=== PATIENT | female | born 1965 | race Caucasian/White ===

== ENCOUNTER → 2017-06-29 12:08 | Outpatient (CLI) | payer OTHER, SELFPAY ==
--- NOTE | 2017-06-29 12:15 | BI_ITS ---
MAMMOGRAPHY - BILATERAL SCREENING REASON FOR EXAM: Female, 52 years old. Routine annual screening examination. PERTINENT HISTORY: Personal history of breast cancer. Prior left lumpectomy with radiation and chemotherapy. Sister with breast cancer. Frontal with breast cancer. TECHNIQUE: Digital bilateral breast danis (3D mammographic acquisition) in the CC and MLO projections. 2-D mediolateral oblique (MLO) and craniocaudad (CC) views of both breasts were obtained. CAD: Full Field Digital Mammography with Computer Added Detection was performed. COMPARISON: Comparison is made with prior examination dated June 23, 2016 and June 21, 2015. FINDINGS: Breast Composition: There are scattered areas of fibroglandular density. There are no dominant masses or suspicious calcifications. Once again, the patient is status post left lumpectomy with resultant architectural distortion in the deep upper outer aspect of the left breast. There is evidence of overlying skin thickening. This is unchanged. Stable appearance of the axillary lymph nodes bilaterally. No other significant abnormalities are identified. There has been no significant change since the prior study. BI/SCREENING MAMM (CAD), BILAT IMPRESSION: Stable bilateral screening mammogram. Yearly follow-up mammogram recommended. (A) ASSESSMENT CATEGORY: BIRADS Category 2: Benign. A letter regarding these results will be sent to the patient by the facility within 30 days. Approximately 10% of breast cancers are not detected by mammography. A normal mammogram should not delay biopsy of a clinically suspicious abnormality. [id number] Electronically Signed: Taco Edge MD at 14:21 EDT Tel [phone], Service support ,
== END ==
PROVIDERS: Family Provider Nurse Practitioner Family; PCP Nurse Practitioner Family; Visit Provider Internal Medicine Hematology & Oncology
DX: Z12.31 Encounter for screening mammogram for malignant neoplasm of breast (principal); Z85.3 Personal history of malignant neoplasm of breast
CPT/HCPCS: 77063; 77067

== ENCOUNTER → 2017-11-24 09:57 | Outpatient (CLI) | payer OTHER, SELFPAY ==
--- NOTE | 2017-11-24 10:00 | CT_ITS ---
STUDY: LOW DOSE CT LUNG CANCER SCREENING REASON FOR EXAM: Female, 52 years old. 39 pack-year history of smoking. History of breast cancer with lumpectomy and radiation and chemotherapy. RADIATION DOSAGE (If Supplied By Facility): CTDIvol = ( 2.01 ) mGy, DLP = ( 65.45 ) mGycm TECHNIQUE: No contrast was administered. Low dose technique was utilized (average mAS-38 and kVp 120). 1.25 mm axial source images with a slice interval of 1.25-mm were reconstructed in lung windows. 2.5 mm axial source images with a slice interval of 2.5-mm were reconstructed in lung windows. 5.0 mm axial source images with a slice interval of 5.0-mm were reconstructed in soft tissue windows. Nodule measured using lung windows on PACS and/or independent workstation with automated measurement of minimum and maximum diameter. Nodule measurement reported as average diameter rounded to the nearest whole number. Growth is defined as an increase ins size of greater than 1.5 mm. COMPARISON: Comparison is made with prior CT scan of the chest dated April 02, 2009. NODULES: There is a 7.6 mm x 5 mm nodule in the anterior aspect of the right upper lobe as seen on axial image #120. This has increased slightly in size as compared to prior examination where it previously measured 6.7 mm. I suspect tiny calcifications along its posterior aspect. Total lung nodules (excluding granulomas): Emphysema: There is evidence of a emphysematous changes in the upper lobes. This is worse on the left side. Multiple subpleural blebs are seen in the anterior aspect of the left upper lobe as well as the lingular segment of the left upper lobe. Stable 4 mm partially calcified nodule in the lateral peripheral aspect of the superior segment of the right lower lobe as seen on axial image #138. The patient has a history of radiation therapy to the left breast. There are increased markings with areas of bronchiectasis in the anterior aspect of the left upper lobe as well as the lingular segment of the left upper lobe suggestive of post radiation pneumonitis and scarring. This has improved slightly as compared to prior study. There now is evidence of a mild degree of groundglass appearance in both upper lobes and lower lobes. This is nonspecific. Aorta: Unremarkable. Coronary arteries: No calcification is seen. Mediastinal nodes: No significant lymph nodes are present. Other chest and abdominal findings: CT/Low Dose CT Lung Screening IMPRESSION: Lung-RADS category 3 - Continue screening with LDCT in 6 months. IMPORTANT NOTES FOR USE: ACR Lung-RADS Version 1.0 Assessment Categories Release Date: July 11, 2013 Category: Coded 0-4 bases on nodule(s) with highest degree of suspicion. Negative screen is defined as categories 1 and 2; a positive screen is defined as categories 3 and 4. Category 3 and 4A nodules that are unchanged on interval CT should be coded as category 2, and individuals returned to screening in 12 months. Category 4X: Category 3 or 4 nodules with additional imaging findings that increase the suspicion of lung cancer, such as spiculation, GGN that doubles in size in 1 year, enlarged lymph notes, etc. Category Modifiers: S (significant finding unrelated to lung cancer) and C (prior history of treated lung cancer) may be added to the 0-4 Lung-RADS Electronically Signed: Taco Edge MD at 14:49 EDT Tel [phone], Service support ,
== END ==
PROVIDERS: Family Provider Family Medicine; PCP Family Medicine; Visit Provider Internal Medicine Hematology & Oncology
DX: F17.200 Nicotine dependence, unspecified, uncomplicated (principal); Z12.2 Encounter for screening for malignant neoplasm of respiratory organs; Z87.891 Personal history of nicotine dependence; C50.912 Malignant neoplasm of unspecified site of left female breast; D69.3 Immune thrombocytopenic purpura
CPT/HCPCS: G0297

== ENCOUNTER 2017-12-28 08:36 | Day surgery (SDC) | payer OTHER, SELFPAY ==
[2017-12-17 12:52] LABS: Hematocrit 43.6 % (37-47); Hemoglobin 15.1 g/dl (12.0-15.0); Mean Corp Hgb Conc 34.6 g/gl (32-36); Mean Corpuscular Hgb 30.6 pg (27.0-32.0); Mean Corpuscular Volume 88.4 fL (81-99); Platelet Count 179 K/mm3 (150-450); RBC Distribution Width CV 14.1 % (11.6-14.6); RBC Distribution Width SD 45.9 fl (35.1-43.9); Red Blood Count 4.93 M/mm3 (4.2-5.4); White Blood Count 10.8 K/mm3 (4.4-11.0)
[2017-12-17 12:54] LABS: Scan Indicated on CBC? Y/N NO
[2017-12-17 13:19] LABS: International Normalized Ratio 0.9; Partial Thromboplast Time 27.3 Seconds (24.1-36.2); Prothrombin Time (Protime)PT. 11.9 SECONDS (11.7-14.9)
[2017-12-17 13:21] LABS: ALB/GLOB Ratio 0.8 RATIO (0.9-2.4); AST(SGOT) 19 U/L (15-37); Alanine Aminotransfer ALT/SGPT 34 U/L (13-56); Albumin, Serum 3.6 g/dL (3.2-5.0); Alkaline Phosphatase 85 U/L (45-117); Anion Gap 7 (5-15); BUN 13 mg/dL (7-18); BUN/Creat Ratio 16.6 RATIO (10-20); Calcium,Total 9.8 mg/dL (8.5-10.1); Chloride 104 mmol/L (98-107); Creatinine, Serum 0.78 mg/dL (0.55-1.02); EST Glomerular Filtration Rate 82 mL/min (>60); Est Glom Filt Rate - Afr Amer 100 mL/min (>60); Globulin 4.6 g/dL (2.2-4.2); Glucose 84 mg/dL (74-106); Potassium 4.2 mmol/L (3.5-5.1); Protein, Total 8.2 g/dL (6.4-8.2); Sodium Level 139 mmol/L (136-145)
--- NOTE | 2017-12-26 10:09 | HP.PCM_ITS ---
History and Physical Date of Admission: 12/28/17 Surgical History and Physical Michelle Cain, a 52 year old female 0 2 6 0 2, presents for D and C and hysteroscopy on December 28, 2017 at 11;30. -- [employer] Bleeding, EM Polyps -- [employer] bleeding and EM polyps noted on u/s. Plan D and C and H/S. Hx if BSO in past as has breast cancer. MEDICATIONS HISTORY: Current medications prescribed by our practice are: 1. Provera 5 mg tablet, One pill by mouth once a day for 12 days every 3 months 2. Vagifem 10 mcg vaginal tablet, 1 tablet per Vagina twice weekly Patient is also takin. cyclobenzaprine 10 mg tablet, One pill by mouth once a day as needed 2. meclizine 25 mg tablet, One pill by mouth four times a day as needed 3. simvastatin 20 mg tablet, daily 4. Celexa 10 mg tablet, One and a half pill by mouth once a day ALLERGIES: PREDNISONE, High dose/rash, Prednisone and Hives and/or rash Infections - chicken pox as a child, frequent yeast infections and staph infection Illnesses - osteoporosis, pulmonary disease, thrombocytopenia, ITP and BREAST CANCER Accidents - no injuries of consequence Hospitalizations - see surgery Review of Systems: GENERAL - Denies fever, or chills SKIN - Denies skin changes EYES - Denies visual changes EARS - Denies difficulty hearing NOSE - Denies nasal congestion or bleeding MOUTH - Denies sore throat or difficulty swallowing NECK - Denies pain or swelling RESPIRATORY - Denies shortness of breath or wheezing CARDIOVASCULAR - Denies palpitations or chest pain GASTROINTESTINAL - Denies nausea, vomiting, diarrhea, constipation GENITOURINARY - Denies dysuria, frequency of urination, incontinence of urine MUSCULOSKELETAL - Denies joint or muscle pain NEUROLOGICAL - Denies localized numbness or weakness PSYCHIATRIC - Denies depression or anxiety ENDOCRINE - Denies heat or cold intolerance, weight loss or gain HEMATO-IMMUNOLOGIC - Denies excesive bleeding with cuts SOCIAL HISTORY: Alcohol Use - denies drinking Smoking - 1 PPD ( ATQ) Diet - no particular diet Lifestyle - Exercise - walking Seat Belt Use - most of the time Employer - [employer] Illicit Drug Use - denies use of street drugs Sexual Activity - single sexual partner and Residence - lives with Spouse-Sig Other Name - Baltazar Spouse-Sig Other Occupation - [employer] in [employer] Children Name(s) - Joseph(biological), Romel(adopted), Leonard(adopted), Zabrina(adopted), Anna gordon(biological) Control - no ovaries FAMILY HISTORY: Mother: NIDDM, throat cancer and Heart Disease. Father: [place] , throat cancer and lung cancer and ? liver c. Brother: diceased, gum cancer, prostate, colon cancer and Lung cancer. Sister: breast cancer, cancer through out body, heart attack , x 2 with NIDDM and DM II. MENSTRUAL HISTORY: LMP Known?- Postmenopausal, Prior Menses - 10/18/2004, LMP - 01/14/09, Age Onset Menarche - 13 PAST PREGNANCIES: Total Pregnancies - 8; Full Term Pregnancies - 0; Premature - 2; Abortions, Induced - 0; Abortions, Spontaneous - 6; Ectopics - 0; Multiple Births - 0; Living Children - 2 SURGICAL HISTORY: 1. 10/06/1987 ; Dr Kameron Gonzalez - Failure to progress 2. , 2006 ; - 3. breast bx, breast, 2007 ; - 4. lymph nodes removed left side 2007 ; - 5. lumps removed from forehead and forearm 11/2010 ; - 6. lumps removed from forehead and forearm 11/2010 ; - 7. BSO ; - PHYSICAL EXAM BP- 144/72 Sitting, Right arm, regular cuff Weight- 163.40913 lbs Height- 63.5 inch BMI:28.48 CONSTITUTIONAL - NAD, well nourished, and well developed SKIN - No rash, lesions, or ulcers HEENT - Normocephalic, PERRLA, EOMI NECK - No nodes, no nuchal rigidity and thyroid normal size and texture LYMPH NODES - Palpation of lymph nodes in neck and groins within normal limits LUNGS - CTA x2 without wheezes, crackles or rales CARDIAC - Regular rate and rhythm without rubs, murmurs, or gallops BREAST - No dominant masses, no tenderness, no axillary adenopathy, no nipple discharge, no skin changes ABDOMEN - Without hepatosplenomegaly, distention, masses, rebound, or guarding; normal bowel sounds; no hernias EXTREMITIES - No edema or calf tenderness NEUROLOGICAL - Cranial nerves II-XII grossly intact PSYCHIATRIC - A and O to time, place, person, mood and affect External Genitial Vagina - non-tender without lesions and erythematous Urethra/Urethral Meatus - non-tender Bladder - non-tender Vagina - vaginal najera are pink and moist without loss of rugae and no evidence of atropy Cervix - without cervical motion tenderness and has normal size and features without evident lesions Uterus - probable supracervical hysterectomy Adnexa - clear without massess or tenderness ASSESSMENT/PLAN: Postmenopausal Bleeding In pt with no ovaries. Pelvic u/s shows small polyp present. Plan D and C and H/S. Discussed RBAs and all questions answered.
--- NOTE | 2017-12-28 | CER_PTH ---
PATIENT: JANA MCCLAIN LOC: [facility] [place] U#:[id number] AGE/SX: 52/F ROOM: RE12/28/[address]: Dr. Anderson Hare MD : 1965 BED: DIS: 12/28/2017 SPEC #: [id number] RECD: 12/28/17 14:26 STATUS: ROSEY RANJAN #: [id number] LEANNE: 12/28/17 00:[address]: Anderson Hare DEPT: SURGICAL PATHOLOGY RECD BY: Galileo Merino ENTERED: 12/28/17 14:26 SP TYPE: CERV OTHR DR: No Primary Care Phys Tissues: A - Uterine cervix, NOS B - Endometrium, NOS Procedures: Surgery Specimen Level IV HEADER OPERATION: Hysteroscopy, dilation and curettage PRE-OP DIAGNOSIS: Postmenopausal bleeding TISSUE SUBMITTED: A - Endocervical curettings, B - Endometrial curettings MICROSCOPIC DIAGNOSIS A. Endocervix, curettings: Scant strips of benign superficial endocervix. Rare fragments of benign superficial squamous epithelium. B. Endometrium, curettings: Fragments of benign squamous mucosa. Rare strips of benign glandular epithelium. Benign stromal tissue. AM:tiffany 12/29/17 COMMENT Case has been reviewed in consultation with Dr. Jimenez who concurs with the above diagnosis. BAILEY:RODERICK MICROSCOPIC DESCRIPTION Slides are reviewed. GROSS DESCRIPTION A - Received in fixative is one container labeled with the patient's name and designated endocervical curettings. The specimen consists of multiple irregular fragments of kramer mucoid tissue that in aggregate measure 0.5 x 0.5 x 0.1 cm. The specimen is totally submitted in one cassette. B - Received in fixative is one container labeled with the patient's name and designated endometrial curettings. The specimen consists of multiple fragments of pink hemorrhagic soft tissue that in aggregate measure 1.5 x 0.5 x 0.1 cm. The specimen is totally submitted in one cassette. / RODERICK:tiffany 12/28/17 TC:5 CPT: 95994 x2
[2017-12-28 08:58] VITALS: BP 128/71; PULSE 80; RESP 16; TEMP 37.2; O2SAT 93; BMI 31.5
--- NOTE | 2017-12-28 09:45 | PCM.OP.BLANK ---
Operative Report Date of Procedure: 12/28/17 Surgeon: Anderson Hare MD, FACOG Anesthesia: Joseph Wise MD Type of Anesthesia: MAC Pre-Op Diagnosis: Postmenopausal Bleeding Postoperative diagnosis: Postmenopausal Bleeding and Endocervical Polyps Procedure: Diagnostic Hysteroscopy, Fractional Dilation and Curettage Findings: 6 cm atrophic endometrial cavity with no polyps or fibroids visualized. 0.25 x 1 cm posterior endocervical polyp. Approximately 1 cm fibroid noted with endocervical curetting but not visualized. Cervix high in vagina which would make LAVH technically not feasible but RAVH would be technically feasible. Indications: This is a 52 year old patient who has the above diagnosis. The patient has been counseled regarding the risk and indications of this procedure including the possibility of bleeding, infection, and injury to surrounding structures such as bowel bladder. All questions were answered and we consider the patient well-informed. Procedure: The patient was taken to the operating room where after induction of general anesthesia, she was placed in the dorsolithotomy position and prepped and draped in the usual sterile fashion. The bladder was drained of approximately 50 cc of clear yellow urine with a catheter. Anterior cervix was grasped with the tenaculum and dilated to about 4-5 mm. Cervical curettings were obtained. A 3 mm hysteroscope was placed in the uterus of the above findings were noted. Cervix was dilated to about 7-8 mm and uterus was gently curetted removing all contents. Hysteroscope was reinserted and all material was noted to be removed. In the course of the procedure approximately 100 cc of saline distending media was used and virtually all of this was recovered. Patient tolerated procedure well was taken to recovery room in satisfactory condition sponge instrument and needle counts were all reportedly correct. Estimated blood loss for the case was minimal. Specimens to pathology was endometrial and endocervical curettings Complications: None
--- NOTE | 2017-12-28 09:48 | DCINST_ITS ---
Discharge Diet: No Restrictions Discharge Activity: Return to Normal Activity, May Shower, May Take a Tub Bath Call your doctor if you observe: Fever of 101 or Higher, Inability to urinate, Inability to have a bowel movement, Using more than one pad per hour Allergies/Adverse Reactions: Allergies sulfamethoxazole [From Bactrim] Adverse Reaction (Verified 12/21/17 14:18) Unknown does not remember trimethoprim [From Bactrim] Adverse Reaction (Verified 12/21/17 14:18) Unknown does not remember Medications to take at Discharge Citalopram [Celexa] 15 mg PO DAILY 06/12/16 Cyclobenzaprine [Flexeril] 10 mg PO DAILY PRN 06/12/16 Estradiol [Vagifem] 10 mcg VG SUTH 06/12/16 Meclizine HCl 25 mg PO DAILY PRN 06/12/16 Omeprazole [Prilosec] 20 mg PO DAILY 06/12/16 Simvastatin [Zocor] 20 mg PO DAILY 11/05/16 Primary Care Physician: Care Physician,No Primary [Primary Care Provider] - Test Results: Test results from this visit will be discussed in further detail at your follow- up appointment, if applicable. Please Follow Up With: Anderson Hare MD When: 2-3 weeks
[2017-12-28 10:50] VITALS: BP 128/71; BP 88/68; PULSE 72; RESP 16; TEMP 36.3; O2SAT 93
[2017-12-28 10:55] VITALS: BP 100/63; BP 128/71; PULSE 72; RESP 16; O2SAT 94
[2017-12-28 11:00] VITALS: BP 128/71; BP 95/61; PULSE 70; RESP 16; O2SAT 94
[2017-12-28 11:10] VITALS: BP 107/72; BP 128/71; PULSE 71; RESP 16; TEMP 36.2; O2SAT 96
[2017-12-28 11:33] VITALS: BP 128/71
== END 2017-12-28 11:56 | disposition home or self-care (01) ==
LOC: SDC 08:36 → AC 08:37
PROVIDERS: Referring Provider Obstetrics & Gynecology; Visit Provider Obstetrics & Gynecology
PROC: 0UDB8ZZ Extraction of Endometrium, Via Natural or Artificial Opening Endoscopic (ICD-10-PCS; CPT 58558; principal; 2017-12-28 09:50)
DX: N95.0 Postmenopausal bleeding (principal); D69.3 Immune thrombocytopenic purpura; E78.00 Pure hypercholesterolemia, unspecified; F41.9 Anxiety disorder, unspecified; F32.9 Major depressive disorder, single episode, unspecified; F17.200 Nicotine dependence, unspecified, uncomplicated; Z85.3 Personal history of malignant neoplasm of breast; Z79.899 Other long term (current) drug therapy
CPT/HCPCS: 58558; 36415; 80053; 85027; 85610; 85730; 86850; 86900; 88305; J7120; J2405

== ENCOUNTER → 2018-02-22 13:06 | Outpatient (CLI) | payer OTHER, SELFPAY ==
--- NOTE | 2018-02-22 13:09 | CT_ITS ---
STUDY: LOW DOSE CT LUNG CANCER SCREENING REASON FOR EXAM: Female, 52 years old. 30 pack-year smoking history. History of left breast cancer with lumpectomy. RADIATION DOSAGE (If Supplied By Facility): CTDIvol = ( 3.02 ) mGy, DLP = ( 106.08 ) mGycm TECHNIQUE: No contrast was administered. Low dose technique was utilized (average mAS-38 and kVp 120). 1.25 mm axial source images with a slice interval of 1.25-mm were reconstructed in lung windows. 2.5 mm axial source images with a slice interval of 2.5-mm were reconstructed in lung windows. 5.0 mm axial source images with a slice interval of 5.0-mm were reconstructed in soft tissue windows. Nodule measured using lung windows on PACS and/or independent workstation with automated measurement of minimum and maximum diameter. Nodule measurement reported as average diameter rounded to the nearest whole number. Growth is defined as an increase ins size of greater than 1.5 mm. COMPARISON: November 24, 2017. NODULES: Nodule #: 1 Density: Solid Lung location: Right upper lobe: 1.6 cm from pleura Location in series: Series Number: 2 Image: 77 2 x 2 Size - D1 x D2 mm: mm: 2 mm average diameter Margin: Smooth Shape: Round Calcification: Yes Fat: No Temporal comparison: Stable Nodule #: 2 Density: Solid Lung location: Right upper lobe: 0.7 cm from pleura Location in series: Series Number: 2 Image: 129 Size - D1 x D2 mm: 7 x 6 mm: 7 mm average diameter Margin: Smooth Shape: Triangular Calcification: No Fat: No Temporal comparison: Stable Total lung nodules (excluding granulomas): 1 Emphysema: There are diffuse emphysematous changes of the lungs with vague patchy groundglass densities in the upper lobes. Multiple subpleural blebs in the lingula with pleural thickening. Endobronchial lesion: No Aorta: Minimal atherosclerotic changes of the thoracic aorta without aneurysm. Coronary arteries: Normal Heart: Normal Pulmonary artery: Normal Mediastinal nodes: There are multiple subcentimeter mediastinal lymph nodes which appear unchanged. Other chest and abdominal findings: There are degenerative changes of the thoracic spine. CT/Low Dose CT Lung Screening IMPRESSION: 1. Stable findings when compared with study of November 24, 2017. Lung-RADS category 2 - Continue annual screening with LDCT in 12 months. IMPORTANT NOTES FOR USE: ACR Lung-RADS Version 1.0 Assessment Categories Release Date: July 11, 2013 Category: Coded 0-4 bases on nodule(s) with highest degree of suspicion. Negative screen is defined as categories 1 and 2; a positive screen is defined as categories 3 and 4. Category 3 and 4A nodules that are unchanged on interval CT should be coded as category 2, and individuals returned to screening in 12 months. Category 4X: Category 3 or 4 nodules with additional imaging findings that increase the suspicion of lung cancer, such as spiculation, GGN that doubles in size in 1 year, enlarged lymph notes, etc. Category Modifiers: S (significant finding unrelated to lung cancer) and C (prior history of treated lung cancer) may be added to the 0-4 Lung-RADS Electronically Signed: Tom Dahl DO at 20:21 EST Tel [phone], Service support ,
== END ==
PROVIDERS: Family Provider Family Medicine; PCP Family Medicine; Referring Provider Internal Medicine Hematology & Oncology; Visit Provider Internal Medicine Hematology & Oncology
DX: F17.200 Nicotine dependence, unspecified, uncomplicated (principal); C50.912 Malignant neoplasm of unspecified site of left female breast; D69.3 Immune thrombocytopenic purpura; Z12.2 Encounter for screening for malignant neoplasm of respiratory organs
CPT/HCPCS: G0297

== ENCOUNTER → 2018-08-16 | Outpatient (CLI) | payer OTHER, SELFPAY ==
[2018-03-01 13:55] VITALS: BMI 28.2
[2018-08-16 08:33] LABS: Absolute Lymphocyte Count 4.54 X10^3/ul (0.83-4.51); Absolute Neutrophil Count 4.1 X10^3/uL (2.0-7.7); Basophil# 0.02 X10^3/uL; Basophil% 0.2 % (0-1); Eosinophils% 3.1 % (0-5); Hematocrit 43.7 % (37-47); Hemoglobin 14.9 g/dl (12.0-15.0); Lymphocyte # 4.54 X10^3/ul (4.0); Lymphocyte % 46.7 % (19-41); Mean Corp Hgb Conc 34.1 g/gl (32-36); Mean Corpuscular Hgb 30.8 pg (27.0-32.0); Mean Corpuscular Volume 90.3 fL (81-99); Mean Platelet Vol. 11.2 fl (6.2-12.0); Monocyte# 0.76 X10^3/uL; Monocyte% 7.8 % (0-10); Neutrophil # 4.09 X10^3/uL (2.7-7.7); Platelet Count 167 K/mm3 (150-450); RBC Distribution Width CV 13.9 % (11.6-14.6); RBC Distribution Width SD 45.8 fl (35.1-43.9); Red Blood Count 4.84 M/mm3 (4.2-5.4); White Blood Count 9.7 K/mm3 (4.4-11.0)
[2018-08-16 08:53] LABS: POSITIVE COUNT NO; POSITIVE DIFFERENTIAL NO; POSITIVE MORPHOLOGY NO
[2018-08-16 09:10] LABS: ALB/GLOB Ratio 0.8 RATIO (0.9-2.4); AST(SGOT) 20 U/L (15-37); Alanine Aminotransfer ALT/SGPT 38 U/L (13-56); Albumin, Serum 3.3 g/dL (3.2-5.0); Alkaline Phosphatase 82 U/L (45-117); Anion Gap 8 (5-15); BUN 16 mg/dL (7-18); BUN/Creat Ratio 20.5 RATIO (10-20); Chloride 106 mmol/L (98-107); Creatinine, Serum 0.78 mg/dL (0.55-1.02); EST Glomerular Filtration Rate 82 mL/min (>60); Est Glom Filt Rate - Afr Amer 100 mL/min (>60); Globulin 4.3 g/dL (2.2-4.2); Glucose 90 mg/dL (74-106); Potassium 4.1 mmol/L (3.5-5.1); Protein, Total 7.6 g/dL (6.4-8.2); Sodium Level 140 mmol/L (136-145)
--- NOTE | 2018-08-16 12:49 | CT_ITS ---
HISTORY: PT STATED F/U TO LUNG NODULE FINDINGS TECHNIQUE: Helically acquired images were obtained of the chest following the intravenous administration of 100 ml of Isovue 300 Iodinated contrast. as per pulmonary angiogram protocol with 2D MIP reconstructions. A radiation dose optimization technique was used for this scan. COMPARISON: Most recent low dose CT scan of the chest is from February 22, 2018. PET CT is also available from August 06, 2015. FINDINGS: # of images incl. paperwork: 550 Pulmonary hyperexpansion. Paraseptal emphysema. Within the inferior aspect of the right upper lobe, series 1004, image 56, as measured on lung windows, there is a 7 x 8 mm sharply marginated triangular pulmonary nodule. This was present on the PET/CT scan of August 06, 2015 where I measure it at that time at 8 x 8 mm. Is stability in size in over 3 years. Within the right lower lobe, series 1004, image 75, there is another pulmonary nodule. This nodule measures 5 x 6 mm. It may contain a tiny focus of calcification posteriorly. It was also present on the August 06, 2015 PET/CT. It is more conspicuous on today's study due to differences in imaging technique. On that previous study, it measured 4 x 6 mm. Additional comparison is made to February 22, 2018 study. The lesion within the inferior aspect of the right upper lobe and the right lower lobe nodules redemonstrated at size and are without change. The parenchymal destruction extending to the pleura anterior left laterally within the left upper lobe, the paraseptal emphysema, as well as the disease against the left lateral border of the heart in the left upper lobe and then again in the right lung apex are to a similar degree as severities the previous study of the 2017. . No effusions. Within the thoracic spinebony alignment is normal. Vertebral body height is normal. Facets are well aligned. No rib lesions are perceived. Heart is not enlarged. Thoracic aorta elongated with calcific plaque within the region of the aortopulmonary window and more cranially. Some calcific plaque is present at the origin of the left subclavian artery and is contributing to stenosis.. No aneurysms, stenoses, dissections, nor occlusions. Some lymph nodes are present within the mediastinum, perhaps greatest in the aortopulmonary window. Subcarinal lymph node is present as well. This disease was present on the most recent comparison study of February 22, 2018.. No pulmonary emboli are perceived, however, the study is nondiagnostic to exclude pulmonary emboli. The time the contrast bolus is more optimized for the pulmonary veins and the thoracic aorta than it is for the pulmonary arteries. The gallbladder is contracted. The liver is nearly completely imaged and fattily infiltrated. The spleen has been resected. The pancreas is normal. The adrenal glands are not thickened. Visualized portions of the kidneys are without hydronephrosis. The stomach contains some food. CT/Chest WITH Contrast IMPRESSION: No pulmonary embolism, aortic aneurysm, or aortic dissection. Negative predictive it to exclude pulmonary embolism is significantly diminished due to the timing of the contrast bolus which is more optimized for the pulmonary veins in the thoracic aorta than it is the pulmonary arteries. Pulmonary emphysema. Right upper lobe pulmonary nodule. This nodule was not significantly increased in size since the PET/CT of August 06, 2015. Stability of this nodule in over 3 years is consistent with benignity. Additional smaller 5 x 6 mm pulmonary nodule within the posterior inferior aspect of the right lower lobe. This nodule was also present on the PET/CT of August 06, 2015. Stability of the nodule in over 3 years suggests benignity. Individualized dose optimization techniques were used for this CT. at 2324 Reported and signed by: Vladislav Ray MD Electronically Signed: Vladislav Ray MD at 23:23 EDT Tel , Service support ,
== END | disposition home or self-care (01) ==
PROVIDERS: Family Provider Family Medicine; PCP Family Medicine; Referring Provider Internal Medicine Hematology & Oncology; Visit Provider Internal Medicine Hematology & Oncology
DX: R91.8 Other nonspecific abnormal finding of lung field (principal); C50.912 Malignant neoplasm of unspecified site of left female breast
CPT/HCPCS: 36415; 71260; 80053; 85025; Q9967

== ENCOUNTER → 2018-09-08 | Outpatient (CLI) | payer OTHER, SELFPAY ==
[2018-08-23 12:59] VITALS: BMI 27.8
--- NOTE | 2018-09-08 12:04 | BI_ITS ---
MAMMOGRAPHY - BILATERAL SCREENING 3-D TOMOSYNTHESIS REASON FOR EXAM: Female, 53 years old. Bilateral Screening 3-D tomosynthesis PERTINENT HISTORY: History of breast cancer in sister at age 40. History of left lumpectomy with radiation therapy and chemotherapy in 2008. Now taking tamoxifen. TECHNIQUE: 2-D mammograms and 3-D Tomosynthesis of the breast (s) were performed. CAD was performed. COMPARISON: June 29, 2017 FINDINGS: The breast composition is almost entirely fat. Scattered benign calcifications are seen. No dense spiculated masses or suspicious microcalcifications are identified. No architectural distortion is identified. There is no skin thickening or retraction. There has been no significant change since the prior study. BI/SCREEN MAMM (CAD) W/EUGENE BILAT IMPRESSION: No mammographic signs of malignancy. Routine yearly mammograms recommended. ASSESSMENT CATEGORY: BIRADS Category 2: Benign. A letter regarding these results will be sent to the patient by the facility within 30 days. FOLLOW UP RECOMMENDATION: Yearly follow up mammogram recommended. (A) Approximately 10% of breast cancers are not detected by mammography. A normal mammogram should not delay biopsy of a clinically suspicious abnormality. Electronically Signed: Tobias Yap MD at 12:01 EDT , Service support ,
== END | disposition home or self-care (01) ==
LOC: OPBI 12:02
PROVIDERS: Referring Provider Internal Medicine Hematology & Oncology; Visit Provider Internal Medicine Hematology & Oncology
DX: C50.912 Malignant neoplasm of unspecified site of left female breast (principal); Z12.31 Encounter for screening mammogram for malignant neoplasm of breast
CPT/HCPCS: 77063; 77067

== ENCOUNTER → 2018-12-06 | Outpatient (CLI) | payer OTHER, SELFPAY ==
[2018-08-23 12:59] VITALS: BMI 27.8
--- NOTE | 2018-12-06 16:15 | RAD_ITS ---
STUDY: X-RAY - LUMBAR SPINE REASON FOR EXAM: Female, 53 years old. Low back pain and bilateral leg tingling TECHNIQUE: 3 view(s) of the lumbar spine were obtained. COMPARISON: None FINDINGS: Normal lumbar lordosis. There is no substantial scoliosis. There is a normal alignment of the vertebrae. Normal vertebral bodies and endplates. Normal disc space heights. There are expected age-related degenerative changes at the L5-S1. The soft tissue structures are unremarkable. RAD/Lumbar Spine 2 or 3 Views IMPRESSION: Unremarkable age-appropriate x-ray examination of the lumbar spine. Electronically Signed: Tashi Patel, at 18:15 EDT Tel , Service support ,
== END | disposition home or self-care (01) ==
LOC: RAD 16:01
PROVIDERS: Family Provider Family Medicine; PCP Family Medicine; Referring Provider Anesthesiology Pain Medicine; Visit Provider Anesthesiology Pain Medicine
DX: M54.5 Low back pain (principal)
CPT/HCPCS: 72100

== ENCOUNTER → 2019-01-25 | Outpatient (CLI) | payer OTHER, SELFPAY ==
[2018-08-23 12:59] VITALS: BMI 27.8
--- NOTE | 2019-01-25 15:42 | MRI_ITS ---
STUDY: MRI LUMBAR SPINE WITHOUT CONTRAST REASON FOR EXAM: Female, 53 years old. Back pain TECHNIQUE: Standardized fat and water weighted pulse sequences were obtained in the sagittal and axial planes. COMPARISON: None FINDINGS: T12-L1: Normal endplates. Normal disc height, hydration and morphology. Normal bilateral facet joints. Normal central canal and bilateral lateral recesses. Normal bilateral intervertebral neural foramina. Normal lumbar lordosis. There is no substantial scoliosis. Normal conus medullaris that terminates at the L1 level. L1-2: Normal endplates. Normal disc height, hydration and morphology. Normal bilateral facet joints. Normal central canal and bilateral lateral recesses. Normal bilateral intervertebral neural foramina. L2-3: Normal endplates. Normal disc height, hydration and morphology. Normal bilateral facet joints. Normal central canal and bilateral lateral recesses. Normal bilateral intervertebral neural foramina. L3-4: Bulging annulus and bilateral facet hypertrophy with mild central canal stenosis. L4-5: Bulging annulus and bilateral facet hypertrophy with mild central canal stenosis. L5-S1: Bulging annulus without compressive sequelae. Normal visualized sacral ala. Normal visualized paraspinous soft tissue structures. MRI/Spine Lumbar (Routine) IMPRESSION: Multilevel degenerative disease as described. No evidence of nerve root impingement. Electronically Signed: Evangelista Vargas MD at 17:32 EST Tel , Service support ,
== END | disposition home or self-care (01) ==
LOC: MRI 15:33
PROVIDERS: Family Provider Family Medicine; PCP Family Medicine; Referring Provider Anesthesiology Pain Medicine; Visit Provider Anesthesiology Pain Medicine
DX: M54.9 Dorsalgia, unspecified (principal); M79.606 Pain in leg, unspecified
CPT/HCPCS: 72148

== ENCOUNTER → 2019-05-25 16:54 | Outpatient (CLI) | payer OTHER, SELFPAY ==
[2018-08-23 12:59] VITALS: BMI 27.8
--- NOTE | 2019-05-25 16:59 | RAD_ITS ---
STUDY: X-RAY - LUMBAR SPINE REASON FOR EXAM: Female, 54 years old. NO KNOWN RECENT INJURY. PAIN IN LOWER BACK DOWN LEGS WITH TINGLING AND NUMBNESS. HAS HAD PAIN FOR AWHILE NOW JUST GETTING WORSE. TECHNIQUE: 3 view(s) of the lumbar spine were obtained. COMPARISON: 25 January 2019 FINDINGS: Normal lumbar lordosis. There is no substantial scoliosis. There is a normal alignment of the vertebrae. Normal vertebral bodies and endplates. Normal disc space heights. The soft tissue structures are unremarkable. RAD/Lumbar Spine 2 or 3 Views IMPRESSION: Normal x-ray examination of the lumbar spine. Electronically Signed: Tashi Patel, at 17:46 EDT Tel , Service support ,
--- NOTE | 2019-05-25 17:00 | RAD_ITS ---
STUDY: X-RAY - CERVICAL SPINE REASON FOR EXAM: Female, 54 years old. PAIN IN NECK FOR SOMETIME NOW GETTING WORSE. NO KNOWN INJURY. TECHNIQUE: 3 view(s) of the cervical spine were obtained. COMPARISON: None FINDINGS: Normal anterior atlantoaxial articulation. Normal odontoid process. There are minor age related changes. Normal cervical lordosis. Normal vertebral bodies and endplates. Normal disc space heights. Normal visualized intervertebral neuroforamina. The soft tissue structures are unremarkable. RAD/Cerv Spine 2 or 3 Views IMPRESSION: Unremarkable for age x-ray examination of the visualized cervical spine. Electronically Signed: Tashi Patel, at 17:36 EDT Tel , Service support ,
== END ==
PROVIDERS: PCP Family Medicine; Referring Provider Anesthesiology Pain Medicine; Visit Provider Anesthesiology Pain Medicine
DX: M54.9 Dorsalgia, unspecified (principal)
CPT/HCPCS: 72040; 72100

== ENCOUNTER → 2019-11-22 12:51 | Outpatient (CLI) | payer OTHER, SELFPAY ==
[2018-08-23 12:59] VITALS: BMI 27.8
--- NOTE | 2019-11-22 12:54 | BI_ITS ---
MAMMOGRAPHY - BILATERAL SCREENING REASON FOR EXAM: Female, 54 years old. Routine annual screening examination. PERTINENT HISTORY: Personal history of breast cancer. Prior left lumpectomy with radiation and chemotherapy. Sister with breast cancer. Father with breast cancer. TECHNIQUE: Digital bilateral breast eugene (3D mammographic acquisition) in the CC and MLO projections. 2-D mediolateral oblique (MLO) and craniocaudad (CC) views of both breasts were obtained. CAD: Full Field Digital Mammography with Computer Added Detection was performed. COMPARISON: Comparison is made with prior study dated 09/08/2018 and 06/29/2017. FINDINGS: Breast Composition: The breasts are heterogeneously dense, which may obscure small masses. There are no dominant masses or suspicious calcifications. Stable postoperative changes in the deep axillary region of the left breast. Stable benign appearing bilateral axillary lymph nodes. No other significant abnormalities are identified. There has been no significant change since the prior study. BI/SCREEN MAMM (CAD) W/EUGENE BILAT IMPRESSION: Stable bilateral screening mammogram. Yearly follow-up mammogram recommended. (A) ASSESSMENT CATEGORY: BIRADS Category 2: Benign. A letter regarding these results will be sent to the patient by the facility within 30 days. Approximately 10% of breast cancers are not detected by mammography. A normal mammogram should not delay biopsy of a clinically suspicious abnormality. [id number] Electronically Signed: [employer], at 8:17 EDT , Service support ,
[2019-11-22 13:47] LABS: Absolute Lymphocyte Count 5.04 X10^3/uL (0.83-4.51); Absolute Neutrophil Count 4.4 X10^3/uL (2.0-7.7); Basophil# 0.04 X10^3/uL; Basophil% 0.4 % (0-1); Eosinophil# 0.29 X10^3/uL; Eosinophils% 2.7 % (0-5); Hematocrit 43.7 % (37-47); Hemoglobin 14.3 g/dL (12.0-15.0); Lymphocyte # 5.04 X10^3/ul (4.0); Lymphocyte % 47.7 % (19-41); Mean Corp Hgb Conc 32.7 g/dL (32-36); Mean Corpuscular Hgb 30.6 pg (27.0-32.0); Mean Corpuscular Volume 93.4 fL (81-99); Mean Platelet Vol. 11.1 fl (6.2-12.0); Monocyte# 0.74 X10^3/uL; NRBC Flagged by Analyzer 0 % (0-5); Neutrophil % 41.7 % (47-70); POSITIVE DIFFERENTIAL YES; Platelet Count 193 K/mm3 (150-450); RBC Distribution Width CV 13.8 % (11.6-14.6); RBC Distribution Width SD 46.9 fl (35.1-43.9); Red Blood Count 4.68 M/mm3 (4.2-5.4); White Blood Count 10.6 K/mm3 (4.4-11.0)
[2019-11-22 14:03] LABS: Differential Indicated SCAN CRITERIA MET
[2019-11-22 20:58] LABS: Xtra Tube EP Lab EXTRA TUBE
== END ==
PROVIDERS: PCP Family Medicine; Referring Provider Internal Medicine Hematology & Oncology; Visit Provider Internal Medicine Hematology & Oncology
DX: Z12.31 Encounter for screening mammogram for malignant neoplasm of breast (principal); C50.912 Malignant neoplasm of unspecified site of left female breast; R91.8 Other nonspecific abnormal finding of lung field
CPT/HCPCS: 36415; 77063; 77067; 85025

== ENCOUNTER 2020-01-06 08:04 | Day surgery (SDC) | payer OTHER, SELFPAY ==
[2019-12-14 09:35] VITALS: BMI 27.8
[2020-01-06] VITALS (7 sets, daily range): BP systolic 74–100; BP diastolic 47–63; PULSE 77–87; RESP 16–24; TEMP 36.2–36.6; O2SAT 93–95; BMI 29.7
--- NOTE | 2020-01-06 | GASB_PTH ---
PATIENT: JANA MCCLAIN LOC: EN U#:[id number] AGE/SX: 54/F ROOM: RE01/06/[address]: Dr. Puma Lentz MD : 1965 BED: DIS: 01/06/2020 SPEC #: [id number] RECD: 01/06/20 11:41 STATUS: ROSEY RANJAN #: [id number] LEANNE: 01/06/20 00:[address]: Puma Lentz DEPT: SURGICAL PATHOLOGY RECD BY: Galileo Merino ENTERED: 01/06/20 11:41 SP TYPE: Gastric Bx OTHR DR: No Primary Care Phys Tissues: Gastric mucous membrane Procedures: Surgery Specimen Level IV HEADER OPERATION: [place] [place]OP DIAGNOSIS: GERD, colon polyps TISSUE SUBMITTED: Antral biopsy for H. pylori and pathology MICROSCOPIC DIAGNOSIS Gastric antrum, biopsy: Chronic gastritis, mild to moderate. See comment. AM:tiffany 01/09/20 COMMENT The results of immunohistochemistry for Helicobacter pylori will be reported separately ([id number]). MICROSCOPIC DESCRIPTION Slides are reviewed. GROSS DESCRIPTION Received in fixative is one container labeled with the patient's name and designated antral biopsy. The specimen consists of multiple irregular fragments of light kramer soft tissue that in aggregate measure 0.6 x 0.2 x 0.1 cm. The specimen is totally submitted in one cassette. / SJ:rg 01/06/20 TC:3 CPT: 55853
--- NOTE | 2020-01-06 08:23 | HP_ITS ---
Intake Vital Signs 12/14/19 Height 5 ft 5 in 12/14/19 Weight: 158 lb 12/14/19 BMI 26.2 12/14/19 BP 135/77 H 12/14/19 Blood Pressure Location Rt brachial 12/14/19 Position Sitting 12/14/19 Respiration 18 Intake Visit Reasons: CSCOPE/ ABDOMINAL PAIN Chief Complaint: scopes Silk Weaver Required: No Is patient in pain?: No Allergies prednisone Adverse Reaction (Severe, Verified 12/14/19 09:33) Hives sulfamethoxazole [From Bactrim] Adverse Reaction (Mild, Verified 12/14/19 09:33) Unknown trimethoprim [From Bactrim] Adverse Reaction (Mild, Verified 12/14/19 09:33) Unknown Medications Citalopram [Celexa] 15 mg PO DAILY 06/12/16 [History Confirmed 12/14/19] Estradiol [Vagifem] 10 mcg VG SUTH 06/12/16 [History Confirmed 12/14/19] Meclizine HCl 25 mg PO DAILY PRN 06/12/16 [History Confirmed 12/14/19] Omeprazole [Prilosec] 20 mg PO DAILY 06/12/16 [History Confirmed 12/14/19] cycloBENZAPRine HCl [Flexeril] 10 mg PO DAILY PRN 06/12/16 [History Confirmed 12/14/19] Simvastatin [Zocor] 20 mg PO DAILY 11/05/16 [History Confirmed 12/14/19] Meloxicam [Mobic] 15 mg PO DAILY 11/24/19 [History Confirmed 12/14/19] PFSH Medical History Anxiety and depression (Acute) Borderline diabetes (Acute) High cholesterol (Acute) Syncope (Acute) Surgical History History of dilation and curettage (Acute) History of hysterectomy (Acute) History of lumpectomy of left breast (Acute) History of splenectomy (Acute) Previous section (Acute) Family History Mother Diabetes Hypertension Father Lung cancer Hypertension Social History (Updated 12/15/19 @ 13:[address] Puma Lentz MD) Smoking Status: Current every day smoker HPI HPI HPI: JANA SARAHI, is a 54 F who presents to the office today for HPI HPI Surgical H&P: Yes HPI: JANA MCCLAIN, is a 54 F who presents to the office today for EGD and colonoscopy evaluation. Patient reports she is had longstanding GERD and no history of EGD. Patient also notes that she had a colonoscopy with a history of polyp. I obtained her records and her last colonoscopy was in 2012 a tubular adenoma was identified. Patient intermittently has abdominal pain with no nausea vomiting or diarrhea or blood in her stool. ROS General General: Yes breast cancer; no weight change, appetite, fatigue, colon cancer or weakness HEENT HEENT: Yes swollen glands; no difficulty swallowing, eye injury, eye surgery or hoarseness Endo Endocrine: No thyroid disease, diabetes mellitus, thyroid cancer, Hair loss, heat intolerance or cold intolerance Skin Skin: No rash or changing moles Breast Breast: No left breast lump, right breast lump, nipple discharge, breast pain, abnormal mammogram, abnormal US or breast enlargement Musc Musculoskeletal: Yes back problems and arthritis; no rheumatoid arthritis, gout or joint pain Cardio Cardiovascular: No murmur, pacemaker, heart disease, atrial fibrillation, high blood pressure, heart attack, heart stent, palpitations, shortness of breat with exertion or chest pain Psych Psychiatric: Yes depression and anxiety; no hearing voices Resp Respiratory: Yes shortness of breath, No sleep apnea, No cough, No COPD, No asthma, No emphysema, No wheezing Gastro Gastrointestinal: Yes abdominal pain, No nausea or vomiting, No diarrhea, No constipation, No blood in stool, No acid reflux, No hemorrhoids, No ulcers, No gallbladder problem, No black,tarry stools Koffi Hematologic: No blood thinners, Yes blood disorders, Yes bleeding, No anemia, No blood clots Neuro Neurologic: No system reviewed and no additional complaints, except as docu, No as per HPI, No abnormal walking, No abnormal hearing, No abnormal movements, No abnormal speech, No behavioral changes, No burning sensations, No confusion, No seizure-like activity, No unsteadiness, No dizziness, No localized weakness, No frequent falls, No headache(s), No lack of coordination, No loss of vision, No memory loss, Yes numbness, No other visual disturbances, No radiating pain, No restless legs, No sensory deficit, No fainting, Yes tingling, No tremor(s), No weakness, No other Exam Const General: cooperative Orientation: alert, oriented x3 Chest Breast Palpation: No nipple discharge Resp Effort & Inspection: normal respiratory effort Auscultation: clear to auscultation bilaterally Cardio Rate: regular rate Rhythm: regular rhythm Heart Sounds: no murmurs GI Inspection: non-distended Palpation: soft, nontender Assessment & Plan Problems 1. Gastroesophageal reflux disease, unspecified whether esophagitis present K21.9 2. History of colon polyps Z86.010 Plan Patient needs colonoscopy as her last colonoscopy was 7 years ago when she did have a tubular adenoma. She is 2 years overdue. She is not having any blood in her stool or abdominal pain. She does have longstanding GERD and has never had an EGD so I did recommend performing EGD at the same time of surgery to ensure that she does not have Gatica's esophagus. I explained endoscopy in detail to the patient. I explained the risks including but not limited to stroke or heart attack with anesthesia, perforation of the GI tract, bleeding, infection. I explained that any of these could necessitate further emergency surgery. The patient understands and all questions were answered sufficiently. The patient wishes to proceed with procedure. We discussed the current risks associated with COVID-19. While it is understood that there is a community spread of COVID-19, the risk of cira COVID-19 while at [facility] ([facility]) is very low; however, the risk cannot be completely mitigated because of the community spread of the disease. We discussed in detail the risk of exposure to and/or potential harm posed by the COVID-19 virus with having a surgery/procedure at this time versus the risk of delaying the surgery/procedure. It is not possible to know either the risk of delaying the surgery or procedure or chance of getting an infection with perfect accuracy, but a joint decision was made to proceed at this time with the scheduled surgery/procedure as indicated on the consent form. Patient was notified that we will need to comply with any screening or testing [facility] wishes to perform or that surgery may be delayed for any positive results. Puma Lentz MD Pager: [facility] [address] [place] [address], [address] [place] [address] Office: Orders Orders: Colonoscopy Today Z86.010 EGD Today K21.9 Coding Level of Care Code Off vis,new,level 3 Diagnoses Gastroesophageal reflux disease, unspecified whether esophagitis present K21.9 ??Esophagitis presence: esophagitis presence not specified History of colon polyps Z86.010 I have re-examined the patient. There are no clinical changes since date of exam.
[2020-01-06] MEDS: Lactated Ringers 1,000 ML 100 ML IV (08:34)
--- NOTE | 2020-01-06 09:15 | IMM_PTH ---
PATIENT: JANA MCCLAIN LOC: EN U#:[id number] AGE/SX: 54/F ROOM: RE01/06/[address]: Dr. Puma Lentz MD : 1965 BED: DIS: 01/06/2020 SPEC #: [id number] RECD: 01/06/20 13:40 STATUS: ROSEY REMartina #: [id number] LEANNE: 01/06/20 09:[address]: Puma Lentz DEPT: IMMUNOHISTOCHEMISTRY RECD BY: Simin Yost ENTERED: 01/06/20 13:40 SP TYPE: IMMUNO OTHR DR: No Primary Care Phys Tissues: Stomach, NOS Procedures: H Pylori (initial) PHYSICIAN & INSTITUTION [place] [id number] SPECIMEN INFORMATION: Tissue Source: Antral biopsy Clinical Info: GERD, colon polyps Specimen Number: [id number] CPT code: 07173 METHODOLOGY: Deparaffinized sections of prefer/formalin-fixed tissue or PAP/DQ stained slides are incubated with monoclonal/polyclonal antibodies/oligonucleotide probes. Localization is made via biotin free immunoperoxidase method. Appropriate controls are performed and reacted as expected. Results on target cell population are indicated in the following table: RESULTS: ANTIBODY / CLONE RESULT H Pylori (polyclonal) negative These tests were developed and their performance characteristics determined by [facility]. They may not have been cleared or approved by the U.S. Food and Drug Administration. The FDA has determined that such clearance or approval is not necessary. INTERPRETATION: Antral biopsy: Negative for Helicobacter pylori organisms. AM:tiffany 01/09/20
--- NOTE | 2020-01-06 09:36 | OP.EGD_ITS ---
Patient Name: Michelle Cain Procedure Date: 01/06/2020 9:06 AM Date of : 1965 Age: 54 Procedure: Upper GI endoscopy Indications: Suspected gastro-esophageal reflux disease Providers: Puma Lentz MD Referring MD: No Primary Care Physician Medicines: Monitored Anesthesia Care Patient Profile: This is a 54 year old female. Refer to note in patient chart for documentation of history and physical. Complications: No immediate complications. Estimated blood loss: Minimal. Procedure: Pre-Anesthesia Assessment: - Prior to the procedure, a History and Physical was performed, and patient medications and allergies were reviewed. The patient's tolerance of previous anesthesia was also reviewed. The risks and benefits of the procedure and the sedation options and risks were discussed with the patient. All questions were answered, and informed consent was obtained. Prior Anticoagulants: The patient has taken no previous anticoagulant or antiplatelet agents. After reviewing the risks and benefits, the patient was deemed in satisfactory condition to undergo the procedure. After obtaining informed consent, the endoscope was passed under direct vision. Throughout the procedure, the patient's blood pressure, pulse, and oxygen saturations were monitored continuously. The gastroscope was introduced through the mouth, and advanced to the third part of duodenum. The upper GI endoscopy was accomplished without difficulty. The patient tolerated the procedure well. Scope In: 9:13:51 AM Scope Out: 9:17:23 AM Total Procedure Duration Time 0 hours 3 minutes 32 seconds Findings: The esophagus was normal. One non-bleeding cratered gastric ulcer with no stigmata of bleeding was found at the pylorus. Biopsies were taken with a cold forceps for Helicobacter pylori testing. Diffuse mild inflammation was found in the first portion of the duodenum. Impression: - Normal esophagus. - Non-bleeding gastric ulcer with no stigmata of bleeding. Biopsied. - Duodenitis. Recommendation: - Await pathology results. - Discharge patient to home. - Resume previous diet. - Continue present medications. Procedure Code(s): --- Professional --- 45781, Esophagogastroduodenoscopy, flexible, transoral; with biopsy, single or multiple Diagnosis Code(s): --- Professional --- K25.9, Gastric ulcer, unspecified as acute or chronic, without hemorrhage or perforation K29.80, Duodenitis without bleeding CPT copyright 2017 [employer]. All rights reserved. The codes documented in this report are preliminary and upon sailor review may be revised to meet current compliance requirements. Puma Lentz MD 01/06/2020 9:36:38 AM This report has been signed electronically. Number of Addenda: 0 Note Initiated On: 01/06/2020 9:06 AM
--- NOTE | 2020-01-06 09:37 | OP.CCLET_ITS ---
01/06/2020 No Primary Care Physician Re : Upper GI endoscopy procedure for Michelle Cain Dear Care Physician This procedure was performed on Monday, January 06, 2020. My impressions and recommendations are as follows: Impressions : - Normal esophagus. - Non-bleeding gastric ulcer with no stigmata of bleeding. Biopsied. - Duodenitis. Recommendations : - Await pathology results. - Discharge patient to home. - Resume previous diet. - Continue present medications. My findings are described in the full procedure note, which is enclosed. If I can be of further assistance, please feel free to contact me at Doctor phone number(s): , Work: . Sincerely, Puma Lentz MD 01/06/2020 9:36:38 AM This report has been signed electronically.
--- NOTE | 2020-01-06 09:38 | OP.CCLET_ITS ---
01/06/2020 No Primary Care Physician Re : Colonoscopy procedure for Michelle Cain Dear Care Physician This procedure was performed on Monday, January 06, 2020. My impressions and recommendations are as follows: Impressions : - The entire examined colon is normal on direct and retroflexion views. - No specimens collected. Recommendations : - Discharge patient to home. - Resume previous diet. - Continue present medications. - Repeat colonoscopy in 10 years for screening purposes. My findings are described in the full procedure note, which is enclosed. If I can be of further assistance, please feel free to contact me at Doctor phone number(s): , Work: . Sincerely, Puma Lentz MD 01/06/2020 9:38:10 AM This report has been signed electronically.
--- NOTE | 2020-01-06 09:38 | OP.COLON_ITS ---
Patient Name: Michelle Cain Procedure Date: 01/06/2020 9:17 AM Date of : 1965 Age: 54 Procedure: Colonoscopy Indications: Surveillance: Personal history of adenomatous polyps on last colonoscopy > 5 years ago Providers: Puma Lentz MD Referring MD: No Primary Care Physician Medicines: Monitored Anesthesia Care Patient Profile: This is a 54 year old female. Refer to note in patient chart for documentation of history and physical. Last Colonoscopy: several years ago. Complications: No immediate complications. Procedure: Pre-Anesthesia Assessment: - Prior to the procedure, a History and Physical was performed, and patient medications and allergies were reviewed. The patient's tolerance of previous anesthesia was also reviewed. The risks and benefits of the procedure and the sedation options and risks were discussed with the patient. All questions were answered, and informed consent was obtained. Prior Anticoagulants: The patient has taken no previous anticoagulant or antiplatelet agents. After reviewing the risks and benefits, the patient was deemed in satisfactory condition to undergo the procedure. - Prior to the procedure, a History and Physical was performed, and patient medications and allergies were reviewed. The patient's tolerance of previous anesthesia was also reviewed. The risks and benefits of the procedure and the sedation options and risks were discussed with the patient. All questions were answered, and informed consent was obtained. Prior Anticoagulants: The patient has taken no previous anticoagulant or antiplatelet agents. After reviewing the risks and benefits, the patient was deemed in satisfactory condition to undergo the procedure. After I obtained informed consent, the scope was passed under direct vision. Throughout the procedure, the patient's blood pressure, pulse, and oxygen saturations were monitored continuously. The Colonoscope was introduced through the anus and advanced to the cecum, identified by appendiceal orifice and ileocecal valve. The colonoscopy was performed without difficulty. The patient tolerated the procedure well. The quality of the bowel preparation was good. Scope In: 9:19:10 AM Scope Withdrawal Time 0 hours 6 minutes 11 seconds Scope Out: 9:30:08 AM Total Procedure Duration Time 0 hours 10 minutes 58 seconds Findings: The entire examined colon appeared normal on direct and retroflexion views. Impression: - The entire examined colon is normal on direct and retroflexion views. - No specimens collected. Recommendation: - Discharge patient to home. - Resume previous diet. - Continue present medications. - Repeat colonoscopy in 10 years for screening purposes. Procedure Code(s): --- Professional --- 32976, Colonoscopy, flexible; diagnostic, including collection of specimen(s) by brushing or washing, when performed (separate procedure) Diagnosis Code(s): --- Professional --- Z86.010, Personal history of colonic polyps CPT copyright 2017 [employer]. All rights reserved. The codes documented in this report are preliminary and upon seismograph computer review may be revised to meet current compliance requirements. Puma Lentz MD 01/06/2020 9:38:10 AM This report has been signed electronically. Number of Addenda: 0 Note Initiated On: 01/06/2020 9:17 AM
== END 2020-01-06 10:22 | disposition home or self-care (01) ==
LOC: EN 08:04 → AC 08:05
PROVIDERS: Anesthesiology; Visit Provider Surgery
PROC: 0DJD8ZZ Inspection of Lower Intestinal Tract, Via Natural or Artificial Opening Endoscopic (ICD-10-PCS; CPT 45378; principal; 2020-01-06 09:10)
DX: Z12.11 Encounter for screening for malignant neoplasm of colon (principal); K29.50 Unspecified chronic gastritis without bleeding; Z20.828 Contact with and (suspected) exposure to other viral communicable diseases; Z79.899 Other long term (current) drug therapy; F41.9 Anxiety disorder, unspecified; F32.9 Major depressive disorder, single episode, unspecified; E78.00 Pure hypercholesterolemia, unspecified; R73.03 Prediabetes; F17.200 Nicotine dependence, unspecified, uncomplicated; K21.9 Gastro-esophageal reflux disease without esophagitis; Z86.010 Personal history of colon polyps; K25.9 Gastric ulcer, unspecified as acute or chronic, without hemorrhage or perforation; K29.80 Duodenitis without bleeding
CPT/HCPCS: 43239; 45378; 87635; 88305; 88342; C9803; J7120; J2405; U0003

== ENCOUNTER → 2020-11-22 10:38 | Outpatient (CLI) | payer OTHER, SELFPAY ==
[2020-01-06 08:26] VITALS: BMI 29.7
--- NOTE | 2020-11-22 10:40 | BI_ITS ---
MAMMOGRAPHY - BILATERAL SCREENING REASON FOR EXAM: Female, 55 years old. Routine annual screening examination. PERTINENT HISTORY: Personal history of breast cancer. Prior left lumpectomy with radiation and chemotherapy. Sister with breast cancer. Grandfather with breast cancer. TECHNIQUE: Digital bilateral breast eugene (3D mammographic acquisition) in the CC and MLO projections. 2-D mediolateral oblique (MLO) and craniocaudad (CC) views of both breasts were obtained. CAD: Full Field Digital Mammography with Computer Added Detection was performed. COMPARISON: Comparison is made with prior study dated 11/22/2019 and 09/08/2018. FINDINGS: Breast Composition: The breasts are heterogeneously dense, which may obscure small masses. There are no dominant masses or suspicious calcifications. Once again, the patient is status post lumpectomy in the deep upper lateral aspect of the left breast with resultant postoperative deformity. This is unchanged. Stable small benign-appearing bilateral axillary lymph nodes. No other significant abnormalities are identified. There has been no significant change since the prior study. BI/SCRN MAMM (CAD)W/EUGENE BILAT IMPRESSION: Stable bilateral screening mammogram. Yearly follow-up mammogram recommended. (A) ASSESSMENT CATEGORY: BIRADS Category 2: Benign. A letter regarding these results will be sent to the patient by the facility within 30 days. Approximately 10% of breast cancers are not detected by mammography. A normal mammogram should not delay biopsy of a clinically suspicious abnormality. [id number] Electronically Signed: Taco Edge MD at 11:54 EDT , Service support ,
== END ==
PROVIDERS: PCP Family Medicine; Referring Provider Internal Medicine Medical Oncology; Visit Provider Internal Medicine Medical Oncology
DX: Z12.31 Encounter for screening mammogram for malignant neoplasm of breast (principal)
CPT/HCPCS: 77063; 77067

== ENCOUNTER → 2021-07-30 | Outpatient (CLI) | payer OTHER, SELFPAY ==
--- NOTE | 2021-07-30 | CYST_PTH ---
PATIENT: JANA MCCLAIN LOC: [facility] U#:[id number] AGE/SX: 56/F ROOM: RE07/30/[address]: Dr. Alek Diaz DDS : 1965 BED: DIS: 07/30/2021 SPEC #: [id number] RECD: 07/30/21 10:40 STATUS: ROSEY REMartina #: [id number] LEANNE: 07/30/21 00:[address]: Alek Diaz DEPT: SURGICAL PATHOLOGY RECD BY: Leann Bartlett ENTERED: 07/30/21 11:12 SP TYPE: Cyst OTHR DR: Dr. Jason Mccollum MD Tissues: Mandible, NOS Procedures: Surgery Specimen Level IV HEADER OPERATION: Biopsy, bone mandible, soft tissue PRE-OP DIAGNOSIS: Several year history for slow growing lesion TISSUE SUBMITTED: Cyst (odontogenic) MICROSCOPIC DIAGNOSIS Tissue from socket 29, biopsy: Consistent with benign odontogenic keratocyst. AM:tiffany 07/31/2021 COMMENT Case has been reviewed in consultation with Dr. Jimenez who concurs with the above diagnosis. IDC:RODERICK MICROSCOPIC DESCRIPTION Slides are reviewed. GROSS DESCRIPTION Received in fixative is one container labeled with the patient's name and designated socket 29. The specimen consists of a piece of kramer soft tissue measuring 0.9 x 0.5 x 0.2 cm. The entire specimen is submitted in one cassette. / RODERICK:tiffany 07/30/2021 TC:5 CPT: 39245
== END | disposition home or self-care (01) ==
LOC: LABSPEC 10:45
PROVIDERS: PCP Family Medicine; Referring Provider Dentist Oral and Maxillofacial Surgery; Visit Provider Dentist Oral and Maxillofacial Surgery
DX: M89.9 Disorder of bone, unspecified (principal)
CPT/HCPCS: 88304; 88305

== ENCOUNTER → 2021-11-28 | Outpatient (CLI) | payer OTHER, SELFPAY ==
--- NOTE | 2021-11-28 11:53 | BI_ITS ---
MAMMOGRAPHY - BILATERAL SCREENING REASON FOR EXAM: Female, 56 years old. Routine annual screening examination. PERTINENT HISTORY: Personal history of breast cancer. TECHNIQUE: Digital bilateral breast eugene (3D mammographic acquisition) in the CC and MLO projections. 2-D mediolateral oblique (MLO) and craniocaudad (CC) views of both breasts were obtained. CAD: Full Field Digital Mammography with Computer Added Detection was performed. COMPARISON: Comparison is made with prior study 11/22/2020 and 11/22/2019. FINDINGS: Breast Composition: The breasts are heterogeneously dense, which may obscure small masses. There are no dominant masses or suspicious calcifications. Once again, the patient is status post lumpectomy in the deep upper lateral aspect of the left breast with resultant postoperative deformity and scarring. There is also evidence of a scarring in the left axillary region. No other significant abnormalities are identified. There has been no significant change since the prior study. BI/SCRN MAMM (CAD)W/EUGENE BILAT IMPRESSION: Stable bilateral screening mammogram. Yearly follow-up mammogram recommended. (A) ASSESSMENT CATEGORY: BIRADS Category 2: Benign. A letter regarding these results will be sent to the patient by the facility within 30 days. Approximately 10% of breast cancers are not detected by mammography. A normal mammogram should not delay biopsy of a clinically suspicious abnormality. [id number] Electronically Signed: Taco Edge MD at 12:46 EDT ,
== END | disposition home or self-care (01) ==
PROVIDERS: Referring Provider Internal Medicine Hematology & Oncology; Visit Provider Internal Medicine Hematology & Oncology
DX: Z12.31 Encounter for screening mammogram for malignant neoplasm of breast (principal)
CPT/HCPCS: 77063; 77067

== ENCOUNTER → 2022-01-07 | Outpatient (CLI) | payer OTHER, SELFPAY ==
--- NOTE | 2022-01-07 14:45 | US_ITS ---
STUDY: ULTRASOUND BREAST - LEFT REASON FOR EXAM: Female, 56 years old. Left axillary soft tissue density on prior CT scan. TECHNIQUE: Axial and longitudinal images of the LEFT breast were performed with a high resolution ultrasound transducer. # OF IMAGES: 40 COMPARISON: None. FINDINGS: LEFT Breast: The left axillary region was examined with ultrasound. There is a 2.8 cm x 1.2 cm irregularity of the soft tissue density corresponding to the area of the scar. This may represent postoperative scarring. Incidental note is made of a 1.6 cm x 0.9 cm x 0.4 cm benign-appearing lymph node. US/Breast Limited Unilateral IMPRESSION: 1.6 cm x 0.9 cm x 0.4 cm benign-appearing lymph node. At the site of the surgical scar, there is evidence of a 2.8 cm x 1.2 cm soft tissue density. Correlation with CT scan is recommended. ASSESSMENT CATEGORY: BIRADS Category 2: Benign. A letter regarding these results will be sent to the patient by the facility within 30 days. Electronically Signed: Taco Edge MD at 9:16 EDT ,
== END | disposition home or self-care (01) ==
LOC: OPUS 14:29
PROVIDERS: Visit Provider Nurse Practitioner Family
DX: R22.32 Localized swelling, mass and lump, left upper limb (principal)
CPT/HCPCS: 76642

== ENCOUNTER → 2022-04-22 | Outpatient (CLI) | payer OTHER, SELFPAY ==
--- NOTE | 2022-04-22 13:20 | CT_ITS ---
INDICATION: Follow-up pulmonary nodules EXAMINATION: CT CHEST WITH CONTRAST - CT Chest W/ Contrast Injection TECHNIQUE: Helically acquired images were obtained of the chest following IV contrast. A radiation dose optimization technique was used for this scan. IV Contrast dosage and agent: 100 mL of Isovue-300 COMPARISON: CT of the chest, December 20, 2021 and August 16, 2018 FINDINGS: LUNGS, PLEURA AND LARGE AIRWAYS: Lungs are well expanded. There is a small subpleural nodule measuring 2 mL in the left upper lobe seen on image 34 of series 4. This appears smaller than the previous examination. There is a triangular 0.6 x 0.5 x 0.3 cm focus along the underside of the horizontal fissure seen best on image 61 of series 4. This is stable. On image 74 there is a triangular soft tissue density measuring 3 x 3 x 2 mm in the right lower lobe. No other masses are seen. There is minimal subpleural scarring in the anterior left upper lobe. The other nodule seen on December 20 study are not appreciated. No pleural effusion or thickening. No pneumothorax. THYROID: No thyroid lesions. HEART AND PERICARDIUM: Heart size is normal. No pericardial effusion. VESSELS: Atherosclerotic changes of the thoracic aorta without aneurysm. No aortic dissection. No obvious central pulmonary embolism although this study was not performed with the pulmonary embolism protocol. MEDIASTINUM AND YOLANDA: Nonspecific subcentimeter mediastinal lymphadenopathy. Normal yolanda. Esophagus is unremarkable. No hiatal hernia. UPPER ABDOMEN: No acute pathology. BONES: No suspicious lytic or blastic abnormality. CT/Chest WITH Contrast IMPRESSION: 1. Slight decrease in the left upper lobe nodule when compared to prior study. 2. Stable nodules in the right middle and right lower lobe. The remainder of the nodular density seen on the prior study are no longer present. 3. No other major interval change. Electronically Signed: Tom Dahl DO at 20:28 EST Reading Location ID and State: [address] [place] [address] Tel [phone], Service support ,
== END | disposition home or self-care (01) ==
LOC: CT 13:18
PROVIDERS: Referring Provider Internal Medicine Hematology & Oncology; Visit Provider Internal Medicine Hematology & Oncology
DX: R91.8 Other nonspecific abnormal finding of lung field (principal)
CPT/HCPCS: 71260

== ENCOUNTER → 2022-12-10 | Outpatient (CLI) | payer OTHER, SELFPAY ==
--- NOTE | 2022-12-10 10:00 | BI_ITS ---
MAMMOGRAPHY - BILATERAL SCREENING REASON FOR EXAM: Female, 57 years old. Routine annual screening examination. PERTINENT HISTORY: Personal history of breast cancer. Prior left lumpectomy with chemotherapy and radiation therapy. Sister with breast cancer. Grandfather with breast cancer. TECHNIQUE: Digital bilateral breast eugene (3D mammographic acquisition) in the CC and MLO projections. 2-D mediolateral oblique (MLO) and craniocaudad (CC) views of both breasts were obtained. CAD: Full Field Digital Mammography with Computer Added Detection was performed. COMPARISON: Comparison is made with prior examination dated November 28, 2021 and November 22, 2020. FINDINGS: Breast Composition: The breasts are heterogeneously dense, which may obscure small masses. There are no dominant masses or suspicious calcifications. Once again, the patient is status post lumpectomy in the deep upper lateral aspect of the left breast with resultant postoperative deformity and scarring. Scarring is also seen in the left axillary region. No other significant abnormalities are identified. There has been no significant change since the prior study. BI/SCRN MAMM (CAD)W/EUGENE BILAT IMPRESSION: Stable bilateral screening mammogram. Yearly follow-up mammogram recommended. (A) ASSESSMENT CATEGORY: BIRADS Category 2: Benign. A letter regarding these results will be sent to the patient by the facility within 30 days. Approximately 10% of breast cancers are not detected by mammography. A normal mammogram should not delay biopsy of a clinically suspicious abnormality. [id number] Electronically Signed: Taco Edge MD at 14:23 EDT ,
== END | disposition home or self-care (01) ==
LOC: OPBI 09:56
PROVIDERS: Referring Provider Internal Medicine Hematology & Oncology; Visit Provider Internal Medicine Hematology & Oncology
DX: Z12.31 Encounter for screening mammogram for malignant neoplasm of breast (principal)
CPT/HCPCS: 77063; 77067

== ENCOUNTER → 2024-01-20 | Outpatient (CLI) | payer OTHER, SELFPAY | END | disposition home or self-care (01) | LOC: OPBD 09:31 | PROVIDERS: Referring Provider Nurse Practitioner Family; Visit Provider Nurse Practitioner Family | DX: Z12.31 Encounter for screening mammogram for malignant neoplasm of breast (principal); M81.0 Age-related osteoporosis without current pathological fracture | CPT/HCPCS: 77063; 77067; 77080 ==

== ENCOUNTER → 2025-01-30 | Outpatient (CLI) | payer OTHER, SELFPAY ==
--- NOTE | 2025-01-30 10:35 | BI_ITS ---
EXAM: SCRN MAMM (CAD)W/EUGENE BILAT DATE: 01/30/2025 CLINICAL HISTORY: F, Age 59 y/o , SCREENING TECHNIQUE: Procedure Code: [id number] Modality: MG Procedure: SCRN MAMM (CAD)W/EUGENE BILAT COMPARISON: Prior exam(s) dated 01/20/2024, 12/10/2022, and 11/28/2021. FINDINGS: TISSUE DENSITY: There are scattered areas of fibroglandular density. Bilateral Breast Mammographic Findings: No significant masses, calcifications or other abnormalities are identified. Benign-appearing macrocalcifications and round microcalcifications are seen in both breasts. A stable, 3 mm, well-circumscribed, isodense mass in the superior outer, far posterior aspect of the right breast is noted. A stable focal masslike density in the superior outer far posterior aspect of the left breast is noted. This overlies the pectoralis muscle on the MLO view. BI/SCRN MAMM (CAD)W/EUGENE BILAT IMPRESSION: Benign screening mammogram OVERALL FINAL ASSESSMENT BI-RADS 2: BENIGN RECOMMENDATION: Routine annual follow-up in 1 Year Additional Recommendation none A letter with findings and recommendations will be mailed to the patient. Reading Location: [id number]
--- OUTSIDE RECORDS SUMMARY | 2025-01-30 12:21 | XMS RPT_ITS | CCD ---
Author Organization [facility] Care Team Providers Care Snow Maker Name Role Phone Kameron Gonzalez Primary Care Provider Karie Mathew Primary Care Provider [phone] Jessica Rowan Primary Care Provider [phone] KRISTIAN DIAZ, CHIARA Minaya Primary Care Physician Delmar White MD, Jessica Merritt Primary Care Provider Unavailable Primary Care Provider UnavailJESSICA Guerrero JR Primary Care Unavailable PROVIDER, UNKNOWN Admitting Unavailable QUINN HOFFMAN Attending Unavailable SEDA CAMPOS Consulting Unavailable BRENT MENARD DO Primary Care Physician Unavailable Primary Care Provider UnavailBRENT Aranda DO Primary Care Unavailable LAURA DIAZ, DR SAHU Attending Unavailab BRENT Stover DO Attending Unavailable BRENT MENARD DO Primary Care Unavailable Char Hassan Unavailable Unavailable Brent Menard DO Primary Care Provider [phone] Delmar White MD, Jessica Merritt Primary Care Provider BRENT MENARD DO Primary Care Unavailable KARIE SHAFFER MD Attending Unavailable ELIZABETH LEWIS Attending BRENT Byers DO Primary Care Unavailable BRENT MENARD DO Primary Care Unavailable BRENT MENARD DO Attending Unavailable BRENT MENARD DO Primary Care Unavailable BRENT MENARD DO Attending Unavailable BRENT MENARD DO Primary Care Unavailable BRENT MENARD DO Attending Unavailable BRENT MENARD DO Primary Care Unavailable BRENT MENARD DO Attending Unavailable CRISTOPHER OZUNA Attending Unavailable BRENT MENARD DO Primary Care Unavailable LISA BOONE Attending Unavai lable MENARD DO, BRENT E Primary Care Unavailable ADELINA SANCHEZ Attending Unavailable MENARD DO, BRENT E Primary Care Unavailable MENARD DO, BRENT E Primary Care Unavailable DEENA DIAZ, KARIE Consulting Unavailable DEENA DIAZ, KARIE Attending Unavailable MARICRUZ, JEANETH Attending Unavailable MENARD, BRENT Primary Care Unavailable SINDHU MILLER Attending Unavailable ZABRINA XIONG Referring Unavailable MENARD, BRENT Primary Care Unavailable XIONG, ZABRINA Referring Unavailable MENARD, BRENT Primary Care Unavailable XIONG ZABRINA Referring Unavailable MENARD, BRENT Primary Care Unavailable Maricruz CONTRACT CLERK AUTOMOBILE, Jeaneth Attending Unavailable Maricruz CONTRACT CLERK AUTOMOBILE, Jeaneth Referring Unavailable Menard, Brent Primary Care Unavailable Maricruz CONTRACT CLERK AUTOMOBILE, Jeaneth Attending Unavailable Maricruz CONTRACT CLERK AUTOMOBILE, Jeaneth Referring Unavailable Menard, Brent Primary Care Unavailable Allergies Allergy Classification Reported Allergen(s) Allergy Type Date of Onset Reaction(s) Facility (19 sources) predniSONE; Translations: [PREDNISONE] Drug Allergy 5 [facility] (9 sources) Sulfamethoxazole; Translations: [SULFAMETHOXAZOLE] Drug Allergy 9 Unknown [facility] (9 sources) Trimethoprim; Translations: [TRIMETHOPRIM] Drug Allergy 9 Other: See Comments [facility] (1 source) predniSONE Drug Allergy 3 [facility] (1 source) Sulfamethoxazole Drug Allergy 3 [facility] (1 source) Trimethoprim Drug Allergy 3 [facility] Medications Current Medications Medication Drug Class(es) Dates Sig (Normalized) Sig (Original) acetaminophen 500 mg oral tablet (2 sources) Start: 11-06-2023 End: 11-20-2023 take 2 tablets by mouth every six hours as needed acetaminophen (TYLENOL EXTRA STRENGTH) 500 mg tablet Take 2 tablets by mouth every 6 hours as needed for pain for up to 14 days. 11/06/2023 11/20/2023 Active Albuterol (15 sources) beta2-Adrenergic Agonist Start: 08-03-2023 take 2 puff(s) by inhalation every four hours as needed for wheezing Ventolin HFA MDI (90 mcg/inh) inhalation aerosol 2 puff(s), Inhalation, q4h, PRN as needed for wheezing, # 3 EA, 3 Refill(s), Pharmacy: [facility], 161, cm, 08/03/23 11:00:00 EDT, Height, kg, 08/03/23 11:00:00 EDT, Dosing Weight Start Date: 08/03/23 Status: Ordered Quantity: 3.0 Unit: EA Repeat number: 4 Start: 08-03-2023 take 2 puff(s) by in halation every four hours as needed for wheezing Ventolin HFA MDI (90 mcg/inh) inhalation aerosol 2 puff(s), Inhalation, q4h, PRN as needed for wheezing, # 3 EA, 3 Refill(s), Pharmacy: [facility], 161, cm, 08/03/23 11:00:00 EDT, Height, kg, 08/03/23 11:00:00 EDT, Dosing Weight Start Date: 08/03/23 Status: Ordered Start: 04-06-2023 take 2 puff(s) by in halation every four hours as needed for wheezing Ventolin HFA MDI (90 mcg/inh) inhalation aerosol 2 puff(s), Inhalation, q4h, PRN as needed for wheezing, # 1 EA, 11 Refill(s), [facility], 163, cm, 04/06/23 10:59:00 EST, Height, kg, 04/06/23 10:59:00 EST, Dosing Weight Start Date: 04/06/23 Status: Ordered Start: 08-15-2020 take 2 puff(s) by in halation every four hours as needed for wheezing Ventolin HFA MDI (90 mcg/inh) inhalation aerosol 2 puff(s), Inhalation, q4h, PRN as needed for wheezing, # 1 EA, 11 Refill(s), [facility]acy: [facility] 162, cm, 08/15/20 8:27:00 EDT, Height, kg, 08/15/20 8:27:00 EDT, Dosing Weight Start Date: 08/15/20 Status: Ordered Start: 12-29-2019 take 1 puff(s) by in halation every six hours as needed Albuterol Sulfate Active 2 PUFF INHALATION EVERY 6 HOURS NEEDED December 29, 2019 12:00am aspirin 81 mg chewable tablet (20 sources) Platelet Aggregation Inhibitor, Nonsteroidal Anti-inflammatory Drug Start: 12-22-2021 End: 03-29-2022 aspirin 81 mg oral tablet, chewable Dose : 81 mg = 1 tab(s), Chewed, qDay, # 100 tab(s), 1 Refill(s), Pharmacy: [facility], 161, cm, 08/03/23 11:00:00 EDT, Height, kg, 08/03/23 11:00:00 EDT, Dosing Weight Start Date: 08/03/23 Status: Ordered Quantity: 100.0 Unit: tab(s) Repeat number: 2 Comment on above: Take 1 tablet by teofilo th once daily. atorvastatin 40 mg oral tablet (20 sources) HMG-CoA Reductase Inhibitor Start: 12-21-2021 End: 01-20-2022 atorvastatin 40 mg oral tablet Dose : 40 mg = 1 tab(s), Oral, qDay, # 100 tab(s), 1 Refill(s), [facility], 161, cm, 08/03/23 11:00:00 EDT, Height, kg, 08/03/23 11:00:00 EDT, Dosing Weight Start Date: 08/03/23 Status: Ordered Quantity: 100.0 Unit: tab(s) Repeat number: 2 Comment on above: Take 1 tablet by teofilo th daily at bedtime. citalopram 10 mg oral tablet (10 sources) Serotonin Reuptake Inhibitor Start: 04-23-2020 CeleXA 10 mg oral tablet Dose : 15 mg = 1.5 tab(s), Oral, qDay, # 135 tab(s), 3 Refill(s), Pharmacy: [facility], 16.5, cm, 04/23/20 11:31:00 EST, Height, kg, 05/25/19 9:53:00 EDT, Dosing Weight Start Date: 04/23/20 Status: Ordered Start: 06-12-2016 take 15 mg by mouth once daily Citalopram Active 15 MG PO DAILY June 12, 2016 12:00am End: 12-18-2022 citalopram 20 mg tablet Take 10 mg by mouth. Take 1 and 1/2 tablet 0 12/18/2022 Discontinued (Other) Comment on above: Take 20 mg by mouth. 1/2 tab twice daily Take 10 mg by mouth. Take 1 and 1/2 tablet cyclobenzaprine hydrochloride 10 mg oral tablet (19 sources) Muscle Relaxant Start: 08-03-2023 cyclobenzaprine 10 mg oral tablet Dose : 5 mg = 0.5 tab(s), Oral, qHS, # 90 tab(s), 1 Refill(s), Pharmacy: [facility], 161, cm, 08/03/23 11:00:00 EDT, Height, kg, 08/03/23 11:00:00 EDT, Dosing Weight Start Date: 08/03/23 Status: Ordered Quantity: 90.0 Unit: tab(s) Repeat number: 2 Start: 06-12-2016 cyclobenzaprin e 10 mg oral tablet Dose : 10 mg = 1 tab(s), Oral, TID, # 90 tab(s), 1 Refill(s), Pharmacy: [facility] ([facility]), 163, cm, 08/28/22 11:50:00 EDT, Height, kg, 08/28/22 11:50:00 EDT, Dosing Weight Start Date: 08/28/22 Status: Ordered Start: 06-16-2013 take 1 tablet by teofilo th every eight hours as needed cyclobenzaprine 10 mg tablet Take 1 tablet by mouth three times daily as needed. 90 tablet 0 06/16/2013 Active Comment on above: Take 1 tablet by teofilo th three times daily as needed. docusate sodium 50 mg / sennosides, snf 8.6 mg oral tablet (1 source) Start: 11-06-2023 End: 11-13-2023 take 1 tablet by mouth twice daily senna-docusate (SENNA-S) 8.6-50 mg per tablet Take 1 tablet by mouth two times a day for 7 days. 14 tablet 11/06/2023 11/13/2023 Active doxycycline hyclate 100 mg oral tablet (1 source) Tetracycline-class Drug Start: 12-10-2023 End: 12-20-2023 doxycycline hyclate 100 mg oral tablet Dose : 100 mg = 1 tab(s), Oral, BID, X 10 day(s), # 20 tab(s), 0 Refill(s), 12/20/23 8:48:00 AM EDT, Pharmacy: [facility]/pharmacy #[id number], Cellulitis of left lower leg, 160, cm, 12/10/23 8:12:00 EDT, Height, 71, kg, 12/10/23 8:12:00 EDT, Dosing Weight Start Date: 12/10/23 Stop Date: 12/20/23 Status: Ordered estradiol 0.01 mg vaginal insert (20 sources) Estrogen Start: 11-17-2024 End: 11-17-2025 Estradiol (VAGIFEM) [address] 1 INSERT VAGINALLY TWICE WEEKLY 24 tablet 3 11/17/2024 11/17/2025 Active Start: 08-03-2023 estradiol 10 m cg vaginal tablet Dose : 10 mcg = 1 tab(s), Vaginal, 2x/Wk, Intravaginally twice weekly, # 26 tab(s), 3 Refill(s), Pharmacy: [facility], 161, cm, 08/03/23 11:00:00 EDT, Height, kg, 08/03/23 11:00:00 EDT, Dosing Weight Start Date: 08/03/23 Status: Ordered Quantity: 26.0 Unit: tab(s) Repeat number: 4 Start: 05-27-2019 estradiol 10 m cg vaginal tablet Dose : 10 mcg = 1 tab(s), Vaginal, 2x/Wk, Intravaginally twice weekly, # 26 tab(s), 3 Refill(s), Pharmacy: [facility], 159.5, cm, 05/25/19 9:53:00 EDT, Height, kg, 05/25/19 9:53:00 EDT, Dosing Weight Start Date: 05/27/19 Status: Ordered Start: 06-12-2016 End: 12-20-2024 Estradiol (VAGIFEM) 10 mcg v aginal tablet Use 1 tablet vaginally two times a week. twice weekly 24 tablet 3 12/21/2023 11/17/2024 Discontinued Comment on above: Use 10 mcg vaginally . twice weekly Use 1 tablet vaginal ly two times a week. twice weekly estradiol 10 mcg vaginal tablet (1 source) Start: 020 estradiol 10 mcg vaginal tablet Dose : 10 mcg = 1 tab(s), Vaginal, 2x/Wk, Intravaginally twice weekly, # 26 tab(s), 3 Refill(s), Pharmacy: [facility], 159.5, cm, 05/25/19 9:53:00 EDT, Height, kg, 05/25/19 9:53:00 EDT, Dosing Weight Start Date: 05/27/19 Status: Ordered fluticasone propionate 0.05 mg/actuat metered dose nasal spray (11 sources) Corticosteroid Start: take 1 dose nasal route twice daily as needed for congestion fluticasone 50 mcg/inh NASAL spray Dose = 1 spray(s), Nostril, each, BID, PRN Nasal congestion, in each nostril, # 3 EA, 1 Refill(s), Pharmacy: [facility], 161, cm, 11/27/23 11:05:00 EDT, Height, kg, 11/27/23 11:05:00 EDT, Dosing Weight Start Date: 11/27/23 Status: Ordered Quantity: 3.0 Unit: EA Repeat number: 2 Start: 08-03-2023 take 1 dose nasal ro tununak twice daily as needed for congestion fluticasone 50 mcg/inh NASAL spray Dose = 1 spray(s), Nostril, each, BID, PRN Nasal congestion, in each nostril, # 3 EA, 1 Refill(s), Pharmacy: [facility], 161, cm, 08/03/23 11:00:00 EDT, Height, kg, 08/03/23 11:00:00 EDT, Dosing Weight Start Date: 08/03/23 Status: Ordered Start: 07-31-2020 take 1 dose nasal ro tununak twice daily as needed for congestion fluticasone 50 mcg/inh NASAL spray Dose = 1 spray(s), Nostril, each, BID, PRN Nasal congestion, in each nostril, # 1 EA, 1 Refill(s), Pharmacy: [facility] 162, cm, 07/31/20 9:28:00 EDT, Height, kg, 07/31/20 9:28:00 EDT, Dosing Weight Start Date: 07/31/20 Status: Ordered fluticasone 50 mcg/inh NASAL spray (1 source) Start: 07-31-2020 take 1 dose nasal route twice daily as needed for congestion fluticasone 50 mcg/inh NASAL spray Dose = 1 spray(s), Nostril, each, BID, PRN Nasal congestion, in each nostril, # 1 EA, 1 Refill(s), [facility] [facility] [facility], cm, 07/31/20 9:28:00 EDT, Height, kg, 07/31/20 9:28:00 EDT, Dosing Weight Start Date: 07/31/20 Status: Ordered Lopressor 25mg--USE metoprolol tartrate 25 mg oral tablet (6 sources) Start: 01-26-2024 Lopressor 25mg --USE metoprolol tartrate 25 mg oral tablet Dose : 25 mg = 1 tab(s), Oral, BID, # 200 tab(s), 0 Refill(s), Pharmacy: [facility], 160, cm, 01/26/24 14:12:00 EST, Height, kg, 01/26/24 14:04:00 EST, Dosing Weight Start Date: 01/26/24 Status: Ordered Quantity: 200.0 Unit: tab(s) Repeat number: 1 Start: 01-26-2024 Lopressor 25mg --USE metoprolol tartrate 25 mg oral tablet Dose : 25 mg = 1 tab(s), Oral, BID, # 200 tab(s), 0 Refill(s), Pharmacy: [facility], 160, cm, 01/26/24 14:12:00 EST, Height, kg, 01/26/24 14:04:00 EST, Dosing Weight Start Date: 01/26/24 Status: Ordered Start: 11-10-2023 take 1 tablet by teofilo th every twelve hours Lopressor 25mg--USE metoprolol tartrate 25 mg oral tablet TAKE 1 TABLET BY MOUTH EVERY 12 HOURS Start Date: 11/10/23 Status: Ordered meclizine hydrochloride 25 mg oral tablet (7 sources) Antiemetic Start: 06-12-2016 End: 12-18-2022 take 25 mg by mouth once daily Meclizine Active 25 MG PO DAILY June 12, 2016 12:00am Comment on above: Take 1 tablet by teofilo th as needed. metoprolol tartrate 25 mg oral tablet (8 sources) beta-Adrenergic Benji Start: 11-06-2023 take 1 tablet by mouth every twelve hours metoprolol tartrate, short acting, (LOPRESSOR) 25 mg tablet Take 1 tablet by mouth every 12 hours. 60 tablet 1 11/06/2023 Active nicotine 2 mg oral lozenge (5 sources) Cholinergic Nicotinic Agonist Start: 11-10-2023 nicotine 2 mg oral transmucosal lozenge 2 mg Dose = 1 lozenge(s), Transmucosal, q1h, PRN as needed for smoking cessation, as directed on package labeling, # 300 lozenge(s), 0 Refill(s), Pharmacy: [facility]/pharmacy #[id number], Former smoker, 161, cm, 11/10/23 13:03:00 EDT, Height, kg, 11/10/23 12:54:00 EDT, Dosing Weight Start Date: 11/10/23 Status: Ordered Quantity: 300.0 Unit: lozenge(s) Repeat number: 1 Indication: Personal history of nicotine dependence omeprazole 20 mg delayed release oral capsule (20 sources) Proton Pump Inhibitor Start: 08-28-2022 omeprazole (PRILOSEC) 20 mg capsule once daily. 08/28/2022 Active Start: 06-12-2016 End: 12-05-2021 omeprazole 20 mg oral delaye d release capsule Dose : 20 mg = 1 cap(s), Oral, qDay, # 90 cap(s), 3 Refill(s), Pharmacy: [facility] ([facility]), 163, cm, 08/28/22 11:50:00 EDT, Height, kg, 08/28/22 11:50:00 EDT, Dosing Weight Start Date: 08/28/22 Status: Ordered Comment on above: once daily. oxyCODONE hydrochloride 5 mg oral tablet (1 source) Opioid Agonist Start: 11-06-2023 End: 11-13-2023 take 1 tablet by mouth every six hours as needed for pain oxyCODONE IR (ROXICODONE) 5 mg immediate release tablet Indications: Post-op pain Take 1 tablet by mouth every 6 hours as needed for pain for up to 7 days. 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 1 tablet every 6 hours for temp over 101 simvastatin 20 mg oral tablet (6 sources) HMG-CoA Reductase Inhibitor Start: 7 take 20 mg by mouth once daily Simvastatin Active 20 MG PO DAILY November 05, 2016 12:00am Comment on above: Take 20 mg by mouth daily at bedtime. valACYclovir 1000 mg oral tablet (12 sources) Herpesvirus Nucleoside Analog DNA Polymerase Inhibitor, Herpes Simplex Virus Nucleoside Analog DNA Polymerase Inhibitor, Herpes Zoster Virus Nucleoside Analog DNA Polymerase Inhibitor Start: 4 take 1 tablet by mouth twice daily as needed valACYclovir 1 g oral tablet See Instructions, 1 tablet twice daily x5 days as needed exacerbation., # 30 tab(s), 1 Refill(s), Pharmacy: [facility], 161, cm, 08/03/23 11:00:00 EDT, Height, 73.5, kg, 08/03/23 11:00:00 EDT, Dosing Weight Start Date: 08/03/23 Status: Ordered Quantity: 30.0 Unit: tab(s) Repeat number: 2 Start: 08-28-2022 take 1 tablet by teofilo twice daily as needed valACYclovir 1 g oral tablet See Instructions, 1 tablet twice daily x5 days as needed exacerbation., # 30 tab(s), 1 Refill(s), [facility]), 163, cm, 08/28/22 11:50:00 EDT, Height, 74.8, kg, 08/28/22 11:50:00 EDT, Dosing Weight Start Date: 08/28/22 Status: Ordered Start: 07-30-2022 take 1 tablet by teofilo twice daily as needed valACYclovir 1 g oral tablet See Instructions, 1 tablet twice daily x5 days as needed exacerbation., # 30 tab(s), 1 Refill(s), Pharmacy: [facility][id number], 162, cm, 02/14/22 11:00:00 EST, Height, 76.6, kg, 05/25/22 15:58:00 EDT, Dosing Weight Start Date: 07/30/22 Status: Ordered Start: 02-14-2022 take 1 tablet by teofilo twice daily as needed valACYclovir 1 g oral tablet See Instructions, 1 tablet twice daily x5 days as needed exacerbation., # 30 tab(s), 3 Refill(s), [facility]acy: [facility]), 162, cm, 02/14/22 11:00:00 EST, Height, 70.2, kg, 02/14/22 11:00:00 EST, Dosing Weight Start Date: 02/14/22 Status: Ordered Start: 11-01-2020 take 1 tablet by teofilo twice daily as needed valACYclovir 1 g oral tablet See Instructions, 1 tablet twice daily x5 days as needed exacerbation., # 30 tab(s), 3 Refill(s), Pharmacy: [facility], 162.1, cm, 11/01/20 10:59:00 EDT, Height, 70.6, kg, 11/01/20 10:59:00 EDT, Dosing Weight Start Date: 11/01/20 Status: Ordered 24 hr venlafaxine 75 mg extended release oral capsule (20 sources) Serotonin and Norepinephrine Reuptake Inhibitor Start: 08-03-2023 Effexor XR 75 mg oral capsule, extended release Dose : 75 mg = 1 cap(s), Oral, qDay, # 90 cap(s), 1 Refill(s), Pharmacy: [facility], 161, cm, 08/03/23 11:00:00 EDT, Height, kg, 08/03/23 11:00:00 EDT, Dosing Weight Start Date: 08/03/23 Status: Ordered Quantity: 90.0 Unit: cap(s) Repeat number: 2 Start: 04-06-2023 Effexor XR 75 mg oral capsule, extended release Dose : 75 mg = 1 cap(s), Oral, qDay, # 90 cap(s), 1 Refill(s), Pharmacy: [facility], 163, cm, 04/06/23 10:59:00 EST, Height, kg, 04/06/23 10:59:00 EST, Dosing Weight Start Date: 04/06/23 Status: Ordered Start: 08-28-2022 Effexor XR 75 mg oral capsule, extended release Dose : 75 mg = 1 cap(s), Oral, qDay, # 90 cap(s), 1 Refill(s), [facility]), 163, cm, 08/28/22 11:50:00 EDT, Height, kg, 08/28/22 11:50:00 EDT, Dosing Weight Start Date: 08/28/22 Status: Ordered Start: 07-30-2022 End: 08-12-2022 Effexor XR 75 mg oral capsul e, extended release Dose : 75 mg = 1 cap(s), Oral, qDay, # 90 cap(s), 1 Refill(s), [facility]: [id number], 162, cm, 02/14/22 11:00:00 EST, Height, kg, 05/25/22 15:58:00 EDT, Dosing Weight Start Date: 07/30/22 Stop Date: 08/12/22 Status: Ordered Start: 03-20-2022 End: 04-03-2022 Effexor XR 75 mg oral capsul e, extended release Dose : 75 mg = 1 cap(s), Oral, qDay, # 90 cap(s), 1 Refill(s), Pharmacy: [facility] ([facility] ), 162, cm, 02/14/22 11:00:00 EST, Height, kg, 02/14/22 11:00:00 EST, Dosing Weight Start Date: 03/20/22 Status: Ordered Start: 12-05-2021 venlafaxine ER (EFFEXOR XR) 75 mg 24 hr capsule 75 mg once daily. 12/05/2021 Active Start: 02-14-2021 Effexor XR 75 mg oral capsule, extended release Dose : 75 mg = 1 cap(s), Oral, qDay, Start after the 37.5 mg capsules are done., # 90 cap(s), 3 Refill(s), Pharmacy: [facility], 162, cm, 02/14/21 9:30:00 EST, Height, kg, 02/14/21 9:30:00 EST, Dosing Weight Start Date: 02/14/21 Status: Ordered Comment on above: 75 mg once daily. Completed/Discontinued Medications Medication Drug Class(es) Dates Sig (Normalized) Sig (Original) ergocalciferol 1.25 mg oral capsule (2 sources) Provitamin D2 Compound Start: 06-16-2013 take 1 capsule by mouth every week ergocalciferol, vitamin D2, (DRISDOL) 50,000 unit capsule Take 1 capsule by mouth once each week. 12 capsule 3 06/16/2013 Active Comment on above: Take 1 capsule by [facility] once each week. fluconazole 150 mg oral tablet (4 sources) Azole Antifungal End: 12-18-2022 fluconazole 150 mg tablet Take 150 mg by mouth. 1 tablet every 4 days 0 12/18/2022 Discontinued (Other) Comment on above: Take 150 mg by mouth . 1 tablet every 4 days meloxicam 15 mg oral tablet (3 sources) Nonsteroidal Anti-inflammatory Drug Start: 11-24-2019 End: 12-05-2021 take 7.5 mg by mouth once daily Meloxicam Discontinued 7.5 MG PO DAILY November 24, 2019 12:00am December 05, 2021 1:24pm NIFEdipine (4 sources) Dihydropyridine Calcium Channel Benji Start: 12-19-2021 End: 12-18-2022 NIFEdipine 16% Indications: Raynaud's syndrome with gangrene (HCC) , Diminished pulses in lower extremity Apply 2 g to affected area once daily. 60 g 2 12/19/2021 12/18/2022 Discontinued (Other) Start: 12-19-2021 End: 12-18-2022 apply 2 g topically once daily NIFEDIPINE 16% TOPICAL CREAM Apply 2 grams (2 pumps) to the affected area once daily. 60 g 2 12/19/2021 12/18/2022 Discontinued (Other) Start: 12-19-2021 NIFEdipine 16% Indications: Raynaud's syndrome with gangrene (HCC) , Diminished pulses in lower extremity Apply 2 g to affected area once daily. 60 g 2 12/19/2021 Active Start: 12-19-2021 apply 2 g topically once daily NIFEDIPINE 16% TOPICAL CREAM Apply 2 grams (2 pumps) to the affected area once daily. 60 g 2 12/19/2021 Active Comment on above: Apply 2 g to affecte d area once daily. Apply 2 grams (2 pum ps) to the affected area once daily. predniSONE 10 mg oral tablet (2 sources) Start: 4 predniSONE 10 mg tablet Take 0.5 tablets by mouth every 48 hours. 30 tablet 6 05/17/2013 Active Comment on above: Take 0.5 tablets by mouth every 48 hours. vitamin b12 0.5 mg oral tablet (4 sources) Vitamin B12 End: take 1 tablet by mouth once daily cyanocobalamin (VITAMIN B-12) 500 mcg tablet Take 1 tablet by mouth once daily. 0 12/18/2022 Discontinued (Other) Comment on above: Take 1 tablet by teofilo th once daily. Problems Active Problems Problem Classification Problem Date Documented Date Episodic/Chronic Abdominal hernia (3 sources) Incisional hernia 04-11-2024 Episodic Administrative/social admission (8 sources) Stress 04-06-2023 Episodic Aortic and peripheral arterial embolism or thrombosis (11 sources) Other arterial embolism and thrombosis of abdominal aorta; Translations: [Other arterial embolism and thrombosis of abdominal aorta] Onset: 11-01-2023 11-04-2023 Chronic Cancer of breast (18 sources) Carcinoma of breast ; Translations: [Malignant neoplasm of female breast] Onset: 05-17-2013 05-17-2013 Chronic Chronic obstructive pulmonary disease and bronchiectasis (1 source) Bronchitis 03-30-2019 Episodic Coagulation and hemorrhagic disorders (18 sources) Idiopathic thrombocytopenic purpura; Translations: [Chronic idiopathic thrombocytopenic purpura] Onset: 06-19-2005 06-19-2005 Chronic Coronary atherosclerosis and other heart disease (6 sources) History of aortofemoral bypass surgery 11-10-2023 Episodic Diseases of white blood cells (4 sources) Lymphocytosis; Translations: [Lymphocytosis (symptomatic)] 08-23-2018 Chronic Disorders of lipid metabolism (20 sources) Hyperlipidemia; Translations: [Pure hypercholesterolemia] Onset: 11-01-2023 04-23-2020 Chronic Gastroduodenal ulcer (except hemorrhage) (1 source) Gastric ulcer 04-23-2020 Chronic Gastroduodenal ulcer (except hemorrhage) (11 sources) H/O: gastric ulcer 02-14-2022 Episodic Immunizations and screening for infectious disease (1 source) Encounter for screening for human papillomavirus (HPV); Translations: [Encounter for screening for human papillomavirus (HPV)] Onset: 12-23-2024 Episodic Mood disorders (20 sources) Depressive disorder; Translations: [Recurrent major depression] Onset: 11-01-2023 04-23-2020 Chronic Nutritional deficiencies (14 sources) Vitamin D deficiency; Translations: [Vitamin D deficiency, unspecified] Onset: 05-18-2013 05-18-2013 Chronic Osteoporosis (1 source) Osteoporosis; Translations: [Age-related osteoporosis without current pathological fracture] 12-21-2023 Chronic Other aftercare (1 source) Wound ; Translations: [Encounter for other specified surgical aftercare] 12-04-2023 Episodic Other aftercare (1 source) Removal of sutures done; Translations: [Encounter for removal of sutures] 12-04-2023 Episodic Other circulatory disease (2 sources) History of aortofemoral bypass surgery; Translations: [Presence of other vascular implants and grafts] 11-20-2023 Chronic Other circulatory disease (1 source) Presence of other vascular implants and grafts; Translations: [S/P aortobifemoral bypass surgery] Onset: 07-19-2024 Chronic Other connective tissue disease (2 sources) Pain in left foot; Translations: [Pain in left foot] Episodic Other ear and sense organ disorders (12 sources) Lesion of right external ear canal 07-31-2020 Episodic Other hematologic conditions (3 sources) Erythrocytosis; Translations: [Secondary polycythemia] 12-05-2021 Episodic Other hematologic conditions (1 source) Secondary polycythemia; Translations: [Polycythemia, secondary] 12-10-2022 Episodic Other lower respiratory disease (1 source) Wheezing 08-15-2020 Episodic Other lower respiratory disease (3 sources) Multiple nodules of lung; Translations: [Other nonspecific abnormal finding of lung field] 12-05-2021 Episodic Other lower respiratory disease (1 source) Other nonspecific abnormal finding of lung field; Translations: [Other nonspecific abnormal finding of lung field] 12-10-2022 Episodic Other nervous system disorders (1 source) Other acute postprocedural pain; Translations: [Other acute postprocedural pain] Onset: 06-16-2024 Episodic Other nutritional; endocrine; and metabolic disorders (8 sources) Obesity caused by energy imbalance; Translations: [Other obesity due to excess calories] Onset: 11-01-2023 11-04-2023 Chronic Other screening for suspected conditions (not mental disorders or infectious disease) (7 sources) Patient encounter status; Translations: [Encounter for screening mammogram for malignant neoplasm of breast] Onset: 02-12-2024 12-21-2023 Episodic Other skin disorders (1 source) Localized swelling, mass and lump, left upper limb; Translations: [Mass of left axilla] 01-02-2022 Episodic Other upper respiratory disease (1 source) Nasal congestion 07-31-2020 Episodic Peripheral and visceral atherosclerosis (18 sources) Abdominal aorta finding; Translations: [Atherosclerosis of aorta] Onset: 12-19-2021 Chronic Residual codes; unclassified (1 source) Tobacco user 05-26-2019 Episodic Residual codes; unclassified (11 sources) Family history of cancer of colon 02-14-2022 Episodic Residual codes; unclassified (11 sources) H/O: chemotherapy 02-14-2022 Episodic Residual codes; unclassified (11 sources) H/O: major vascular surgery 02-14-2022 Episodic Residual codes; unclassified (1 source) Acquired absence of spleen; Translations: [Other acquired absence of organ] 12-10-2022 Episodic Residual codes; unclassified (1 source) Edema; Translations: [Edema, unspecified] 12-04-2023 Episodic Residual codes; unclassified (12 sources) History of cardiovascular surgery 11-10-2023 Episodic Screening and history of mental health and substance abuse codes (6 sources) Tobacco use and exposure - finding 02-14-2022 Chronic Spondylosis; intervertebral disc disorders; other back problems (1 source) Backache 03-30-2019 Episodic Substance-related disorders (11 sources) Nicotine dependence; Translations: [Nicotine dependence, unspecified, uncomplicated] Onset: 12-19-2021 12-21-2021 Chronic Syncope (9 sources) Syncope 08-28-2022 Episodic Thyroid disorders (14 sources) Thyroid nodule; Translations: [Nontoxic single thyroid nodule] Onset: 07-26-2010 07-26-2010 Chronic Unclassified (11 sources) Long-term current use of proton pump inhibitor therapy 02-14-2022 Unclassified (11 sources) Peripheral arterial disease 12-30-2021 Unclassified (1 source) Vaping 08-03-2023 Unclassified (6 sources) Finding of aorta 11-10-2023 Viral infection (9 sources) Herpes labialis 08-28-2022 Episodic Past or Other Problems Problem Classification Problem Date Documented Date Episodic/Chronic Cancer of breast (20 sources) History of malignant neoplasm of breast; Translations: [Personal history of malignant neoplasm of breast] Onset: 05-17-2013 05-17-2013 Episodic Complications of surgical procedures or medical care (8 sources) Expected difficult tracheal intubation; Translations: [Failed or difficult intubation, initial encounter] Onset: 11-01-2023 11-01-2023 Episodic Diabetes mellitus without complication (8 sources) Metabolic stress hyperglycemia; Translations: [Hyperglycemia, unspecified] Onset: 11-01-2023 Resolved: 11-05-2023 11-05-2023 Episodic Genitourinary symptoms and ill-defined conditions (14 sources) Nocturia; Translations: [Nocturia] Onset: 01-27-2011 01-27-2011 Episodic Hypertension with complications and secondary hypertension (8 sources) Secondary hypertension; Translations: [Secondary hypertension, unspecified] Onset: 11-04-2023 Resolved: 11-04-2023 11-04-2023 Chronic Other circulatory disease (17 sources) Elevated blood-pressure reading without diagnosis of hypertension; Translations: [Elevated blood-pressure reading, without diagnosis of hypertension] Onset: 11-04-2023 08-28-2022 Episodic Other circulatory disease (8 sources) Other disorder of circulatory system; Translations: [Unspecified circulatory system disorder] Onset: 11-01-2023 11-04-2023 Episodic Other connective tissue disease (10 sources) Pain in lower limb; Translations: [Pain in leg, unspecified] Onset: 12-19-2021 Resolved: 11-05-2023 12-21-2021 Episodic Other nervous system disorders (8 sources) Postoperative pain ; Translations: [Other acute postprocedural pain] Onset: 11-01-2023 11-04-2023 Episodic Residual codes; unclassified (1 source) H/O: surgery; Translations: [S/P oophorectomy] Onset: 05-17-2013 05-17-2013 Episodic Respiratory failure; insufficiency; arrest (adult) (8 sources) Ventilator finding; Translations: [Dependence on respirator [ventilator] status] Onset: 11-01-2023 Resolved: 11-05-2023 11-05-2023 Chronic Skin and subcutaneous tissue infections (2 sources) Cellulitis of left lower limb; Translations: [Cellulitis of left lower limb] Onset: 12-10-2023 Episodic Results Test Name Value Interpretation Reference Range Facility [facility] 12-26-2024 MEG Telephone (OBGYWM) JANA MCCLAIN ([id number]) 1965 F Date Time Provider Department 12/26/24 JEANETH ALCANTARA During your visit today, we recorded the following information about you: Justine Diop LPN 12/26/2024 2:26 PM Signed Faxed signed Rx Mammogram to [facility]. Justine Diop LPN Allergies As of Date: 12/26/2024 Noted Allergy Reaction PREDNISONE 02/27/2005 4 - Hives Comments: Pt only breaks out if taking a high dosage SULFAMETHOXAZOLE 08/23/2018 16 - Unknown TRIMETHOPRIM 08/23/2018 14 - Other: See Comments Date Reviewed: 12/23/2024 Reviewed by: Jeaneth Alcantara APRN.PHARMACY DISTRICT MANAGER - Fully Assessed Reason for Visit: Orders [681] Prescriptions as of 12/26/2024 - Estradiol (VAGIFEM) 10 mcg vaginal tablet Use 1 tablet vaginally two times a week. - metoprolol tartrate, short acting, (LOPRESSOR) 25 mg tablet Take 1 tablet by mouth every 12 hours. - omeprazole (PRILOSEC) 20 mg capsule once daily. - atorvastatin (LIPITOR) 40 mg tablet Take 1 tablet by mouth daily at bedtime. - aspirin 81 mg chewable tablet Take 1 tablet by mouth once daily. - venlafaxine ER (EFFEXOR XR) 75 mg 24 hr capsule 75 mg once daily. 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, Z17.0, Z1*05/17/2013 History of breast cancer [Z85.3] 05/17/2013 S/P oophorectomy [YPM2108] 05/17/2013 Vitamin D deficiency [E55.9] 05/18/2013 Leg pain [M79.606] 12/19/2021 11/05/2023 Nicotine use disorder, F17.2 [F17.200] 12/21/2021 PVD (peripheral vascular disease) ([facility]) [I73.9] 12/21/2021 Acute occlusion of aortic bifurcation due to th*11/01/2023 Difficult airway [T88.4XXA] 11/01/2023 Acute lower limb ischemia [I99.8] 11/01/2023 Postoperative pain [G89.18] 11/01/2023 On mechanically assisted ventilation (HCC) [Z99*11/01/2023 11/05/2023 Stress hyperglycemia [R73.9] 11/01/2023 11/05/2023 Class 1 obesity due to excess calories with bod*11/01/2023 Depression [F32.A] 11/01/2023 HLD (hyperlipidemia) [E78.5] 11/01/2023 Secondary hypertension [I15.9] 11/04/2023 11/04/2023 Blood pressure elevated without history of HTN *11/04/2023 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] 12/21/2023 Encounter Status:Closed by JUSTINE DIOP on 12/26/24 [facility] Anjana 12-23-2024 CNOV Office Visit (OBGYWM ) JANA MCCLAIN ([id number]) 1965 F Date Time Provider Department 12/23/24 9:00 AM JEANETH ALCANTARA OBGYWM During your visit today, we recorded the following information about you: Blood pressure Weight 120/74 86.8 kg Jeaneth Alcantara APRN.PHARMACY DISTRICT MANAGER 12/23/2024 10:37 AM Signed mamm 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 Does state that she has some issues with vaginal dryness. Using Vagifem. Uses petroleum jelly PRN for dryness. Postmenopausal: Yes since age 44 HRT use: Yes, Vagifem How lon years. 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 Atherosclerosis of aorta 11/2023 AORTOILICIC Breast cancer (HCC) 03/13/2008 left breast Female infertility of other specified origin History of external beam radiation therapy ITP (idiopathic thrombocytopenic purpura) Osteoporosis, unspecified Osteoporosis Syncope Thrombocytopenia, unspecified Thyroid nodule Tobacco use disorder PAST SURGICAL HISTORY Procedure Laterality Date ARTERY BYPASS GRAFT AORTOILIAC 11/2023 DELIVERY ONLY 03/16/1987 and 01/18/2007 PAST SURGICAL HISTORY OF 05/10/2009 partial hysterectomy PAST SURGICAL HISTORY OF 03/16/2008 lumpectomy left breast PAST SURGICAL HISTORY OF 12/20/2021 CROSS TIE CUTTER/stent abdominal aorta SPLENECTOMY,GASTROESO PHAGEAL DEVASCULARIZA FAMILY HISTORY Problem Relation Age of Onset Diabetes Mother Hypertension Mother Cancer Father lung and throat, Heart Father Breast Cancer Sister x2 sisters Diabetes Sister Cancer Brother thyroid cancer, Brain Cancer Brother SOCIAL HISTORY Social History Tobacco Use Smoking status: Former Current packs/day: 1.00 Average packs/day: 1 pack/day for 28.0 years (28.0 ttl pk-yrs) Types: Cigarettes Smokeless tobacco: Never Tobacco comments: NO CIGS BUT VAPING Vaping Use Vaping status: Never Used Substance Use Topics Alcohol use: No Drug use: No REVIEW OF SYSTEMS Abdomen: No abdominal pain, nausea, vomiting, diarrhea, or constipation. No bloating, early satiety, indigestion, or increased flatulence. Bladder: No dysuria, gross hematuria, urinary frequency, urinary urgency, or incontinence Breast: No breast lumps, nipple d/c, overlying skin changes, redness or skin retraction Allergies and current medication updated:Yes SENSITIVE EXAM: The sensitive examination was discussed with the Patient or Patient's Authorized Cnc Machine Setter. As applicable, any other physician, advance practice provider, medical student, or other health professional student that will be observing or involved in the sensitive examination for educational or training purposes was discussed with the Patient or Authorized Cnc Machine Setter. The Patient or Authorized Cnc Machine Setter has agreed to proceed with the sensitive examination. (Sensitive examination includes inspection and/or palpation of the breasts, pelvis, prostate and anorectal regions). EXAM: BP 120/74 Wt 191 lb 6.4 oz (86.8kg) LMP 02/26/2006 GENERAL: pleasant, female in no apparent distress HEENT: Normocephalic, atraumatic, mucus membranes moist, and no lesions NECK: Supple, full range of motion DERMATOLOGY: Normal, without lesions, non-icteric, and non-hirsute BREAST: soft, non-tender, symmetric, no dominant mass, normal nipple-areolar complex, no lymphadenopathy, no nipple discharge, and scarring to left axilla/lateral breast from previous lumpectomy CHEST: Normal inspiratory effort ABDOMEN: soft, non-tender, and no masses PELVIC: external genitalia normal, normal Bartholin's glands, urethra, Elbing's glands, no vulvar lesions, no cervical lesions, good vaginal support, physiologic discharge present, normal appearing perineal body and perianal region BIMANUAL: no adnexal masses, non-tender, and uterus surgically absent RECTOVAGINAL: deferred. NEURO: alert and oriented x3,exam grossly non-focal EXTREMITIES: normal ASSESSMENT/PLAN: 1) Health maintenance: Pap done with HPV. Mammogram ordered for [facility] Nutrition, exercise and routine health maintenance exams reviewed. Calcium/Vitamin D supplementation information provided. Colon cancer scre (more content not included)... Normal [facility] HIGH RISK HUMAN PAPILLOMA LIAN (HPV), PCR FOR DETECTION AND GENOTYPINGon 12-23-2024 HPV 16 Ag Ql (Unsp spec) Not detected Normal Not detected [facility] Comment on above: Order Comment: Speci men Type: FLUID SPECIMEN Ordering Facility: [facility] Address: [address] [place] [address] Performed By: #### H PVHRT #### [facility] CLIA [id number] [address] [place] [address] [place] HPV 18 Ag Ql (Unsp spec) Not detected Normal Not detected [facility] Comment on above: Order Comment: Speci men Type: FLUID SPECIMEN Ordering Facility: [facility] Address: [address] [place] [address] Performed By: #### H PVHRT #### [facility] CLIA [id number] [address] [place] [address] [place] HPV 31+33+35+39+45+51+52+5 6+58+59+66+68 DNA PATRICIA+probe Ql (Cvx) Not detected Normal Not detected [facility] Comment on above: Order Comment: Speci men Type: FLUID SPECIMEN Ordering Facility: [facility] Address: [address] [place] [address] Result Comment: High Risk HPV Other Type includes HPV types 31, 33, 35, 39, 45, 51, 52, 56, 58, 59, 66 and 68. Performed By: #### H PVHRT #### [facility] CLIA [id number] [address] [place] [address] [place] PAP TESTon 12-23-2024 ADEQUACY Normal [facility] Comment on above: Order Comment: Speci men Type: FLUID SPECIMEN Ordering Facility: [facility] Address: [address] [place] [address] Result Comment: Sati sfactory for interpretation. Transformation zone present Performed By: #### L [id number] #### [facility] CLIA [id number] [address] [place] [address] [place] CASE REPORT Normal [facility] Comment on above: Order Comment: Speci men Type: FLUID SPECIMEN Ordering Facility: [facility] Address: [address] [place] [address] Result Comment: Gyne cologic Cytology Report Case: [id number] Authorizing Provider: Jeaneth Alcantara APRN.PHARMACY DISTRICT MANAGER Collected: 12/23/2024 09:34 AM Ordering Location: OB/Gynecology Received: 12/23/2024 11:26 AM First Screen: Zhorova, Kylie, CT, ASCP Specimen: Pap Test, ThinPrep, Cervix Performed By: #### L [id number] #### [facility] CLIA [id number] [address] [place] [address] [place] CLINICAL HISTORY, CYTOLOGY, MANAGEMENT CONSULTING Routine Exam Normal [facility] Comment on above: Order Comment: Speci men Type: FLUID SPECIMEN Ordering Facility: [facility] Address: [address] [place] [address] Result Comment: Hyst erectomy, Supracervical Performed By: #### L [id number] #### [facility] CLIA [id number] [address] [place] [address] [place] FINAL PERFORMING LAB Normal [facility] Comment on above: Order Comment: Speci men Type: FLUID SPECIMEN Ordering Facility: [facility] Address: [address] [place] [address] Result Comment: Tech nical component, spinning lathe operator automatic screening performed at: [facility], [address] [place] [address] CLIA: [id number] Diagnostic interpretation performed at: [facility], [address] [place] [address] CLIA# [id number] Pilot Boat Operator: Jose Mayer MD Performed By: #### L [id number] #### [facility] CLIA [id number] [address] [place] [address] [place] INTERPRETATION, CYTOLOGY, MANAGEMENT CONSULTING Normal [facility] Comment on above: Order Comment: Speci men Type: FLUID SPECIMEN Ordering Facility: [facility] Address: [address] [place] [address] Result Comment: Nega tive for intraepithelial lesion or malignancy. at 1436 EDT Performed By: #### L [id number] #### [facility] CLIA [id number] [address] [place] [address] [place] PAP DISCLAIMER COMMENT The Pap Smear is a screening test for cervical cancer. False negative results occur with all screening tests, emphasizing the need for rescreening at recommended intervals, and clinical correlation. Normal [facility] Comment on above: Order Comment: Speci men Type: FLUID SPECIMEN Ordering Facility: [facility] Address: [address] [place] [address] Performed By: #### L [id number] #### [facility] CLIA [id number] [address] [place] [address] [place] PAP COAL OR ORE CONTROLLER COMMENT This specimen has been analyzed by the FDA-approved Experiment System, which uses digital imaging and an enhanced artificial intelligence image analysis algorithm to identify del angel of interest on the microscopic slide, to assist the set up worker and pathologist in evaluating cells on ThinPrep Pap tests. Following analysis, del angel of interest on the microscopic slide selected by the algorithm are reviewed by a set up worker. If a sample requires hierarchical review, the pathologist will review the same del angel of interest selected by the algorithm prior to final interpretation. Normal [facility] Comment on above: Order Comment: Speci men Type: FLUID SPECIMEN Ordering Facility: [facility] Address: [address] [place] [address] Performed By: #### L [id number] #### [facility] CLIA [id number] [address] [place] [address] [place] CNOVon 07-19-2024 CNOV Office Visit (VASSMN ) JANA MCCLAIN ([id number]) 1965 F Date Time Provider Department 07/19/24 11:30 AM SINDHU MILLER During your visit today, we recorded the following information about you: Pulse Blood pressure 60/minute 117/61 Sindhu Miller MD 07/19/2024 11:40 AM Signed [facility] DEPARTMENT OF VASCULAR SURGERY OUTPATIENT VISIT DATE July 19, 2024 OUTPATIENT VISIT TYPE ESTABLISHED SERVICE DATE: 07/19/2024 SERVICE TIME: 10:18 AM PRIMARY CARE PHYSICIAN: Brent Menard DO HISTORY OF PRESENT ILLNESS: Ms. Mcclain is a 59 year old female who presents today for a vascular surgery follow-up visit for peripheral arterial disease. Patient is doing well. Recently had a ventral hernia surgery which she has recovered from. She is ambulating as able. She has quit smoking but still vapes. 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 Atherosclerosis of aorta 11/2023 AORTOILICIC Breast cancer (HCC) 03/13/2008 left breast Female infertility of other specified origin History of external beam radiation therapy ITP (idiopathic thrombocytopenic purpura) Osteoporosis, unspecified Osteoporosis Syncope Thrombocytopenia, unspecified Thyroid nodule Tobacco use disorder PAST SURGICAL HISTORY Procedure Laterality Date ARTERY BYPASS GRAFT AORTOILIAC 11/2023 DELIVERY ONLY 03/16/1987 and 01/18/2007 PAST SURGICAL HISTORY OF 05/10/2009 partial hysterectomy PAST SURGICAL HISTORY OF 03/16/2008 lumpectomy left breast PAST SURGICAL HISTORY OF 12/20/2021 CROSS TIE CUTTER/stent abdominal aorta SPLENECTOMY,GASTROESO PHAGEAL DEVASCULARIZA SOCIAL HISTORY Social History Tobacco Use Smoking status: Former Current packs/day: 1.00 Average packs/day: 1 pack/day for 28.0 years (28.0 ttl pk-yrs) Types: Cigarettes Smokeless tobacco: Never Tobacco comments: NO CIGS BUT VAPING Vaping Use Vaping status: Never Used Substance Use Topics Alcohol use: No Drug use: No MEDICATIONS: Estradiol (VAGIFEM) 10 mcg vaginal tablet Use 1 tablet vaginally two times a week. twice weekly metoprolol tartrate, short acting, (LOPRESSOR) 25 mg tablet Take 1 tablet by mouth every 12 hours. omeprazole (PRILOSEC) 20 mg capsule once daily. atorvastatin (LIPITOR) 40 mg tablet Take 1 tablet by mouth daily at bedtime. aspirin 81 mg chewable tablet Take 1 tablet by mouth once daily. venlafaxine ER (EFFEXOR XR) 75 mg 24 hr capsule 75 mg once daily. ALLERGIES: ALLERGIES Allergen Reactions Prednisone Hives Pt only breaks out if taking a high dosage Sulfamethoxazole Unknown Trimethoprim Other: See Comments PHYSICAL EXAM: BP 117/61 Pulse 60 LMP 02/26/2006 General: Alert and oriented, No acute distress, Healthy appearance Integumentary: Normal color, no rash, no lesions. HEENT: EOM, pupils equal, round and reactive. Cardiovascular: Normal S1 AND S2, no rubs, murmurs or gallops. No JVD., Pulse regular. Lungs: Normal breath sounds, no wheezes or crackles. Abdomen: Soft, non-tender, no rigidity. Extremities: No deformity, no edema or tenderness, no joint swelling or clubbing. Neurological: Normal cognition and motor skills. Vascular: Posterior Tibial Right: Normal - Left: Normal Dorsalis Pedal Right: Normal - Left: Normal Diagnostic tests reviewed for today's visit: Most recent imaging with JIMENA and arterial duplex which show normal bilaterally and no arterial stenosis IMPRESSION: Ms. Mcclain is a 59 year old female with PAD and aortic occlusion s/p Aortobifemoral bypass. PLAN and RECOMMENDATIONS: Patient is doing well with no complaints She is ambulating without difficulty and has healed all of her incisions Continue optimal medical therapy with ASA, statin, smoking cessation, and blood pressure control. 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 Discontinue saline lock post exam. If (more content not included)... Normal [facility] PVR ANK/GARCIA/TOE CANDELARIA VAS LAB on 07-19-2024 PVR ANK/GARCIA/TOE CANDELARIA VAS LAB Non-Invasive Vascular Laboratory [facility] F30 Lower Extremity Arterial Physiology Study Bilateral/Complete Date of service/time: 07/19/2024 8:56:15 AM Name: MRS. JANA MCCLAIN Date of : 1965 Age: 59 years Gender: F Clinical Indication Follow up. Post operative repair surveillance 11/01/2023 Aortobifemoral bypass graft. TECHNIQUE -------- An arterial physiological examination was performed, including measurement of blood pressures using continuous wave Doppler and recording of plethysmographic with or without Doppler waveforms at the below-mentioned limb segments. FINDINGS -------- RIGHT SIDE AT REST Right Pressures Brachial: 122 mmHg Ankle dorsalis pedis: 107 mmHg JIMENA: 0.88 Ankle posterior tibial: 136 mmHg JIMENA: 1.11 Right PVR Waveforms Ankle: Normal. Transmetatarsal: Moderately dampened. Digit: Severely dampened. LEFT SIDE AT REST Left Pressures Brachial: Unable to take, history of breast cancer. Ankle dorsalis pedis: 120 mmHg JIMENA: 0.98 Ankle posterior tibial: 134 mmHg JIMENA: 1.10 Left PVR Waveforms Ankle: Mildly dampened. Transmetatarsal: Moderately dampened. Digit: Severely dampened. IMPRESSION Compared to prior study of 11/20/2023, bilateral transmetatarsal tracings appear moderate on today's exam (previously normal). Right digit tracing appears severe on today's exam (previously mild). RIGHT SIDE Resting right ankle brachial index: 1.11 Normal ankle brachial index at rest in the right leg. Right ankle: Normal at rest. Right small vessel disease versus vasoconstriction. LEFT SIDE Resting left ankle brachial index: 1.10 Normal ankle brachial index at rest in the left leg. Left ankle: Normal at rest. Left small vessel disease versus vasoconstriction. Technologist: Brayan Reilly Carolyn Ordering physician: ZABRINA XIONG Interpreting physician: Sindhu Miller MD, RPVI Final [facility] [employer] Medical Image : [id number] See Link below for Image Normal [facility] ABD AORTA COMPLETE VAS LA Kavon 07-19-2024 ABD AORTA COMPLETE VAS LAB Non-Invasive Vascular Laboratory [facility] F30 Abdominal Aorta Bilateral/Complete Date of service/time: 07/19/2024 8:16:32 AM Name: MRS. JANA MCCLAIN Date of : 1965 Age: 59 years Gender: F Clinical Indication Follow up. Post operative repair surveillance 11/01/2023 aortobifemoral bypass graft. TECHNIQUE -------- An aortic duplex ultrasound examination was performed, including grayscale imaging and color Doppler and spectral Doppler examination of abdominal aorta as well as the below mentioned arteries. FINDINGS -------- AORTA Proximal: PSV: 80 cm/s. EDV: 18 cm/s. 2.01 cm x 2.05 cm At renal: PSV: 71 cm/s. EDV: 16 cm/s. 1.93 cm x 1.89 cm Aortobifemoral graft proximal anastomosis PSV: 73 cm/s. EDV: 17 cm/s. Aortobifemoral graft proximal main body PSV: 98 cm/s. EDV: 0 cm/s. Aortobifemoral graft mid main body PSV: 100 cm/s. EDV: 18 cm/s. Aortobifemoral graft distal main body PSV: 105 cm/s. EDV: 19 cm/s. Left limb of graft proximal PSV: 87 cm/s. EDV: 17 cm/s. Left limb of graft mid PSV: 65 cm/s. EDV: 0 cm/s. Left limb of graft distal PSV: 69 cm/s. EDV: 0 cm/s. Left limb of graft distal anastomosis PSV: 73 cm/s. EDV: 9 cm/s. Left common femoral artery distal PSV: 116 cm/s. EDV: 9 cm/s. Left profunda artery proximal PSV: 113 cm/s. EDV: 12 cm/s. Left superficial femoral artery origin PSV: 76 cm/s. EDV: 0 cm/s. Right limb of graft proximal PSV: 72 cm/s. EDV: 0 cm/s. Right limb of graft mid PSV: 71 cm/s. EDV: 12 cm/s. Right limb of graft distal PSV: 76 cm/s. EDV: 0 cm/s. Right limb of graft distal anastomosis PSV: 91 cm/s. EDV: 0 cm/s. Right common femoral artery distal PSV: 100 cm/s. EDV: 0 cm/s. Right profunda artery proximal PSV: 117 cm/s. EDV: 0 cm/s. Right superficial femoral artery origin PSV: 120 cm/s. EDV: 0 cm/s. IMPRESSION Technically difficult exam due to bowel gas. Compared to prior study of 11/20/2023, there is no significant change. AORTA No evidence of abdominal aortic aneurysm. Normal aortic diameter from proximal to level of renal arteries. ARTERIES/GRAFT Aortobifemoral graft throughout: patent . Left limb of graft throughout: patent . Left common femoral artery distal: patent . Measures approximately 0.93 cm. Left profunda artery proximal: patent . Left superficial femoral artery origin: patent . Right limb of graft throughout: patent . Right common femoral artery distal: patent . Measures approximately 0.81 cm. Right profunda artery proximal: patent . Right superficial femoral artery origin: patent . Technologist: Brayan Reilly RVCarolyn Ordering physician: ZABRINA XIONG Interpreting physician: Sindhu Miller MD, SHIRA Final [facility] [employer] Medical Image : [id number] micsSISUID See Link below for Image Normal [facility] .Auto Diffon 05-26-2024 Basophil, Absolute 0.1 10 3/mcL Normal 0.0-0.2 [facility] Comment on above: Performed By: #### A DIFF, CMP, GFR, CBC, ANEU #### [address] [address] Basophils/100 WBC (Bld) 0.6 % Normal 0.0-2.5 [facility] Comment on above: Performed By: #### A DIFF, CMP, GFR, CBC, ANEU #### [address] [address] Eosinophil, Absolute 0.6 10 3/mcL Normal 0.0-0.7 [facility] Comment on above: Performed By: #### A DIFF, CMP, GFR, CBC, ANEU #### [address] [address] Eosinophils/100 WBC (Bld) 5.8 % Normal 0.0-7.0 [facility] Comment on above: Performed By: #### A DIFF, CMP, GFR, CBC, ANEU #### [address] [address] Lymphocyte, Absolute 3.8 10 3/mcL Normal 0.9-4.3 [facility] Comment on above: Performed By: #### A DIFF, CMP, GFR, CBC, ANEU #### [address] [address] Lymphocytes/100 WBC (Bld) 38.8 % Normal 20.0-40.0 [facility] Comment on above: Performed By: #### A DIFF, CMP, GFR, CBC, ANEU #### [address] [address] Monocyte, Absolute 0.7 10 3/mcL Normal 0.1-1.4 [facility] Comment on above: Performed By: #### A DIFF, CMP, GFR, CBC, ANEU #### [address] [address] Monocytes/100 WBC (Bld) 7.4 % Normal 2.0-13.0 [facility] Comment on above: Performed By: #### A DIFF, CMP, GFR, CBC, ANEU #### [address] [address] Neutrophils/100 WBC (Bld) 47.4 % Low 50.0-75.0 [facility] Comment on above: Performed By: #### A DIFF, CMP, GFR, CBC, ANEU #### [address] [address] .GFRon 05-26-2024 Estimated Glomerular Filtration Rate 69 ml/min/1.73sqm Normal [facility] Comment on above: Result Comment: Stages of Chronic Kidney Disease (CKD) Stage Description eGFR(ml/min/1.73 sq.m.) CKD 1 Normal kidney function or >=90 normal kindney function with possible kidney damage (ex. Proteinuria) CKD 2 Kidney damage with mild loss 60-89 of kidney function CKD 3a Mild to moderate loss of kidney 45-59 function CKD 3b Moderate to severe loss of 30-44 of kindey function CKD 4 Severe loss of kidney function 15-29 CKD 5 Kidney failure <15 Note: (go live 2024) the eGFR calculation was updated to the 2020 CKD-EPI creatinine equation without a race factor to calculate the eGFR results. Performed By: #### A DIFF, CMP, GFR, CBC, ANEU #### [place] [address] .NEUABSon 05-26-2024 Neutrophil, Absolute 4.7 10 3/mcL Normal 2.3-8.1 [facility] Comment on above: Performed By: #### A DIFF, CMP, GFR, CBC, ANEU #### [place] [address] CBCon 05-26-2024 Erythrocyte distribution width (RBC) [Ratio] 15.8 % High 11.5-15.5 [facility] Comment on above: Performed By: #### A DIFF, CMP, GFR, CBC, ANEU #### [place] [address] Hematocrit (Bld) [Volume fraction] 40.0 % Normal 34.0-46.0 [facility] Comment on above: Performed By: #### A DIFF, CMP, GFR, CBC, ANEU #### [place] [address] Hgb 13.4 G/dL Normal 12.0-16.0 [facility] Comment on above: Performed By: #### A DIFF, CMP, GFR, CBC, ANEU #### [place] [address] MCH (RBC) [Entitic mass] 29.3 pg Normal 27.0-33.0 [facility] Comment on above: Performed By: #### A DIFF, CMP, GFR, CBC, ANEU #### [place] [address] MCHC 33.6 G/dL Normal 32.0-36.0 [facility] Comment on above: Performed By: #### A DIFF, CMP, GFR, CBC, ANEU #### [place] [address] MCV (RBC) [Entitic vol] 87.3 fL Normal 80.0-99.0 [facility] Comment on above: Performed By: #### A DIFF, CMP, GFR, CBC, ANEU #### [address] [address] Platelet 301 10 3/mcL Normal 150-450 [facility] Comment on above: Performed By: #### A DIFF, CMP, GFR, CBC, ANEU #### [address] [address] Platelet mean volume (Bld) [Entitic vol] 8.9 fL Normal 6.6-10.5 [facility] Comment on above: Performed By: #### A DIFF, CMP, GFR, CBC, ANEU #### [place] [address] RBC 4.58 10 6/mcL Normal 4.10-5.30 [facility] Comment on above: Performed By: #### A DIFF, CMP, GFR, CBC, ANEU #### [place] [address] WBC 9.8 10 3/mcL Normal 4.5-10.8 [facility] Comment on above: Performed By: #### A DIFF, CMP, GFR, CBC, ANEU #### [place] [address] CMPon 05-26-2024 Albumin Level 3.8 G/dL Normal 3.5-5.0 [facility] Comment on above: Performed By: #### A DIFF, CMP, GFR, CBC, ANEU #### [address] [address] Albumin/Globulin [Mass ratio] 1.0 {ratio} Low 1.1-2.5 [facility] Comment on above: Performed By: #### A DIFF, CMP, GFR, CBC, ANEU #### [address] [address] ALP [Catalytic activity/Vol] 92 U/L Normal 40-135 [facility] Comment on above: Performed By: #### A DIFF, CMP, GFR, CBC, ANEU #### [place] [address] [place], [place] [address] ALT [Catalytic activity/Vol] 41 U/L Normal 14-59 [facility] Comment on above: Performed By: #### A DIFF, CMP, GFR, CBC, ANEU #### [address] [address] AST [Catalytic activity/Vol] 21 U/L Normal 10-40 [facility] Comment on above: Performed By: #### A DIFF, CMP, GFR, CBC, ANEU #### [address] [address] Bili Total 0.4 mg/dL Normal 0.2-1.0 [facility] Comment on above: Result Comment: Use of this assay is not recommended for patients undergoing treatment with eltrombopag due to the potential for falsely elevated results. Performed By: #### A DIFF, CMP, GFR, CBC, ANEU #### [place] [address] BUN/Creatinine Ratio 19 ratio Normal 7-27 [facility] Comment on above: Performed By: #### A DIFF, CMP, GFR, CBC, ANEU #### [address] [address] Calcium [Mass/Vol] 9.6 mg/dL Normal 8.4-10.2 [facility] Comment on above: Performed By: #### A DIFF, CMP, GFR, CBC, ANEU #### [address] [address] Chloride [Moles/Vol] 101 mmol/L Normal 98-107 [facility] Comment on above: Performed By: #### A DIFF, CMP, GFR, CBC, ANEU #### [address] [address] CO2 [Moles/Vol] 26 mmol/L Normal 22-29 [facility] Comment on above: Performed By: #### A DIFF, CMP, GFR, CBC, ANEU #### [address] [address] Creatinine [Mass/Vol] 0.96 mg/dL Normal 0.55-1.02 [facility] Comment on above: Result Comment: Test ing performed on Siemens Dimension EXL analyzer using a modified kinetic Irene technique. Performed By: #### A DIFF, CMP, GFR, CBC, ANEU #### [address] [address] Electrolyte Balance 8.0 mEq/L Normal 4.0-15.0 [facility] Comment on above: Performed By: #### A DIFF, CMP, GFR, CBC, ANEU #### [address] [address] Globulin 3.7 G/dL Normal 1.5-3.8 [facility] Comment on above: Performed By: #### A DIFF, CMP, GFR, CBC, ANEU #### [address] [address] Glucose [Mass/Vol] 107 mg/dL High 70-105 [facility] Comment on above: Performed By: #### A DIFF, CMP, GFR, CBC, ANEU #### [address] [address] Potassium [Moles/Vol] 4.2 mmol/L Normal 3.5-5.1 [facility] Comment on above: Performed By: #### A DIFF, CMP, GFR, CBC, ANEU #### [address] [address] Sodium [Moles/Vol] 135 mmol/L Low 136-145 [facility] Comment on above: Performed By: #### A DIFF, CMP, GFR, CBC, ANEU #### [address] [address] Total Protein 7.5 G/dL Normal 6.4-8.2 [facility] Comment on above: Performed By: #### A DIFF, CMP, GFR, CBC, ANEU #### [address] [address] Urea nitrogen [Mass/Vol] 18 mg/dL Normal 7-18 [facility] Comment on above: Performed By: #### A DIFF, CMP, GFR, CBC, ANEU #### [address] [address] US ABDOMEN LIMITEDon 025 US ABDOMEN LIMITED ORIGINAL EXAMINATION: LIMITED ABDOMINAL ULTRASOUND04/18/2024 9:06 am COMPARISON: None HISTORY: ORDERING SYSTEM PROVIDED HISTORY: Reason for Exam: hx of complex vascular surgery 10/2023, with new hernia concern superior to umbilicus 02/2024, eval for hernia, FINDINGS: Scanning of the palpable lump in the left supraumbilical region shows a hernia that is best seen with patient standing and reduces with patient supine. This is about 3.8 x 4.3 x 1.3 cm. Posterior shadowing obscures the hernia neck but this is probably about 1.5 cm. The hernia seems to contain both fat and bowel. IMPRESSION: Confirmation of a ventral hernia as described. Interpreted by: Pita Fuentes MD Preliminary Report By: Pita Fuentes MD Electronically signed By Pita Fuentes MD Dictated Date: 04/18/2024 12:05:45 PM Prelim Date: 04/18/2024 12:07:56 PM Sign Date: 04/18/2024 12:07:56 PM Ordering Provider: BRENT MENARD Normal [facility]ATORYOrdered By: Lilly Pink on 04-11-2024 Albumin DL <= 20 mg/L (U) [Mass/Vol] 349 mcg/dL Invalid Interpretation Code AO ADM SS Albumin/Creatinine DL <= 20 mg/L (U) [Mass ratio] 15 mcg/mg Normal 0 - 30 mcg/mg AO Chemistry S Creatinine (U) [Mass/Vol] 22.8 mg/dL Invalid Interpretation Code AO ADM SS MALBRon 04-11-2024 U Creatinine 22.8 mg/dL Normal [facility] Comment on above: Performed By: #### M ALBR #### [address] [address] U Microalb 349 mcg/dL Normal [facility] Comment on above: Performed By: #### M ALBR #### [place] [address] [place], [place] [address] U Ratio Alb/Cre 15 mcg/mg Normal 0-30 [facility] Comment on above: Performed By: #### M ALBR #### [place] [address] [place], [place] [address] CT THORAX SCREENING W/O CONT Litzy 02-16-2024 CT THORAX SCREENING W/O CONTRAST ORIGINAL EXAMINATION: LOW DOSE SCREENING CT OF THE CHEST WITHOUT QAJNPQNR86/29/2024 4:07 pm TECHNIQUE: Low dose lung cancer screening CT of the chest was performed without the administration of intravenous contrast. Multiplanar reformatted images are provided for review. Automated exposure control, iterative reconstruction, and/or weight based adjustment of the mA/kV was utilized to reduce the radiation dose to as low as reasonably achievable. COMPARISON: Multiple prior chest x-rays HISTORY: ORDERING SYSTEM PROVIDED HISTORY: Reason for Exam: hx tobacco quit < 15 year, 20 pack years, age [age] 40 cigarettes a day/30 years, former smoker, hx breast ca, lt lumpectomy, sob FINDINGS: The heart is normal in size. Atherosclerosis seen of the coronary arteries and aorta. The great vessels appear normal in caliber. No lymphadenopathy is visible on this unenhanced exam. No suspicious findings seen in the visualized portion of the abdomen. The abdomen is not evaluated in detail. Trachea and mainstem bronchi are patent. Mild emphysema. No focal consolidation, pleural effusion or pneumothorax. Within the left anterior upper lobe, there are peripheral reticular opacities likely related to scarring from prior radiation treatment. There is additional mild scattered bilateral pleural and parenchymal scarring. There is a right middle lobe for 5 mm triangular nodule along the minor fissure likely representing an intrapulmonary lymph node. There is a punctate calcified granuloma within the right medial upper lobe. There is a 4 mm right upper lobe medial pulmonary nodule (series 4, image 35). There are a couple 3 mm right lower lobe pulmonary nodules (series 4, image 80 and 90). Few small 3-4 mm ground-glass nodules within the right lower lobe (series 4, image 92 and image 101). 3 mm lingular nodule (series 4, image 73). 4 mm left lower lobe pulmonary nodule (series 4, image 80). 2 mm ground-glass nodule within the left lower lobe (series 4, image 85). No aggressive osseous lesions visible. Degenerative changes seen in the spine. IMPRESSION: Small lung nodules. For patients with appropriate lung cancer risk, annual CT screening is recommended. Atherosclerosis with coronary artery calcifications. Information below is for Lung nodule tracking purposes: Nodule: S3 NS1 BLN Other Findings: P-CAC Change: Na Recall : 1yr scr Recall Type: LDCT LungRads: 2s Interpreted by: Jony Nowak Preliminary Report By: Jony Nowak Electronically signed By Jony Nowak Dictated Date: 02/16/2024 3:14:57 PM Prelim Date: 02/16/2024 3:26:03 PM Sign Date: 02/16/2024 3:26:03 PM Ordering Provider: BRENT Nogueira [facility] .Auto Diffon 01-26-2024 Basophil, Absolute 0.0 10 3/mcL Normal 0.0-0.2 [facility] Comment on above: Performed By: #### A DIFF, CMP, GFR, CBC, ANEU #### [address] [address] Basophils/100 WBC (Bld) 0.3 % Normal 0.0-2.5 [facility] Comment on above: Performed By: #### A DIFF, CMP, GFR, CBC, ANEU #### [address] [address] Eosinophil, Absolute 0.4 10 3/mcL Normal 0.0-0.7 [facility] Comment on above: Performed By: #### A DIFF, CMP, GFR, CBC, ANEU #### [address] [address] Eosinophils/100 WBC (Bld) 3.7 % Normal 0.0-7.0 [facility] Comment on above: Performed By: #### A DIFF, CMP, GFR, CBC, ANEU #### [address] [address] Lymphocyte, Absolute 4.6 10 3/mcL High 0.9-4.3 [facility] Comment on above: Performed By: #### A DIFF, CMP, GFR, CBC, ANEU #### [address] [address] Lymphocytes/100 WBC (Bld) 46.5 % High 20.0-40.0 [facility] Comment on above: Performed By: #### A DIFF, CMP, GFR, CBC, ANEU #### [address] [address] Monocyte, Absolute 0.8 10 3/mcL Normal 0.1-1.4 [facility] Comment on above: Performed By: #### A DIFF, CMP, GFR, CBC, ANEU #### [address] [address] Monocytes/100 WBC (Bld) 7.7 % Normal 2.0-13.0 [facility] Comment on above: Performed By: #### A DIFF, CMP, GFR, CBC, ANEU #### [address] [address] Neutrophils/100 WBC (Bld) 41.8 % Low 50.0-75.0 [facility] Comment on above: Performed By: #### A DIFF, CMP, GFR, CBC, ANEU #### [address] [address] .GFRon 01-26-2024 GFR 82 ml/min/1.73sqm Normal [facility] Comment on above: Result Comment: GFR Population mean for , Non- Americans Ages 20-29 = 116 mL/min/1.73 sq.m. Ages 30-39 = 107 mL/min/1.73 sq.m. Ages 40-49 = 99 mL/min/1.73 sq.m. Ages 50-59 = 93 mL/min/1.73 sq.m. Ages 60-69 = 85 mL/min/1.73 sq.m. Ages 70+ = 75 mL/min/1.73 sq.m. Chronic Kidney Disease: Less than 60 mL/min/1.73 square meters End Stage Renal Disease: Less than 15 mL/min/1.73 square meters Performed By: #### A DIFF, CMP, GFR, CBC, ANEU #### [address] [address] GFR Non- 68 ml/min/1.73sqm Normal [facility] Comment on above: Result Comment: GFR Population mean for , Non- Americans Ages 20-29 = 116 mL/min/1.73 sq.m. Ages 30-39 = 107 mL/min/1.73 sq.m. Ages 40-49 = 99 mL/min/1.73 sq.m. Ages 50-59 = 93 mL/min/1.73 sq.m. Ages 60-69 = 85 mL/min/1.73 sq.m. Ages 70+ = 75 mL/min/1.73 sq.m. Chronic Kidney Disease: Less than 60 mL/min/1.73 square meters End Stage Renal Disease: Less than 15 mL/min/1.73 square meters Performed By: #### A DIFF, CMP, GFR, CBC, ANEU #### [place] [id number] .NEUABSon 01-26-2024 Neutrophil, Absolute 4.1 10 3/mcL Normal 2.3-8.1 [facility] Comment on above: Performed By: #### A DIFF, CMP, GFR, CBC, ANEU #### [place] [address] CBCon 01-26-2024 Erythrocyte distribution width (RBC) [Ratio] 14.8 % Normal 11.5-15.5 [facility] Comment on above: Performed By: #### A DIFF, CMP, ANEU, GFR, CBC #### [place] [address] Hematocrit (Bld) [Volume fraction] 39.9 % Normal 34.0-46.0 [facility] Comment on above: Performed By: #### A DIFF, CMP, ANEU, GFR, CBC #### [place] [address] Hgb 13.0 G/dL Normal 12.0-16.0 [facility] Comment on above: Performed By: #### A DIFF, CMP, ANEU, GFR, CBC #### [place] [address] MCH (RBC) [Entitic mass] 28.4 pg Normal 27.0-33.0 [facility] Comment on above: Performed By: #### A DIFF, CMP, ANEU, GFR, CBC #### [address] [address] MCHC 32.6 G/dL Normal 32.0-36.0 [facility] Comment on above: Performed By: #### A DIFF, CMP, ANEU, GFR, CBC #### [address] [address] MCV (RBC) [Entitic vol] 87.1 fL Normal 80.0-99.0 [facility] Comment on above: Performed By: #### A DIFF, CMP, ANEU, GFR, CBC #### [address] [address] Platelet 273 10 3/mcL Normal 150-450 [facility] Comment on above: Performed By: #### A DIFF, CMP, ANEU, GFR, CBC #### [address] [address] Platelet mean volume (Bld) [Entitic vol] 9.0 fL Normal 6.6-10.5 [facility] Comment on above: Performed By: #### A DIFF, CMP, ANEU, GFR, CBC #### [address] [address] RBC 4.59 10 6/mcL Normal 4.10-5.30 [facility] Comment on above: Performed By: #### A DIFF, CMP, ANEU, GFR, CBC #### [address] [address] WBC 9.9 10 3/mcL Normal 4.5-10.8 [facility] Comment on above: Performed By: #### A DIFF, CMP, ANEU, GFR, CBC #### [address] [address] CMPon 01-26-2024 Albumin Level 3.9 G/dL Normal 3.5-5.0 [facility] Comment on above: Performed By: #### A DIFF, CMP, GFR, CBC, ANEU #### [address] [address] Albumin/Globulin [Mass ratio] 1.1 {ratio} Normal 1.1-2.5 [facility] Comment on above: Performed By: #### A DIFF, CMP, GFR, CBC, ANEU #### [address] [address] ALP [Catalytic activity/Vol] 94 U/L Normal 40-135 [facility] Comment on above: Performed By: #### A DIFF, CMP, GFR, CBC, ANEU #### [address] [address] ALT [Catalytic activity/Vol] 29 U/L Normal 14-59 [facility] Comment on above: Performed By: #### A DIFF, CMP, GFR, CBC, ANEU #### [address] [address] AST [Catalytic activity/Vol] 18 U/L Normal 10-40 [facility] Comment on above: Performed By: #### A DIFF, CMP, GFR, CBC, ANEU #### [address] [address] Bili Total 0.4 mg/dL Normal 0.2-1.0 [facility] Comment on above: Result Comment: Use of this assay is not recommended for patients undergoing treatment with eltrombopag due to the potential for falsely elevated results. Performed By: #### A DIFF, CMP, GFR, CBC, ANEU #### [address] [address] BUN/Creatinine Ratio 17 ratio Normal 7-27 [facility] Comment on above: Performed By: #### A DIFF, CMP, GFR, CBC, ANEU #### [address] [address] Calcium [Mass/Vol] 9.7 mg/dL Normal 8.4-10.2 [facility] Comment on above: Performed By: #### A DIFF, CMP, GFR, CBC, ANEU #### [address] [address] Chloride [Moles/Vol] 102 mmol/L Normal 98-107 [facility] Comment on above: Performed By: #### A DIFF, CMP, GFR, CBC, ANEU #### [address] [address] CO2 [Moles/Vol] 30 mmol/L High 22-29 [facility] Comment on above: Performed By: #### A DIFF, CMP, GFR, CBC, ANEU #### [address] [address] Creatinine [Mass/Vol] 0.86 mg/dL Normal 0.55-1.02 [facility] Comment on above: Result Comment: Test ing performed on [employer] Dimension EXL analyzer using a modified kinetic Irene technique. Performed By: #### A DIFF, CMP, GFR, CBC, ANEU #### [place] [address] Electrolyte Balance 8.0 mEq/L Normal 4.0-15.0 [facility] Comment on above: Performed By: #### A DIFF, CMP, GFR, CBC, ANEU #### [place] [address] Globulin 3.6 G/dL Normal [facility] Comment on above: Performed By: #### A DIFF, CMP, GFR, CBC, ANEU #### [address] [address] Glucose [Mass/Vol] 91 mg/dL Normal 70-105 [facility] Comment on above: Performed By: #### A DIFF, CMP, GFR, CBC, ANEU #### [place] [id number] Potassium [Moles/Vol] 4.9 mmol/L Normal 3.5-5.1 [facility] Comment on above: Performed By: #### A DIFF, CMP, GFR, CBC, ANEU #### [place] [address] Sodium [Moles/Vol] 140 mmol/L Normal 136-145 [facility] Comment on above: Performed By: #### A DIFF, CMP, GFR, CBC, ANEU #### [place] [id number] Total Protein 7.5 G/dL Normal 6.4-8.2 [facility] Comment on above: Performed By: #### A DIFF, CMP, GFR, CBC, ANEU #### [facility] [address] [place], [place] [address] Urea nitrogen [Mass/Vol] 15 mg/dL Normal 7-18 [facility] Comment on above: Performed By: #### A DIFF, CMP, GFR, CBC, ANEU #### [facility] [address] [place], [place] [address] CNCOon 01-26-2024 CNCO Letter Text Normal [facility] CNPNon 01-26-2024 CNPN Telephone (OBGYWM) JANA MCCLAIN ([id number]) 1965 F Date Time Provider Department 01/26/24 JEANETH ALCANTARA OBJANIAWYris During your visit today, we recorded the following information about you: Jeaneth Alcantara APRN.CNP 01/26/2024 11:20 AM Signed Please let the pt know that her bone scan shows osteopenia. I would like her to be taking Calcium 1200 mg and Vitamin D 1000 units daily. Along with doing weight bearing exercises to help slow the loss of bone mass. Thanks, Jeaneth Alcantara APRN.Jazzmine Bermeo RN 01/26/2024 11:52 AM Signed Patient notified. Jazzmine Crabtree RN Allergies As of Date: 01/26/2024 Noted Allergy Reaction PREDNISONE 02/27/2005 4 - Hives Comments: Pt only breaks out if taking a high dosage SULFAMETHOXAZOLE 08/23/2018 16 - Unknown TRIMETHOPRIM 08/23/2018 14 - Other: See Comments Date Reviewed: 12/21/2023 Reviewed by: Jeaneth Alcantara APRN.CNP - Fully Assessed Reason for Visit: Results [95] Prescriptions as of 01/26/2024 - Estradiol (VAGIFEM) 10 mcg vaginal tablet Use 1 tablet vaginally two times a week. twice weekly - metoprolol tartrate, short acting, (LOPRESSOR) 25 mg tablet Take 1 tablet by mouth every 12 hours. - omeprazole (PRILOSEC) 20 mg capsule once daily. - atorvastatin (LIPITOR) 40 mg tablet Take 1 tablet by mouth daily at bedtime. - aspirin 81 mg chewable tablet Take 1 tablet by mouth once daily. - venlafaxine ER (EFFEXOR XR) 75 mg 24 hr capsule 75 mg once daily. 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*11/01/2023 Difficult airway [T88.4XXA] 11/01/2023 Acute lower limb ischemia [I99.8] 11/01/2023 Postoperative pain [G89.18] 11/01/2023 On mechanically assisted ventilation (HCC) [Z99*11/01/2023 11/05/2023 Stress hyperglycemia [R73.9] 11/01/2023 11/05/2023 Class 1 obesity due to excess calories with bod*11/01/2023 Depression [F32.A] 11/01/2023 HLD (hyperlipidemia) [E78.5] 11/01/2023 Secondary hypertension [I15.9] 11/04/2023 11/04/2023 Blood pressure elevated without history of HTN *11/04/2023 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 Mcclain called stating that Dr. Miller had her out of work until 02/01/24. For her to return to work she will need a letter with restrictions. 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 Dilia Wood Battery Engineer Connie Cline RN 01/26/2024 4:41 PM Signed Letter sent to patient. No lifting greater than 20 lbs for 3 months then continue working without restrictions. LISSA Rosales Allergies As of Date: 01/26/2024 Noted Allergy Reaction PREDNISONE 02/27/2005 4 - Hives Comments: Pt only breaks out if taking a high dosage SULFAMETHOXAZOLE 08/23/2018 16 - Unknown TRIMETHOPRIM 08/23/2018 14 - Other: See Comments Date Reviewed: 12/21/2023 Reviewed by: Jeaneth Alcantara APRN.PHARMACY DISTRICT MANAGER - Fully Assessed Reason for Visit: Patient Question [9777] Prescriptions as of 01/26/2024 - Estradiol (VAGIFEM) 10 mcg vaginal tablet Use 1 tablet vaginally two times a week. twice weekly - metoprolol tartrate, short acting, (LOPRESSOR) 25 mg tablet Take 1 tablet by mouth every 12 hours. - omeprazole (PRILOSEC) 20 mg capsule once daily. - atorvastatin (LIPITOR) 40 mg tablet Take 1 tablet by mouth daily at bedtime. - aspirin 81 mg chewable tablet Take 1 tablet by mouth once daily. - venlafaxine ER (EFFEXOR XR) 75 mg 24 hr capsule 75 mg once daily. 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/17/2013 History of breast cancer [Z85.3] 05/17/2013 S/P oophorectomy [VNE0290] 05/17/2013 Vitamin D deficiency [E55.9] 05/18/2013 Leg pain [M79.606] 12/19/2021 11/05/2023 Nicotine use disorder, F17.2 [F17.200] 12/21/2021 PVD (peripheral vascular disease) (HCC) [I73.9] 12/21/2021 Acute occlusion of aortic bifurcation due to th*11/01/2023 Difficult airway [T88.4XXA] 11/01/2023 Acute lower limb ischemia [I99.8] 11/01/2023 Postoperative pain [G89.18] 11/01/2023 On mechanically assisted ventilation (HCC) [Z99*11/01/2023 11/05/2023 Stress hyperglycemia [R73.9] 11/01/2023 11/05/2023 Class 1 obesity due to excess calories with bod*11/01/2023 Depression [F32.A] 11/01/2023 HLD (hyperlipidemia) [E78.5] 11/01/2023 Secondary hypertension [I15.9] 11/04/2023 11/04/2023 Blood pressure elevated without history of HTN *11/04/2023 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] 12/21/2023 Encounter Status:Closed by DILIA WOOD on 01/26/24 Normal [facility] LABORATORYOrdered By: SYSTEM SYSTEM on 01-26-2024 Albumin BCP dye [Mass/Vol] 3.9 G/dL Normal 3.5 - 5.0 G/dL AO ADM SS Albumin/Globulin [Mass ratio] 1.1 {ratio} Normal 1.1 - 2.5 ratio AO ADM SS ALP [Catalytic activity/Vol] 94 U/L Normal 40 - 135 U/L AO ADM SS ALT With P-5'-P [Catalytic activity/Vol] 29 U/L Normal 14 - 59 U/L AO ADM SS AST With P-5'-P [Catalytic activity/Vol] 18 U/L Normal 10 - 40 U/L AO ADM SS Basophils (Bld) [#/Vol] 0.0 103/mcL Normal 0.0 - 0.2 10^3/mcL AO Workflow SS Basophils/100 WBC (Bld) 0.3 % Normal 0.0 - 2.5 % AO Workflow SS Bilirubin [Mass/Vol] 0.4 mg/dL Normal 0.2 - 1 .0 mg/dL AO ADM SS Comment on above: Interpretive Data: U se of this assay is not recommended for patients undergoing treatment with eltrombopag due to the potential for falsely elevated results. Calcium [Mass/Vol] 9.7 mg/dL Normal 8.4 - 10. 2 mg/dL AO ADM SS Chloride [Moles/Vol] 102 mmol/L Normal 98 - 10 7 mmol/L AO ADM SS CO2 [Moles/Vol] 30 mmol/L High 22 - 29 mmol/L AO ADM SS Creatinine [Mass/Vol] 0.86 mg/dL Normal 0.55 - 1.02 mg/dL AO ADM SS Comment on above: Interpretive Data: T esting performed on Siemens Dimension EXL analyzer using a modified kinetic Irene technique. Electrolyte Balance 8.0 mEq/L Normal 4.0 - 15 .0 mEq/L AO ADM SS Eosinophil, Absolute 0.4 103/mcL Normal 0.0 - 0 .7 10^3/mcL AO Workflow SS Eosinophils/100 WBC (Bld) 3.7 % Normal 0.0 - 7.0 % AO Workflow SS Erythrocyte distribution width (RBC) [Ratio] 14.8 % Normal 11.5 - 15.5 % AO Workflow SS GFR/1.73 sq M.predicted among blacks MDRD (S/P/Bld) [Vol rate/Area] 82 ml/min/1.73sqm Invalid Interpretation Code AO Chemistry S Comment on above: Interpretive Data: GFR Population mean for , Non- Americans Ages 20-29 = 116 mL/min/1.73 sq.m. Ages 30-39 = 107 mL/min/1.73 sq.m. Ages 40-49 = 99 mL/min/1.73 sq.m. Ages 50-59 = 93 mL/min/1.73 sq.m. Ages 60-69 = 85 mL/min/1.73 sq.m. Ages 70+ = 75 mL/min/1.73 sq.m. Chronic Kidney Disease: Less than 60 mL/min/1.73 square meters End Stage Renal Disease: Less than 15 mL/min/1.73 square meters GFR/1.73 sq M.predicted among non-blacks MDRD (S/P/Bld) [Vol rate/Area] 68 ml/min/1.73sqm Invalid Interpretation Code MOUSTAPHA Chemistry S Comment on above: Interpretive Data: GFR Population mean for , Non- Americans Ages 20-29 = 116 mL/min/1.73 sq.m. Ages 30-39 = 107 mL/min/1.73 sq.m. Ages 40-49 = 99 mL/min/1.73 sq.m. Ages 50-59 = 93 mL/min/1.73 sq.m. Ages 60-69 = 85 mL/min/1.73 sq.m. Ages 70+ = 75 mL/min/1.73 sq.m. Chronic Kidney Disease: Less than 60 mL/min/1.73 square meters End Stage Renal Disease: Less than 15 mL/min/1.73 square meters Globulin 3.6 G/dL Invalid Interpretation Code AO ADM SS Glucose [Mass/Vol] 91 mg/dL Normal 70 - 105 mg/dL AO ADM SS Hematocrit (Bld) [Volume fraction] 39.9 % Normal 34.0 - 46.0 % AO Workflow SS Hemoglobin (Bld) [Mass/Vol] 13.0 G/dL Normal 12.0 - 16.0 G/dL AO Workflow SS Lymphocytes (Bld) [#/Vol] 4.6 103/mcL High 0.9 - 4.3 10^3/mcL AO Workflow SS Lymphocytes/100 WBC (Bld) 46.5 % High 20.0 - 40.0 % AO Workflow SS MCH (RBC) [Entitic mass] 28.4 pg Normal 27.0 - 33.0 pg AO Workflow SS MCHC 32.6 G/dL Normal 32.0 - 36.0 G/dL AO Workflow SS MCV (RBC) [Entitic vol] 87.1 fL Normal 80.0 - 99.0 fL AO Workflow SS Monocytes (Bld) [#/Vol] 0.8 103/mcL Normal 0.1 - 1.4 10^3/mcL AO Workflow SS Monocytes/100 WBC (Bld) 7.7 % Normal 2.0 - 13.0 % AO Workflow SS Neutrophils (Bld) [#/Vol] 4.1 103/mcL Normal 2.3 - 8.1 10^3/mcL AO Workflow SS Neutrophils/100 WBC (Bld) 41.8 % Low 50.0 - 75.0 % AO Workflow SS Platelet mean volume (Bld) [Entitic vol] 9.0 fL Normal 6.6 - 10.5 fL AO Workflow SS Platelets (Bld) [#/Vol] 273 103/mcL Normal 150 - 450 10^3/mcL AO Workflow SS Potassium [Moles/Vol] 4.9 mmol/L Normal 3.5 - 5.1 mmol/L AO ADM SS Protein [Mass/Vol] 7.5 G/dL Normal 6.4 - 8.2 G/dL AO ADM SS RBC (Bld) [#/Vol] 4.59 106/mcL Normal 4.10 - 5.3 0 10^6/mcL AO Workflow SS Sodium [Moles/Vol] 140 mmol/L Normal 136 - 145 mmol/L AO ADM SS Urea nitrogen [Mass/Vol] 15 mg/dL Normal 7 - 18 mg/dL AO ADM SS Urea nitrogen/Creatinine [Mass ratio] 17 ratio Normal 7 - 27 ratio AO ADM SS WBC (Bld) [#/Vol] 9.9 103/mcL Normal 4.5 - 10.8 10^3/mcL AO Workflow SS Dexa Bone Density Study Dexa Bone Density Study [facility] Imaging Services [address] [place] [id number] Dexa Bone Density Study MR#: [id number] Acct: [id number] Name: JANA MCCLAIN Rep #: [id number] : 1965 F 58 From: Taco aguilar MD PCP: Dr. Brent Menard DO Status: [facility] Study: Dexa Bone Density Study Date of Exam: 01/20/24 Exam# [id number] Ordering Dr: Jeaneth Alcantara NP CONTRACT CLERK [employer]- C [id number] STUDY: DUAL ENERGY X-RAY ABSORPTIOMETRY / DXA REASON FOR EXAM: Female, 58 years old. M810 TECHNIQUE: Bone Mineral Density (BMD) measurements of lumbar spine and bilateral hips were obtained. COMPARISON: Comparison is made with prior study dated April 15, 2011. FINDINGS: Lumbar Spine (L1-L4): g/cm2 (0.960) / T-score (-0.5) / Z-score (0.7) Findings are suggestive of normal bone density with a low fracture risk. Left Femur Total: g/cm2 (0.864) / T-score (-0.6) / Z-score (0.2) Left Femoral Neck: g/cm2 (0.758) / T-score (-0.8) / Z-score (0.4) Right Femur Total: g/cm2 (0.862) / T-score (-0.7) / Z-score (0.2) Right Femoral Neck: g/cm2 (0.702) / T-score (-1.3) / Z-score (-0.1) The T-Scores on the most recent prior examination were: Lumbar Spine (L1-L4): There has been worsening of bone density since the previous examination. Left Femur Total: which represents a worsening of 5.8%. Right Femur Total: which represents a worsening of 9.4%. BD/Dexa Bone Density Study IMPRESSION: The patient is considered osteopenic as outlined below according to World [employer] Organization (WHO) criteria with a low fracture risk. There has been worsening of bone density since the previous examination. Reference Information: The T-score is the number of standard deviations above or below the standard which is normal for young adults at their peak bone mineral density. The World Health Organization (WHO) interprets the T-scores as follows: Above -1 Normal bone density Between -1 and -2.5 Osteopenia Equal to / or below -2.5 Osteoporosis As a practical clinical guideline, osteopenia may be graded as follows: Mild -1 through -1.5 Moderate -1.6 through -2.0 Severe -2.1 through -2.4 The Z-score is the number of standard deviations above or below age-matched controls. A Z-score of less than -1.5 would be considered abnormal. References: 1. NIH Osteoporosis and Related Bone Diseases www osteo.org 2. International Society for Clinical Densitometry www iscd.org 3. National Osteoporosis Foundation www nof.org Electronically Signed: Taco Edge MD at 15:14 [facility] Reading Location ID and State: [facility] / [place] , Service support , CC: LÁZARO Alcantara; Dr. Brent Menard DO Criminal Defense Lawyer: Signed Normal [facility] SCRN MAMM (CAD)W/EUGENE BILATo n 01-20-2024 SCRN MAMM (CAD)W/EUGENE BILAT [facility] Imaging Services [address] [place], [place] [address] SCRN MAMM (CAD)W/EUGENE BILAT MR#: [id number] Acct: [id number] Name: JANA MCCLAIN Rep #: [id number] : 1965 F 58 From: Taco aguilar MD PCP: Dr. Brent Menard DO Status: REG [facility] Study: SCRN MAMM (CAD)W/EUGENE BILAT Date of Exam: 09/06 Exam# [id number] Ordering Dr: Jeaneth Alcantara NP CONTRACT CLERK [employer]- C [id number] MAMMOGRAPHY - BILATERAL SCREENING REASON FOR EXAM: Female, 58 years old. Routine annual screening examination. PERTINENT HISTORY: Personal history of breast cancer. Prior left lumpectomy and radiation. Sisters with breast cancer. Under with breast cancer. TECHNIQUE: Digital bilateral breast eugene (3D mammographic acquisition) in the CC and MLO projections. 2-D mediolateral oblique (MLO) and craniocaudad (CC) views of both breasts were obtained. CAD: Full Field Digital Mammography with Computer Added Detection was performed. COMPARISON: Comparison is made with prior study December 10, 2022 and November 28, 2021. FINDINGS: Breast Composition: The breasts are heterogeneously dense, which may obscure small masses. The patient is status post lumpectomy in the upper lateral aspect of the left breast. Resultant postoperative deformity and scarring. Scarring is also seen in the left axilla. Stable fat-containing right axillary lymph nodes. No other significant abnormalities are identified. There has been no significant change since the prior study. BI/SCRN MAMM (CAD)W/EUGENE BILAT IMPRESSION: Stable bilateral screening mammogram. Yearly follow-up mammogram recommended. (A) ASSESSMENT CATEGORY: BIRADS Category 2: Benign. A letter regarding these results will be sent to the patient by the facility within 30 days. Approximately 10% of breast cancers are not detected by mammography. A normal mammogram should not delay biopsy of a clinically suspicious abnormality. [id number] Electronically Signed: Taco Edge MD at 11:30 EST , CC: LÁZARO Alcantara; Dr. Brent Menard, DO Criminal Defense Lawyer: Signed Normal [facility] GENTAMICIN:SUSC:PT:ISOLATE:O RDQN:MICon 12-10-2023 Gentamicin CADENCE [Susc] Few Enterobacter cloacae complex [facility] Gentamicin CADENCE [Susc]on 11-15 Enterobacter cloacae complex Enterobacter cloacae complex [facility] GS Rare Epithelial cell s No organisms seen. [facility] .Auto Diffon 11-01-2023 Basophil, Absolute 0.2 10 3/mcL Normal 0.0-0.2 [facility] ([place]) Comment on above: Performed By: #### B MP, GFR, ADIFF, APTT, TROPHS, PRO, MDW, ANEU, CBC #### [address] [address] Basophils/100 WBC (Bld) 1.1 % Normal 0.0-2.5 [facility] ([place]) Comment on above: Performed By: #### B MP, GFR, ADIFF, APTT, TROPHS, PRO, MDW, ANEU, CBC #### [address] [address] Eosinophil, Absolute 0.1 10 3/mcL Normal 0.0-0.4 [facility] ([place]) Comment on above: Performed By: #### B MP, GFR, ADIFF, APTT, TROPHS, PRO, MDW, ANEU, CBC #### [address] [address] Eosinophils/100 WBC (Bld) 0.4 % Normal 0.0-7.0 [facility] ([place]) Comment on above: Performed By: #### B MP, GFR, ADIFF, APTT, TROPHS, PRO, MDW, ANEU, CBC #### [address] [address] Lymphocyte, Absolute 3.2 10 3/mcL Normal 0.8-3.9 [facility] ([place]) Comment on above: Performed By: #### B MP, GFR, ADIFF, APTT, TROPHS, PRO, MDW, ANEU, CBC #### [address] [address] Lymphocytes/100 WBC (Bld) 19.3 % Normal 10.0-50.0 [facility] ([place]) Comment on above: Performed By: #### B MP, GFR, ADIFF, APTT, TROPHS, PRO, MDW, ANEU, CBC #### [address] [address] Monocyte, Absolute 0.8 10 3/mcL Normal 0.2-1.0 [facility] ([place]) Comment on above: Performed By: #### B MP, GFR, ADIFF, APTT, TROPHS, PRO, MDW, ANEU, CBC #### [address] [address] Monocytes/100 WBC (Bld) 4.9 % Normal 1.7-13.0 [facility] ([place]) Comment on above: Performed By: #### B MP, GFR, ADIFF, APTT, TROPHS, PRO, MDW, ANEU, CBC #### [address] [address] Neutrophils/100 WBC (Bld) 74.3 % Normal 37.0-80.0 [facility] ([place]) Comment on above: Performed By: #### B MP, GFR, ADIFF, APTT, TROPHS, PRO, MDW, ANEU, CBC #### [address] [address] .GFRon 11-01-2023 GFR 174 ml/min/1.73sqm Normal [facility] ([place]) Comment on above: Result Comment: GFR Population mean for , Non- Americans Ages 20-29 = 116 mL/min/1.73 sq.m. Ages 30-39 = 107 mL/min/1.73 sq.m. Ages 40-49 = 99 mL/min/1.73 sq.m. Ages 50-59 = 93 mL/min/1.73 sq.m. Ages 60-69 = 85 mL/min/1.73 sq.m. Ages 70+ = 75 mL/min/1.73 sq.m. Chronic Kidney Disease: Less than 60 mL/min/1.73 square meters End Stage Renal Disease: Less than 15 mL/min/1.73 square meters Performed By: #### L IPID, [id number] #### [address] [address] GFR Non- 144 ml/min/1.73sqm Normal [facility] ([place]) Comment on above: Result Comment: GFR Population mean for , Non- Americans Ages 20-29 = 116 mL/min/1.73 sq.m. Ages 30-39 = 107 mL/min/1.73 sq.m. Ages 40-49 = 99 mL/min/1.73 sq.m. Ages 50-59 = 93 mL/min/1.73 sq.m. Ages 60-69 = 85 mL/min/1.73 sq.m. Ages 70+ = 75 mL/min/1.73 sq.m. Chronic Kidney Disease: Less than 60 mL/min/1.73 square meters End Stage Renal Disease: Less than 15 mL/min/1.73 square meters Performed By: #### L IPID, [id number] #### [address] [address] .MDWon 11-01-2023 Monocyte Distribution Width 19.06 Normal 0.00-20.00 [facility] ([place]) Comment on above: Result Comment: For ED adult patients suspected of sepsis, MDW<=20.0 does not rule out sepsis or risk of sepsis Performed By: #### B MP, GFR, ADIFF, APTT, TROPHS, PRO, MDW, ANEU, CBC #### [address] [address] .NEUABSon 11-01-2023 Neutrophil, Absolute 12.5 10 3/mcL High 2.9-6.2 [facility] ([place]) Comment on above: Performed By: #### B MP, GFR, ADIFF, APTT, TROPHS, PRO, MDW, ANEU, CBC #### [address] [address] APTTon 11-01-2023 aPTT Coag (Bld) [Time] 32.2 s Normal 25.0-35.0 [facility] ([place]) Comment on above: Result Comment: For Heparin anticoagulation therapy, the recommended therapeutic range is: 45.4-75.9 seconds. Patients on heparin therapy may have an extreme result. Performed By: #### L IPID, [id number] #### [address] [address] BMPon 11-01-2023 BUN/Creatinine Ratio 36 ratio High 7-27 [facility] ([place]) Comment on above: Performed By: #### L IPID, [id number] #### [address] [address] Calcium [Mass/Vol] 9.3 mg/dL Normal 8.4-10.2 [facility] ([place]) Comment on above: Performed By: #### L IPID, [id number] #### [address] [address] Chloride [Moles/Vol] 98 mmol/L Normal 98-107 [facility] ([place]) Comment on above: Performed By: #### L IPID, [id number] #### [address] [address] CO2 [Moles/Vol] 22 mmol/L Normal 22-29 [facility] ([place]) Comment on above: Performed By: #### L IPID, [id number] #### [address] [address] Creatinine [Mass/Vol] 0.45 mg/dL Low 0.55-1.02 [facility] ([place]) Comment on above: Performed By: #### L IPID, [id number] #### [address] [address] Electrolyte Balance 15.0 mEq/L Normal 4.0-15.0 [facility] ([place]) Comment on above: Performed By: #### L IPID, [id number] #### [address] [address] Glucose [Mass/Vol] 114 mg/dL High 70-105 [facility] ([place]) Comment on above: Performed By: #### L IPID, [id number] #### [address] [address] Potassium [Moles/Vol] 4.8 mmol/L Normal 3.5-5.1 [facility] ([place]) Comment on above: Performed By: #### L IPID, [id number] #### [address] [address] Sodium [Moles/Vol] 135 mmol/L Low 136-145 [facility] ([place]) Comment on above: Performed By: #### L IPID, [id number] #### [address] [address] Urea nitrogen [Mass/Vol] 16 mg/dL Normal 7-18 [facility] ([place]) Comment on above: Performed By: #### L IPID, [id number] #### [address] [address] CBCon 11-01-2023 Erythrocyte distribution width (RBC) [Ratio] 13.6 % Normal 11.5-14.5 [facility] ([place]) Comment on above: Performed By: #### B MP, GFR, ADIFF, APTT, TROPHS, PRO, MDW, ANEU, CBC #### [address] [address] Hematocrit (Bld) [Volume fraction] 40.7 % Normal 37.0-47.0 [facility] ([place]) Comment on above: Performed By: #### B MP, GFR, ADIFF, APTT, TROPHS, PRO, MDW, ANEU, CBC #### [address] [address] Hgb 13.7 G/dL Normal 12.0-16.0 [facility] ([place]) Comment on above: Performed By: #### B MP, GFR, ADIFF, APTT, TROPHS, PRO, MDW, ANEU, CBC #### [address] [address] MCH (RBC) [Entitic mass] 30.5 pg Normal 27.0-31.2 [facility] ([place]) Comment on above: Performed By: #### B MP, GFR, ADIFF, APTT, TROPHS, PRO, MDW, ANEU, CBC #### [address] [address] MCHC 33.7 G/dL Normal 33.0-37.0 [facility] ([place]) Comment on above: Performed By: #### B MP, GFR, ADIFF, APTT, TROPHS, PRO, MDW, ANEU, CBC #### [address] [address] MCV (RBC) [Entitic vol] 90.7 fL Normal 80.0-94.0 [facility] ([place]) Comment on above: Performed By: #### B MP, GFR, ADIFF, APTT, TROPHS, PRO, MDW, ANEU, CBC #### [address] [address] Platelet 242 10 3/mcL Normal 130-400 [facility] ([place]) Comment on above: Performed By: #### B MP, GFR, ADIFF, APTT, TROPHS, PRO, MDW, ANEU, CBC #### [address] [address] Platelet mean volume (Bld) [Entitic vol] 9.1 fL Normal 7.4-10.4 [facility] ([place]) Comment on above: Performed By: #### B MP, GFR, ADIFF, APTT, TROPHS, PRO, MDW, ANEU, CBC #### [address] [address] RBC 4.49 10 6/mcL Normal 4.20-5.40 [facility] ([place]) Comment on above: Performed By: #### B MP, GFR, ADIFF, APTT, TROPHS, PRO, MDW, ANEU, CBC #### [address] [address] WBC 16.8 10 3/mcL High 4.6-10.8 [facility] ([place]) Comment on above: Performed By: #### B MP, GFR, ADIFF, APTT, TROPHS, PRO, MDW, ANEU, CBC #### [place] [address] [place], [place] [address] CT ANGIOGRAPHY ABD/PELVIS/BI LAT LOWER EXTREMon 11-01-2023 CT ANGIOGRAPHY ABD/PELVIS/BILAT LOWER EXTREM ADDENDUM ADDENDUM: The report states there is flow within the anterior tibial arteries at the level of the ankle. This should read that there is flow within the posterior tibial arteries to the level of the ankle bilaterally and absent flow within the peroneal and anterior tibial arteries within the distal lower extremities. Interpreted by: Hugh Gotti MD Preliminary Report By: Hugh Gotti MD Electronically signed By Hugh Gotti MD Dictated Date: 11/01/2023 2:40:24 AM Prelim Date: 11/01/2023 2:47:06 AM Sign Date: 11/01/2023 2:47:06 AM Ordering Provider: ADELINA SANCHEZ ORIGINAL EXAMINATION: CTA OF THE AORTA WITH LOWER EXTREMITY RUNOFF 11/01/2023 2:20 am TECHNIQUE: CTA of the pelvis and bilateral lower extremities was performed after the administration of intravenous contrast. Multiplanar reformatted images are provided for review. MIP images are provided for review. Automated exposure control, iterative reconstruction, and/or weight based adjustment of the mA/kV was utilized to reduce the radiation dose to as low as reasonably achievable. COMPARISON: None. HISTORY: ORDERING SYSTEM PROVIDED HISTORY: Reason for Exam: numbness in lower legs. hx of stents for blockages coolness into both legs, history of stents FINDINGS: Celiac and superior mesenteric arteries appear to be patent. Renal arteries are patent bilaterally. Infrarenal aortic stent is noted. 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 There is reconstitution of flow within the external iliac artery on the right just proximal to the origin of the common femoral artery. Right SFA and per for from a thus are patent. Popliteal artery is patent with focal severe stenosis of the popliteal artery above the knee, a below the knee the popliteal artery is patent, a tibioperoneal trunk is patent. The posterior tibial artery and peroneal arteries are occluded in the lower leg on the right wall the anterior tibial artery remains patent to the ankle with diminished flow within the foot. Left external iliac arteries entirely occluded with reconstitution of flow at the level of the common femoral artery. The SFA and per for from on this appear patent. Popliteal artery demonstrates moderate stenosis above the knee. Below the knee the artery is patent. Tibioperoneal trunk is patent. There is a patent posterior tibial and peroneal arteries to the distal lower extremity while these arteries are occluded in the distal lower extremity. The anterior tibial artery demonstrates flow to the ankle and appears to be severely diminished within the foot. There is bilateral subcutaneous edema within the feet. Visualized lung bases are clear. Small bowel and colon demonstrate no acute findings. Kidneys enhance symmetrically. No obstructive uropathy. Urinary bladder is normal in appearance. No suspicious adnexal lesions. Portions of the anterior abdomen are excluded from field of view on this exam. 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 There is severe stenosis of the above the knee popliteal artery on the right and moderate stenosis of the above the knee popliteal artery on the left. The tibial arteries are patent within the proximal and mid lower extremities bilaterally, however the posterior tibial and peroneal arteries are either occluded or have severely diminished flow within the distal lower extremities bilaterally as no flow is seen at the level of the ankles. There is also pain CT of the anterior tibial arteries to the ankle with severely diminished flow at the level of the feet. Interpreted by: Hugh Gotti MD Preliminary Report By: Hugh Gotti MD Electronically signed By Hugh Gotti MD Dictated Date: 11/01/2023 2:23:12 AM Prelim Date: 11/01/2023 2:38:08 AM Sign Date: 11/01/2023 2:38:08 AM Ordering Provider: ADELINA SANCHEZ [facility] ([place]) LABORATORYOrdered By: SYSTEM SYSTEM on 11-01-2023 Troponin I.cardiac DL <= 0.01 ng/mL [Mass/Vol] 6 ng/L Normal 0 - 51 ng/L AO ADM SS Comment on above: Interpretive Data: H igh Sensitive Troponin I Reference Ranges: Female: 0-51 ng/L Male: 0-76 ng/L Testing performed on FOODSCROOGE using a homogeneous sandwich chemiluminescent immunoassay based on GELI technology. Basophil, Absolute 0.2 103/mcL Normal 0.0 - 0.2 10^3/mcL AO Workflow SS Basophils/100 WBC (Bld) 1.1 % Normal 0.0 - 2.5 % AO Workflow SS Calcium [Mass/Vol] 9.3 mg/dL Normal 8.4 - 10. 2 mg/dL AO ADM SS Chloride [Moles/Vol] 98 mmol/L Normal 98 - 10 7 mmol/L AO ADM SS CO2 [Moles/Vol] 22 mmol/L Normal 22 - 29 mmol/L AO ADM SS Creatinine [Mass/Vol] 0.45 mg/dL Low 0.55 - 1.02 mg/dL AO ADM SS Electrolyte Balance 15.0 mEq/L Normal 4.0 - 15 .0 mEq/L AO ADM SS Eosinophil, Absolute 0.1 103/mcL Normal 0.0 - 0 .4 10^3/mcL AO Workflow SS Eosinophils/100 WBC (Bld) 0.4 % Normal 0.0 - 7.0 % AO Workflow SS Erythrocyte distribution width (RBC) [Ratio] 13.6 % Normal 11.5 - 14.5 % AO Workflow SS GFR/1.73 sq M.predicted among blacks MDRD (S/P/Bld) [Vol rate/Area] 174 ml/min/1.73sqm Invalid Interpretation Code AO Chemistry S Comment on above: Interpretive Data: GFR Population mean for , Non- Americans Ages 20-29 = 116 mL/min/1.73 sq.m. Ages 30-39 = 107 mL/min/1.73 sq.m. Ages 40-49 = 99 mL/min/1.73 sq.m. Ages 50-59 = 93 mL/min/1.73 sq.m. Ages 60-69 = 85 mL/min/1.73 sq.m. Ages 70+ = 75 mL/min/1.73 sq.m. Chronic Kidney Disease: Less than 60 mL/min/1.73 square meters End Stage Renal Disease: Less than 15 mL/min/1.73 square meters GFR/1.73 sq M.predicted among non-blacks MDRD (S/P/Bld) [Vol rate/Area] 144 ml/min/1.73sqm Invalid Interpretation Code AO Chemistry S Comment on above: Interpretive Data: GFR Population mean for , Non- Americans Ages 20-29 = 116 mL/min/1.73 sq.m. Ages 30-39 = 107 mL/min/1.73 sq.m. Ages 40-49 = 99 mL/min/1.73 sq.m. Ages 50-59 = 93 mL/min/1.73 sq.m. Ages 60-69 = 85 mL/min/1.73 sq.m. Ages 70+ = 75 mL/min/1.73 sq.m. Chronic Kidney Disease: Less than 60 mL/min/1.73 square meters End Stage Renal Disease: Less than 15 mL/min/1.73 square meters Glucose [Mass/Vol] 114 mg/dL High 70 - 105 mg/dL AO ADM SS Hematocrit (Bld) [Volume fraction] 40.7 % Normal 37.0 - 47.0 % AO Workflow SS Hemoglobin (Bld) [Mass/Vol] 13.7 G/dL Normal 12.0 - 16.0 G/dL AO Workflow SS Lymphocyte, Absolute 3.2 103/mcL Normal 0.8 - 3 .9 10^3/mcL AO Workflow SS Lymphocytes/100 WBC (Bld) 19.3 % Normal 10.0 - 50.0 % AO Workflow SS MCH (RBC) [Entitic mass] 30.5 pg Normal 27.0 - 31.2 pg AO Workflow SS MCHC 33.7 G/dL Normal 33.0 - 37.0 G/dL AO Workflow SS MCV (RBC) [Entitic vol] 90.7 fL Normal 80.0 - 94.0 fL AO Workflow SS Monocyte distribution width Auto (Bld) [Entitic vol] 19.06 1 Normal 0.00 - 20.00 AO Workflow SS Comment on above: Result Comment: For ED adult patients suspected of sepsis, MDW<=20.0 does not rule out sepsis or risk of sepsis Monocyte, Absolute 0.8 103/mcL Normal 0.2 - 1.0 10^3/mcL AO Workflow SS Monocytes/100 WBC (Bld) 4.9 % Normal 1.7 - 13.0 % AO Workflow SS Neutrophil, Absolute 12.5 103/mcL High 2.9 - 6 .2 10^3/mcL AO Workflow SS Neutrophils/100 WBC (Bld) 74.3 % Normal 37.0 - 80.0 % AO Workflow SS Platelet mean volume (Bld) [Entitic vol] 9.1 fL Normal 7.4 - 10.4 fL AO Workflow SS Platelets (Bld) [#/Vol] 242 103/mcL Normal 130 - 400 10^3/mcL AO Workflow SS Potassium [Moles/Vol] 4.8 mmol/L Normal 3.5 - 5.1 mmol/L AO ADM SS RBC (Bld) [#/Vol] 4.49 106/mcL Normal 4.20 - 5.4 0 10^6/mcL AO Workflow SS Sodium [Moles/Vol] 135 mmol/L Low 136 - 145 mmol/L AO ADM SS Troponin I.cardiac DL <= 0.01 ng/mL [Mass/Vol] 6 ng/L Normal 0 - 51 ng/L AO ADM SS Comment on above: Interpretive Data: H igh Sensitive Troponin I Reference Ranges: Female: 0-51 ng/L Male: 0-76 ng/L Testing performed on [employer] using a homogeneous sandwich chemiluminescent immunoassay based on GELI technology. Urea nitrogen [Mass/Vol] 16 mg/dL Normal 7 - 18 mg/dL AO ADM SS Urea nitrogen/Creatinine [Mass ratio] 36 ratio High 7 - 27 ratio AO ADM SS WBC (Bld) [#/Vol] 16.8 103/mcL High 4.6 - 10.8 10^3/mcL AO Workflow SS LABORATORYOrdered By: Lou Seth on 11-01-2023 aPTT Coag (PPP) [Time] 32.2 s Normal 25.0 - 35.0 seconds AO [facility] SS Comment on above: Interpretive Data: F or Heparin anticoagulation therapy, the recommended therapeutic range is: 45.4-75.9 seconds. Patients on heparin therapy may have an extreme result. INR Coag (PPP) [Relative time] 0.9 {INR} Invalid Interpretation Code AO [facility] SS Comment on above: Interpretive Data: Carolyn umana [employer] [place] (CHEST, 1992, [id number]) recommended therapeutic range for oral anticoagulant therapy is: LOW RISK: Prophylaxis of venous thrombosis INR: 2.0-3.0 Treatment of pulmonary embolism 2.0-3.0 Prevention of systemic embolism 2.0-3.0 HIGH RISK: Mechanical prosthetic valves 2.5-3.5 PT Coag (PPP) [Time] 10.3 s Normal 9.0 - 1 4.4 seconds AO [facility] SS PROon 11-01-2023 PT Coag (PPP) [Time] 10.3 s Normal 9.0-14.4 [facility] ([place]) Comment on above: Performed By: #### L IPID, [id number] #### [address] [address] PT International Ratio 0.9 Normal [facility] ([place]) Comment on above: Result Comment: [employer] [place] [employer] (CHEST, 1991, 102:[id number]) recommended therapeutic range for oral anticoagulant therapy is: LOW RISK: Prophylaxis of venous thrombosis INR: 2.0-3.0 Treatment of pulmonary embolism 2.0-3.0 Prevention of systemic embolism 2.0-3.0 HIGH RISK: Mechanical prosthetic valves 2.5-3.5 Performed By: #### L IPID, [id number] #### [address] [address] TROPHSon 11-01-2023 High Sensitivity Troponin I 6 ng/L Normal 0-51 [facility] ([place]) Comment on above: Result Comment: High Sensitive Troponin I Reference Ranges: Female: 0-51 ng/L Male: 0-76 ng/L Testing performed on [employer] using a homogeneous sandwich chemiluminescent immunoassay based on GELI technology. Performed By: #### T ROP #### [address] [address] High Sensitivity Troponin I 6 ng/L Normal 0-51 [facility] ([place]) Comment on above: Result Comment: High Sensitive Troponin I Reference Ranges: Female: 0-51 ng/L Male: 0-76 ng/L Testing performed on [employer] using a homogeneous sandwich chemiluminescent immunoassay based on GELI technology. Performed By: #### B MP, GFR, ADIFF, APTT, TROPHS, PRO, MDW, ANEU, CBC #### [address] [address] XR CHEST 1 VIEWon 11-01-2023 XR CHEST 1 VIEW ORIGINAL EXAMINATION: ONE XRAY VIEW OF THE CHEST11/01/2023 1:37 am CHEST ONE VIEW AP/PA COMPARISON: None HISTORY: ORDERING SYSTEM PROVIDED HISTORY: Reason for Exam: chest pain FINDINGS: The cardiomediastinal silhouette is normal in appearance. No consolidation, pleural effusion, or vascular congestion is seen. The osseous structures are intact. IMPRESSION: No acute findings. Interpreted by: Hugh Gotti MD Preliminary Report By: Hugh Gotti MD Electronically signed By Hugh Gotti MD Dictated Date: 11/01/2023 1:47:05 AM Prelim Date: 11/01/2023 1:47:11 AM Sign Date: 11/01/2023 1:47:11 AM Ordering Provider: ADELINA SANCHEZ Normal [facility] ([place]) DIRECT LDLon 07-26-2023 LDL Chol Direct 95 mg/dL Normal 0-99 [facility]) Comment on above: Result Comment: Perf ormed At: [facility] [address] [id number] Chery Gaston PhD Ph:[phone] Performed By: #### L IPID, [id number] #### [place] [address] LABORATORYOrdered By: Lilly Pink on 07-25-2023 Cholesterol [Mass/Vol] 174 mg/dL Normal 0 - 2 00 mg/dL AO ADM SS Comment on above: Interpretive Data: C holesterol Reference Interval: Less than 200 Desirable 200-239 Borderline high risk 240 and above High risk Cholesterol in HDL [Mass/Vol] 61 mg/dL High 40 - 60 mg/dL AO ADM SS Cholesterol in LDL [Mass/Vol] 103 mg/dL Normal 0 - 130 mg/dL AO ADM SS Triglyceride [Mass/Vol] 51 mg/dL Normal 0 - 150 mg/dL AO ADM SS Comment on above: Interpretive Data: T riglyceride Reference Interval: Less than 150 Normal 150-199 Borderline high risk 200-499 High risk 500 or higher Very high risk LIPIDon 07-25-2023 Cholesterol [Mass/Vol] 174 mg/dL Normal 0-200 [facility] ([place]) Comment on above: Result Comment: Chol esterol Reference Interval: Less than 200 Desirable 200-239 Borderline high risk 240 and above High risk Performed By: #### L IPID, [id number] #### [facility] [place] [address] [place], [place] [address] Cholesterol in HDL [Mass/Vol] 61 mg/dL High 40-60 [facility] ([place]) Comment on above: Performed By: #### L IPID, [id number] #### [facility] [place] [address] [place], [place] [address] Cholesterol in LDL [Mass/Vol] 103 mg/dL Normal 0-130 [facility] ([place]) Comment on above: Performed By: #### L IPID, [id number] #### [facility] [place] [address] [place], [place] [address] Triglyceride [Mass/Vol] 51 mg/dL Normal 0-150 [facility] ([place]) Comment on above: Result Comment: Trig lyceride Reference Interval: Less than 150 Normal 150-199 Borderline high risk 200-499 High risk 500 or higher Very high risk Performed By: #### L IPID, [id number] #### [facility] [address] [place], [place] [address] Absolute lymphocyte countOrd ered By: Kinjal Curtis on 12-10-2022 Lymphocytes Auto (Unsp spec) [#/Vol] 4.77 10*3/uL 0.83-4.51 [facility] Basophil percentageOrdered B y: Kinjal Curtis on 12-10-2022 Basophils/100 WBC (Bld) 0.5 % 0-1 [facility] Bilirubin [Mass/Vol] 0.40 mg/dL 0.20-1.00 [facility] Comment on above: For patients on eltr ombopag therapy, use of Dimension Samson TBIL is not recommended. Chloride [Moles/Vol] 105 mmol/L 98-107 [facility] Eosinophils/100 WBC (Bld) 3.2 % 0-5 [facility] Glucose [Mass/Vol] 77 mg/dL 74-106 [facility] LDH [Catalytic activity/Vol] 224 U/L 84-246 [facility] Neutrophils (Bld) [#/Vol] 5.1 10*3/uL 2.0-7.7 [facility] Neutrophils/100 WBC (Bld) 45.7 % 47-70 [facility] Potassium [Moles/Vol] 3.8 mmol/L 3.5-5.1 [facility] Protein [Mass/Vol] 8.2 g/dL 6.4-8.2 [facility] Sodium [Moles/Vol] 137 mmol/L 136-145 [facility] WBC (Bld) [#/Vol] 11.1 10*3/uL 4.4-11.0 [facility] Blood erythrocytes count (nu mber/volume)Ordered By: Kinjal Curtis on 12-10-2022 RBC (Bld) [#/Vol] 4.64 10*6/uL 4.2-5.4 [facility] Blood hemoglobin measurement (mass/volume)Ordered By: Kinjal Curtis on 12-10-2022 Hemoglobin (Bld) [Mass/Vol] 13.9 g/dL 12.0-15.0 [facility] Blood lymphocytes/100 leukoc ytesOrdered By: Kinjal Curtis on 12-10-2022 Lymphocytes/100 WBC (Bld) 43.1 % 19-41 [facility] Blood monocytes/100 leukocyt esOrdered By: Kinjal Curtis on 12-10-2022 Monocytes/100 WBC (Bld) 7.0 % 0-10 [facility] Blood platelet mean volumeOr dered By: Kinjal Curtis on 12-10-2022 Platelet mean volume (Bld) [Entitic vol] 10.7 fL 6.2-12.0 [facility] Determination of erythrocyte mean corpuscular volume (MCV)Ordered By: [facility] on 12-10-2022 MCV (RBC) [Entitic vol] 90.9 fL 81-99 [facility] Hematocrit Auto (Bld) [Volum e fraction]Ordered By: [facility] on 12-10-2022 Hematocrit (Bld) [Volume fraction] 42.2 % 37-47 [facility] Hemoglobin in reticulocytes (mass per reticulocyte)Ordered By: [facility] on 12-10-2022 Hemoglobin (Reticulocytes) [Entitic mass] 32.5 pg 30-35 [facility] Laboratory - Chemistry and C hemistry - challengeOrdered By: Kinjal Curtis on 12-10-2022 ALP [Catalytic activity/Vol] 103 U/L 45-117 [facility] ALT [Catalytic activity/Vol] 43 U/L 13-56 [facility] CO2 [Moles/Vol] 26.0 mmol/L 21.0-32.0 [facility] Globulin (S) [Mass/Vol] 4.6 g/dL 2.2-4.2 [facility] Urea nitrogen/Creatinine [Mass ratio] 26.3 mg/mg 10-20 [facility] - Hematology and Cell countsOrdered By: Kinjal Curtis on 12-10-2022 Erythrocyte distribution width (RBC) [Entitic vol] 46.6 fL 35.1-43.9 [facility] Erythrocyte distribution width (RBC) [Ratio] 14.0 % 11.6-14.6 [facility] Immature granulocytes/100 WBC (Bld) 0.500 % 0.0-0.9 [facility] Comment on above: IG% - Immature Granu locytes (promyelocytes, myelocytes and metamyelocytes) > 1% indicates that a LEFT SHIFT is Present. MCH (RBC) [Entitic mass] 30.0 pg 27.0-32.0 [facility] Nucleated RBC/100 WBC (Bld) [Ratio] 0 % 0-5 [facility] MCHC Auto (RBC) [Mass/Vol]Or dered By: Kinjal Curtis on 12-10-2022 MCHC (RBC) [Mass/Vol] 32.9 g/dL 32-36 [facility] No Panel InformationOrdered By: Kinjal Curtis on 12-10-2022 Estimated Creatinine Clearance Calc 61.86 ml/min [facility] Estimated GFR (MDRD) Amer 90 mL/min >60 [facility] Comment on above: GFR Calc Estimated GFR (MDRD) Non-Af Amer 75 mL/min >60 [facility] Comment on above: Non- GFR Calc Immature Reticulocyte Fraction 7.90 % 3.00-15.90 [facility] Reticulocyte Count 1.92 % 0.5-1.5 [facility] Platelets bldOrdered By: Thomas Curtis on 12-10-2022 Platelets (Bld) [#/Vol] 169 10*3/uL 150-450 [facility] Serum or plasma albumin sveta urement (mass/volume)Ordered By: Kinjal Curtis on 12-10-2022 Albumin [Mass/Vol] 3.6 g/dL 3.2-5.0 [facility] Serum or plasma albumin/glob ulin mass ratioOrdered By: Kinjal Curtis on 12-10-2022 Albumin/Globulin [Mass ratio] 0.8 {ratio} 0.9-2.4 [facility] Serum or plasma calcium sveta urement (mass/volume)Ordered By: Kinjal Curtis on 12-10-2022 Calcium [Mass/Vol] 9.3 mg/dL 8.5-10.1 [facility] Serum or plasma creatinine m easurement (mass/volume)Ordered By: Kinjal Curtis on 12-10-2022 Creatinine [Mass/Vol] 0.84 mg/dL 0.55-1.02 [facility] Comment on above: The validity of the calculated GFR & GFRAA in patients over 70 years has not been determined. Clinical correlation is essential. Serum or plasma urea nitroge n measurement (mass/volume)Ordered By: Kinjal Curtis on 12-10-2022 Urea nitrogen [Mass/Vol] 22 mg/dL 7-18 [facility] Thin prep Papanicolaou smear with manual screeningOrdered By: Kinjal Curtis on 12-10-2022 Thin prep Papanicolaou smear with manual screening 24 U/L 1537 [facility] Thin prep Papanicolaou smear with manual screening 6 5-15 [facility] LABORATORYOrdered By: SYSTEM SYSTEM on 08-28-2022 Albumin BCP dye [Mass/Vol] 4.1 G/dL Invalid Interpretation Code 3.5 - 5.0 G/dL AO ADM SS Albumin/Globulin [Mass ratio] 1.1 {ratio} Invalid Interpretation Code 1.1 - 2.5 ratio AO ADM SS ALP [Catalytic activity/Vol] 90 U/L Invalid Interpretation Code 40 - 135 U/L AO ADM SS ALT With P-5'-P [Catalytic activity/Vol] 53 U/L Invalid Interpretation Code 14 - 59 U/L AO ADM SS AST With P-5'-P [Catalytic activity/Vol] 26 U/L Invalid Interpretation Code 10 - 40 U/L AO ADM SS Bilirubin [Mass/Vol] 0.4 mg/dL Invalid Interpretation Code 0.2 - 1.0 mg/dL AO ADM SS Calcium [Mass/Vol] 9.9 mg/dL Invalid Interpretation Code 8.4 - 10.2 mg/dL AO ADM SS Chloride [Moles/Vol] 103 mmol/L Invalid Interpretation Code 98 - 107 mmol/L AO ADM SS CO2 [Moles/Vol] 27 mmol/L Invalid Interpretation Code 22 - 29 mmol/L AO ADM SS Cobalamin (Vitamin B12) [Mass/Vol] 483 pg/mL Invalid Interpretation Code 211 - 911 pg/mL AH ADM SS Creatinine [Mass/Vol] 0.76 mg/dL Invalid Interpretation Code 0.55 - 1.02 mg/dL AO ADM SS Electrolyte Balance 10.0 mEq/L Invalid Interpretation Code 4.0 - 15.0 mEq/L AO ADM SS Free T4 [Mass/Vol] 0.88 ng/dL Invalid Interpretation Code 0.76 - 1.46 ng/dL AO ADM SS GFR/1.73 sq M.predicted among blacks MDRD (S/P/Bld) [Vol rate/Area] 95 ml/min/1.73sqm Invalid Interpretation Code AO Chemistry S GFR/1.73 sq M.predicted among non-blacks MDRD (S/P/Bld) [Vol rate/Area] 79 ml/min/1.73sqm Invalid Interpretation Code AO Chemistry S Globulin 3.7 G/dL Invalid Interpretation Code AO ADM SS Glucose [Mass/Vol] 95 mg/dL Invalid Interpretation Code 70 - 105 mg/dL AO ADM SS Potassium [Moles/Vol] 4.5 mmol/L Invalid Interpretation Code 3.5 - 5.1 mmol/L AO ADM SS Protein [Mass/Vol] 7.8 G/dL Invalid Interpretation Code 6.4 - 8.2 G/dL AO ADM SS Sodium [Moles/Vol] 140 mmol/L Invalid Interpretation Code 136 - 145 mmol/L AO ADM SS TSH Qn 1.59 m[IU]/L Invalid Interpretation Code 0.36 - 3.74 mcIU/mL AO ADM SS Urea nitrogen [Mass/Vol] 15 mg/dL Invalid Interpretation Code 7 - 18 mg/dL AO ADM SS Urea nitrogen/Creatinine [Mass ratio] 20 ratio Invalid Interpretation Code 7 - 27 ratio AO ADM SS LABORATORYOrdered By: Lashawn Rowe on 08-28-2022 Basophil, Absolute 0.0 103/mcL Invalid Interpretation Code 0.0 - 0.2 10^3/mcL AO Workflow SS Basophils/100 WBC (Bld) 0.4 % Invalid Interpretation Code 0.0 - 2.5 % AO Workflow SS Eosinophil, Absolute 0.4 103/mcL Invalid Interpretation Code 0.0 - 0.4 10^3/mcL AO Workflow SS Eosinophils/100 WBC (Bld) 4.1 % Invalid Interpretation Code 0.0 - 7.0 % AO Workflow SS Erythrocyte distribution width (RBC) [Ratio] 14.0 % Invalid Interpretation Code 11.5 - 14.5 % AO Workflow SS Hematocrit (Bld) [Volume fraction] 43.4 % Invalid Interpretation Code 37.0 - 47.0 % AO Workflow SS Hemoglobin (Bld) [Mass/Vol] 14.6 G/dL Invalid Interpretation Code 12.0 - 16.0 G/dL AO Workflow SS Lymphocyte, Absolute 5.0 103/mcL Invalid Interpretation Code 0.8 - 3.9 10^3/mcL AO Workflow SS Lymphocytes/100 WBC (Bld) 52.3 % Invalid Interpretation Code 10.0 - 50.0 % AO Workflow SS MCH (RBC) [Entitic mass] 30.3 pg Invalid Interpretation Code 27.0 - 31.2 pg AO Workflow SS MCHC 33.7 G/dL Invalid Interpretation Code 33.0 - 37.0 G/dL AO Workflow SS MCV (RBC) [Entitic vol] 89.8 fL Invalid Interpretation Code 80.0 - 94.0 fL AO Workflow SS Monocyte, Absolute 0.6 103/mcL Invalid Interpretation Code 0.2 - 1.0 10^3/mcL AO Workflow SS Monocytes/100 WBC (Bld) 6.7 % Invalid Interpretation Code 1.7 - 13.0 % AO Workflow SS Neutrophil, Absolute 3.5 103/mcL Invalid Interpretation Code 2.9 - 6.2 10^3/mcL AO Workflow SS Neutrophils/100 WBC (Bld) 36.5 % Invalid Interpretation Code 37.0 - 80.0 % AO Workflow SS Platelet mean volume (Bld) [Entitic vol] 8.8 fL Invalid Interpretation Code 7.4 - 10.4 fL AO Workflow SS Platelets (Bld) [#/Vol] 161 103/mcL Invalid Interpretation Code 130 - 400 10^3/mcL AO Workflow SS RBC (Bld) [#/Vol] 4.83 106/mcL Invalid Interpretation Code 4.20 - 5.40 10^6/mcL AO Workflow SS WBC (Bld) [#/Vol] 9.5 103/mcL Invalid Interpretation Code 4.6 - 10.8 10^3/mcL AO Workflow SS LABORATORYOrdered By: Melani Fischer on 08-28-2022 Cholesterol [Mass/Vol] 272 mg/dL Invalid Interpretation Code 0 - 200 mg/dL AO ADM SS Cholesterol in HDL [Mass/Vol] 67 mg/dL Invalid Interpretation Code 40 - 60 mg/dL AO ADM SS Cholesterol in LDL [Mass/Vol] 178 mg/dL Invalid Interpretation Code 0 - 130 mg/dL AO ADM SS Triglyceride [Mass/Vol] 136 mg/dL Invalid Interpretation Code 0 - 150 mg/dL AO ADM SS LABORATORYOrdered By: Jeni Cuba on 08-28-2022 HCV Ab IA Ql Non-Reactive (08/28/22 12:48 PM) Invalid Interpretation Code Non-Reactive AH ADM SS HCV Ab IA Ql Nonreactive: Samples with a value < 0.80 are considered nonreactive (negative) for antibodies to HCV.A negative test result does not exclude the possibility of exposure to or infection with HCV. HCV antibodies may be undetectable in some stages of the infection and in some clinical conditions. Invalid Interpretation Code AH Chemistry S LABORATORYOrdered By: Veronique Valencia on 05-25-2022 Amphetamines Screen Ql (U) Negative (05/25/22 5:03 PM) Invalid Interpretation Code AO Manual Urine SS Appearance (U) Clear (05/25/22 5:03 PM) Invalid Interpretation Code Clear AO Auto Urine SS Barbiturates Screen Ql (U) Negative (05/25/22 5:03 PM) Invalid Interpretation Code AO Manual Urine SS Benzodiazepines Ql (U) Negative (05/25/22 5:03 PM) Invalid Interpretation Code AO Manual Urine SS Benzoylecgonine Screen Ql (U) Negative (05/25/22 5:03 PM) Invalid Interpretation Code AO Manual Urine SS Bilirubin Ql (U) Negative (05/25/22 5:03 PM) Invalid Interpretation Code Negative AO Auto Urine SS Cannabinoids tested Screen Nom (U) Negative (05/25/22 5:03 PM) Invalid Interpretation Code AO Manual Urine SS Color (U) Yellow (05/25/22 5:03 PM) Invalid Interpretation Code AO Auto Urine SS Glucose Test strip (U) [Mass/Vol] Negative Invalid Interpretation Code Negativemg/d L AO Auto Urine SS Hemoglobin Auto test strip (U) [Mass/Vol] Negative (05/25/22 5:03 PM) Invalid Interpretation Code Negative AO Auto Urine SS Ketones Ql (U) Negative Invalid Interpretation Code Negativemg/d L AO Auto Urine SS Methadone Screen Ql (U) Negative (05/25/22 5:03 PM) Invalid Interpretation Code AO Manual Urine SS Opiates Screen Ql (U) Negative (05/25/22 5:03 PM) Invalid Interpretation Code AO Manual Urine SS Phencyclidine Ql (U) Negative (05/25/22 5:03 PM) Invalid Interpretation Code AO Manual Urine SS Tricyclic antidepressants Screen Ql (U) Negative (05/25/22 5:03 PM) Invalid Interpretation Code AO Manual Urine SS UA Leuk Est Negative (05/25/22 5:03 PM) Invalid Interpretation Code Negative AO Auto Urine SS UA Nitrite Negative (05/25/22 5:03 PM) Invalid Interpretation Code Negative AO Auto Urine SS UA pH 7.0 (05/25/22 5:03 PM) Invalid Interpretation Code 5.0 - 8.0 AO Auto Urine SS UA Protein Negative Invalid Interpretation Code Negativemg/d L AO Auto Urine SS UA Spec Grav 1.025 (05/25/22 5:03 PM) Invalid Interpretation Code 1.015-1.025 AO Auto Urine SS UA Specimen Type Void (05/25/22 5:03 PM) Invalid Interpretation Code AO Auto Urine SS UA Urobilinogen 0.2 E.U./dL Invalid Interpretation Code 0.2-1.0E.U./ dL AO Auto Urine SS Basophil, Absolute 0.1 103/mcL Invalid Interpretation Code 0.0 - 0.2 10^3/mcL AO Workflow SS Basophils/100 WBC (Bld) 0.7 % Invalid Interpretation Code 0.0 - 2.5 % AO Workflow SS Eosinophil, Absolute 0.6 103/mcL Invalid Interpretation Code 0.0 - 0.4 10^3/mcL AO Workflow SS Eosinophils/100 WBC (Bld) 6.3 % Invalid Interpretation Code 0.0 - 7.0 % AO Workflow SS Erythrocyte distribution width (RBC) [Ratio] 14.1 % Invalid Interpretation Code 11.5 - 14.5 % AO Workflow SS Hematocrit (Bld) [Volume fraction] 43.1 % Invalid Interpretation Code 37.0 - 47.0 % AO Workflow SS Hemoglobin (Bld) [Mass/Vol] 14.5 G/dL Invalid Interpretation Code 12.0 - 16.0 G/dL AO Workflow SS Lymphocyte, Absolute 4.8 103/mcL Invalid Interpretation Code 0.8 - 3.9 10^3/mcL AO Workflow SS Lymphocytes/100 WBC (Bld) 48.3 % Invalid Interpretation Code 10.0 - 50.0 % AO Workflow SS MCH (RBC) [Entitic mass] 29.9 pg Invalid Interpretation Code 27.0 - 31.2 pg AO Workflow SS MCHC 33.7 G/dL Invalid Interpretation Code 33.0 - 37.0 G/dL AO Workflow SS MCV (RBC) [Entitic vol] 88.7 fL Invalid Interpretation Code 80.0 - 94.0 fL AO Workflow SS Monocyte distribution width Auto (Bld) [Entitic vol] 20.72 Invalid Interpretation Code 0.00 - 20.00 AO Workflow SS Comment on above: Result Comment: For adults in ED, MDW>20.0 may be associated with a higher risk of sepsis during the first 12hrs of hospital admission Monocyte, Absolute 0.8 103/mcL Invalid Interpretation Code 0.2 - 1.0 10^3/mcL AO Workflow SS Monocytes/100 WBC (Bld) 7.7 % Invalid Interpretation Code 1.7 - 13.0 % AO Workflow SS Neutrophil, Absolute 3.7 103/mcL Invalid Interpretation Code 2.9 - 6.2 10^3/mcL AO Workflow SS Neutrophils/100 WBC (Bld) 37.0 % Invalid Interpretation Code 37.0 - 80.0 % AO Workflow SS Platelet mean volume (Bld) [Entitic vol] 8.8 fL Invalid Interpretation Code 7.4 - 10.4 fL AO Workflow SS Platelets (Bld) [#/Vol] 245 103/mcL Invalid Interpretation Code 130 - 400 10^3/mcL AO Workflow SS RBC (Bld) [#/Vol] 4.85 106/mcL Invalid Interpretation Code 4.20 - 5.40 10^6/mcL AO Workflow SS WBC (Bld) [#/Vol] 10.0 103/mcL Invalid Interpretation Code 4.6 - 10.8 10^3/mcL AO Workflow SS LABORATORYOrdered By: SYSTEM SYSTEM on 05-25-2022 Albumin BCP dye [Mass/Vol] 4.0 G/dL Invalid Interpretation Code 3.5 - 5.0 G/dL AO ADM SS Albumin/Globulin [Mass ratio] 1.1 {ratio} Invalid Interpretation Code 1.1 - 2.5 ratio AO ADM SS ALP [Catalytic activity/Vol] 107 U/L Invalid Interpretation Code 40 - 135 U/L AO ADM SS ALT With P-5'-P [Catalytic activity/Vol] 63 U/L Invalid Interpretation Code 14 - 59 U/L AO ADM SS Ammonia (P) [Mass/Vol] umol/l Invalid Interpretation Code 11 - 32 umol/l AO ADM SS AST With P-5'-P [Catalytic activity/Vol] 31 U/L Invalid Interpretation Code 10 - 40 U/L AO ADM SS Bilirubin [Mass/Vol] 0.5 mg/dL Invalid Interpretation Code 0.2 - 1.0 mg/dL AO ADM SS Calcium [Mass/Vol] 9.2 mg/dL Invalid Interpretation Code 8.4 - 10.2 mg/dL AO ADM SS Chloride [Moles/Vol] 100 mmol/L Invalid Interpretation Code 98 - 107 mmol/L AO ADM SS CO2 [Moles/Vol] 26 mmol/L Invalid Interpretation Code 22 - 29 mmol/L AO ADM SS Creatinine [Mass/Vol] 0.82 mg/dL Invalid Interpretation Code 0.55 - 1.02 mg/dL AO ADM SS Electrolyte Balance 10.0 mEq/L Invalid Interpretation Code 4.0 - 15.0 mEq/L AO ADM SS Ethanol [Mass/Vol] mg/dL Invalid Interpretation Code 0 - 3 mg/dL AO ADM SS GFR 87 ml/min/1.73sqm Invalid Interpretation Code AO Chemistry S GFR Non- 72 ml/min/1.73sqm Invalid Interpretation Code AO Chemistry S Globulin 3.8 G/dL Invalid Interpretation Code AO ADM SS Glucose [Mass/Vol] 123 mg/dL Invalid Interpretation Code 70 - 105 mg/dL AO ADM SS Potassium [Moles/Vol] 4.0 mmol/L Invalid Interpretation Code 3.5 - 5.1 mmol/L AO ADM SS Protein [Mass/Vol] 7.8 G/dL Invalid Interpretation Code 6.4 - 8.2 G/dL AO ADM SS Sodium [Moles/Vol] 136 mmol/L Invalid Interpretation Code 136 - 145 mmol/L AO ADM SS Troponin I.cardiac DL <= 0.01 ng/mL [Mass/Vol] ng/L Invalid Interpretation Code 0.0 - 51.4 ng/L AO ADM SS Urea nitrogen [Mass/Vol] 12 mg/dL Invalid Interpretation Code 7 - 18 mg/dL AO ADM SS Urea nitrogen/Creatinine [Mass ratio] 15 ratio Invalid Interpretation Code 7 - 27 ratio AO ADM SS LABORATORYOrdered By: Flory Zavaleta on 05-25-2022 Glucose [Mass/Vol] 119 mg/dL Invalid Interpretation Code 70 - 110 mg/dL [facility] Basic metabolic 2000 panelon 12-21-2021 Anion gap [Moles/Vol] 10 mmol/L Normal 9-[address] [facility] Comment on above: Order Comment: Speci men Type: BLOOD SPECIMENOrdering Facility: [facility] Address: [address] [place] [address] Performed By: #### 2 4321-2 ####LONG LABORATORYCLIA [id number] [place] [address] [place] Calcium [Mass/Vol] 8.8 mg/dL Normal 8.5-10.2 [facility] Comment on above: Order Comment: Speci men Type: BLOOD SPECIMENOrdering Facility: [facility] Address: [address] [place] [address] Performed By: #### 2 4321-2 ####LONG LABORATORYCLIA [id number] [place] [address] [place] Chloride [Moles/Vol] 106 mmol/L High 97-105 [facility] Comment on above: Order Comment: Speci men Type: BLOOD SPECIMENOrdering Facility: [facility] Address: [address] [address] Performed By: #### 2 4321-2 ####LONG LABORATORYCLIA [id number] [place] [address] [place] CO2 [Moles/Vol] 23 mmol/L Normal 22-30 [facility] Comment on above: Order Comment: Speci men Type: BLOOD SPECIMENOrdering Facility: [facility] Address: [address] [address] Performed By: #### 2 4321-2 ####LONG LABORATORYCLIA [id number] [address] STATES OF [facility] Creatinine [Mass/Vol] 0.57 mg/dL Low 0.58-0.[address] [facility] Comment on above: Order Comment: Hero rivas Type: BLOOD SPECIMENOrdering Facility: [facility] Address: [address] [place] [address] Performed By: #### 2 4321-2 ####[facility] LABORATORYCLIA [id number] [address] ESTIMATED GLOMERULAR FILTRATION RATE 107 mL/min/1.73m??? Normal >=60 [facility] Comment on above: Order Comment: Hero rivas Type: BLOOD SPECIMENOrdering Facility: [facility] Address: [address] [place] [address] Result Comment: Maryana mated Glomerular Filtration Rate (eGFR) is calculated using the 2020 CKD-EPI creatinine equation. This equation utilizes serum creatinine, sex, and age as parameters. The creatinine assay has traceable calibration to isotope dilution-mass spectrometry. Refer to KDIGO guidelines for clinical interpretation. In patients with unstable renal function, e.g. those with acute kidney injury, the eGFR may not accurately reflect actual GFR. Performed By: #### 2 4321-2 ####[facility] LABORATORYCLIA [id number] [address] Glucose [Mass/Vol] 104 mg/dL High 74-99 [facility] Comment on above: Order Comment: Hero rivas Type: BLOOD SPECIMENOrdering Facility: [facility] Address: [address] [place] [address] Result Comment: The [place] Diabetes [employer] (ADA) provides guidance for cutoff values for fasting glucose and random glucose. The ADA defines fasting as no caloric intake for at least 8 hours. Fasting plasma glucose results between 100 to 125 mg/dL indicate increased risk for diabetes (prediabetes). Fasting plasma glucose results greater than or equal to 126 mg/dL meet the criteria for diagnosis of diabetes. In the absence of unequivocal hyperglycemia, results should be confirmed by repeat testing. In a patient with classic symptoms of hyperglycemia or hyperglycemic crisis, random plasma glucose results greater than or equal to 200 mg/dL meet the criteria for diagnosis of diabetes. Reference: Standards of Medical Care in Diabetes 2016, [place] [employer]. Diabetes Care. 2016.39(Suppl 1). Performed By: #### 2 4321-2 ####LONG LABORATORYCLIA [id number] [address] STATES [facility] Potassium [Moles/Vol] 3.9 mmol/L Normal 3.7-5.[address] [facility] Comment on above: Order Comment: Hero rivas Type: BLOOD SPECIMENOrdering Facility: [facility] Address: [address] [place] [address] Performed By: #### 2 4321-2 ####LONG LABORATORYCLIA [id number] [address] Sodium [Moles/Vol] 139 mmol/L Normal 136-144 [facility] Comment on above: Order Comment: Hero rivas Type: BLOOD SPECIMENOrdering Facility: [facility] Address: [address] [place] [address] Performed By: #### 2 4321-2 ####LONG LABORATORYCLIA [id number] [address] Urea nitrogen [Mass/Vol] 8 mg/dL Normal 7-21 [facility] Comment on above: Order Comment: Hero rivas Type: BLOOD SPECIMENOrdering Facility: [facility] Address: [address] [place] [address] Performed By: #### 2 4321-2 ####LONG LABORATORYCLIA [id number] [address] CBC panel Auto (Bld)on 12-21 Erythrocyte distribution width (RBC) [Ratio] 13.2 % Normal 11.5-15.0 [facility] Comment on above: Order Comment: Hero rivas Type: BLOOD SPECIMENOrdering Facility: [facility] Address: [address] [place] [address] Performed By: #### 5 8410-2 ####LONG LABORATORYCLIA [id number] [address] Hematocrit (Bld) [Volume fraction] 37.8 % Normal 36.0-46.0 [facility] Comment on above: Order Comment: Speci men Type: BLOOD SPECIMENOrdering Facility: [facility] Address: [address] [place] [address] Performed By: #### 5 8410-2 ####LONG LABORATORYCLIA [id number] [address] Hemoglobin (Bld) [Mass/Vol] 12.8 g/dL Normal 11.5-15.5 [facility] Comment on above: Order Comment: Speci men Type: BLOOD SPECIMENOrdering Facility: [facility] Address: [address] [place] [address] Performed By: #### 5 8410-2 ####LONG LABORATORYCLIA [id number] [address] MCH (RBC) [Entitic mass] 30.5 pg Normal 26.0-34.0 [facility] Comment on above: Order Comment: Speci men Type: BLOOD SPECIMENOrdering Facility: [facility] Address: [address] [place] [address] Performed By: #### 5 8410-2 ####LONG LABORATORYCLIA [id number] [address] MCHC (RBC) [Mass/Vol] 33.9 g/dL Normal 30.5-36.[address] [facility] Comment on above: Order Comment: Speci men Type: BLOOD SPECIMENOrdering Facility: [facility] Address: [address] [place] [address] Performed By: #### 5 8410-2 ####LONG LABORATORYCLIA [id number] [address] MCV (RBC) [Entitic vol] 90.0 fL Normal 80.0-100.0 [facility] Comment on above: Order Comment: Speci men Type: BLOOD SPECIMENOrdering Facility: [facility] Address: [address] [place] [address] Performed By: #### 5 8410-2 ####LONG LABORATORYCLIA [id number] [address] [place] Nucleated RBC (Bld) [#/Vol] 10*3/uL Normal <0.01 [facility] Comment on above: Order Comment: Speci men Type: BLOOD SPECIMENOrdering Facility: [facility] Address: [address] [place] [address] Performed By: #### 5 8410-2 ####LONG LABORATORYCLIA [id number] [place] [address] [place] Platelet mean volume (Bld) [Entitic vol] 11.2 fL Normal 9.0-12.7 [facility] Comment on above: Order Comment: Speci men Type: BLOOD SPECIMENOrdering Facility: [facility] Address: [address] [place] [address] Performed By: #### 5 8410-2 ####LONG LABORATORYCLIA [id number] [place] [address] [place] Platelets (Bld) [#/Vol] 185 10*3/uL Normal 150-400 [facility] Comment on above: Order Comment: Speci men Type: BLOOD SPECIMENOrdering Facility: [facility] Address: [address] [place] [address] Performed By: #### 5 8410-2 ####LONG LABORATORYCLIA [id number] [place] [address] [place] RBC (Bld) [#/Vol] 4.20 10*6/uL Normal 3.90-5.20 [facility] Comment on above: Order Comment: Speci men Type: BLOOD SPECIMENOrdering Facility: [facility] Address: [address] [place], [place] [address] Performed By: #### 5 8410-2 ####LONG LABORATORYCLIA [id number] [place] [address] [place] WBC (Bld) [#/Vol] 13.80 10*3/uL High 3.70-11.00 [facility] Comment on above: Order Comment: Speci men Type: BLOOD SPECIMENOrdering Facility: [facility] Address: [address] [place] [address] Performed By: #### 5 8410-2 ####LONG LABORATORYCLIA [id number] [place] [address] [facility] 12-21-2021 CNDS HNO ID: [id number] Author: Quinn Hoffman MD Service: Hospital Medicine Author Type: Physician Type: Discharge Summary Filed: 12/22/2021 8:00 AM Note Text: DISCHARGE SUMMARY PATIENT NAME: Jana Mcclain Code Status: Not on file Highest Readmission Risk Score: 14 The 30 day readmissions risk score is derived from an internally validated risk model which evaluates patient level characteristics, utilization history, medication orders and lab results up until the day of discharge. Patients with a score of 40 or above are considered highest risk for readmission. Specific patient level drivers will be listed at the bottom of the summary. Admission Information Admission Information ADMIT DATE: 12/19/2021 DISCHARGE DATE: 12/21/2021 MY DOCTORS AND MEDICAL TEAM: My Main Hospital Doctor: Quinn Hoffman MD Primary Care Provider: No primary care provider on file. My Medical Team Members: Treatment Team: Attending Provider: Quinn Hoffman MD Consulting: Seda Campos, DO MY CONDITION AT DISCHARGE: Stable REASON I WAS IN THE HOSPITAL: Leg pain found to be peripheral vascular disease SUMMARY OF WHAT HAPPENED WHILE I WAS IN THE HOSPITAL: you came with left Leg pain that was found to be peripheral vascular disease. You underwent CT scan of your abdomen and pelvis which showed calcification and blockage in your large vessels which was limiting blood supply to your feet. Vascular surgery was contacted and you underwent placement of 2 stents in your abdominal aorta as well as your iliac artery. After the procedure you did well and was discharged home with instructions to follow-up with your primary care provider and vascular surgery. The CT abdomen/pelvis scan also showed pulmonary nodules and CT chest without contrast was performed. CT chest showed numerous pulmonary nodules throughout the lungs measuring up to 8 mm. As well as a bandlike soft tissue in the left armpit. You informed the team that you already have outpatient follow-up for the pulmonary nodules and that you recently had an mammogram done 1 month ago. You also mentioned that you have follow-up for mammogram with oncology. Mammogram scheduled in the patient was canceled and record request was sent to obtain mammogram records. You deferred to have further testing and follow-up done inpatient and opted to continue with follow-up as outpatient. You are advised to inform your doctor that you had a CT scan done of your chest inpatient as you have another one scheduled upcoming and may not need to have a repeat done. You can obtain records of your hospital imaging for your follow-up appointments. OTHER PROBLEMS/DIAGNOSIS: Principal Problem: PVD (peripheral vascular disease) (HCC) Active Problems: History of breast cancer Leg pain Nicotine use disorder, F17.2 Resolved Problems: * No resolved hospital problems. * OPERATIONS PERFORMED WHILE IN THE HOSPITAL: CROSS TIE CUTTER/stent abdominal aorta, B common iliac artery stent IMPORTANT TEST/PROCEDURES: Ultrasound-guided access to the MILKING MACHINE OPERATOR and abdominal aortogram TEST RESULTS NOT AVAILABLE AT THIS TIME: No pending results Discharge Disposition Discharge Disposition: Home With Self Care Activity When You Leave the Hospital Resume pre-hospital activity Diet Instructions Low Cholesterol Resume your pre-hospital diet For Pain When You Leave the Hospital Use acetaminophen (Tylenol) as recommended on the bottle Follow Up Appointments Follow-Up Appointment Follow-up for pulmonary nodules, CT chest results and mammogram results When: In 2 weeks Patient/Parents to call for appointment?: Yes Kinjal Bean [phone] [address] [facility] [address] PCP Requested Referral Additional Provider to Provider Information: 56-year-old female with past medical history of nicotine dependence, breast cancer status postlumpectomy chemo/radiation, was sent from podiatry for evaluation of left foot pain. On arrival patient stated pain lasted for 1 month and was exacerbated with walking and standing. Patient underwent PVR which showed JIMENA of 0.46 on left foot and severely compromised JIMENA on the right foot as well. Patient noted cyanotic toes on left foot. In ED patient underwent CTA of abdomen and pelvis and lower extremity which showed heavy atherosclerosis of abdominal aorta with calcified and noncalcified plaques as well as subtotal occlusion of the aortoiliac bifurcation. Incidental findings were pulmonary nodules. For patient's severe peripheral vascular disease Heparin drip was initiated and vascular surgery was consulted. Patient was admitted for further management. During hospital course, vascular surgery saw patient and patient underwent ultrasound-guided access to B MILKING MACHINE OPERATOR, abdominal aortogram, CROSS TIE CUTTER/stent to abdominal aorta and B common iliac artery stents. Patient did well in the procedure coloration improved on toes. Patient was (more content not included)... [facility] ALLIED HEALTHon 12-20-2021 ALLIED HEALTH HNO ID: [id number] Author: GUTIERREZ Mccullough) Service: Radiology Author Type: Technologist Type: Allied Health Filed: 12/20/2021 12:12 AM Note Text: Radiology Service Progress Note PATIENT NAME: Jana Mcclain DATE OF SERVICE: December 20, 2021 TIME: 12:12 AM PATIENT IDENTITY VERIFICATION COMPLETED USING TWO (2) IDENTIFIERS: Name and Date of confirmed by patient verbally and Name and Date of confirmed by identification band. FALL SCREENING: Has the patient had 2 falls in the last year or 1 fall with injury or currently using an Ambulatory Assistive Device (Walker, Cane, Wheelchair, Crutches, etc.)? Emergency Room Patient: Screened in ED PATIENT GENDER DATA: Female. status: : No status: NO. PATIENT RELEVANT IMPLANT DATA REVIEWED: Not Applicable RADIOLOGY DEPARTMENT: CT; Exam(s) Completed: Chest PERIPHERAL IV DATA: Inpatient: see LDA documentation SIGNED BY: RT Jamel(R) December 20, 2021 12:12 AM [facility] BRIEF OP NOTon 12-20-2021 BRIEF OP NOT HNO ID: [id number] Author: Ronen Green MD Service: Vascular Surgery Author Type: Physician Type: Operative Report Filed: 12/20/2021 6:17 PM Note Text: OPERATIVE/PROCEDURE REPORT LOG ID: [id number] SURGERY/PROCEDURE DATE: 12/20/2021 INCISION/PROCEDURE START TIME: 12:45 PM INCISION CLOSE/PROCEDURE END TIME: 2:08 PM SURGEON(S)/PROCEDURAL IST(S) AND BICYCLE COURIER(S): Surgeon(s) and Role: * Ronen Green MD - Primary No Additional Staff SURGERY/PROCEDURE(S): 1) Ultrasound guided access to B MILKING MACHINE OPERATOR 2) Abdominal aortogram 3) CROSS TIE CUTTER/stent abdominal aorta 4) B common iliac artery stents ANESTHESIA: Procedural Sedation SURGERY/PROCEDURE DETAILS: The patient was identified by the attending surgeon and brought into the angiography suite. The patient was laid on the table in the supine position. Bilateral groins were prepared and draped in the usual sterile fashion. Timeout was performed. The patient received IV sedation with fentanyl and Versed and was continuously monitored. 2% plain lidocaine was used for local anesthesia. Ultrasound guidance was used to gain access to the bilateral common femoral arteries using a 4 Tog[place]ese micropuncture kit. These were upsized to 7 Togolese sheaths. R and L iliofemoral angiograms were performed via B MILKING MACHINE OPERATOR sheaths demonstrating occlusion of B common iliac arteries and reconstituted B iliac bifurcations with patent B internal iliac arteries and external iliac arteries. The CFAs are patent bilaterally. A 0.035 angled Glidewire was used to negotiate a 5 [place]ese KMP catheter into the abdominal aorta via the right femoral sheath. True lumen placement was confirmed with injection of contrast. The 5 Tog[place]ese KMP catheter and 0.035 angled Glidewire were then used to traverse the left common iliac artery occlusion and the back end of the 0.035 angled Glidewire was used to punch into the distal aortic lumen successfully. The catheter followed and the wire was reoriented and passed up the abdominal aorta. The catheter was advanced to the proximal abdominal aorta and injection of contrast confirmed true lumen placement. Wires were exchanged for a 0.035 advantage Glidewire was bilaterally. The patient was systemically anticoagulated with heparin. The left femoral 7 Togolese sheath was exchanged for an 8 x 25cm sheath which was advanced into the distal abdominal aorta. An 11 x 39 VBX stent was then advanced through this sheath and uncovered in the appropriate position. Marker catheter placed via the right side was used to perform angiogram in the abdominal aorta to guide placement of the aortic stent. The catheter was then removed over the wire. The stent was deployed uneventfully. The right sided wire now trapped against the wall of the aorta with the stent was pulled back and fed up through true lumen of the stent. A marker pigtail catheter was advanced over this wire and reformed within the stent and spun to confirm intraluminal placement. Advantage glide wire was placed again. Using TURKMEN pelvic projection and right femoral retrograde injection of contrast, the right common iliac artery was stented first with a 6 x 59 VBX stent taking care to land the stent short of the right iliac bifurcation. There is 1 stent length within the aortic stent. The left-sided iliac stent could not be passed proximal to where the right-sided iliac stent traversed the left common iliac origin and therefore a 5 x 80 [place] balloon was used to dilate a path. Another 6 x 59 VBX stent was then able to be advanced via the left side such that 1 stent length is within the aortic stent and the stent is just short of the left iliac bifurcation proven by PETTY pelvic projection and left femoral retrograde injection of contrast. The stent balloons were then used to perform kissing angioplasty of the aortic bifurcation to ensure complete expansion of bilateral common iliac stents. The balloon catheters were removed and the marker catheter was then reformed in the proximal abdominal aorta via the right femoral sheath and completion angiogram demonstrated excellent result in the proximal margin of the aortic stent. The catheter was brought down to just above the aortic stent completion angiogram demonstrated widely patent aortic stent and bilateral common iliac artery stents. Retrograde injection of contrast via both groins demonstrated excellent distal margin of both common iliac stents and patent iliac bifurcations. There is moderate stenosis at the origin of the left internal iliac artery. Bilateral external iliac arteries are widely patent. The patient now has bounding femoral pulses and she reports relief of her left foot rest pain. The case was terminated. Angiogram through the sheaths demonstrated suitability for closure devices. Anticoagulation was reversed with protamine. The left femoral 8 Togolese sheath was removed and hemostasis was obtained with a Angio-Seal de (more content not included)... [facility] BRIEF OP NOT HNO ID: [id number] Author: Ronen Green MD Service: Vascular Surgery Author Type: Physician Type: Brief Op Note Filed: 12/20/2021 2:17 PM Note Text: BRIEF OPERATIVE / PROCEDURE NOTE LOG ID: [id number] SURGERY/PROCEDURE DATE: 12/20/2021 INCISION/PROCEDURE START TIME: 12:45 PM INCISION CLOSE/PROCEDURE END TIME: 2:08 PM SURGEON(S)/PROCEDURAL IST(S) AND BICYCLE COURIER(S): Surgeon(s) and Role: * Ronen Green MD - Primary No Additional Staff SURGERY/PROCEDURE(S): 1) Ultrasound guided access to B MILKING MACHINE OPERATOR 2) Abdominal aortogram 3) CROSS TIE CUTTER/stent abdominal aorta 4) B common iliac artery stents ANESTHESIA: Procedural Sedation FINDINGS: Distal infrarenal abdominal aortic occlusion and B common iliac artery occlusions. Reestablished normal pulses in B LE with stent of distal infrarenal abdominal aorta and bilateral common iliac arteries with no residual stenosis. ESTIMATED BLOOD LOSS: 75 mls SPECIMENS: None COMPLICATIONS: None Anticipate patient can be discharged to home when she is up and ambulating later this evening post-procedure when her bedrest protocol has been completed. She requires daily baby aspirin and absolute smoking cessation. PRE-OP/PRE-PROCEDURE DIAGNOSIS: Aortoiliac occlusive disease with rest pain LLE. POST-OP/POST-PROCEDUR E DIAGNOSIS: Same as Preop SIGNATURE: Ronen Green MD PATIENT NAME: Jana Mcclain DATE: December 20, 2021 TIME: 2:13 PM Normal [facility] Basic metabolic 2000 panelon 12-20-2021 Anion gap [Moles/Vol] 11 mmol/L Normal 9-[address] [facility] Comment on above: Order Comment: Speci men Type: BLOOD SPECIMENOrdering Facility: [facility] Address: [address] [place] [address] Performed By: #### 2 4320-2, 15814-9 ####LONG LABORATORYCLIA [id number] [place] [address] [place] Calcium [Mass/Vol] 9.1 mg/dL Normal 8.5-10.2 [facility] Comment on above: Order Comment: Speci men Type: BLOOD SPECIMENOrdering Facility: [facility] Address: [address] [address] Performed By: #### 2 2, 64351-5 ####LONG LABORATORYCLIA [id number] [place] [address] [place] Chloride [Moles/Vol] 105 mmol/L Normal 97-105 [facility] Comment on above: Order Comment: Speci men Type: BLOOD SPECIMENOrdering Facility: [facility] Address: [address] [address] Performed By: #### 2 4320-2, 69723-4 ####LONG LABORATORYCLIA [id number] [place] [address] [place] CO2 [Moles/Vol] 22 mmol/L Normal 22-30 [facility] Comment on above: Order Comment: Speci men Type: BLOOD SPECIMENOrdering Facility: [facility] Address: [address] [address] Performed By: #### 2 4320-2, 33083-0 ####LONG LABORATORYCLIA [id number] [place] [address] [place] [facility] Creatinine [Mass/Vol] 0.56 mg/dL Low 0.58-0.[address] [facility] Comment on above: Order Comment: Hero rivas Type: BLOOD SPECIMENOrdering Facility: [facility] Address: [address] [place] [address] Performed By: #### 2 4321-2, 12273-0 ####LONG LABORATORYCLIA [id number] [address] ESTIMATED GLOMERULAR FILTRATION RATE 108 mL/min/1.73m??? Normal >=60 [facility] Comment on above: Order Comment: Hero rivas Type: BLOOD SPECIMENOrdering Facility: [facility] Address: [address] [place] [address] Result Comment: Maryana mated Glomerular Filtration Rate (eGFR) is calculated using the 2020 CKD-EPI creatinine equation. This equation utilizes serum creatinine, sex, and age as parameters. The creatinine assay has traceable calibration to isotope dilution-mass spectrometry. Refer to KDIGO guidelines for clinical interpretation. In patients with unstable renal function, e.g. those with acute kidney injury, the eGFR may not accurately reflect actual GFR. Performed By: #### 2 4321-2, 75759-4 ####MERCEDES LABORATORYCLIA [id number] [address] [place] Glucose [Mass/Vol] 100 mg/dL High 74-99 [facility] Comment on above: Order Comment: Hero rivas Type: BLOOD SPECIMENOrdering Facility: [facility] Address: [address] [place] [address] Result Comment: The [place] Diabetes Association (ADA) provides guidance for cutoff values for fasting glucose and random glucose. The ADA defines fasting as no caloric intake for at least 8 hours. Fasting plasma glucose results between 100 to 125 mg/dL indicate increased risk for diabetes (prediabetes). Fasting plasma glucose results greater than or equal to 126 mg/dL meet the criteria for diagnosis of diabetes. In the absence of unequivocal hyperglycemia, results should be confirmed by repeat testing. In a patient with classic symptoms of hyperglycemia or hyperglycemic crisis, random plasma glucose results greater than or equal to 200 mg/dL meet the criteria for diagnosis of diabetes. Reference: Standards of Medical Care in Diabetes 2016, [place] [employer] Association. Diabetes Care. 2016.39(Suppl 1). Performed By: #### 2 4321-2, 98796-7 ####LONG LABORATORYCLIA [id number] [address] STATES OF [facility] Potassium [Moles/Vol] 4.0 mmol/L Normal 3.7-5.[address] [facility] Comment on above: Order Comment: Speci men Type: BLOOD SPECIMENOrdering Facility: [facility] Address: [address] [place] [address] Performed By: #### 2 4321-2, 99479-7 ####LONG LABORATORYCLIA [id number] [address] Sodium [Moles/Vol] 138 mmol/L Normal 136-144 [facility] Comment on above: Order Comment: Edwardi men Type: BLOOD SPECIMENOrdering Facility: [facility] Address: [address] [place] [address] Performed By: #### 2 4321-2, 72764-2 ####LONG LABORATORYCLIA [id number] [address] STATES [facility] Urea nitrogen [Mass/Vol] 11 mg/dL Normal 7-21 [facility] Comment on above: Order Comment: Edwardi men Type: BLOOD SPECIMENOrdering Facility: [facility] Address: [address] [address] Performed By: #### 2 4321-2, 58412-3 ####LONG LABORATORYCLIA [id number] [address] CBC panel Auto (Bld)on 12-20 Erythrocyte distribution width (RBC) [Ratio] 13.1 % Normal 11.5-15.0 [facility] Comment on above: Order Comment: Speci men Type: BLOOD SPECIMENOrdering Facility: [facility] Address: [address] [address] Performed By: #### 5 8410-2 ####LONG LABORATORYCLIA [id number] [address] Hematocrit (Bld) [Volume fraction] 42.4 % Normal 36.0-46.0 [facility] Comment on above: Order Comment: Speci men Type: BLOOD SPECIMENOrdering Facility: [facility] Address: [address] [place] [address] Performed By: #### 5 8410-2 ####LONG LABORATORYCLIA [id number] [address] [place] Hemoglobin (Bld) [Mass/Vol] 14.2 g/dL Normal 11.5-15.5 [facility] Comment on above: Order Comment: Speci men Type: BLOOD SPECIMENOrdering Facility: [facility] Address: [address] [place] [address] Performed By: #### 5 8410-2 ####LONG LABORATORYCLIA [id number] [address] MCH (RBC) [Entitic mass] 29.9 pg Normal 26.0-34.0 [facility] Comment on above: Order Comment: Speci men Type: BLOOD SPECIMENOrdering Facility: [facility] Address: [address] [place] [address] Performed By: #### 5 8410-2 ####LONG LABORATORYCLIA [id number] [address] MCHC (RBC) [Mass/Vol] 33.5 g/dL Normal 30.5-36.[address] [facility] Comment on above: Order Comment: Speci men Type: BLOOD SPECIMENOrdering Facility: [facility] Address: [address] [place] [address] Performed By: #### 5 8410-2 ####LONG LABORATORYCLIA [id number] [address] MCV (RBC) [Entitic vol] 89.3 fL Normal 80.0-100.0 [facility] Comment on above: Order Comment: Speci men Type: BLOOD SPECIMENOrdering Facility: [facility] Address: [address] [place] [address] Performed By: #### 5 8410-2 ####LONG LABORATORYCLIA [id number] [address] [place] Nucleated RBC (Bld) [#/Vol] 10*3/uL Normal <0.01 [facility] Comment on above: Order Comment: Speci men Type: BLOOD SPECIMENOrdering Facility: [facility] Address: [address] [place] [address] Performed By: #### 5 8410-2 ####LONG LABORATORYCLIA [id number] [place] [address] [place] Platelet mean volume (Bld) [Entitic vol] 11.1 fL Normal 9.0-12.7 [facility] Comment on above: Order Comment: Speci men Type: BLOOD SPECIMENOrdering Facility: [facility] Address: [address] [place] [address] Performed By: #### 5 8410-2 ####LONG LABORATORYCLIA [id number] [address] [place] Platelets (Bld) [#/Vol] 222 10*3/uL Normal 150-400 [facility] Comment on above: Order Comment: Speci men Type: BLOOD SPECIMENOrdering Facility: [facility] Address: [address] [place] [address] Performed By: #### 5 8410-2 ####LONG LABORATORYCLIA [id number] [address] [place] RBC (Bld) [#/Vol] 4.75 10*6/uL Normal 3.90-5.20 [facility] Comment on above: Order Comment: Speci men Type: BLOOD SPECIMENOrdering Facility: [facility] Address: [address] [place] [address] Performed By: #### 5 8410-2 ####LONG LABORATORYCLIA [id number] [address] [place] WBC (Bld) [#/Vol] 12.69 10*3/uL High 3.70-11.00 [facility] Comment on above: Order Comment: Speci men Type: BLOOD SPECIMENOrdering Facility: [facility] Address: [facility] [place] [address] Performed By: #### 5 8410-2 ####LONG LABORATORYCLIA [id number] [place] [address] [place] [address] CHEST WO IVCONon 12-21-19 CT CHEST WO IVCON * * *Final Report* * * * * * SEE BOTTOM OF REPORT FOR ADDENDED TEXT * * * DATE OF EXAM: Dec 20 2021 12:11AM [facility] [place] [address]41 - CT CHEST WO IVCON / PROCEDURE REASON: Lung nodule, post chest CT or PET/CT, high suspicion of lung cancer, pre-op imag * * * * Physician Interpretation * * * * * * * * * * * * ORIGINAL REPORT * * * * * * * * EXAMINATION: CHEST CT WITHOUT CONTRAST CLINICAL HISTORY: Lung nodule. History of breast cancer Technique: Spiral CT acquisition of the chest from the thoracic inlet to the upper abdomen without contrast. MQ: [id number]_6 CT Radiation dose: Integrated Dose-length product (DLP) for this visit = 162 mGy*cm CT Dose Reduction Employed: Automated exposure control (AEC) Comparison: CT abdomen/pelvis 12/19/2021. RESULT: Limitations: None. Lines, tubes, and devices: None. Lungs, Airways, and pleura: Numerous pulmonary nodules throughout the lungs, largest within within the middle lobe, measuring 8 mm. The other pulmonary nodules are sub-6 mm. Cystic change/honeycombing is present within the anterior left upper lobe. Mild associated pleural thickening/irregulari ty. Subtle scattered areas of groundglass and adjacent lucency are present throughout the lungs. Lower neck, lymph nodes, and mediastinum: The imaged thyroid gland is normal. No lymphadenopathy in the supraclavicular, axillary, mediastinal, or hilar regions. Heart, pericardium, and thoracic vessels: The thoracic aorta and main pulmonary artery are normal in caliber. Atherosclerosis of the aortic arch. The cardiac chambers are normal in size. Coronary artery calcifications. No pericardial effusion or thickening. Bones and soft tissues: Slightly nodular band of soft tissue within the left axilla measuring 2.0 x 1.3 cm. No acute or aggressive osseous lesion. Upper abdomen: No acute abnormality. Cigar Making Supervisor (topogram) images: No additional findings. IMPRESSION: * Numerous pulmonary nodules throughout the lungs, measuring up to 8 mm. These are worrisome for metastatic disease, though an infectious process is not excluded. * Probable radiation fibrosis of the left upper lobe. * Bandlike and nodular soft tissue within the left axilla likely reflects surgical change/scarring, though recommend correlation with dedicated mammographic imaging. * Scattered areas of groundglass and adjacent lucency could reflect early edema versus air trapping. Incidental Finding: Follow-up Acuity: Incidental Findings: Solid: 6-8 mm (multiple nodules) Routing Code: RI_1 Recommendation: CT Chest WO IVCON Time Frame: 3-6 months Comments: If stable on follow-up imaging, a repeat chest CT exam in 12 months (15 - 18 months from the initial exam) is recommended. ACTIONABLE RESULT: FOLLOW-UP Acuity: Actionable Findings: Female reproductive tract (breast) Routing code: WH_2 Recommendation: Unlisted Recommendation (see report) Time Frame: non-urgent, but prompt follow-up. COMMUNICATION: Results will be communicated with the ordering provider via [employer] staff message or phone message by Imaging Support Services within 2 business days of report finalization. Algorithms for management of incidental imaging findings can be found on the [facility] [employer]point site at: [email or web address] [email or web address] [email or web address] [email or web address]/Fo josé [email or web address] * * * * * * * * ADDENDUM #1 * * * * * * * * Comparison is made with 08/16/2018 CT chest with IV contrast. There is again noted be post radiation changes anteriorly in the left upper lung. There is again noted be left axillary postsurgical scarring. An 8 mm right middle lobe nodule, 5:96, and a 6 mm right lower lobe nodule, 5:133, were present previously and are unchanged. The remainder of the numerous fairly diffusely distributed bilateral tiny subcentimeter nodules are new. The scattered mild groundglass opacities in both lungs were present previously. IMPRESSION: Apart from 2 nodules on the right, the remainder of the diffusely distributed tiny bilateral lung nodules are new compared with 2019. These could be metastatic disease and do not have a specific appearing pattern such as tree-in-bud nodule formation. However, they still could be due to infection due to small airways disease such as bronchiolitis. Groundglass opacities in both lungs are stable and could be due to interstitial lung disease or perhaps small airways disease. Criminal Defense Lawyer: LESLIE Transcribe Date/Time: Jan 13 2022 2:58P Dictated by : MARGARETH COLEMAN MD This examination was interpreted and the report reviewed and electronically signed by: KEREN SOLOMON MD on Dec 20 2021 1:52AM EST This document has been addended by: MARGARETH COLEMAN MD on Jan 13 2022 3:07PM EST [id number] [facility] ED NOTEon 12-20-2021 ED NOTE HNO ID: [id number] Author: Rodrick Corado RN Service: Nursing Author Type: Registered Nurse Type: ED Notes Filed: 12/19/2021 10:34 PM Note Text: Report to 2 [facility] RN. No questions at this time. Pt stable for transport. [facility] ED PROV NOTEon 12-20-2021 ED PROV NOTE HNO ID: [id number] Author: Brayan Alejo MD Service: Emergency Medicine Author Type: Physician Type: ED Provider Notes Filed: 12/19/2021 11:30 PM Note Text: ED Provider Note Patient Name: Jana Mcclain : 1965 SERVICE DATE: 12/19/21 History Patient presents with: Pain (foot): Lt toes needs admission per 56-year-old female presents for pain in the left foot. Apparently this has been ongoing for approximately a month. Over the last 2 weeks she has noticed some purple discoloration of the great toe on the left foot and the third toe. Was seen by her upholstery handler who recommended she come to the emergency department for this problem. Apparently had ABIs done as an outpatient with vascular lab and had abnormal readings on the left foot which was the affected foot. Patient does have a history of tobacco use. Admits to breast pain and paresthesias of the affected extremity at this time. Denies any chest pain or shortness of breath or abdominal pain. PAST MEDICAL HISTORY Diagnosis Date Breast cancer (HCC) 03/13/2008 left breast Female infertility of other specified origin ITP (idiopathic thrombocytopenic purpura) Osteoporosis, unspecified Osteoporosis Syncope Thrombocytopenia, unspecified (HCC) Thyroid nodule Tobacco use disorder PAST SURGICAL HISTORY Procedure Laterality Date DELIVERY ONLY 1987 and 01/18/2007 PAST SURGICAL HISTORY OF 05/10/2009 partial hysterectomy PAST SURGICAL HISTORY OF 2008 lumpectomy left breast SPLENECTOMY,GASTROESO PHAGEAL DEVASCULARIZA FAMILY HISTORY Problem Relation Age of Onset Cancer Father lung and throat, Diabetes Mother Hypertension Mother Breast Cancer Sister x2 sisters Heart Father Diabetes Sister Cancer Brother thyroid cancer, Social History Tobacco Use Smoking status: Every Day Packs/day: 1.00 Years: 28.00 Pack years: 28.00 Types: Cigarettes Smokeless tobacco: Never Vaping Use Vaping Use: Never used Substance and Sexual Activity Alcohol use: No Drug use: No Sexual activity: Yes Partners: Male ALLERGIES Allergen Reactions Prednisone Hives Pt only breaks out if taking a high dosage Review of Systems Constitutional: Negative for chills, diaphoresis, fatigue and fever. HENT: Negative for congestion, ear pain, sinus pain and sore throat. Eyes: Negative for photophobia, pain, redness and visual disturbance. Respiratory: Negative for cough, chest tightness and shortness of breath. Cardiovascular: Negative for chest pain, palpitations and leg swelling. Gastrointestinal: Negative for abdominal distention, abdominal pain, constipation, diarrhea, nausea and vomiting. Genitourinary: Negative for difficulty urinating, dysuria, flank pain, frequency and urgency. Musculoskeletal: Negative for back pain, neck pain and neck stiffness. Left lower extremity pain at the foot with discoloration of the great toe and third toe Skin: Negative for color change, rash and wound. Neurological: Negative for dizziness, syncope, light-headedness and headaches. Psychiatric/Behaviora l: Negative for agitation, behavioral problems and confusion. Physical Exam Vitals [12/19/21 1930] BP Pulse Temp Temp src Resp SpO2 Weight Height 146/86 (!) 114 36.4 ?C (97.5 ?F) Oral 18 95 % 68 kg (150 lb) 1.524 m (5') Physical Exam Vitals and nursing note reviewed. Constitutional: Appearance: She is well-developed. She is not diaphoretic. HENT: Head: Normocephalic and atraumatic. Right Ear: External ear normal. Left Ear: External ear normal. Eyes: General: No scleral icterus. Right eye: No discharge. Left eye: No discharge. Conjunctiva/sclera: Conjunctivae normal. Pupils: Pupils are equal, round, and reactive to light. Neck: Vascular: No JVD. Trachea: No tracheal deviation. Cardiovascular: Rate and Rhythm: Normal rate and regular rhythm. Heart sounds: Normal heart sounds. No murmur heard. No friction rub. No gallop. Pulmonary: Effort: Pulmonary effort is normal. No respiratory distress. Breath sounds: Normal breath sounds. No stridor. No wheezing or rales. Chest: Chest wall: No tenderness. Abdominal: General: Bowel sounds are normal. There is no distension. Palpations: Abdomen is soft. There is no mass. Tenderness: There is no abdominal tenderness. There is no guarding or rebound. Musculoskeletal: General: No tenderness or deformity. Normal range of motion. Cervical back: Normal range of motion and neck supple. Skin: General: Skin is warm. Capillary Refill: Capillary refill takes less than 2 seconds. Coloration: Skin is not pale. Findings: No rash. Comments: Patient's left foot is the subject of this exam. She does have a purplish discoloration of the great toe on the left foot and the third toe on the left foot. DP and PT pulses are palpable and Doppler signals are strong. Decree sensation of the affected to (more content not included)... Normal [facility] HISTORY PHYSICALon HISTORY PHYSICAL HNO ID: [id number] Author: Ronen Green MD Service: Vascular Surgery Author Type: Physician Type: HANDP Filed: 12/20/2021 11:55 AM Note Text: PROCEDURAL SEDATION HISTORY AND PHYSICAL EXAM SERVICE DATE: 12/20/2021 SERVICE TIME: 11:53 AM Subjective HPI: This is a 56 year old female who presents with rest pain in LLE with severe aortoiliac occlusive disease. PAST ANESTHESIA HISTORY: No history of adverse event PAST MEDICAL HISTORY Diagnosis Date Breast cancer (HCC) 03/13/2008 left breast Female infertility of other specified origin ITP (idiopathic thrombocytopenic purpura) Osteoporosis, unspecified Osteoporosis Syncope Thrombocytopenia, unspecified (HCC) Thyroid nodule Tobacco use disorder PAST SURGICAL HISTORY Procedure Laterality Date DELIVERY ONLY 1987 and 01/18/2007 PAST SURGICAL HISTORY OF 05/10/2009 partial hysterectomy PAST SURGICAL HISTORY OF 2008 lumpectomy left breast SPLENECTOMY,GASTROESO PHAGEAL DEVASCULARIZA Prior to Admission medications as of 12/19/21 6629 Medication Sig Last Dose Taking venlafaxine ER (EFFEXOR XR) 75 mg 24 hr capsule 75 mg once daily. 12/18/2021 Yes cyclobenzaprine 10 mg tablet Take 1 tablet by mouth three times daily as needed. Yes citalopram 20 mg tablet Take 10 mg by mouth. Take 1 and 1/2 tablet 12/18/2021 Yes Meclizine HCl 25 mg cap Take 1 tablet by mouth as needed. Yes simvastatin 20 mg tablet Take 20 mg by mouth daily at bedtime. 12/18/2021 Yes cyanocobalamin (VITAMIN B-12) 500 mcg tablet Take 1 tablet by mouth once daily. Yes Estradiol (VAGIFEM) 10 mcg vaginal tablet Use 10 mcg vaginally. twice weekly 12/19/2021 Yes NIFEDIPINE 16% TOPICAL CREAM Apply 2 grams (2 pumps) to the affected area once daily. NIFEdipine 16% Apply 2 g to affected area once daily. ergocalciferol, vitamin D2, (DRISDOL) 50,000 unit capsule Take 1 capsule by mouth once each week. Patient not taking: No sig reported fluconazole 150 mg tablet Take 150 mg by mouth. 1 tablet every 4 days penicillin V potassium 500 mg tablet Take 500 mg by mouth. 1 tablet every 6 hours for temp over 101 predniSONE 10 mg tablet Take 0.5 tablets by mouth every 48 hours. Patient not taking: Reported on 12/19/2021 Not Taking ALLERGIES Allergen Reactions Prednisone Hives Pt only breaks out if taking a high dosage Objective PHYSICAL EXAM: The remainder of the physical exam is noncontributory. AIRWAY: Airway Visualization of Uvula: Yes Mouth opening greater than 2 fingerbreadths: Yes Neck Full Range of Motion: Yes LUNGS: Lungs clear to auscultation CARDIAC: Regular rhythm,Regular rate Assessment/Plan ASA Class: ASA Class:: Patient with severe systemic disease Medication and Non-Pharmacologic VTE Prophylaxis/Anticoagu lants Anticoagulant AND Antiplatelet Medications (From admission, onward) Start Dose Route Frequency Last Action Ordered Stop 12/19/21 2200 [MAR Hold due to Transfer] heparin iv infusion 25,000 units in NaCl 0.45% 250 mL LOW DOSE/ACS NOMOGRAM (Heparin Infusion + Bolus for Subtherapeutic PTTAC) 0-30 mL/hr (MAR Hold due to Transfer since Thu12/20/2021 at 1148.Hold Reason: Hold Unreviewed Transfer Orders) See Hyperspace for full Linked Orders Report. 0-3,000 Units/hr INTRAVENOUS CONTINUOUS New Bag/Syringe/Bottle, 12/20 0512/19/212151 -- 12/19/212214 vte current anticoag therapy ([place]) 12/19/212214 activity - mobilize patient ([place]) VTE Prophylaxis: VTE prophylaxis appropriate Provisional Diagnosis/Treatment Plan: 56 yo f with rest pain in LLE with severe aortoiliac occlusive disease. SEDATION GOAL: Moderate SIGNATURE: Ronen Green MD PATIENT NAME: Jana Mcclain DATE: December 20, 2021 TIME: 11:53 AM Normal [facility] HISTORY PHYSICAL HNO ID: [id number] Author: Bubba Franco MD Service: Hospital Medicine Author Type: Physician Type: HANDP Filed: 12/19/2021 11:26 PM Note Text: DEPARTMENT OF HOSPITAL MEDICINE HISTORY AND PHYSICAL EXAM SERVICE DATE: 12/19/2021 Code Status: Not on file SERVICE TIME: 10:21 PM Primary Care Physician: No primary care provider on file. NIGHT AND WEEKEND COVERAGE: [place] COVERAGE: Days: [phone], please page attending physician. Nights: [phone], please page [place] [facility] Night coverage pager [phone]. Subjective CHIEF COMPLAINT: Foot pain HPI: This is a 56 year old female with past medical history of chronic smoking, history of breast cancer, was sent from podiatry office for evaluation of left foot pain. Patient complains of pain in the left foot for past 1 month, exacerbated by walking or standing for long time, she underwent PVR which showed JIMENA of 0.46 on left foot and severely compromised JIMENA on right foot as well. Patient reports worsening purple discoloration of the toe especially first and fourth toe. She is a chronic smoker with >60 pack year smoking history. She also reports exertional SOB, and cath lab radiological technologist cough with phlegm, but does not uses inhalers on routine basis. In the ED she was hemodynamically stable, tachycardic with heart rate around 100s, saturating 95% on room air, lab work showed glucose 150, WBC 12.5, rest of the labs normal, CTA of the abdomen pelvis and lower extremity showed heavy atherosclerosis of the abdominal aorta with calcified and noncalcified plaque as well as subtotal occlusion of the aortoiliac bifurcation, along with bilateral pulmonary nodules. Vascular surgery-Dr. Campos was consulted and patient is being admitted to the regular nursing floor for management of severe peripheral arterial disease. Review of system is negative for any fever, chills, leg swelling, nausea, vomiting, diarrhea, abdominal pain, chest pain. PAST MEDICAL HISTORY Diagnosis Date Breast cancer (HCC) 03/13/2008 left breast Female infertility of other specified origin ITP (idiopathic thrombocytopenic purpura) Osteoporosis, unspecified Osteoporosis Syncope Thrombocytopenia, unspecified (HCC) Thyroid nodule Tobacco use disorder PAST SURGICAL HISTORY Procedure Laterality Date DELIVERY ONLY 1987 and 01/18/2007 PAST SURGICAL HISTORY OF 05/10/2009 partial hysterectomy PAST SURGICAL HISTORY OF 2008 lumpectomy left breast SPLENECTOMY,GASTROESO PHAGEAL DEVASCULARIZA FAMILY HISTORY Problem Relation Age of Onset Cancer Father lung and throat, Diabetes Mother Hypertension Mother Breast Cancer Sister x2 sisters Heart Father Diabetes Sister Cancer Brother thyroid cancer, Social History Tobacco Use Smoking status: Every Day Packs/day: 1.00 Years: 28.00 Pack years: 28.00 Types: Cigarettes Smokeless tobacco: Never Vaping Use Vaping Use: Never used Substance Use Topics Alcohol use: No Drug use: No PRIOR TO ADMISSION MEDICATIONS: (Not in a hospital admission) ALLERGIES Allergen Reactions Prednisone Hives Pt only breaks out if taking a high dosage All systems reviewed in detail and pertinent positives are mentioned in HPI Objective PHYSICAL EXAM: BP 189/88 Pulse 97 Temp (Src) 97.5 (Oral) Resp 18 Ht 5' 0" (1.52m) Wt 150 lb (68.0kg) SpO2 96% LMP 02/26/2006 BMI 29.30 kg/(m2). O2 Therapy: Room Air Physical Exam Performed: General : No distress , alert and oriented Oral : oral mucosa moist, no ulcers Eyes: PERRLA Neck - no JVD Respiratory : b/l equal breath sounds CVS - S1,S2 normal , no murmer heard Abdomen :soft non tender, BS active Extremities : no leg edema Neuro : grossly normal cognition, no motor or sensory deficit Pulses - 2+ radial, 2+carotid Lines, Drains, and Airways Line Duration Peripheral 12/19/21 2159 Short Right Antecubital 20 Gauge <1 day Reviewed lines and needs to be continued: REASONS: Intravenous antibiotics DATA: Diagnostic tests reviewed for today's visit: CBC, Coags, BMP, Mg, Phos Recent Labs 12/19/212005 WBC 12.50* HB 15.4 HCT 43.8 PLT 225 NA 139 K 3.8 CHLOR 105 CO2 24 BUN 14 CREAT 0.61 GLUC 150* CA 9.8 Assessment/Plan Problem List Leg pain POA: Yes History of breast cancer POA: Yes PVR RIGHT SIDE Resting right ankle brachial index: 0.53 Right toe brachial index: 0.22 Abnormal ankle brachial index at rest diagnostic of peripheral artery disease. Abnormal toe brachial index at rest is evidence of peripheral artery disease. Right ankle: Moderate disease at rest. LEFT SIDE Resting left ankle brachial index: 0.46 Left toe brachial index: 0.00 Abnormal ankle brachial index at rest diagnostic of peripheral artery disease. Abnormal toe brachial index at rest is evidence of peripheral artery disease. Left ankle: Moderate disease at rest. HOSPITAL COURSE: Jana Magdaleno (more content not included)... Normal [facility] Lipid 1996 panelon 2 Cholesterol [Mass/Vol] 158 mg/dL Normal <200 [facility] Comment on above: Order Comment: Hero rivas Type: BLOOD SPECIMENOrdering Facility: [facility] Address: [address] [place] [phone] Result Comment: <200 mg/dL, Desirable 200-239 mg/dL, Borderline high >239 mg/dL, High Performed By: #### 2 4321-2, 57601-5 ####[facility]ORATORYCLIA [id number] [place] [address] [place] Cholesterol in HDL [Mass/Vol] 45 mg/dL Normal >39 [facility] Comment on above: Order Comment: Hero rivas Type: BLOOD SPECIMENOrdering Facility: [facility] Address: [address] [place] [phone] Result Comment: 40-5 9 mg/dL, Acceptable >59 mg/dL, High: Negative risk factor for coronary heart disease <40 mg/dL, Low: Positive risk factor for coronary heart disease Performed By: #### 2 4321-2, 68813-3 ####[facility]ORY[facility] [id number] [address] Cholesterol in LDL [Mass/Vol] 83 mg/dL Normal <100 [facility] Comment on above: Order Comment: Hero evelyn Type: BLOOD SPECIMENOrdering Facility: [facility] Address: [address] [address] Result Comment: <100 mg/dL, Optimal 100-129 mg/dL, Near optimal/above optimal 130-159 mg/dL, Borderline high 160-189 mg/dL, High >189 mg/dL, Very high Secondary prevention optimal LDL Cholesterol levels are recommended to be < 70 mg/dL Performed By: #### 2 4320-2, 23506-6 ####[facility]ORYCLIA [id number] [address] Cholesterol in LDL/Cholesterol in HDL [Mass ratio] 1.84 {ratio} Normal <2.54 [facility] Comment on above: Order Comment: Hero rivas Type: BLOOD SPECIMENOrdering Facility: [facility] Address: [address] [place] [address] Result Comment: Refe rence: 1. National Cholesterol Education Program ATP III Guideline At-A-Glance Quick Desk Reference: National Heart, Lung, and Blood [place]. National Institutes of Health. 2001: NIH Publication No. 01-3305. 2. An International Atherosclerosis Society position paper: global recommendations for the management of dyslipidemia: executive summary, Atherosclerosis. 2014: 232(2):410-413. Performed By: #### 2 4320-2, 50790-0 ####[facility]ORYCLIA [id number] [address] Cholesterol in VLDL [Mass/Vol] 30 mg/dL High <30 [facility] Comment on above: Order Comment: Hero evelyn Type: BLOOD SPECIMENOrdering Facility: [facility] Address: [address] [address] Performed By: #### 2 432-2, 92516-6 ####[facility]ORYCLIA [id number] [address] Cholesterol non HDL [Mass/Vol] 113 mg/dL Normal <130 [facility] Comment on above: Order Comment: Speci men Type: BLOOD SPECIMENOrdering Facility: [facility] Address: [address] [place] [address] Result Comment: <130 mg/dL, Optimal 130-159 mg/dL, Near optimal/above optimal 160-189 mg/dL, Borderline high 190-219 mg/dL, High >219 mg/dL, Very high Secondary prevention optimal non HDL Cholesterol levels are recommended to be <100 mg/dL Performed By: #### 2 4321-2, 65694-1 ####[facility]ORYCLIA [id number] [address] Cholesterol.total/Chol esterol in HDL [Mass ratio] 3.51 {ratio} Normal <5.10 [facility] Comment on above: Order Comment: Speci men Type: BLOOD SPECIMENOrdering Facility: [facility] Address: [address] [place] [address] Performed By: #### 2 4321-2, 78343-4 ####[facility]ORYCLIA [id number] [address] FASTING TIME 12 hrs Normal [facility] Comment on above: Order Comment: Speci men Type: BLOOD SPECIMENOrdering Facility: [facility] Address: [address] [place] [address] Performed By: #### 2 4321-2, 40364-8 ####[facility]ATORYCLIA [id number] [address] Triglyceride [Mass/Vol] 150 mg/dL High <150 [facility] Comment on above: Order Comment: Speci men Type: BLOOD SPECIMENOrdering Facility: [facility] Address: [address] [place] [address] Result Comment: <150 mg/dL, Normal 150-199 mg/dL, Borderline high 200-499 mg/dL, High >499 mg/dL, Very high Performed By: #### 2 4321-2, 20795-8 ####[facility]ATORYCLIA [id number] [address] [place] OPERATIVE NOon 12-20-2021 OPERATIVE NO HNO ID: [id number] Author: Ronen Green MD Service: Vascular Surgery Author Type: Physician Type: Operative Report Filed: 12/20/2021 6:17 PM Note Text: OPERATIVE/PROCEDURE REPORT LOG ID: [id number] SURGERY/PROCEDURE DATE: 12/20/2021 INCISION/PROCEDURE START TIME: 12:45 PM INCISION CLOSE/PROCEDURE END TIME: 2:08 PM SURGEON(S)/PROCEDURAL IST(S) AND BICYCLE COURIER(S): Surgeon(s) and Role: * Ronen Green MD - Primary No Additional Staff SURGERY/PROCEDURE(S): 1) Ultrasound guided access to B MILKING MACHINE OPERATOR 2) Abdominal aortogram 3) CROSS TIE CUTTER/stent abdominal aorta 4) B common iliac artery stents ANESTHESIA: Procedural Sedation SURGERY/PROCEDURE DETAILS: The patient was identified by the attending surgeon and brought into the angiography suite. The patient was laid on the table in the supine position. Bilateral groins were prepared and draped in the usual sterile fashion. Timeout was performed. The patient received IV sedation with fentanyl and Versed and was continuously monitored. 2% plain lidocaine was used for local anesthesia. Ultrasound guidance was used to gain access to the bilateral common femoral arteries using a 4 Togolese micropuncture kit. These were upsized to 7 Togolese sheaths. R and L iliofemoral angiograms were performed via B MILKING MACHINE OPERATOR sheaths demonstrating occlusion of B common iliac arteries and reconstituted B iliac bifurcations with patent B internal iliac arteries and external iliac arteries. The CFAs are patent bilaterally. A 0.035 angled Glidewire was used to negotiate a 5 Togolese KMP catheter into the abdominal aorta via the right femoral sheath. True lumen placement was confirmed with injection of contrast. The 5 Togolese KMP catheter and 0.035 angled Glidewire were then used to traverse the left common iliac artery occlusion and the back end of the 0.035 angled Glidewire was used to punch into the distal aortic lumen successfully. The catheter followed and the wire was reoriented and passed up the abdominal aorta. The catheter was advanced to the proximal abdominal aorta and injection of contrast confirmed true lumen placement. Wires were exchanged for a 0.035 advantage Glidewire was bilaterally. The patient was systemically anticoagulated with heparin. The left femoral 7 Togolese sheath was exchanged for an 8 x 25cm sheath which was advanced into the distal abdominal aorta. An 11 x 39 VBX stent was then advanced through this sheath and uncovered in the appropriate position. Marker catheter placed via the right side was used to perform angiogram in the abdominal aorta to guide placement of the aortic stent. The catheter was then removed over the wire. The stent was deployed uneventfully. The right sided wire now trapped against the wall of the aorta with the stent was pulled back and fed up through true lumen of the stent. A marker pigtail catheter was advanced over this wire and reformed within the stent and spun to confirm intraluminal placement. Advantage glide wire was placed again. Using TURKMEN pelvic projection and right femoral retrograde injection of contrast, the right common iliac artery was stented first with a 6 x 59 VBX stent taking care to land the stent short of the right iliac bifurcation. There is 1 stent length within the aortic stent. The left-sided iliac stent could not be passed proximal to where the right-sided iliac stent traversed the left common iliac origin and therefore a 5 x 80 [place] balloon was used to dilate a path. Another 6 x 59 VBX stent was then able to be advanced via the left side such that 1 stent length is within the aortic stent and the stent is just short of the left iliac bifurcation proven by PETTY pelvic projection and left femoral retrograde injection of contrast. The stent balloons were then used to perform kissing angioplasty of the aortic bifurcation to ensure complete expansion of bilateral common iliac stents. The balloon catheters were removed and the marker catheter was then reformed in the proximal abdominal aorta via the right femoral sheath and completion angiogram demonstrated excellent result in the proximal margin of the aortic stent. The catheter was brought down to just above the aortic stent completion angiogram demonstrated widely patent aortic stent and bilateral common iliac artery stents. Retrograde injection of contrast via both groins demonstrated excellent distal margin of both common iliac stents and patent iliac bifurcations. There is moderate stenosis at the origin of the left internal iliac artery. Bilateral external iliac arteries are widely patent. The patient now has bounding femoral pulses and she reports relief of her left foot rest pain. The case was terminated. Angiogram through the sheaths demonstrated suitability for closure devices. Anticoagulation was reversed with protamine. The left femoral 8 Togolese sheath was removed and hemostasis was obtained with a Angio-Seal de (more content not included)... Normal [facility] PT panel Coag (PPP)on 2021 INR Coag (PPP) [Relative time] {INR} Low 0.9-1.3 [facility] Comment on above: Order Comment: Hero rivas Type: BLOOD SPECIMENOrdering Facility: [facility] Address: [address] [place] [phone] Result Comment: Chely min K Antagonist (VKA) Therapeutic Range: INR 2 to 3 (Target INR of 2.5) Note: For patients treated with VKA drugs, such as warfarin, the [place] [employer] 2012 Guideline recommends a therapeutic INR range of 2 to 3 (target INR of 2.5). This recommendation includes high-risk patients with antiphospholipid syndrome with previous arterial or venous thromboembolism, current-generation mechanical or bioprosthetic aortic heart valve replacement. Note: Patients with mechanical aortic valve replacement and additional risk factors for thromboembolic events (atrial fibrillation, previous thromboembolism, LV dysfunction, hypercoagulable conditions) or an older generation mechanical AVR (i.e., ball in-Cage) or any mechanical MVR should have a INR therapeutic range of 2.5 to 3.5 (target INR of 3). Daniel DOWNS, et al. Chest 2012, 141:7S-47S Jhonatan RA, et al. [facility] 2017, 70: 252-289 Performed By: #### 3 4528-0, PTTAC ####[facility] LABORATORYCLIA [id number] [place] [address] [place] PT Coag (PPP) [Time] 9.4 s Low 9.7-13.0 [facility] Comment on above: Order Comment: Hero rivas Type: BLOOD SPECIMENOrdering Facility: [facility] Address: [address] [place] [address] Result Comment: Samp le checked for clot. Performed By: #### 3 4528-0, PTTAC ####[facility]ORATORYCLIA [id number] [address] [place] PTT, ANTICOAGULANT THERAPYon 12-20-2021 aPTT Coag (PPP) [Time] 27.9 s Normal 23.0-32.4 [facility] Comment on above: Order Comment: Hero rivas Type: BLOOD SPECIMENOrdering Facility: [facility] Address: [address] [place] [address] Performed By: #### P TTAC ####[facility] LABORATORYCLIA [id number] [place] [id number] [place] aPTT Coag (PPP) [Time] 40.1 s High 23.0-32.4 [facility] Comment on above: Order Comment: Speci men Type: BLOOD SPECIMENOrdering Facility: [facility] Address: [address] [place], [place] [address] Result Comment: Samp le checked for clot. Performed By: #### 3 4528-0, PTTAC ####[facility] LABORATORYCLIA [id number] [address] [id number] [facility] [place] ALLIED HEALTHon 12-19-2021 ALLIED HEALTH HNO ID: [id number] Author: RT Jamel(R) Service: Radiology Author Type: Technologist Type: Allied Health Filed: 12/19/2021 8:39 PM Note Text: Radiology Service Progress Note DATE OF SERVICE: December 19, 2021 TIME: 8:38 PM PATIENT IDENTITY VERIFICATION COMPLETED USING TWO (2) STANDARD IDENTIFIERS: Name and Date of confirmed by patient verbally and Name and Date of confirmed by identification band. FALL SCREENING: Has the patient had 2 falls in the last year or 1 fall with injury or currently using an Ambulatory Assistive Device (Walker, Cane, Wheelchair, Crutches, etc.)? Emergency Room Patient: Screened in ED PATIENT GENDER DATA: Female. status: : No status: NO. PATIENT RELEVANT IMPLANT DATA REVIEWED: Not Applicable ALLERGIES: Reviewed and unchanged CONTRAST ALLERGY: NO. EXAM: CT -CONTRAST INDUCED NEPHROPATHY RISK FACTORS: Not applicable CREATININE: Creatinine Date Value Ref Range Status 12/19/2021 0.61 0.58 - 0.96 mg/dL Final 05/17/2013 0.65 (L) 0.70 - 1.40 mg/dL Final 07/09/2006 0.5 (L) 0.7 - 1.4 mg/dL Final Estimated Glomerular Filtration Rate Date Value Ref Range Status 12/19/2021 106 >=60 mL/min/1.73m? Final Comment: Estimated Glomerular Filtration Rate (eGFR) is calculated using the 2020 CKD-EPI creatinine equation. This equation utilizes serum creatinine, sex, and age as parameters. The creatinine assay has traceable calibration to isotope dilution-mass spectrometry. Refer to KDIGO guidelines for clinical interpretation. In patients with unstable renal function, e.g. those with acute kidney injury, the eGFR may not accurately reflect actual GFR. eGFR- Date Value Ref Range Status 05/17/2013 >60 Final P.O.C.T. RESULTS: POC done: Yes, See Lab Tab December 19, 2021 TREATMENT: N/A PERIPHERAL IV DATA: Inpatient - refer to [facility] documentation RADIOLOGY DEPARTMENT: CT; Exam(s) Completed: CTA Aorta/leg runoff SIGNATURE: Evens Le RT(R) PATIENT NAME: Jana Mcclain DATE: December 19, 2021 TIME: 8:38 PM Normal [facility] CBC W Auto Differential pane l (Bld)on 12-19-2021 Basophils (Bld) [#/Vol] 0.04 10*3/uL Normal <0.11 [facility] Comment on above: Order Comment: Speci evelyn Type: BLOOD SPECIMENOrdering Facility: [facility] Address: [address] [place] [address] Performed By: #### 5 5454-3 ####[facility] LABCLIA [id number] [address]#### [address]-3 ####[facility]ORATORYCLIA [id number] [address] STATES [facility] Basophils/100 WBC (Bld) 0.3 % Normal [facility] Comment on above: Order Comment: Hero rivas Type: BLOOD SPECIMENOrdering Facility: [facility] Address: [address] [place] [address] Performed By: #### 5 5454-3 ####[facility] LABCLIA [id number] [address] [place]#### [address]-0 ####[facility]ORATORYCLIA [id number] [address] STATES OF [facility] Differential cell count method Nom (Bld) Auto Normal [facility] Comment on above: Order Comment: Speci men Type: BLOOD SPECIMENOrdering Facility: [facility] Address: [address] [place] [address] Performed By: #### 5 5454-3 ####[facility] LABCLIA [id number] [address]#### [address]75[address]-4 ####[facility]ORYCLIA [id number] [address] Eosinophils (Bld) [#/Vol] 0.33 10*3/uL Normal <0.46 [facility] Comment on above: Order Comment: Speci men Type: BLOOD SPECIMENOrdering Facility: [facility] Address: [address] [place] [address] Performed By: #### 5 5454-3 ####[facility] LABCLIA [id number] [address]#### [address]9563-5 ####[facility]ORYCLIA [id number] [address] Eosinophils/100 WBC (Bld) 2.6 % Normal [facility] Comment on above: Order Comment: Speci men Type: BLOOD SPECIMENOrdering Facility: [facility] Address: [address] [place] [address] Performed By: #### 5 5454-3 ####[facility] LABCLIA [id number] [address]#### [address]-7 ####[facility]ATORYCLIA [id number] [address] Erythrocyte distribution width (RBC) [Ratio] 13.0 % Normal 11.5-15.0 [facility] Comment on above: Order Comment: Speci men Type: BLOOD SPECIMENOrdering Facility: [facility] Address: [address] [place] [address] Performed By: #### 5 5454-3 ####[facility] LABCLIA [id number] [address] [place]#### [address]-1 ####[facility]ATORYCLIA [id number] [address] Hematocrit (Bld) [Volume fraction] 43.8 % Normal 36.0-46.0 [facility] Comment on above: Order Comment: Speci men Type: BLOOD SPECIMENOrdering Facility: [facility] Address: [address] [place] [address] Performed By: #### 5 5454-3 ####[facility] LABCLIA [id number] [address]#### [address]31-8 ####[facility] LABORATORYCLIA [id number] [address] [place] Hemoglobin (Bld) [Mass/Vol] 15.4 g/dL Normal 11.5-15.5 [facility] Comment on above: Order Comment: Speci men Type: BLOOD SPECIMENOrdering Facility: [facility] Address: [address] [place] [address] Performed By: #### 5 5454-3 ####[facility] LABCLIA [id number] [address]#### [address]-9 ####[facility]ATORYCLIA [id number] [address] [place] IMMATURE GRAN % 0.4 % Normal [facility] Comment on above: Order Comment: Speci men Type: BLOOD SPECIMENOrdering Facility: [facility] Address: [address] [place] [address] Performed By: #### 5 5454-3 ####[facility] LABCLIA [id number] [address]#### 988[address]-4 ####[facility] LABORATORYCLIA [id number] [place] [address] [place] IMMATURE GRAN ABS 0.05 k/uL Normal <0.10 [facility] Comment on above: Order Comment: Speci men Type: BLOOD SPECIMENOrdering Facility: [facility] Address: [address] [place] [address] Performed By: #### 5 5454-3 ####[facility] LABCLIA [id number] [address]#### [address]07[address]-1 ####[facility]ORYCLIA [id number] [address] Lymphocytes (Bld) [#/Vol] 3.80 10*3/uL Normal 1.00-4.00 [facility] Comment on above: Order Comment: Speci men Type: BLOOD SPECIMENOrdering Facility: [facility] Address: [address] [place] [address] Performed By: #### 5 5454-3 ####[facility] LABCLIA [id number] [address]#### 10[address]-1 ####[facility]ORYCLIA [id number] [address] Lymphocytes/100 WBC (Bld) 30.4 % Normal [facility] Comment on above: Order Comment: Speci men Type: BLOOD SPECIMENOrdering Facility: [facility] Address: [address] [place], [place] [address] Performed By: #### 5 5454-3 ####[facility] LABCLIA [id number] [address] [address]#### [address]-4 ####[facility] LABORATORYCLIA [id number] [address] MCH (RBC) [Entitic mass] 31.2 pg Normal 26.0-34.0 [facility] Comment on above: Order Comment: Speci men Type: BLOOD SPECIMENOrdering Facility: [facility] Address: [address] [place], [place] [address] Performed By: #### 5 5454-3 ####[facility] LABCLIA [id number] [address]#### [address]-8 ####[facility] LABORATORYCLIA [id number] [address] MCHC (RBC) [Mass/Vol] 35.2 g/dL Normal 30.5-36.[address] [facility] Comment on above: Order Comment: Speci men Type: BLOOD SPECIMENOrdering Facility: [facility] Address: [address] [place] [address] Performed By: #### 5 5454-3 ####[facility] LABCLIA [id number] [address]#### [address]-4 ####[facility]ORYCLIA [id number] [address] MCV (RBC) [Entitic vol] 88.7 fL Normal 80.0-100.0 [facility] Comment on above: Order Comment: Speci men Type: BLOOD SPECIMENOrdering Facility: [facility] Address: [address] [place], [place] [address] Performed By: #### 5 5454-3 ####[facility] LABCLIA [id number] [address]#### [address]-1 ####[facility]ORYCLIA [id number] [address] Monocytes (Bld) [#/Vol] 0.70 10*3/uL Normal <0.87 [facility] Comment on above: Order Comment: Speci men Type: BLOOD SPECIMENOrdering Facility: [facility] Address: [address] [place], [place] [address] Performed By: #### 5 5454-3 ####[facility] LABCLIA [id number] [address]#### [address]-7 ####[facility] LAB[facility]ATORYCLIA [id number] [address] Monocytes/100 WBC (Bld) 5.6 % Normal [facility] Comment on above: Order Comment: Speci men Type: BLOOD SPECIMENOrdering Facility: [facility] Address: [address] [place] [address] Performed By: #### 5 5454-3 ####[facility] LABCLIA [id number] [address]#### [address]-9 ####[facility]ORYCLIA [id number] [address] Neutrophils (Bld) [#/Vol] 7.58 10*3/uL High 1.45-7.50 [facility] Comment on above: Order Comment: Speci men Type: BLOOD SPECIMENOrdering Facility: [facility] Address: [address] [place], [place] [address] Performed By: #### 5 5454-3 ####[facility] LABCLIA [id number] [address]#### [address]-3 ####[facility] LABORATORYCLIA [id number] [address] Neutrophils/100 WBC (Bld) 60.7 % Normal [facility] Comment on above: Order Comment: Speci men Type: BLOOD SPECIMENOrdering Facility: [facility] Address: [address] [place], [place] [address] Performed By: #### 5 5454-3 ####[facility] LABCLIA [id number] [address]#### [address]-6 ####[facility] LABORATORYCLIA [id number] [address] [place] Nucleated RBC (Bld) [#/Vol] 10*3/uL Normal <0.01 [facility] Comment on above: Order Comment: Speci men Type: BLOOD SPECIMENOrdering Facility: [facility] Address: [address] [place], [place] [address] Performed By: #### 5 5454-3 ####[facility] LABCLIA [id number] [address]#### [address]-9 ####[facility] LABORATORYCLIA [id number] [address] Nucleated RBC/100 WBC (Bld) [Ratio] 0.0 /100 WBC Normal [facility] Comment on above: Order Comment: Speci men Type: BLOOD SPECIMENOrdering Facility: [facility] Address: [address] [place], [place] [address] Performed By: #### 5 5454-3 ####[facility] LABCLIA [id number] [address]#### [address]-4 ####[facility]ATORYCLIA [id number] [address] Platelet mean volume (Bld) [Entitic vol] 10.5 fL Normal 9.0-12.7 [facility] Comment on above: Order Comment: Speci men Type: BLOOD SPECIMENOrdering Facility: [facility] Address: [address] [place], [place] [address] Performed By: #### 5 5454-3 ####[facility] LABCLIA [id number] [address]#### [address]-0 ####[facility]ORYCLIA [id number] [address] Platelets (Bld) [#/Vol] 225 10*3/uL Normal 150-400 [facility] Comment on above: Order Comment: Speci men Type: BLOOD SPECIMENOrdering Facility: [facility] Address: [address] [place] [address] Performed By: #### 5 5454-3 ####[facility] LABCLIA [id number] [address] [place]#### [address]-9 ####[facility] LABORATORYCLIA [id number] [place] [address] [place] RBC (Bld) [#/Vol] 4.94 10*6/uL Normal 3.90-5.20 [facility] Comment on above: Order Comment: Speci men Type: BLOOD SPECIMENOrdering Facility: [facility] Address: [address] [place] [address] Performed By: #### 5 5454-3 ####[facility] LABCLIA [id number] [address]#### [address]-1 ####[facility]ORATORYCLIA [id number] [address] [place] WBC (Bld) [#/Vol] 12.50 10*3/uL High 3.70-11.00 [facility] Comment on above: Order Comment: Speci men Type: BLOOD SPECIMENOrdering Facility: [facility] Address: [address] [place] [address] Performed By: #### 5 5454-3 ####[facility] LABCLIA [id number] [address]#### [address]-5 ####[facility]ORATORYCLIA [id number] [address] [place] CK SerPl-cCncon 12-19-2021 CK [Catalytic activity/Vol] 50 U/L Normal 42-196 [facility] Comment on above: Order Comment: Speci men Type: BLOOD SPECIMENOrdering Facility: [facility] Address: [address] [place] [address] Performed By: #### 2 4323-8, 2157-6 ####[facility]ORATORYCLIA [id number] [place] [address] [place] CTA ABD/PEL/LOWER EXT W IVCO Non 12-19-2021 CTA ABD/PEL/LOWER EXT W IVCON * * *Final Report* * * DATE OF EXAM: Dec 19 2021 9:22PM [facility] [place] 0122 - CTA ABD/PEL/LOWER EXT W IVCON / PROCEDURE REASON: Arterial embolism, lower extremity * * * * Physician Interpretation * * * * EXAMINATION: CTA ABD/PEL/LOWER EXT W IVCON HISTORY: Arterial embolism, lower extremity COMPARISON: None TECHNIQUE: CT angiography of the abdomen and pelvis with runoff was performed with multiplanar reformations. Dose modulation, iterative reconstruction, and/or weight based adjustment of the mA/kV was utilized to reduce the radiation dose to as low as reasonably achievable. Multiplanar and Maximum intensity projection reformations were performed on a separate postprocessing workstation. All data sets were reviewed. RESULTS CARDIOVASCULAR: There is complex calcified and noncalcified plaque involving the abdominal aorta with complete occlusion of the aorta just shy of the aortoiliac bifurcation. There is collateral reconstitution and filling of the iliofemoral vasculature, which looks diminutive but patent. On the right side, superficial femoral artery is patent. Popliteal artery looks unremarkable. There is three-vessel runoff to the right foot. On the left side, the superficial femoral artery is patent. The popliteal artery looks unremarkable, and there is three-vessel runoff to the left foot. ABDOMEN/PELVIS:: Liver: Unremarkable. Gallbladder: Unremarkable Biliary: Unremarkable Pancreas: Unremarkable Spleen: Not visualized GI/ Bowel: Stomach and small bowel appear unremarkable. No wall thickening, pericolonic inflammation or diverticular disease. Unremarkable appendix. Adrenals: Unremarkable Kidneys/ Ureters: Unremarkable Bladder: Partially distended. Reproductive: Unremarkable. OTHER: Peritoneum/ Retroperitoneum: No adenopathy, free air or free fluid. Bones: Unremarkable. Lower Chest: 11 millimeter nodule in the middle lobe 4/15. 5 mm nodule in the left upper lobe 3/4 Other: Unremarkable IMPRESSION: 1. Heavy atherosclerosis of the abdominal aorta with calcified and noncalcified plaque as well as subtotal occlusion of the aortoiliac bifurcation. There is immediate reconstitution of the iliofemoral vasculature. 2. The bilateral superficial femoral and popliteal arteries are completely patent. There is three-vessel runoff to each foot 3. Pulmonary nodules in the chest are identified measuring up to 11 mm in the middle lobe. Nonemergent CT chest is indicated for further evaluation. Criminal Defense Lawyer: LESLIE Transcribe Date/Time: Dec 19 2021 9:36P Dictated by : AVELINA STARR MD This examination was interpreted and the report reviewed and electronically signed by: AVELINA STARR MD on Dec 19 2021 9:44PM EST [id number] Normal [facility] Comprehensive metabolic 2000 panelon 12-19-2021 Albumin [Mass/Vol] 4.3 g/dL Normal 3.9-4.9 [facility] Comment on above: Order Comment: Speci men Type: BLOOD SPECIMENOrdering Facility: [facility] Address: [address] Performed By: #### 2 4328, 2156-08 ####[facility] LABORATORYCLIA [id number] [place] [address] [place] [facility] ALP [Catalytic activity/Vol] 95 U/L Normal 34-123 [facility] Comment on above: Order Comment: Speci men Type: BLOOD SPECIMENOrdering Facility: [facility] Address: [address] Performed By: #### 2 4328, 2156-08 ####[facility] LABORATORYCLIA [id number] [place] [address] [place] ALT [Catalytic activity/Vol] 26 U/L Normal 7-38 [facility] Comment on above: Order Comment: Speci men Type: BLOOD SPECIMENOrdering Facility: [facility] Address: [address] Performed By: #### 2 4328, 2156-08 ####[facility] LABORATORYCLIA [id number] [address] [place] [facility] Anion gap [Moles/Vol] 10 mmol/L Normal 9-[address] [facility] Comment on above: Order Comment: Speci men Type: BLOOD SPECIMENOrdering Facility: [facility] Address: [address] Performed By: #### 2 [address]38, 2156-08 ####[facility] LABORATORYCLIA [id number] [address] [place] AST [Catalytic activity/Vol] 22 U/L Normal 13-35 [facility] Comment on above: Order Comment: Speci men Type: BLOOD SPECIMENOrdering Facility: [facility] Address: [address] [place] [address] Performed By: #### 2 4323-8, 2156-08 ####[facility] LABORATORYCLIA [id number] [place] [address] [place] Bilirubin [Mass/Vol] 0.2 mg/dL Normal 0.2-1.3 [facility] Comment on above: Order Comment: Speci men Type: BLOOD SPECIMENOrdering Facility: [facility] Address: [address] [place] [address] Performed By: #### 2 4323-8, 2156-08 ####[facility] LABORATORYCLIA [id number] [place] [address] [place] Calcium [Mass/Vol] 9.8 mg/dL Normal 8.5-10.2 [facility] Comment on above: Order Comment: Speci men Type: BLOOD SPECIMENOrdering Facility: [facility] Address: [address] [place] [address] Performed By: #### 2 4323-8, 2156-08 ####[facility] LABORATORYCLIA [id number] [place] [address] [place] Chloride [Moles/Vol] 105 mmol/L Normal 97-105 [facility] Comment on above: Order Comment: Speci men Type: BLOOD SPECIMENOrdering Facility: [facility] Address: [address] [place] [address] Performed By: #### 2 4323-8, 2156-08 ####[facility] LABORATORYCLIA [id number] [place] [address] [place] CO2 [Moles/Vol] 24 mmol/L Normal 22-30 [facility] Comment on above: Order Comment: Speci men Type: BLOOD SPECIMENOrdering Facility: [facility] Address: [address] [place] [address] Performed By: #### 2 4323-8, 2156-08 ####[facility] LABORATORYCLIA [id number] [address] [place] [facility] Creatinine [Mass/Vol] 0.61 mg/dL Normal 0.58-0.[address] [facility] Comment on above: Order Comment: Hero riavs Type: BLOOD SPECIMENOrdering Facility: [facility] Address: [address] [place], [place] [address] Performed By: #### 2 4323-8, 2156-08 ####[facility] LABORATORYCLIA [id number] [place] [id number] [facility] ESTIMATED GLOMERULAR FILTRATION RATE 106 mL/min/1.73m??? Normal >=60 [facility] Comment on above: Order Comment: Hero rivas Type: BLOOD SPECIMENOrdering Facility: [facility] Address: [address] [place], [place] [address] Result Comment: Maryana mated Glomerular Filtration Rate (eGFR) is calculated using the 2020 CKD-EPI creatinine equation. This equation utilizes serum creatinine, sex, and age as parameters. The creatinine assay has traceable calibration to isotope dilution-mass spectrometry. Refer to KDIGO guidelines for clinical interpretation. In patients with unstable renal function, e.g. those with acute kidney injury, the eGFR may not accurately reflect actual GFR. Performed By: #### 2 4323-8, 2156-08 ####[facility] LABORATORYCLIA [id number] [place] [id number] [place] Glucose [Mass/Vol] 150 mg/dL High 74-99 [facility] Comment on above: Order Comment: Hero rivas Type: BLOOD SPECIMENOrdering Facility: [facility] Address: [address] [place], [place] [address] Result Comment: The [place] Diabetes Association (ADA) provides guidance for cutoff values for fasting glucose and random glucose. The ADA defines fasting as no caloric intake for at least 8 hours. Fasting plasma glucose results between 100 to 125 mg/dL indicate increased risk for diabetes (prediabetes). Fasting plasma glucose results greater than or equal to 126 mg/dL meet the criteria for diagnosis of diabetes. In the absence of unequivocal hyperglycemia, results should be confirmed by repeat testing. In a patient with classic symptoms of hyperglycemia or hyperglycemic crisis, random plasma glucose results greater than or equal to 200 mg/dL meet the criteria for diagnosis of diabetes. Reference: Standards of Medical Care in Diabetes 2016, [place] Diabetes Association. Diabetes Care. 2016.39(Suppl 1). Performed By: #### 2 4323-8, 2156-08 ####[facility] LABORATORYCLIA [id number] [place] [address] [place] Potassium [Moles/Vol] 3.8 mmol/L Normal 3.7-5.[address] [facility] Comment on above: Order Comment: Hero rivas Type: BLOOD SPECIMENOrdering Facility: [facility] Address: [address] [place] [address] Performed By: #### 2 4322-10, 2156-08 ####[facility] LABORATORYCLIA [id number] [place] [address] [place] Protein [Mass/Vol] 7.6 g/dL Normal 6.3-8.0 [facility] Comment on above: Order Comment: Hero rivas Type: BLOOD SPECIMENOrdering Facility: [facility] Address: [address] [place] [address] Performed By: #### 2 4322-10, 2156-08 ####[facility] LABORATORYCLIA [id number] [place] [address] [place] Sodium [Moles/Vol] 139 mmol/L Normal 136-144 [facility] Comment on above: Order Comment: Hero rivas Type: BLOOD SPECIMENOrdering Facility: [facility] Address: [address] Performed By: #### 2 4322-10, 2156-08 ####[facility] LABORATORYCLIA [id number] [place] [address] [place] Urea nitrogen [Mass/Vol] 14 mg/dL Normal 7-21 [facility] Comment on above: Order Comment: Hero rivas Type: BLOOD SPECIMENOrdering Facility: [facility] Address: [address] Performed By: #### 2 4322-10, 2156-08 ####[facility] LABORATORYCLIA [id number] [address] ED NOTEon 12-19-2021 ED NOTE HNO ID: [id number] Author: Rodrick Corado RN Service: Nursing Author Type: Registered Nurse Type: ED Notes Filed: 12/19/2021 7:53 PM Note Text: Dr. Alejo at bedside to assess patient. Normal [facility] ED NOTE HNO ID: [id number] Author: Jenna Chua RN Service: ? Author Type: Registered Nurse Type: ED Notes Filed: 12/19/2021 7:36 PM Note Text: Pt sent in by podiatry for decreased vascular flow in lt foot and toes. Pt has discoloration and pain Normal [facility] HbA1c (Bld)on 12-19-2021 Average glucose Estimated from glycated hemoglobin (Bld) [Mass/Vol] 126 mg/dL Normal [facility] Comment on above: Order Comment: Hero rivas Type: BLOOD SPECIMENOrdering Facility: [facility] Address: [address] [place] [address] Result Comment: eAG: (Estimated average glucose) is a calculated value from HgbA1c and is security representative of the average blood glucose level in the last 2-3 month period. Performed By: #### 5 5454-3 ####[facility] LABCLIA [id number] [address] OF [facility]#### [address]-1 ####[facility]ATORYCLIA [id number] [address] HbA1c (Bld) [Mass fraction] 6.0 % High 4.3-5.6 [facility] Comment on above: Order Comment: Hero rivas Type: BLOOD SPECIMENOrdering Facility: [facility] Address: [address] [place] [address] Result Comment: Amer [place] Diabetes Association guidelines indicate that patients with HgbA1c in the range 5.7-6.4% are at increased risk for development of diabetes, and intervention by lifestyle modification may be beneficial. HgbA1c greater or equal to 6.5% is considered diagnostic of diabetes. Performed By: #### 5 5454-3 ####[facility] LABCLIA [id number] [facility] [id number] [address] [place]#### [address]-4 ####[facility] LABORATORYCLIA [id number] [address] [place] SARS-CoV-2 RNA Resp Ql PATRICIA+p robeon 12-19-2021 SARS-CoV-2 (COVID-19) RNA PATRICIA+probe Ql (Resp) COVID 19 RESULT: SARS-CoV-2 (Agent of COVID-19) Not Detected by RT-PCR or equivalent method. This test has been authorized by FDA under an Emergency Use Authorization (EUA). Normal [facility] Comment on above: Performed By: #### 9 4500-6 ####[facility] LABORATORYCLIA [id number] [address] XR FOOT GENERAL 3V AP/LAT/OB L LEFTon 12-16-2021 [facility] XR Foot - left AP and Latera l and obliqueon 12-16-2021 IMPRESSION: No acute process is seen. Criminal Defense Lawyer: PSCB Transcribe Date/Time: Dec 16 2021 10:59A Dictated by : CAROLYN BURGESS MD This examination was interpreted and the report reviewed and electronically signed by: CAROLYN BURGESS MD on Dec 16 2021 11:00AM [facility] DIVISION OF RADIOLOGY * * *Final Report* * * DATE OF EXAM: Dec 16 2021 10:55AM WOX 5336 - XR FOOT 3V AP/LAT/OBL LT / PROCEDURE REASON: Foot pain, left * * * * Physician Interpretation * * * * History: Left foot pain FINDINGS: AP, lateral, and oblique views of the left foot have been obtained. The bones are well-mineralized without evidence of fracture. Joint spaces are maintained. No gross soft tissue abnormality is seen. DIVISION OF RADIOLOGY Provider, [facility] Jesus Alberto Severino - 12/16/2021 * * *Final Report* * * DATE OF EXAM: Dec 16 2021 10:55AM WOX 5336 - XR FOOT 3V AP/LAT/OBL LT / PROCEDURE REASON: Foot pain, left * * * * Physician Interpretation * * * * History: Left foot pain FINDINGS: AP, lateral, and oblique views of the left foot have been obtained. The bones are well-mineralized without evidence of fracture. Joint spaces are maintained. No gross soft tissue abnormality is seen. IMPRESSION IMPRESSION: No acute process is seen. Criminal Defense Lawyer: LESLIE Transcribe Date/Time: Dec 16 2021 10:59A Dictated by : CAROLYN BURGESS MD This examination was interpreted and the report reviewed and electronically signed by: CAROLYN BURGESS MD on Dec 16 2021 11:00AM EST [facility] Radiology Study observation (narrative) [facility] XR Foot - left AP and Latera l and obliqueOrdered By: [facility] Provider on 12-16-2021 [facility] Blood manual differential co mment interpretation (narrative result)Ordered By: Kinjal Curtis on 12-05-2021 Manual differential comment Tyrone (Bld) [Interp] SCANNED [facility] No Panel InformationOrdered By: Kinjal Curtis on 12-05-2021 Reactive Lymphocytes 1+ [facility] Erythrocyte distribution wid th standard deviationon 11-05-2017 Erythrocyte distribution width (RBC) [Entitic vol] 45.3 fL 35.1-43.9 [facility] Laboratory - Hematology and Cell countson 11-05-2017 Erythrocyte distribution width (RBC) [Ratio] 13.9 % 11.6-14.6 [facility] Total cell counton 8 Cells counted Molgen (Bld/Tiss) [#] Not Reportable [facility] Otheron 01-20-2007 CONVERTED FINAL DIAGNOSIS A&B. TWO SEGMENTS OF TRANSECTED FALLOPIAN TUBE, CLINICALLY LEFT AND RIGHT. [facility] CONVERTED ORDERING PROVIDER Ordering Provider: DALE MERCER JR. [facility] Thyroidon 01-20-2007 TSH Cristobal ABBOTT M.D., PATHOLOGIST (Electronic signature on file) Final Signed Out: 01/20/2007 10:37 [facility] Vital Signs Date Time Vital Sign Value Performing Clinician Facility 07-19-2024 09:23-0400 Diastolic blood pressure 61 mm[Hg] Sindhu Miller MD Work Phone: [facility] 07-19-2024 09:23-0400 Heart rate 60 /min Sindhu Miller MD Work Phone: [facility] 07-19-2024 09:23-0400 Systolic blood pressure 117 mm[Hg] Sindhu Miller MD Work Phone: [facility] 05-05-2024 10:20-0500 Body height 153.5 cm KARIE SHAFFER MD [facility] 05-05-2024 10:20-0500 Body weight 85 kg KARIE SHAFFER MD [facility] 05-05-2024 10:20-0500 Body weight 36.07 kg/m2 KARIE SHAFFER MD [facility] 05-05-2024 10:20-0500 Diastolic Blood Pressure Non-Invasive 81 mm[Hg] KARIE SHAFFER MD [facility] 05-05-2024 10:20-0500 Heart rate 71 /min KARIE SHAFFER MD [facility] 05-05-2024 10:20-0500 Respiratory rate 20 /min KARIE SHAFFER MD [facility] 05-05-2024 10:20-0500 Systolic Blood Pressure Non-Invasive 131 mm[Hg] KARIE SHAFFER MD [facility] 12-21-2023 09:51-0400 Body height 159.8 cm Jeaneth Wahkon [employer] Work Phone: [facility] 12-21-2023 09:51-0400 Body mass index (BMI) [Ratio] 28.31 kg/m2 Jeaneth Wahkon [employer] Work Phone: [facility] 12-21-2023 09:51-0400 Body weight 72.3 kg Jeaneth Maricruz [employer] Work Phone: [facility] 12-21-2023 09:51-0400 Diastolic blood pressure 76 mm[Hg] Jeaneth Maricruz [employer] MA[employer]GER Work Phone: [facility] 12-21-2023 09:51-0400 Systolic blood pressure 124 mm[Hg] Jeaneth Wahkon [employer] Work Phone: [facility] 12-04-2023 08:46-0400 Body height 152.4 cm Zabrina Xiong [employer] Work Phone: [facility] 12-04-2023 08:46-0400 Diastolic blood pressure 67 mm[Hg] Zabrina Xiong [employer] Work Phone: [facility] 12-04-2023 08:46-0400 Heart rate 71 /min Zabrina Xiong [employer] Work Phone: [facility] 12-04-2023 08:46-0400 Respiratory rate 14 /min Zabrina Xiong [employer] Work Phone: [facility] 12-04-2023 08:46-0400 SaO2% (BldA) [Mass fraction] 94 % Zabrina Xiong [employer] Work Phone: [facility] 12-04-2023 08:46-0400 Systolic blood pressure 109 mm[Hg] Zabrina Xiong [employer] Work Phone: [facility] 11-20-2023 09:37-0400 Body temperature 98.49 [degF] Sindhu Miller MD Work Phone: [facility] 11-20-2023 09:37-0400 Diastolic blood pressure 67 mm[Hg] Sindhu Miller MD Work Phone: [facility] 11-20-2023 09:37-0400 Heart rate 73 /min Sindhu Miller MD Work Phone: [facility] 11-20-2023 09:37-0400 Systolic blood pressure 127 mm[Hg] Sindhu Miller MD Work Phone: [facility] 11-01-2023 05:03-0400 Diastolic Blood Pressure Non-Invasive 82 mm[Hg] DR ADELINA SANCHEZ MD [facility] 11-01-2023 05:03-0400 Heart rate 105 /min DR ADELINA SANCHEZ MD [facility] 11-01-2023 05:03-0400 Respiratory rate 15 /min DR ADELINA SANCHEZ MD [facility] 11-01-2023 05:03-0400 Systolic Blood Pressure Non-Invasive 167 mm[Hg] DR ADELINA SANCHEZ MD [facility] 11-01-2023 04:37-0400 Diastolic Blood Pressure Non-Invasive 73 mm[Hg] DR ADELINA SANCHEZ MD [facility] 11-01-2023 04:37-0400 Heart rate 105 /min DR ADELINA SANCHEZ MD [facility] 11-01-2023 04:37-0400 Respiratory rate 12 /min DR ADELINA SANCHEZ MD [facility] 11-01-2023 04:37-0400 Systolic Blood Pressure Non-Invasive 179 mm[Hg] DR ADELINA SANCHEZ MD [facility] 11-01-2023 02:57-0400 Diastolic Blood Pressure Non-Invasive 86 mm[Hg] DR ADELINA SANCHEZ MD [facility] 11-01-2023 02:57-0400 Heart rate 107 /min DR ADELINA SANCHEZ MD [facility] 11-01-2023 02:57-0400 Respiratory rate 17 /min DR ADELINA SANCHEZ MD [facility] 11-01-2023 02:57-0400 Systolic Blood Pressure Non-Invasive 150 mm[Hg] DR ADELINA SANCHEZ MD [facility] 11-01-2023 00:25-0400 Blood Pressure Cuff Size DR ADELINA SANCHEZ MD [facility] 11-01-2023 00:25-[address] ADELINA SANCHEZ MD [facility] 11-01-2023 00:25-[address] ADELINA SANCHEZ MD [facility] 11-01-2023 00:25-0400 Body height 167.[address] ADELINA SANCHEZ MD [facility] 11-01-2023 00:25-0400 Body temperature 97.52 [degF] DR ADELINA SANCHEZ MD [facility] 11-01-2023 00:25-0400 Body weight [address] ADELINA SANCHEZ MD [facility] 11-01-2023 00:25-0400 Heart rate 90 /min DR ADELINA SANCHEZ MD [facility] 12-18-2022 10:36-0400 Body height 152.4 cm Jeaneth Wahkon BOOK SORTER.PHARMACY DISTRICT MANAGER Work Phone: [facility] 12-18-2022 10:36-0400 Body weight 74.39 kg Jeaneth Wahkon BOOK SORTER.PHARMACY DISTRICT MANAGER Work Phone: [facility] 12-18-2022 10:36-0400 Diastolic blood pressure 82 mm[Hg] Jeaneth Maricruz BOOK SORTER.PHARMACY DISTRICT MANAGER Work Phone: [facility] 12-18-2022 10:36-0400 Systolic blood pressure 148 mm[Hg] Jeaneth Maricruz BOOK SORTER.PHARMACY DISTRICT MANAGER Work Phone: [facility] 08-20-2022 21:33-0400 Body temperature 98.24 [degF] RADHIKA GONZALES MD [facility] 08-20-2022 21:33-0400 Diastolic Blood Pressure Non-Invasive 86 1 RADHIKA GOZNALES MD [facility] 08-20-2022 21:33-0400 Heart rate 92 /min RADHIKA GONZALES MD [facility] 08-20-2022 21:33-0400 Respiratory rate 20 /min RADHIKA GONZALES MD [facility] 08-20-2022 21:33-0400 Systolic Blood Pressure Non-Invasive 158 1 RADHIKA GONZALES MD [facility] 05-25-2022 18:35-0400 Diastolic Blood Pressure Non-Invasive 88 1 RADHIKA GONZALES MD [facility] 05-25-2022 18:35-0400 Heart rate 77 /min RADHIKA GONZALES MD [facility] 05-25-2022 18:35-0400 Respiratory rate 16 /min RADHIKA GONZALES MD [facility] 05-25-2022 18:35-0400 Systolic Blood Pressure Non-Invasive 146 1 RADHIKA GONZALES MD [facility] 05-25-2022 17:36-0400 Diastolic Blood Pressure Non-Invasive 81 1 RADHIKA GONZALES MD [facility] 05-25-2022 17:36-0400 Heart rate 78 /min RADHIKA GONZALES MD [facility] 05-25-2022 17:36-0400 Respiratory rate 16 /min RADHIKA GONZALES MD [facility] 05-25-2022 17:36-0400 Systolic Blood Pressure Non-Invasive 147 1 RADHIKA GONZALES MD [facility] 05-25-2022 16:30-0400 Diastolic Blood Pressure Non-Invasive 99 1 RADHIKA GONZALES MD [facility] 05-25-2022 16:30-0400 Heart rate 69 /min RADHIKA GONZALES MD [facility] 05-25-2022 16:30-0400 Respiratory rate 16 /min RADHIKA GONZALES MD [facility] 05-25-2022 16:30-0400 Systolic Blood Pressure Non-Invasive 180 1 RADHIKA GONZALES MD [facility] 05-25-2022 15:51-0400 Body temperature 97.7 [degF] RADHIKA GONZALES MD [facility] 05-25-2022 15:46-0400 Blood Pressure Location RADHIKA GONZALES MD [facility] 05-25-2022 15:46-0400 Blood Pressure Method RADHIKA GONZALES MD [facility] 05-25-2022 15:46-0400 Body weight 76.6 kg RADHIKA GONZALES MD [facility] 05-25-2022 15:46-0400 Heart rate 84 /min RADHIKA GONZALES MD [facility] 12-15-2021 11:52-0400 Body temperature 98.01 [degF] Radames Marks APRN.PHARMACY DISTRICT MANAGER Work Phone: [facility] 12-15-2021 11:52-0400 Body weight 68.04 kg [facility] BOOK SORTER.PHARMACY DISTRICT MANAGER Work Phone: [facility] 12-15-2021 11:52-0400 Diastolic blood pressure 68 mm[Hg] [facility] BOOK SORTER.PHARMACY DISTRICT MANAGER Work Phone: [facility] 12-15-2021 11:52-0400 Heart rate 94 /min [facility] BOOK SORTER.PHARMACY DISTRICT MANAGER Work Phone: [facility] 12-15-2021 11:52-0400 Respiratory rate 18 /min [facility] BOOK SORTER.PHARMACY DISTRICT MANAGER Work Phone: [facility] 12-15-2021 11:52-0400 SaO2% (BldA) [Mass fraction] 97 % [facility] BOOK SORTER.PHARMACY DISTRICT MANAGER Work Phone: [facility] 12-15-2021 11:52-0400 Systolic blood pressure 122 mm[Hg] [facility] BOOK SORTER.PHARMACY DISTRICT MANAGER Work Phone: [facility] 01-06-2020 08:26-0400 Body mass index (BMI) [Ratio] 29.7 kg/m2 [facility] 11-24-2019 13:34-0400 Body temperature 97.2 [degF] [facility] 11-24-2019 13:34-0400 Body weight 71.66 kg [facility] 11-24-2019 13:34-0400 Diastolic blood pressure 70 mm[Hg] [facility] 11-24-2019 13:34-0400 Heart rate 89 /min [facility] 11-24-2019 13:34-0400 Respiratory rate 16 /min [facility] 11-24-2019 13:34-0400 SaO2% (BldA) [Mass fraction] 94 % [facility] 11-24-2019 13:34-0400 Systolic blood pressure 131 mm[Hg] [facility] Encounters Encounter Date Encounter Type Care Provider Facility Start: 01-30-2025 ambulatory Jeaneth Maricruz CONTRACT CLERK [employer] Facili ty:[facility] Start: 12-23-2024 End: 12-23-2024 ambulatory JEANETH ALCANTARA Facility:[facility] Start: 12-23-2024 Encounter for gynecological examination (general) (routine) without abnormal findings JEANETH ALCANTARA [facility] Start: 11-15-2024 End: 11-17-2024 Refill Jeaneth Alcantara ISIDRA.PHARMACY DISTRICT MANAGER Work Phone: OB/Gynecology Comment on above: Refill Request Start: 07-19-2024 End: 07-19-2024 Office outpatient visit 15 minutes Sindhu Miller MD Work Phone: Vascular Surg Dept Comment on above: 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); Peripheral arterial disease Start: 07-19-2024 End: 07-19-2024 ambulatory SINDHU MILLER Facility:[facility] Start: 07-19-2024 End: 07-19-2024 ambulatory ZABRINA XIONG Facility:[facility] Start: 06-16-2024 End: 06-16-2024 ambulatory BRENT MENARD DO Facility:[facility] Start: 06-03-2024 End: 06-03-2024 ambulatory CRISTOPHER OZUNA Facility:[facility] Start: 05-26-2024 End: 05-26-2024 ambulatory ELIZABETH DELUCA BOOK SORTER-PHARMACY DISTRICT MANAGER Facility:[facility] Start: 05-05-2024 End: 05-05-2024 Admission to establishment KARIE SHAFFER MD [facility] Start: 05-05-2024 End: 05-05-2024 ambulatory BRENT MENARD DO Facility:[facility] Start: 04-18-2024 End: 04-18-2024 ambulatory BRENT E MENARD DO Facility:[facility] Start: 04-18-2024 End: 04-18-2024 Patient encounter procedure BRENT MENARD DO [facility] Start: 04-11-2024 End: 04-15-2024 ambulatory BRENT MENARD DO Facility:[facility] Start: 04-11-2024 End: 04-15-2024 Outreach Lab BRENT MENARD DO [facility] Start: 02-12-2024 End: 02-12-2024 ambulatory BRENT MENARD DO Facility:[facility] Start: 02-12-2024 End: 02-12-2024 Patient encounter procedure BRENT MENARD DO [facility] Start: 01-26-2024 End: 01-30-2024 ambulatory BRENT MENARD DO Facility:[facility] Start: 01-26-2024 End: 01-30-2024 Encounter for general adult medical examination without abnormal findings BRENT Yoselyn MENARD Facility:[facility] Start: 01-26-2024 End: 01-30-2024 Outreach Lab BRENT MENARD DO [facility] Start: 01-26-2024 End: 01-26-2024 Telephone encounter Jeaneth Alcantara APRN.PHARMACY DISTRICT MANAGER Work Phone: OB/Gynecology Comment on above: Results Patient Question Start: 01-20-2024 End: 01-20-2024 ambulatory Jeaneth Alcantara CONTRACT CLERK [employer] Facility:[facility] Start: 12-21-2023 End: 12-21-2023 Patient encounter procedure Jeaneth Alcantara BOOK SORTER.PHARMACY DISTRICT MANAGER Work Phone: OB/Gynecology Comment on above: Encounter for gyneco logical examination (general) (routine) without abnormal findings (Primary Dx); Encounter for screening mammogram for breast cancer; Osteoporosis without current pathological fracture, unspecified osteoporosis type Start: 12-21-2023 End: 12-21-2023 Patient encounter status Jeaneth Alcantara BOOK SORTER.PHARMACY DISTRICT MANAGER Work Phone: [facility] Start: 12-10-2023 End: 12-14-2023 ambulatory LISA DOBBS BOOK SORTER-PHARMACY DISTRICT MANAGER Facility:[facility] Start: 12-10-2023 End: 12-14-2023 Outreach Lab LISA DOBBS BOOK SORTER-PHARMACY DISTRICT MANAGER [facility] Start: 12-04-2023 End: 12-04-2023 Patient encounter procedure Zabrina Inga MARTINEZPHARMACY DISTRICT MANAGER Work Phone: Vascular Surg Dept Comment on above: Encounter for post s urgical wound check (Primary Dx); Visit for suture removal; Aortoiliac stenosis (HCC); S/P aortobifemoral bypass surgery; H/O fasciotomy; Edema, unspecified type Start: 11-20-2023 End: 11-20-2023 Postop follow up visit related to original px Sindhu Miller MD Work Phone: Vascular Surg Dept Comment on above: S/P aortobifemoral b ypass surgery (Primary Dx); 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); Aortoiliac stenosis (HCC) Start: 11-09-2023 End: 11-09-2023 Telephone encounter Sofia BALLESTEROS Comment on above: Follow Up Phone Call (Relate care discharge follow up-1st attempt-no contact-left vm) Start: 11-01-2023 End: 11-01-2023 Emergency department patient visit BRENT MENARD DO Facility:[facility] Start: 07-25-2023 End: 07-25-2023 ambulatory BRENT MENARD DO Facility:[facility] Start: 07-25-2023 End: 07-25-2023 Patient encounter procedure BRENT MENARD DO [facility] Start: 12-18-2022 End: 12-18-2022 Patient encounter procedure Jeaneth Alcantara APRN.PHARMACY DISTRICT MANAGER Work Phone: OB/Gynecology Comment on above: Encounter for gyneco logical examination (general) (routine) without abnormal findings (Primary Dx) Start: 12-18-2022 End: 12-18-2022 Patient encounter status Jeaneth Alcantara APRN.PHARMACY DISTRICT MANAGER Work Phone: [facility] Work Phone: Start: 12-10-2022 End: 12-10-2022 ambulatory [facility] Work Phone: Start: 12-10-2022 End: 12-10-2022 Patient encounter procedure [facility] Work Phone: Start: 12-10-2022 Registered Recurring [facility] Start: 08-28-2022 End: 08-28-2022 Patient encounter procedure BRENT MENARD DO [facility] Start: 08-20-2022 End: 08-20-2022 Emergency department patient visit RADHIKA GONZALES MD [facility] Start: 05-25-2022 End: 05-25-2022 Emergency department patient visit RADHIKA GONZALES MD [facility] Start: 01-01-2022 Orders Only Ronen Green MD Work Phone: Vascular Surgery Comment on above: Aortoiliac stenosis (HCC) (Primary Dx) Start: 12-19-2021 End: 12-21-2021 Evaluation and management of inpatient JESSICA ROWAN JR Facility:[facility] Start: 12-16-2021 Telephone encounter Radames bal APRN.PHARMACY DISTRICT MANAGER Work Phone: [facility] Comment on above: Letter Start: 12-16-2021 End: 12-16-2021 Subsequent hospital visit by physician Xr [facility] Work Phone: Radiology Comment on above: Foot pain, left [[id number] .[id number]] Start: 12-15-2021 End: 12-15-2021 Patient encounter procedure Radames Marks APRN.PHARMACY DISTRICT MANAGER Work Phone: [facility] Comment on above: Foot pain, left (Sara gio Dx) Start: 11-28-2021 End: 11-28-2021 ambulatory [facility] Work Phone: Start: 11-28-2021 End: 11-28-2021 Patient encounter procedure [facility] Start: 07-30-2021 End: 07-30-2021 Patient encounter procedure [facility]Laboratory, Specimen Start: 02-14-2021 End: 02-14-2021 Patient encounter procedure CHIARA TOWNSEND MD [facility] Start: 01-18-2007 End: 01-18-2007 Patient encounter procedure Dale Mercer Work Phone: [facility] Start: 01-18-2007 Results Only Dale Mayorga Work Phone: [facility] Procedures Date Procedure Procedure Detail Performing Clinician Start: 12-21-2023 H/O splenectomy History of splenecto my Jeaneth Alcantara BOOK SORTER.PHARMACY DISTRICT MANAGER Work Phone: Start: 11-01-2023 Aortic endovascular stent graft KARIE SHAFFER MD Comment on above: removal Start: 11-01-2023 Bypass w/vein aortobifemoral KARIE SHAFFER MD Start: 11-01-2023 Endarterectomy of ao rtic arch KARIE SHAFFER MD Start: 10-15-2023 Fasciotomy anterior compartment of lower leg KARIE SHAFFER MD Comment on above: 4 compartments, bila teral Start: 10-15-2023 Ligation of inferior mesenteric artery KARIE SHAFFER MD Start: 12-10-2022 Screening mammography Start: 12-20-2021 Lipid 1996 panel - S renetta or Plasma Jeaneth Alcantara BOOK SORTER.PHARMACY DISTRICT MANAGER Work Phone: Start: 12-16-2021 Radex foot complete minimum 3 views Radames Marks BOOK SORTER.PHARMACY DISTRICT MANAGER Work Phone: Start: 11-28-2021 Screening mammography Start: 05-31-2013 Mammography Dale mcgrath Start: 05-17-2013 H/O: surgery S/P oophorectomy Kanika Marks BOOK SORTER.PHARMACY DISTRICT MANAGER Work Phone: Start: 03-16-2009 Splenectomy KARIE NORMAN MD Start: 01-18-2007 CONVERTED SURGICAL PATHOLOGY Daleramila Mercer Work Phone: section KARIE BOLAÑOS MD Comment on above: x2 Debridement KARIE Jaffe Comment on above: left lower extremity H/O splenectomy Post-splenectomy H/O splenectomy S/P splenectomy( Confirmed ) RADHIKA GONZALES MD H/O: surgery H/O fasciotomy Zabrina Johansen p BOOK SORTER.PHARMACY DISTRICT MANAGER Work Phone: H/O: surgery S/P bilateral four-compartment lower extremity fasciotomies, 10/2023 LISA DOBBS BOOK SORTER-PHARMACY DISTRICT MANAGER History of radiation therapy S/P radiation therapy( Confirmed ) RADHIKA GONZALES MD Plan of Treatment Date Care Activity Detail Author Start: 08-20-2032 Urine microalbumin profile DTaP,Tdap,Td Vaccine (3 - Td or Tdap) [facility] Start: 12-20-2026 Lipid 1996 panel - S renetta or Plasma Lipid Screening [facility] Start: 12-20-2026 Lipid panel Lipid Screening [facility] Start: 12-20-2026 LIPID SCREEN LIPID SCREEN [facility] Start: 11-05-2026 Diabetes Screening Diabetes Screenin [facility] Start: 01-20-2025 End: 01-20-2025 Patient encounter procedure [facility]ascular Surgery Comment on above: Atherosclerosis of a willam [I70.0] Start: 12-23-2024 End: 12-23-2024 Patient encounter procedure OB/Gynecology Comment on above: ANNUAL Start: 12-21-2024 DIABETES SCREEN DIABETES SCREEN [facility] Start: 12-21-2024 Diabetes Screening Diabetes Screenin g [facility] Start: 11-14-2024 Influenza vaccination Influenza Vacc ine (#1) [facility] Start: 06-03-2024 End: 06-03-2024 Patient encounter procedure Vascular Surgery Comment on above: 6 month follow up Start: 12-21-2023 End: 12-21-2023 Patient encounter procedure 12/21/2023 10:00 AM EDT Office Visit OB/Gynecology [address] [place] [address] Jeaneth Alcantara APRN.PHARMACY DISTRICT MANAGER [address] [place] [address] Annual Exam OB/Gynecology Comment on above: Annual Exam Start: 12-11-2023 Mammography Mammogram Screening [facility] Start: 12-11-2023 Screening for malign ant neoplasm of breast Mammogram Screening [facility] Start: 12-04-2023 End: 12-04-2023 Patient encounter procedure 12/04/2023 8:30 AM EDT Office Visit Vascular Surg Dept [address] [place], [place] [id number] Zabrina Xiong APRN.PHARMACY DISTRICT MANAGER [address] [place], [place] [id number] 2 Week f/u. Wound check with suture removal Vascular Surg Dept Comment on above: 2 Week f/u. Wound ch flaco with suture removal Start: 11-20-2023 End: 11-20-2023 Patient encounter procedure Vascular Surgery Comment on above: 2w s/p aortobifem by pass w/ [id number] Start: 11-15-2023 Covid-19 Vaccine ( season) Covid-19 Vaccine () [facility] Start: 11-15-2023 Covid-19 Vaccine ( season) Covid-19 Vaccine ( season) [facility] Start: 11-15-2023 Influenza vaccination Influenza Vacc ine (#1) [facility] Start: 12-20-2022 Influenza vaccination LUNG CANCER SC REENING [facility] Start: 12-20-2022 Screening for malign ant neoplasm of lung Lung Cancer Screening [facility] Start: 11-14-2022 Covid-19 Vaccine ( season) Covid-19 Vaccine () [facility] Start: 11-14-2022 Influenza vaccination Influenza Vacc ine (#1) [facility] Start: 10-23-2022 Shingrix Vaccine (2 of 2) Wharton grix Vaccine (2 of 2) [facility] Start: 03-16-2022 [facility] Start: 11-14-2021 Influenza vaccination INFLUENZA (#1) [facility] Start: 03-16-2021 [facility] Start: 11-15-2019 Influenza vaccination INFLUENZA (#1) [facility] Start: 05-17-2016 DIABETES SCREEN DIABETES SCREEN [facility] Start: 2016 Influenza vaccination LUNG CANCER SC REENING [facility] Start: 2016 SHINGRIX VACCINE (1 of 2) WHARTON GRIX VACCINE (1 of 2) [facility] Start: 2016 Tuberculosis screening COLOREC NEHAL CANCER SCREENING,SEE MODIFIER [facility] Start: 05-31-2014 Mammography MAMMOGRAM [facility] Start: 03-18-2011 HPV TESTING HPV TESTING [facility] Start: 03-18-2011 PAP TESTING PAP TESTING [facility] Start: 2011 COLOGUARD (FIT-DNA) COLOGUARD (FIT-D NA) [facility] Start: 2011 Colonoscopy COLONOSCOPY [facility] Start: 2011 COLORECTAL CANCER SCREENING COLORECTAL CANCER SCREENING [facility] Start: [address] COLONOGRAPHY [facility] Start: 2011 FECAL OCCULT BLOOD FECAL OCCULT BLOO D [facility] Start: 2011 LIPID SCREEN LIPID SCREEN [facility] Start: 2011 Screening for malign ant neoplasm of colon [facility] Start: 2011 SIGMOIDOSCOPY SIGMOIDOSCOPY [facility] Start: 1985 Hepatitis B Vaccine (1 of 3 - 19+ 3-dose series) Hepatitis B Vaccine (1 of 3 - 19+ 3-dose series) [facility] Start: 1985 SHINGRIX VACCINE (1 of 2) WHARTON GRIX VACCINE (1 of 2) [facility] Start: 1985 Urine microalbumin profile [facility] Start: 1984 Anxiety Screening Anxiety Screening [facility] Start: 1984 HIV SCREENING HIV SCREENING [facility] Start: 1984 HIV screening HIV Screening [facility] Start: 1976 Meningococcal B Vacc ine (1 of 4 - Increased Risk) Meningococcal B Vaccine (1 of 4 - Increased Risk) [facility] Start: 1976 Meningococcal B Vacc ine (1 of 5 - Increased Risk) Meningococcal B Vaccine (1 of 5 - Increased Risk) [facility] Start: 1976 Meningococcal B Vacc ine: Consider Based On Risk (1 of 4 - Increased Risk) Meningococcal B Vaccine: Consider Based On Risk (1 of 4 - Increased Risk) [facility] Start: 1976 MENINGOCOCCAL 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 (1 of 4 - Increased Risk Bexsero 2-dose series) MENINGOCOCCAL B: Consider based on risk (1 of 4 - Increased Risk Bexsero 2-dose series) [facility] Start: 1972 PNEUMOCOCCAL (1 - PCV) PNEUMOCOCCAL (1 - PCV) [facility] Start: 1972 Pneumococcal vaccination Pneum ococcal Vaccine (1 - PCV) [facility] Start: 1968 Meningococcal Conjug ate Vaccine (1 - Risk 2-dose series) Meningococcal Conjugate Vaccine (1 - Risk 2-dose series) [facility] Start: 06-02-1967 HIB (1 of 1 - Risk 1 -dose series) HIB (1 of 1 - Risk 1-dose series) [facility] Start: 06-02-1967 Hib Vaccine (1 of 1 - Risk 1-dose series) Hib Vaccine (1 of 1 - Risk 1-dose series) [facility] Start: 1966 MENINGOCOCCAL CONJUG ATE (1 - Risk start 2-23 months series) MENINGOCOCCAL CONJUGATE (1 - Risk start 2-23 months series) [facility] Start: 1966 COVID-19 VACCINE (#1) COVID-19 VACCI NE (#1) [facility] Start: 1966 MENINGOCOCCAL CONJUG ATE (1 - Risk start before 7 months 4-dose series) MENINGOCOCCAL CONJUGATE (1 - Risk start before 7 months 4-dose series) [facility] Start: 1966 HEPATITIS B (1 of 3 - 3-dose series) HEPATITIS B (1 of 3 - 3-dose series) [facility] Start: 1966 Hepatitis B Vaccine (1 of 3 - 3-dose series) Hepatitis B Vaccine (1 of 3 - 3-dose series) [facility] CT Chest [facility] MG Breast - bilatera l Screening [facility] End: 01-01-2023 US ABD AORTA COMPLETE VAS LAB US ABD AORTA COMPLETE VAS LAB Vascular Lab Routine Aortoiliac stenosis (HCC) 1 Occurrences starting 01/02/2022 until 01/01/2023 [facility] Work Phone: Comment on above: 1 Occurrences starti ng 01/02/2022 until 01/01/2023 End: 12-03-2024 US Abdominal Aorta US ABD AORTA COMPLETE VAS LAB Vascular Lab Routine S/P aortobifemoral bypass surgery Aortoiliac stenosis (HCC) 1 Occurrences starting 12/04/2023 until 12/03/2024 [facility] Work Phone: Comment on above: 1 Occurrences starti ng 12/04/2023 until 12/03/2024 End: 12-03-2024 US Lower extremity artery - bilateral PVR ANK/GARCIA/TOE CANDELARIA VAS LAB Vascular Lab Routine S/P aortobifemoral bypass surgery Aortoiliac stenosis (HCC) 1 Occurrences starting 12/04/2023 until 12/03/2024 [facility] Comment on above: 1 Occurrences starti ng 12/04/2023 until 12/03/2024 [facility] Immunizations Immunization Date Immunization Notes Care Provider Fa [facility] 04-11-2024 influenza, injectabl e, quadrivalent, contains preservative; Translations: [Fluarix PF Prefilled Syringe ] BRENT MEANRD DO [facility] 04-11-2024 influenza virus vacc ine, unspecified formulation Jeaneth Alcantara APRN.CNP Work Phone: [facility] 08-28-2022 zoster vaccine recombinant; Translations: [Shingrix] BRENT MENARD DO [facility] Comment on above: Result Comment: Sae nsituted Shringrix with Lyophilized gE antigen component LOT: [id number] [facility]: 08909-817-08 EXP: 10/18/2023. Administer Shingrix 0.5mL IM in RD. pt tolerated well with no adverse effects noted. pt advised to return 10/30/2022 or after for second dose. [facility] 08-20-2022 tetanus toxoid, redu arslan diphtheria toxoid, and acellular pertussis vaccine, adsorbed RADHIKA GONZALES MD [facility] 02-14-2022 influenza, injectabl e, quadrivalent, contains preservative; Translations: [Fluarix PF Quadrivalent ] RADHIKA GONZALES MD [facility] 02-14-2022 Pneumococcal conjuga te PCV20, polysaccharide [id number] conjugate, adjuvant, PF; Translations: [Prevnar 20] RADHIKA GONZALES MD [facility] 02-14-2022 influenza virus vacc ine, unspecified formulation Jeaneth Alcantara APRN.[facility] Work Phone: [facility] 01-20-2019 influenza virus vacc ine, unspecified formulation RADHIKA GONZALES MD [facility] 12-07-2017 influenza virus vacc ine, unspecified formulation RADHIKA GONZALES MD [facility] 12-07-2017 pneumococcal polysaccharide vaccine, 23 valent RADHIKA [facility]ES MD [facility] [facility] tetanus toxoid, redu arslan diphtheria toxoid, and acellular pertussis vaccine, adsorbed RADHIKA GONZALES MD [facility] 01-05-2017 influenza virus vacc ine, unspecified formulation RADHIKA GONZALES MD [facility] 01-04-2016 influenza virus vacc ine, unspecified formulation RADHIKA GONZALES MD [facility] 01-04-2016 pneumococcal conjuga te vaccine, 13 valearl GONZALES MD [facility] 01-08-2006 influenza virus vacc ine, unspecified formulation Dale Mercer [facility] Work Phone: Payers Date Payer Category Payer Self-pay [id number] 2015 Private Health Insurance [id number] 2015 Private Health Insurance [id number] Private Health Insurance xxx [id number] 1966 Unknown [id number] 2.16.8 [id number] 1966 Unknown [id number] 2.16.8 [id number] 1966 Unknown [id number] 2.16.8 [id number] 1966 Unknown [id number] 2.16.8 [id number] 1966 Unknown [id number] 2.16.8 [id number] 1966 Unknown [id number] 2.16.8 [id number] 1966 Unknown [id number] 2.16.8 [id number] 1966 Unknown [id number] 2.16.8 [id number] 1966 Unknown [id number] 2.16.8 [id number] 1966 Unknown [id number] 2.16.8 [id number] 1966 Unknown [id number] 2.16.8 [id number] 1966 Unknown [id number] 2.16.8 [id number] Unknown [id number] 2.16.8 [id number] Unknown [id number] 2.16.8 [id number] Social History Date Type Detail Facility Start: 04-30-2006 End: 07-26-2010 Tobacco smoking status NHIS Current every day smoker [facility] Work Phone: History of tobacco use Cigarette Smoker [facility] Start: 04-30-2006 End: 12-18-2022 Cigarettes smoked current (pack per day) - Reported [facility] Work Phone: Start: 04-30-2006 End: 07-19-2024 Alcohol intake Current non-drinker of alcohol (finding) [facility] Start: 1965 Sex Assigned At Not on file C [facility] Start: 11-01-2020 Light tobacco smoker (finding) [facility] Comment on above: one pack daily. lashaun y smoke exposure Start: 1965 Sex Assigned At Female A [facility] Start: 11-29-2020 End: 01-13-2022 Tobacco smoking status MSIS Unknown if ever smoked [facility] Start: 12-29-2019 Cigarettes [facility] Start: 07-26-2010 End: 12-21-2023 Tobacco use and exposure Smokeless tobacco non-user [facility] Work Phone: Start: 12-05-2021 End: 12-20-2021 Exposure to SARS-CoV-2 (event) Not sure [facility] Start: 12-30-2021 End: 12-21-2023 Tobacco smoking status Ex-smoker (finding) [facility] Comment on above: one pack daily. lashaun y smoke exposure Start: 12-18-2022 End: 12-04-2023 Tobacco smoking status NHIS Occasional tobacco smoker [facility] Work Phone: Start: 12-18-2022 End: 11-03-2023 Tobacco use panel [facility] Work Phone: Start: 02-15-2012 National Score (1-10 0), lower number is lower risk 66 [facility] Start: 02-24-2022 Tobacco Comment NO CIGS BUT VAPING C [facility] Has the Socialite, or bMobilized threatened to shut off services in your home in past 12Mo No [facility] Work Phone: (I/We) worried wheth er (my/our) food would run out before (I/we) got money to buy more. Never true [facility] History of tobacco use Current smoker [facility] Sexual Orientation [facility] Start: 09-08-2018 Sex Female (finding) [facility] Tobacco Nicotine Use: Va ping Product in Last 90 Days. Type: Electronic Cigarettes (Vaping). Started at age: 59 Years. [facility] Medical Equipment Procedure Code Equipment Code Equipment Original Text Equipment Identifier Dates System Vascade 6 /7fr Collagen Compression Bioabsorbable Vascular - [id number] Start: 12-20-2021 Device Angio-Sea l Vip Bondek-Plus 8fr .038in Polyglyd 70cm Closure - [id number] Start: 12-20-2021 Stent [place] Viaba hn 6mm 8mm 7fr .035in 59mm 135cm Endoprosthesis Balloon - [id number] Start: 12-20-2021 Graft Hemashield Gold 14/8mm Microvel 40cm Cardiovascular 2 Velour - [id number] Start: 11-01-2023 Stent [place] Viaba hn 11mm 16sq Mm 8fr .035in 39mm 135cm Endoprosthesis - [id number] Start: 12-20-2021 Stent [place] Viaba hn 6mm 8mm 7fr .035in 59mm 135cm Endoprosthesis Balloon - [id number] Start: 12-20-2021 Goals Date Patient Goal Desired Activity /State Personal health goal Functional Status Date Assessment Result Facility 05-05-2024 Functional Status Sensory Deficits None A [facility] 08-20-2022 Functional Status ID band on, Call device within reach, Bed in low position, Wheels locked, Bedside Cart Locked, Safety level maintained [facility] 05-25-2022 Functional Status Independent [facility] 05-25-2022 Functional Status ID band on, Call device within reach, Bed in low position, Wheels locked, Upper/Half-Length side-rails up, Visitor at bedside [facility] 12-21-2021 Are you deaf, or do you have serious difficulty hearing No 12/21/2021 11:31 AM Christa Barker RN [facility] 12-21-2021 Are you blind, or do you have serious difficulty seeing, even when wearing glasses No 12/21/2021 11:31 AM Christa Barekr RN No [facility] 12-21-2021 Do you have serious difficulty walking or climbing stairs No 12/21/2021 11:31 AM Christa Barker RN No [facility] 12-21-2021 Do you have difficul ty dressing or bathing No 12/21/2021 11:31 AM Christa Barker RN [facility] 12-21-2021 Because of a physica l, mental, or emotional condition, do you have difficulty doing errands alone such as visiting a physician's office or shopping No 12/21/2021 11:31 AM Christa Barker RN No [facility] Mental Status Date Assessment Result Facility 11-01-2023 Mental Status Orientation Oriented x 4 [facility] 08-20-2022 Mental Status Oriented x 4 [facility] 05-25-2022 Mental Status Oriented x 4 [facility] 05-25-2022 Mental Status [facility] 12-21-2021 Because of a physica l, mental, or emotional condition, do you have serious difficulty concentrating, remembering, or making decisions No 12/21/2021 11:31 AM EDT Christa Wallace, LISSA No [facility] Clinical Notes 12-15-2021 to 12-23-2024 Telephone Encounter - Stephany Carballo LPN - 11/16/2024 8:36 AM EDTTelephone Encounter - Stephany Carballo LPN - 11/16/2024 8:36 AM Sindhu Cruz MD - 07/19/2024 10:08 AM EDT Note Date & Type Note Facility 12-23-2024 Note HNO ID: [id number] Author: JEANETH ALCANTARA APRN.PHARMACY DISTRICT MANAGER Service: ? 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 Jana is a 59 year old who presents for an annual gynecologic exam without complaints. Does state that she has some issues with vaginal dryness. Using Vagifem. Uses petroleum jelly PRN for dryness. Postmenopausal: Yes since age 44 HRT use: Yes, Vagifem How lon years. 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 Atherosclerosis of aorta 11/2023 AORTOILICIC Breast cancer (HCC) 03/13/2008 left breast Female infertility of other specified origin History of external beam radiation therapy ITP (idiopathic thrombocytopenic purpura) Osteoporosis, unspecified Osteoporosis Syncope Thrombocytopenia, unspecified Thyroid nodule Tobacco use disorder PAST SURGICAL HISTORY Procedure Laterality Date ARTERY BYPASS GRAFT AORTOILIAC 11/2023 DELIVERY ONLY 03/16/1987 and 01/18/2007 PAST SURGICAL HISTORY OF 05/10/2009 partial hysterectomy PAST SURGICAL HISTORY OF 03/16/2008 lumpectomy left breast PAST SURGICAL HISTORY OF 12/20/2021 CROSS TIE CUTTER/stent abdominal aorta SPLENECTOMY,GASTROESOPHAGEAL DEVASCULARIZA FAMILY HISTORY Problem Relation Age of Onset Diabetes Mother Hypertension Mother Cancer Father lung and throat, Heart Father Breast Cancer Sister x2 sisters Diabetes Sister Cancer Brother thyroid cancer, Brain Cancer Brother SOCIAL HISTORY Social History Tobacco Use Smoking status: Former Current packs/day: 1.00 Average packs/day: 1 pack/day for 28.0 years (28.0 ttl pk-yrs) Types: Cigarettes Smokeless tobacco: Never Tobacco comments: NO CIGS BUT VAPING Vaping Use Vaping status: Never Used Substance Use Topics Alcohol use: No Drug use: No REVIEW OF SYSTEMS Abdomen: No abdominal pain, nausea, vomiting, diarrhea, or constipation. No bloating, early satiety, indigestion, or increased flatulence. Bladder: No dysuria, gross hematuria, urinary frequency, urinary urgency, or incontinence Breast: No breast lumps, nipple d/c, overlying skin changes, redness or skin retraction Allergies and current medication updated:Yes SENSITIVE EXAM: The sensitive examination was discussed with the Patient or Patient's Authorized Cnc Machine Setter. As applicable, any other physician, advance practice provider, medical student, or other health professional student that will be observing or involved in the sensitive examination for educational or training purposes was discussed with the Patient or Authorized Cnc Machine Setter. The Patient or Authorized Cnc Machine Setter has agreed to proceed with the sensitive examination. (Sensitive examination includes inspection and/or palpation of the breasts, pelvis, prostate and anorectal regions). EXAM: BP 120/74 Wt 191 lb 6.4 oz (86.8kg) LMP 02/26/2006 GENERAL: pleasant, female in no apparent distress HEENT: Normocephalic, atraumatic, mucus membranes moist, and no lesions NECK: Supple, full range of motion DERMATOLOGY: Normal, without lesions, non-icteric, and non-hirsute BREAST: soft, non-tender, symmetric, no dominant mass, normal nipple-areolar complex, no lymphadenopathy, no nipple discharge, and scarring to left axilla/lateral breast from previous lumpectomy CHEST: Normal inspiratory effort ABDOMEN: soft, non-tender, and no masses PELVIC: external genitalia normal, normal Bartholin's glands, urethra, Elbing's glands, no vulvar lesions, no cervical lesions, good vaginal support, physiologic discharge present, normal appearing perineal body and perianal region BIMANUAL: no adnexal masses, non-tender, and uterus surgically absent RECTOVAGINAL: deferred. NEURO: alert and oriented x3,exam grossly non-focal EXTREMITIES: normal ASSESSMENT/PLAN: 1) Health maintenance: Pap done with HPV. Mammogram ordered for [facility] Nutrition, exercise and routine health maintenance exams reviewed. Calcium/Vitamin D supplementation information provided. Colon cancer screening: patient to discuss with PCP 2) can continue using petroleum jelly or coconut oil for vagina dryness as needed 3) Follow up one year or sooner as needed Char Dominique, PHARMACY DISTRICT MANAGER Student I attest that I was present, not (more content not included)... [facility] 11-16-2024 Telephone encounter Note Patient is scheduled for yearly exam 12/23/24 [facility] 11-16-2024 Miscellaneous Notes Patient is scheduled for yearly exam 12/23/24 documented in this encounter [facility] 07-19-2024 Note HNO ID: [id number] Author: SINDHU MILLER MD Service: ? Author Type: Physician Type: Progress Notes Filed: 07/19/2024 11:40 Note Text: [facility] DEPARTMENT OF VASCULAR SURGERY OUTPATIENT VISIT DATE July 19, 2024 OUTPATIENT VISIT TYPE ESTABLISHED SERVICE DATE: 07/19/2024 SERVICE TIME: 10:18 AM PRIMARY CARE PHYSICIAN: Brent Menard DO HISTORY OF PRESENT ILLNESS: Ms. Mcclain is a 59 year old female who presents today for a vascular surgery follow-up visit for peripheral arterial disease. Patient is doing well. Recently had a ventral hernia surgery which she has recovered from. She is ambulating as able. She has quit smoking but still vapes. 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 Atherosclerosis of aorta 11/2023 AORTOILICIC Breast cancer (HCC) 03/13/2008 left breast Female infertility of other specified origin History of external beam radiation therapy ITP (idiopathic thrombocytopenic purpura) Osteoporosis, unspecified Osteoporosis Syncope Thrombocytopenia, unspecified Thyroid nodule Tobacco use disorder PAST SURGICAL HISTORY Procedure Laterality Date ARTERY BYPASS GRAFT AORTOILIAC 11/2023 DELIVERY ONLY 03/16/1987 and 01/18/2007 PAST SURGICAL HISTORY OF 05/10/2009 partial hysterectomy PAST SURGICAL HISTORY OF 03/16/2008 lumpectomy left breast PAST SURGICAL HISTORY OF 12/20/2021 CROSS TIE CUTTER/stent abdominal aorta SPLENECTOMY,GASTROESOPHAGEAL DEVASCULARIZA SOCIAL HISTORY Social History Tobacco Use Smoking status: Former Current packs/day: 1.00 Average packs/day: 1 pack/day for 28.0 years (28.0 ttl pk-yrs) Types: Cigarettes Smokeless tobacco: Never Tobacco comments: NO CIGS BUT VAPING Vaping Use Vaping status: Never Used Substance Use Topics Alcohol use: No Drug use: No MEDICATIONS: Estradiol (VAGIFEM) 10 mcg vaginal tablet Use 1 tablet vaginally two times a week. twice weekly metoprolol tartrate, short acting, (LOPRESSOR) 25 mg tablet Take 1 tablet by mouth every 12 hours. omeprazole (PRILOSEC) 20 mg capsule once daily. atorvastatin (LIPITOR) 40 mg tablet Take 1 tablet by mouth daily at bedtime. aspirin 81 mg chewable tablet Take 1 tablet by mouth once daily. venlafaxine ER (EFFEXOR XR) 75 mg 24 hr capsule 75 mg once daily. ALLERGIES: ALLERGIES Allergen Reactions Prednisone Hives Pt only breaks out if taking a high dosage Sulfamethoxazole Unknown Trimethoprim Other: See Comments PHYSICAL EXAM: BP 117/61 Pulse 60 LMP 02/26/2006 General: Alert and oriented, No acute distress, Healthy appearance Integumentary: Normal color, no rash, no lesions. HEENT: EOM, pupils equal, round and reactive. Cardiovascular: Normal S1 AND S2, no rubs, murmurs or gallops. No JVD., Pulse regular. Lungs: Normal breath sounds, no wheezes or crackles. Abdomen: Soft, non-tender, no rigidity. Extremities: No deformity, no edema or tenderness, no joint swelling or clubbing. Neurological: Normal cognition and motor skills. Vascular: Posterior Tibial Right: Normal - Left: Normal Dorsalis Pedal Right: Normal - Left: Normal Diagnostic tests reviewed for today's visit: Most recent imaging with JIMENA and arterial duplex which show normal bilaterally and no arterial stenosis IMPRESSION: Ms. Mcclain is a 59 year old female with PAD and aortic occlusion s/p Aortobifemoral bypass. PLAN and RECOMMENDATIONS: Patient is doing well with no complaints She is ambulating without difficulty and has healed all of her incisions Continue optimal medical therapy with ASA, statin, smoking cessation, and blood pressure control. Follow-up in 6 months with JIMENA and CTA A/P for surveillance and clinical evaluation SIGNATURE: Sindhu Miller MD PATIENT NAME: Jana Mcclain DATE: July 19, 2024 TIME: 10:18 AM [facility] 07-19-2024 History of Presen t illness Narrative Images from the original note were not included. [facility] DEPARTMENT OF VASCULAR SURGERY OUTPATIENT VISIT DATE July 19, 2024 OUTPATIENT VISIT TYPE ESTABLISHED SERVICE DATE: 07/19/2024 SERVICE TIME: 10:18 AM PRIMARY CARE PHYSICIAN: Brent Menard DO HISTORY OF PRESENT ILLNESS: Ms. Mcclain is a 59 year old female who presents today for a vascular surgery follow-up visit for peripheral arterial disease. Patient is doing well. Recently had a ventral hernia surgery which she has recovered from. She is ambulating as able. She has quit smoking but still vapes. 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 Atherosclerosis of aorta 11/2023 AORTOILICIC Breast cancer (HCC) 03/13/2008 left breast Female infertility of other specified origin History of external beam radiation therapy ITP (idiopathic thrombocytopenic purpura) Osteoporosis, unspecified Osteoporosis Syncope Thrombocytopenia, unspecified Thyroid nodule Tobacco use disorder PAST SURGICAL HISTORY Procedure Laterality Date ARTERY BYPASS GRAFT AORTOILIAC 11/2023 DELIVERY ONLY 03/16/1987 and 01/18/2007 PAST SURGICAL HISTORY OF 05/10/2009 partial hysterectomy PAST SURGICAL HISTORY OF 03/16/2008 lumpectomy left breast PAST SURGICAL HISTORY OF 12/20/2021 CROSS TIE CUTTER/stent abdominal aorta SPLENECTOMY,GASTROESOPHAGEAL DEVASCULARIZA SOCIAL HISTORY Social History Tobacco Use Smoking status: Former Current packs/day: 1.00 Average packs/day: 1 pack/day for 28.0 years (28.0 ttl pk-yrs) Types: Cigarettes Smokeless tobacco: Never Tobacco comments: NO CIGS BUT VAPING Vaping Use Vaping status: Never Used Substance Use Topics Alcohol use: No Drug use: No MEDICATIONS: Estradiol (VAGIFEM) 10 mcg vaginal tablet Use 1 tablet vaginally two times a week. twice weekly metoprolol tartrate, short acting, (LOPRESSOR) 25 mg tablet Take 1 tablet by mouth every 12 hours. omeprazole (PRILOSEC) 20 mg capsule once daily. atorvastatin (LIPITOR) 40 mg tablet Take 1 tablet by mouth daily at bedtime. aspirin 81 mg chewable tablet Take 1 tablet by mouth once daily. venlafaxine ER (EFFEXOR XR) 75 mg 24 hr capsule 75 mg once daily. ALLERGIES: ALLERGIES Allergen Reactions Prednisone Hives Pt only breaks out if taking a high dosage Sulfamethoxazole Unknown Trimethoprim Other: See Comments PHYSICAL EXAM: BP 117/61 Pulse 60 LMP 02/26/2006 General: Alert and oriented, No acute distress, Healthy appearance Integumentary: Normal color, no rash, no lesions. HEENT: EOM, pupils equal, round and reactive. Cardiovascular: Normal S1 & S2, no rubs, murmurs or gallops. No JVD., Pulse regular. Lungs: Normal breath sounds, no wheezes or crackles. Abdomen: Soft, non-tender, no rigidity. Extremities: No deformity, no edema or tenderness, no joint swelling or clubbing. Neurological: Normal cognition and motor skills. Vascular: Posterior Tibial Right: Normal - Left: Normal Dorsalis Pedal Right: Normal - Left: Normal Diagnostic tests reviewed for today's visit: Most recent imaging with JIMENA and arterial duplex which show normal bilaterally and no arterial stenosis IMPRESSION: Ms. Mcclain is a 59 year old female with PAD and aortic occlusion s/p Aortobifemoral bypass. PLAN and RECOMMENDATIONS: Patient is doing well with no complaints She is ambulating without difficulty and has healed all of her incisions Continue optimal medical therapy with ASA, statin, smoking cessation, and blood pressure control. Follow-up in 6 months with JIMENA and CTA A/P for surveillance and clinical evaluation SIGNATURE: Sindhu Miller MD PATIENT NAME: Jana Mcclain DATE: July 19, 2024 TIME: 10:18 AM documented in this encounter [facility] 04-18-2024 Note Exam Date Time Procedure Performing Provider Status 04/18/24 8:58 AM US Abdomen Limited PITA FUENTES MD; Au (Verified) [id number] ORIGINAL EXAMINATION: LIMITED ABDOMINAL ULTRASOUND04/18/2024 9:06 am COMPARISON: None HISTORY: ORDERING SYSTEM PROVIDED HISTORY: Reason for Exam: hx of complex vascular surgery 10/2023, with new hernia concern superior to umbilicus 02/2024, eval for hernia, FINDINGS: Scanning of the palpable lump in the left supraumbilical region shows a hernia that is best seen with patient standing and reduces with patient supine. This is about 3.8 x 4.3 x 1.3 cm. Posterior shadowing obscures the hernia neck but this is probably about 1.5 cm. The hernia seems to contain both fat and bowel. IMPRESSION: Confirmation of a ventral hernia as described. Interpreted by: Pita Fuentes MD Preliminary Report By: Pita Fuentes MD Electronically signed By Pita Fuentes MD Dictated Date: 04/18/2024 12:05:45 PM Prelim Date: 04/18/2024 12:07:56 PM Sign Date: 04/18/2024 12:07:56 PM Ordering Provider: [facility]11-12-2024 Telephone encounter Note* Telephone Encounter - Connie Cline RN - 01/26/2024 4:41 PM EST Letter sent to patient. No lifting greater than 20 lbs for 3 months then continue working without restrictions. LISSA Rosales [facility]11-12-2024 Miscellaneous Notes* Telephone Encounter - Connie Cline RN - 01/26/2024 4:41 PM EST Letter sent to patient. No lifting greater than 20 lbs for 3 months then continue working without restrictions. Connie RN * Telephone Encounter - Dilia Wood - 01/26/2024 3:12 PM EST Mrs. Mcclain called stating that [employer] Kris had her out of work until 02/01/24. For her to return to work she will need a letter with restrictions. 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 Dilia Wood Battery Engineer [facility] Telephone encounter Note * Telephone Encounter - Dilia Wood - 01/26/2024 3:12 PM EST Mrs. Mcclain called stating that Dr. Miller had her out of work until 02/01/24. For her to return to work she will need a letter with restrictions. 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 Dilia Wood Battery Engineer [facility] Work Phone: [phone] 290-738711-12-2024 Telephone encounter Note* Telephone Encounter - Jazzmine Crabtree RN - 01/26/2024 11:52 AM EST Patient notified. Jazzmine Crabtree RN [facility]11-12-2024 Miscellaneous Notes* Telephone Encounter - Jazzmine Crabtree RN - 01/26/2024 11:52 AM EST Patient notified. Jazzmine Crabtree RN * Telephone Encounter - Jeaneth Alcantara APRN.CNP - 01/26/2024 11:16 AM EST Please let the pt know that her bone scan shows osteopenia. I would like her to be taking Calcium 1200 mg and Vitamin D 1000 units daily. Along with doing weight bearing exercises to help slow the loss of bone mass. Thanks, Jeaneth Alcantara APRN.CNP [facility]24 Telephone encounter Note * Telephone Encounter - Jeaneth Alcantara APRN.CNP - 01/26/2024 11:16 AM EST Please let the pt know that her bone scan shows osteopenia. I would like her to be taking Calcium 1200 mg and Vitamin D 1000 units daily. Along with doing weight bearing exercises to help slow the loss of bone mass. 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 Jana is a 58 year old who presents for an annual gynecologic exam without complaints. Use to see Dr Hare at [facility] [employer] Postmenopausal: hysterectomy HRT use: Yes, vagifem How long: over 14 yrs. Last Pap: 03/20/2006 normal HPV: 03/20/2006 negative History of abnormal pap: No 2009 partial hysterectomy Last mammogram: 2022 normal @ [facility], no mammogram 2023 completed History of abnormal mammogram: Yes breast cancer 2009 Sexually active: Yes Pain with intercourse: Not with the vagifem Postcoital bleeding: No Vaginal dryness: Yes OB History T1 L1 SAB5 IAB0 Ectopic0 Multiple0 Live Births0 Worm Picker History LMP: 02/26/2006, Hysterectomy Age at Menarche: Age at First : Age at Menopause: Worm Picker History Comments: Sexual Activity: Yes; Male Contraception: No contraception data on record OB History T1 L1 SAB5 IAB0 Ectopic0 Multiple0 Live Births0 Worm Picker History LMP: 02/26/2006, Hysterectomy Age at Menarche: Age at First : Age at Menopause: Worm Picker History Comments: Sexual Activity: Yes; Male Contraception: No contraception data on record 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 Atherosclerosis of aorta (HCC) Breast cancer (HCC) 03/13/2008 left breast Female infertility of other specified origin History of external beam radiation therapy ITP (idiopathic thrombocytopenic purpura) Osteoporosis, unspecified Osteoporosis Syncope Thrombocytopenia, unspecified (HCC) Thyroid nodule Tobacco use disorder PAST SURGICAL HISTORY Procedure Laterality Date DELIVERY ONLY 03/16/1987 and 01/18/2007 PAST SURGICAL HISTORY OF 05/10/2009 partial hysterectomy PAST SURGICAL HISTORY OF 03/16/2008 lumpectomy left breast PAST SURGICAL HISTORY OF 12/20/2021 CROSS TIE CUTTER/stent abdominal aorta SPLENECTOMY,GASTROESOPHAGEAL DEVASCULARIZA FAMILY HISTORY Problem Relation Age of Onset Cancer Father lung and throat, Diabetes Mother Hypertension Mother Breast Cancer Sister x2 sisters Heart Father Diabetes Sister Cancer Brother thyroid cancer, SOCIAL HISTORY Social History Tobacco Use Smoking status: Some Days Current packs/day: 1.00 Average packs/day: 1 pack/day for 28.0 years (28.0 ttl pk-yrs) Types: Cigarettes Smokeless tobacco: Never Tobacco comments: NO CIGS BUT VAPING Vaping Use Vaping status: Never Used Substance Use Topics Alcohol use: No Drug use: No REVIEW OF SYSTEMS Abdomen: No abdominal pain, nausea, vomiting, diarrhea, or constipation. No bloating, early satiety, indigestion, or increased flatulence. Bladder: No dysuria, gross hematuria, urinary frequency, urinary urgency, or incontinence Breast: No breast lumps, nipple d/c, overlying skin changes, redness or skin retraction Allergies and current medication updated:Yes SENSITIVE EXAM: The sensitive examination was discussed with the Patient or Patient's Authorized Cnc Machine Setter. As applicable, any other physician, advance practice provider, medical student, or other health professional student that will be observing or involved in the sensitive examination for educational or training purposes was discussed with the Patient or Authorized Cnc Machine Setter. The Patient or Authorized Cnc Machine Setter has agreed to proceed with the sensitive examination. (Sensitive examination includes inspection and/or palpation of the breasts, pelvis, prostate and anorectal regions). EXAM: LMP 02/26/2006 GENERAL: pleasant, female in no apparent distress HEENT: Normocephalic, atraumatic, mucus membranes moist, and no lesions NECK: Supple, full range of motion, no adenopathy, and thyroid normal DERMATOLOGY: Normal, without lesions, non-icteric, and non-hirsute BREAST: soft, non-tender, symmetric, no dominant mass, normal nipple-areolar complex, no lymphadenopathy, and no nipple discharge CHEST: Normal inspiratory effort ABDOMEN: soft, non-tender, and no masses PELVIC: external genitalia normal, normal Bartholin's glands, urethra, Elbing's glands, no vulvar lesions, physiologic discharge present, normal appearing perineal body and perianal region, cervix surgically absent BIMANUAL: no adnexal masses, non-tender, and uterus surgically absent RECTOVAGINAL: deferred. NEURO: alert and oriented x3,exam grossly non-focal EXTREMITIES: normal ASSESSMENT/PLAN: 1) Health maintenance: Pap/HPV screening no longer needed Mammogram ordered Nutrition, exercise and routine health maintenance exams reviewed. Calcium/Vitamin D supplementation information provided. Colon cancer screening: patient to discuss with PCP BMD: ordered 2) Follow up one year or sooner as needed Jeaneth Alcantara APRN.CNP documented [facility] this [facility]-29-[facility]24 Note. MICRO - Microbiology PROCEDURE: Culture Wound Aerobic with Gram Stain [*1] SOURCE: Drainage BODY SITE: Leg L COLLECTED DATE/TIME: 12/10/2023 13:17 EDT RECEIVED DATE/TIME: 12/10/2023 18:46 EDT START DATE/TIME: 12/10/2023 18:46 EDT FREE TEXT SOURCE: FINAL REPORTS Final Report [] Verified Date/Time/Personnel: 12/13/2023 07:53 EDT Few Enterobacter cloacae complex PRELIMINARY REPORTS Preliminary Report [] Verified Date/Time/Personnel: 12/12/2023 09:52 EDT Few Enterobacter cloacae complex CADENCE to follow Preliminary Report [] Verified Date/Time/Personnel: 12/11/2023 11:17 EDT Culture results pending. STAINS GS [] Verified Date/Time/Personnel: 12/10/2023 20:04 EDT Rare Epithelial cells No organisms seen. SUSCEPTIBILITY RESULTS Enterobacter cloacae complex Antibiotic CADENCE Dilut CADENCE Inter Amikacin <=16 Susceptible Amoxicillin/ <=8/4 Susceptible Clavulanate Ampicillin <=8 Susceptible Ampicillin/ <=4/2 Susceptible Sulbactam Aztreonam <=4 Susceptible Cefazolin 16 Intermediate Ceftriaxone <=1 Susceptible Cefuroxime 8 Susceptible Ciprofloxacin <=0.25 Susceptible Ertapenem <=0.5 Susceptible Gentamicin <=2 Susceptible ID Panel Not Not Applicable Applicable Imipenem <=1 Susceptible Levofloxacin <=0.5 Susceptible Meropenem <=1 Susceptible Minocycline <=4 Susceptible Moxifloxacin <=2 Susceptible Piperacillin/ <=8 Susceptible Tazobactam Tetracycline <=4 Susceptible Trimethoprim/ <=0.5/9.5 Susceptible Sulfa Performing Locations *1: This test was performed at: [address], [facility] , [facility]09-20-2024 History of Present illness Narrative* Zabrina Xiong APRN.PHARMACY DISTRICT MANAGER - 12/04/2023 8:30 AM EDT Images from the original note were not included. [facility] DEPARTMENT OF VASCULAR SURGERY Post-Op Visit CC: wound check SUBJECTIVE: HPI: Jana Mcclain is a 58 year old female with past medical history of tobacco use, breast cancer, ITP and severe aortoiliac disease s/p CERAB w/ x 39 VBX aortic stent and 6 x 59 VBX common iliac stents 12/20/2021, who presents as a transfer from outside hospital for sudden onset bilateral lower extremity pain, found to have acute aortic occlusion proximal to her prior aortic stent graft with reconstitution distally at external iliac arteries and three-vessel runoff to the feet bilaterally. Despite her runoff on imaging the patient has motorsensory deficit and absent distal signals on exam concerning for Jovany IIb ischemia requiring emergent revascularization. Pt now s/p: Operations during Hospitalization: 11/01/2023 - [facility] Aortobifemoral bypass with 14 mm x 8 mm Hemashielf Gold Dacron graft Aortic endarterectomy Explantation of aortic stent graft Ligation of inferior mesenteric artery Bilateral four-compartment lower extremity fasciotomies 11/06/2023 - [place]: Debridement and closure of left lower extremity medial and lateral fasciotomy sites. Pt d/c home 11/05. Pt last seen in OPD 11/20/23 - lemuel removed with sutures still in LLE fasciotomy site. Pt now presents for wound check/possible suture removal. Denies fever/chills/purulent drainage - has had scant serous drainage from LLE lateral fasciotomy site. Denies claudication, rest pain, or wounds to feet - slowly getting around and advancing activity. Is moving bowel and urinating without issue. Reports compliance with ASA/statin. Still refraining from smoking - using lozenges. Objective: Pleasant, no acute distress. EXAM: Lungs: Lungs clear to auscultation. Heart: RRR Abdomen: soft, non-tender. Midline abdominal incision is healed with no surrounding erythema. Extremities: B/l groin and RLE fasciotomy sites are healed with no surrounding erythema or edema; surrounding tissue is soft. LLE fasciotomy sites are c/d/I and well approximated with sutures presentthat were removed without difficulty. Scant serosanguinous drainage at suture lines that was without odor. No overt erythema, slight irritation surrounding suture lines. Mild LLE edema. BLE motor/sensory intact. Palpable DP pulses. Assessment/Diagnosis: Jana Mcclain is a 58 year old year old female s/p explant, ABF and BLE fasciotomies on 11/01/23presents for wound check. Abdominal, b/l groins, and RLE fasciotomy incisions are all healed. LLE fasiotomy sites are c/d/I and well approximated without s/s of infection. Sutures were removed without difficulty. Still with mild LLE edema. BLE motor/sensory intact. Palpable DP pulses. Pt asymptomatic and is advancing activity. Reports compliance with ASA/statin. PLAN: - Keep incision clean, wash daily with antimicrobial soap and water then pat dry - JONATHON wrap/elevate LLE for swelling over next week to promote healing and then PRN - Continue ASA/statin - Encouraged continued smoking cessation - Follow up 6 months for aortic duplex and PVR or sooner PRN Dr. Miller cc'ed for update Patient/Family Education: Patient Education today included discussions regarding the treatment plan. No barriers to education were identified. The patient/family verbalizes understanding of all educational material. Zabrina Xiong APRN.LUCAS documented in this encounter[facility]09-06-2024 History of Present illness Narrative* Sindhu Miller MD - 11/20/2023 12:47 PM EDT Images from the original note were not included. [facility] DEPARTMENT OF VASCULAR SURGERY OUTPATIENT VISIT DATE November 20, 2023 OUTPATIENT VISIT TYPE ESTABLISHED SERVICE DATE: 11/20/2023 SERVICE TIME: 12:47 PM PRIMARY CARE PHYSICIAN: Brent Menard DO HISTORY OF PRESENT ILLNESS: Ms. Mcclain is a 58 year old female who presents today for a vascular surgery follow-up visit after undergoing an emergent aortobifemoral bypass. Patient is doing wellwith no current complaints. She has been able to get around well and her energy is slowly returning. She has abstained from any smoking and has been compliant with her medications. She attempted to return to work but was too exhausted to perform her daily tasks. 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) No date: Atherosclerosis of aorta (HCC) 03/13/2008: Breast cancer (HCC) Comment: left breast No date: Female infertility of other specified origin No date: History of external beam radiation therapy No date: ITP (idiopathic thrombocytopenic purpura) No date: Osteoporosis, unspecified Comment: Osteoporosis No date: Syncope No date: Thrombocytopenia, unspecified (HCC) No date: Thyroid nodule No date: Tobacco use disorder PAST SURGICAL HISTORY 03/16/1987: DELIVERY ONLY Comment: and 01/18/2007 05/10/2009: PAST SURGICAL HISTORY OF Comment: partial hysterectomy 03/16/2008: PAST SURGICAL HISTORY OF Comment: lumpectomy left breast 12/20/2021: PAST SURGICAL HISTORY OF Comment: CROSS TIE CUTTER/stent abdominal aorta No date: SPLENECTOMY,GASTROESOPHAGEAL DEVASCULARIZA SOCIAL HISTORY Social History Tobacco Use Smoking status: Some Days Current packs/day: 1.00 Average packs/day: 1 pack/day for 28.0 years (28.0 ttl pk-yrs) Types: Cigarettes Smokeless tobacco: Never Tobacco comments: NO CIGS BUT VAPING Vaping Use Vaping status: Never Used Substance Use Topics Alcohol use: No Drug use: No MEDICATIONS: acetaminophen (TYLENOL EXTRA STRENGTH) 500 mg tablet Take 2 tablets by mouth every 6 hours as needed for pain for up to 14 days. metoprolol tartrate, short acting, (LOPRESSOR) 25 mg tablet Take 1 tablet by mouth every 12 hours. omeprazole (PRILOSEC) 20 mg capsule once daily. Estradiol (VAGIFEM) 10 mcg vaginal tablet Use 1 tablet vaginally two times a week. twice weekly atorvastatin (LIPITOR) 40 mg tablet Take 1 tablet by mouth daily at bedtime. aspirin 81 mg chewable tablet Take 1 tablet by mouth once daily. venlafaxine ER (EFFEXOR XR) 75 mg 24 hr capsule 75 mg once daily. ALLERGIES: ALLERGIES Allergen Reactions Prednisone Hives Pt only breaks out if taking a high dosage PHYSICAL EXAM: BP 127/67 Pulse 73 Temp 36.9 C (98.5 F) (Oral) LMP 02/26/2006 General: Alert and oriented, No acute distress, Healthy appearance Integumentary: Normal color, no rash, no lesions. HEENT: EOM, pupils equal, round and reactive. Cardiovascular: Normal S1 & S2, no rubs, murmurs or gallops. No JVD., Pulse regular. Lungs: Normal breath sounds, no wheezes or crackles. Abdomen: Incision C/D/I Extremities: Bilateral femoral incisions C/D/I, fasciotomies sites are well healing R>L Neurological: Normal cognition and motor skills. Vascular: Femoral Pulse Right: Normal - Left: Normal Posterior Tibial Right: Normal - Left: Normal Dorsalis Pedal Right: Normal - Left: Normal Diagnostic tests reviewed for today's visit: Most recent imaging with aortoiliac duplex shows patent ABF with no residual stenosis and normal JIMENA bilaterally IMPRESSION: Ms. Mcclain is a 58 year old female with acute aortic occlusion s/p ABF and bilateral four compartment fasciotomies. PLAN and RECOMMENDATIONS: Patient continues to do well Okay to remove midline, bilateral femoral, and right lower extremity lemuel Keep sutures in on left lower extremity fasciotomies with follow-up with Nurse practioners in 2 weeks Continue optimal medical therapy with ASA, statin, smoking cessation, and blood pressure control. Follow-up in 6 months for routine surveillance SIGNATURE: Sindhu Miller MD PATIENT NAME: Jana Mcclain DATE: November 20, 2023 TIME: 12:47 PM documented in this encounter[facility]08-26-2024 Telephone encounter Note * Telephone Encounter - Sofia Fernandes RN - 11/09/2023 12:54 PM EDT PD nurse called patient for follow up from recent hospital discharge, but no answer. Left message on [employer]set[employer] including resource nurse phone number for new or worsening symptoms, questions or concerns. Sofia Fernandes RN [facility]08-26-2024 Miscellaneous Notes* Telephone Encounter - Sofia Fernandes RN - 11/09/2023 12:54 PM EDT PD nurse called patient for follow up from recent hospital discharge, but no answer. Left message on [employer] including resource nurse phone number for new or worsening symptoms, questions or concerns. Sofia Fernandes RN documented in this encounterUk [facility]08-18-2024 Note ADDENDUM ADDENDUM: The report states there is flow within the anterior tibial arteries at the level of the ankle. This should read that there is flow within the posterior tibial arteries to the level of the ankle bilaterally and absent flow within the peroneal and anterior tibial arteries within the distal lower extremities. Interpreted by: Hugh Gotti MD Preliminary Report By: Hugh Gotti MD Electronically signed By Hugh Gotti MD Dictated Date: 11/01/2023 2:40:24 AM Prelim Date: 11/01/2023 2:47:06 AM Sign Date: 11/01/2023 2:47:06 AM Ordering Provider: ADELINA SANCHEZ ORIGINAL EXAMINATION: CTA OF THE AORTA WITH LOWER EXTREMITY RUNOFF 11/01/2023 2:20 am TECHNIQUE: CTA of the pelvis and bilateral lower extremities was performed after the administration of intravenous contrast. Multiplanar reformatted images are provided for review. MIP images are provided for review. Automated exposure control, iterative reconstruction, and/or weight based adjustment of the mA/kV was utilized to reduce the radiation dose to as low as reasonably achievable. COMPARISON: None. HISTORY: ORDERING SYSTEM PROVIDED HISTORY: Reason for Exam: numbness in lower legs. hx of stents for blockages coolness into both legs, history of stents FINDINGS: Celiac and superior mesenteric arteries appear to be patent. Renal arteries are patent bilaterally. Infrarenal aortic stent is noted. 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 There is reconstitution of flow within the external iliac artery on the right just proximal to the origin of the common femoral artery. Right SFA and per for from a thus are patent. Popliteal artery is patent with focal severe stenosis of the popliteal artery above the knee, a below the knee the popliteal artery is patent, a tibioperoneal trunk is patent. The posterior tibial artery and peroneal arteries are occluded in the lower leg on the right wall the anterior tibial artery remains patent to the ankle with diminished flow within the foot. Left external iliac arteries entirely occluded with reconstitution of flow at the level of the common femoral artery. The SFA and per for from on this appear patent. Popliteal artery demonstrates moderate stenosis above the knee. Below the knee the artery is patent. Tibioperoneal trunk is patent. There is a patent posterior tibial and peroneal arteries to the distal lower extremity while these arteries are occluded in the distal lower extremity. The anterior tibial artery demonstrates flow to the ankle and appears to be severely diminished within the foot. There is bilateral subcutaneous edema within the feet. Visualized lung bases are clear. Small bowel and colon demonstrate no acute findings. Kidneys enhance symmetrically. No obstructive uropathy. Urinary bladder is normal in appearance. No suspicious adnexal lesions. Portions of the anterior abdomen are excluded from field of view on this exam. 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 There is severe stenosis of the above the knee popliteal artery on the right and moderate stenosis of the above the knee popliteal artery on the left. The tibial arteries are patent within the proximal and mid lower extremities bilaterally, however the posterior tibial and peroneal arteries are either occluded or have severely diminished flow within the distal lower extremities bilaterally as no flow is seen at the level of the ankles. There is also pain CT of the anterior tibial arteries to the ankle with severely diminished flow at the level of the feet. Interpreted by: Hugh Gotti MD Preliminary Report By: Hugh Gotti MD Electronically signed By Hugh Gotti MD Dictated Date: 11/01/2023 2:23:12 AM Prelim Date: 11/01/2023 2:38:08 AM Sign Date: 11/01/2023 2:38:08 AM Ordering Provider: ADE[facility]A [facility]08-18-2024 Note ORIGINAL EXAMINATION: ONE XRAY VIEW OF THE CHEST11/01/2023 1:37 am CHEST ONE VIEW AP/PA COMPARISON: None HISTORY: ORDERING SYSTEM PROVIDED HISTORY: Reason for Exam: chest pain FINDINGS: The cardiomediastinal silhouette is normal in appearance. No consolidation, pleural effusion, or vascular congestion is seen. The osseous structures are intact. IMPRESSION: No acute findings. Interpreted by: Hugh Gotti MD Preliminary Report By: Hugh Gotti MD Electronically signed By Hugh Gotti MD Dictated Date: 11/01/2023 1:47:05 AM Prelim Date: 11/01/2023 1:47:11 AM Sign Date: 11/01/2023 1:47:11 AM Ordering Provider: ADELINA [facility]08-18-2024 NoteSinus rhythm RSR' in V1 or V2, right VCD or RVH Electronic Signature: MD LAURA, ADELINA DIAZ 11/01/2023 01:50:08[facility] 10-05-2023 History of Present illness Narrative* Jeaneth AlcantaraISIDRA.PHARMACY DISTRICT MANAGER - 12/18/2022 10:19 AM EDT Transactional Attorney offered: Patient declines. Jana is a 57 year old who presents for an annual gynecologic exam without complaints. Use to see Dr Hare at [facility] [employer] Postmenopausal: hysterectomy HRT use: Yes, vagifem How long: over 13 yrs. Last Pap: 03/20/2006 normal HPV: 03/20/2006 negative History of abnormal pap: No Last mammogram: 2022 normal @ [facility] History of abnormal mammogram: Yes breast cancer 2009 Sexually active: Yes Pain with intercourse: Not with the vagifem Postcoital bleeding: No Vaginal dryness: Yes OB History T1 L1 SAB5 IAB0 Ectopic0 Multiple0 Live Births0 W[employer] Picker History LMP: 02/26/2006, Hysterectomy Age at Menarche: Age at First : Age at Menopause: Worm Picker History Comments: Sexual Activity: Yes; Male Contraception: No contraception data on record PAST MEDICAL HISTORY Diagnosis Date Breast cancer (HCC) 03/13/2008 left breast Female infertility of other specified origin ITP (idiopathic thrombocytopenic purpura) Osteoporosis, unspecified Osteoporosis Syncope Thrombocytopenia, unspecified (HCC) Thyroid nodule Tobacco use disorder PAST SURGICAL HISTORY Procedure Laterality Date DELIVERY ONLY 1987 and 01/18/2007 PAST SURGICAL HISTORY OF 05/10/2009 partial hysterectomy PAST SURGICAL HISTORY OF 2008 lumpectomy left breast SPLENECTOMY,GASTROESOPHAGEAL DEVASCULARIZA FAMILY HISTORY Problem Relation Age of Onset Cancer Father lung and throat, Diabetes Mother Hypertension Mother Breast Cancer Sister x2 sisters Heart Father Diabetes Sister Cancer Brother thyroid cancer, SOCIAL HISTORY Social History Tobacco Use Smoking status: Every Day Packs/day: 1.00 Years: 28.00 Additional pack years: 0.00 Total pack years: 28.00 Types: Cigarettes Smokeless tobacco: Never Tobacco comments: NO CIGS BUT VAPING Vaping Use Vaping Use: Never used Substance Use Topics Alcohol use: No Drug use: No REVIEW OF SYSTEMS Abdomen: No abdominal pain, nausea, vomiting, diarrhea, or constipation. No bloating, early satiety, indigestion, or increased flatulence. Bladder: No dysuria, gross hematuria, urinary frequency, urinary urgency, or incontinence Breast: No breast lumps, nipple d/c, overlying skin changes, redness or skin retraction Allergies and current medication updated:Yes EXAM: LMP 02/26/2006 GENERAL: pleasant, female in no apparent distress HEENT: Normocephalic, atraumatic, mucus membranes moist, and no lesions NECK: Supple, full range of motion, no adenopathy, and thyroid normal DERMATOLOGY: Normal, without lesions, non-icteric, and non-hirsute BREAST: soft, non-tender, symmetric, no dominant mass, normal nipple-areolar complex, no lymphadenopathy, and no nipple discharge CHEST: Normal inspiratory effort ABDOMEN: soft, non-tender, and no masses PELVIC: external genitalia normal, normal Bartholin's glands, urethra, Elbing's glands, no vulvar lesions, physiologic discharge present, normal appearing perineal body and perianal region, cervix surgically absent BIMANUAL: no adnexal masses, non-tender, and uterus surgically absent RECTOVAGINAL: deferred. NEURO: alert and oriented x3,exam grossly non-focal EXTREMITIES: normal ASSESSMENT/PLAN: 1) Health maintenance: Pap/HPV screening no longer needed Mammogram up to date Nutrition, exercise and routine health maintenance exams reviewed. Calcium/Vitamin D supplementation information provided. Colon cancer screening: patient to discuss with PCP 2) Follow up one year or sooner as needed Jaeneth Alcantara APRN.LUCAS documented in this encounter[facility]06-15-2023 Evaluation + Plan note Diagnostic Tests Pending * Vitamin D Level 08/28/22 Future Scheduled Tests Radiology* CT Low Dose Lung Cancer Screening (LDCT) 08/28/22 [facility] 06-07-2023 Hospital Discharge instructions Patient Education 08/20/2022 21:40:55 Laceration, Hand: All Closures Hand Laceration: All Closures A laceration is a cut through the skin. Deep cuts usually require stitches. Minor cuts may be closed with surgical tape or skin adhesive. X-rays may be done if something may have entered the skin through the cut, such as broken glass. You may also be given a tetanus shot if you are not up to date on this vaccination and the object thatcut you may carry tetanus. Home care Your healthcare provider may prescribe an antibiotic. This is to help prevent infection. Follow allinstructions for taking this medicine. Take the medicine every day until it is gone or you are toldto stop. You should not have any left over. The healthcare provider may prescribe medicines for pain. Follow instructions for taking them. Follow the healthcare provider s instructions on how to care for the cut. Keep the wound clean and dry. Don't get the wound wet until you are told it is OK to do so. If the bandage gets wet, remove it. Gently pat the wound dry with a clean cloth. Then put on a clean, dry bandage. To help prevent infection, wash your hands with soap and water before and after caring for the wound. Caring for stiches: Once you no longer need to keep the stitches dry, clean the wound daily. First,remove the bandage. Then wash the area gently with soap and warm water, or as directed by the healthcare provider. Use a wet cotton swab to loosen and remove any blood or crust that forms. After cleaning, apply a thin layer of antibiotic ointment if advised. Then put on a new bandage unless you aretold not to. Caring for skin glue: Don t put apply liquid, ointment, or cream on the wound while the glue is in place. Avoid activities that cause heavy sweating. Protect the wound from sunlight. Don't scratch, rub, or pick at the adhesive film. Don't place tape directly over the film. The glue should peel off within 5 to 10 days. Caring for surgical tape: Keep the area dry. If it gets wet, blot it dry with a clean towel. Surgical tape usually falls off within 7 to 10 days. If it has not fallen off after 10 days, you can take it off yourself. Put mineral oil or petroleum jelly on a cotton ball and gently rub the tape until it is removed. Once you can get the wound wet, you may shower as usual, but don't soak the wound in water. This means no tub baths or swimming. Even with proper treatment, a wound infection may sometimes occur. Check the wound daily for signs of infection listed below. Follow-up care Follow up with your healthcare provider, or as advised. If you have stitches, be sure to return as directed to have them removed. When to seek medical advice Call your healthcare provider right away if any of these occur: Wound bleeding not controlled by direct pressure Signs of infection, including increasing pain in the wound, increasing wound redness or swelling, or pus or bad odor coming from the wound Fever of 100.4 F (38. C) o higher, or as directed by your healthcare provider Stitches come apart or fall out or surgical tape falls off before 7 days Wound edges reopen Wound changes colors Numbness or weakness in the affected hand Decreased movement of the hand 4128-7[address] [employer]. [address] [place] [address]. All rights reserved. This information is not intended as a substitute for professional medical care. Always follow yourhealthcare professional's instructions. Follow Up Care 08/20/2022 21:32:43 With:Nubia Desai [phone] Address:Unknown When:3-7 days Comments:Schedule appointment for wound check.Continue daily wound care with application of topical antibiotic ointment and dressing changes.Use Tylenol, Advil or Aleve for pain as needed.Watch for signs of infection.Return to the ED for any problems or concerns. [facility] 06-07-2023 Emergency department Discharge summary Discharge Instructions Thank you for allowing [facility] to assist you with your healthcare needs. The following is importantdischarge information regarding your hospital visit. Diagnosis from Today's Visit Hand injury - Minor What to Do Next Instructions from Your Care Team No qualifying data available. Post Acute Orders No qualifying data available. You Need to Schedule the Following Appointments Follow Up with Nubia Desai [phone] When Within 3-7 days Why: Schedule appointment for wound check. Continue daily wound care with application of topical antibiotic ointment and dressing changes. Use Tylenol, Advil or Aleve for pain as needed. Watch for signs of infection. Return to the ED for any problems or concerns. Allergies NKA Medications Please ask your primary doctor or pharmacist before taking any other medication not listed, including over the counter drugs, herbal medications, vitamins and or supplements as they may interact withyour home medications. What How Much When Instructions Last Dose Unchanged albuterol (Ventolin HFA MDI (90 mcg/ inh) inhalation aerosol) 2 puff(s) by inhalation Every 4 hours as needed for as needed for wheezing Unchanged aspirin (aspirin 81 mg oral tablet, chewable) 1 tab(s) Chewed Once a day Duration: 90 Days Unchanged atorvastatin (atorvastatin 40 mg oral tablet) 1 tab(s) by mouth Once a day Unchanged citalopram (CeleXA 10 mg oral tablet) 1.5 tab(s) by mouth Once a day Unchanged cyclobenzaprine (cyclobenzaprine 10 mg oral tablet) 1 tab(s) by mouth Three (3) times a day Unchanged estradiol topical (estradiol 10 mcg vaginal tablet) 1 tab(s) Vaginal 2 times a week Intravaginally twice weekly Unchanged fluticasone nasal (fluticasone 50 mcg/ inh NASAL spray) 1 spray(s) each nostril Two (2) times a day as needed for Nasal congestion in each nostril Unchanged omeprazole (omeprazole 20 mg oral delayed release capsule) 1 cap by mouth Once a day Unchanged penicillin V potassium (penicillin V potassium 500 mg oral tablet) 1 tab(s) by mouth Every 6 hours 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 Unchanged venlafaxine (Effexor XR 75 mg oral capsule, extended release) 1 cap by mouth Once a day Unchanged venlafaxine (Effexor XR 75 mg oral capsule, extended release) 1 cap by mouth Once a day Please take this list to your next doctor s visit. Bring all medications you take, including over the counter medications, herbals and other supplements with you to your doctor s visit. Patients and families are reminded to discard old lists and to update any records with all medication providers or retail pharmacies. Education Materials Hand Laceration: All Closures A laceration is a cut through the skin. Deep cuts usually require stitches. Minor cuts may be closed with surgical tape or skin adhesive. X-rays may be done if something may have entered the skin through the cut, such as broken glass. You may also be given a tetanus shot if you are not up to date on this vaccination and the object thatcut you may carry tetanus. Home care Your healthcare provider may prescribe an antibiotic. This is to help prevent infection. Follow allinstructions for taking this medicine. Take the medicine every day until it is gone or you are toldto stop. You should not have any left over. The healthcare provider may prescribe medicines for pain. Follow instructions for taking them. Follow the healthcare provider s instructions on how to care for the cut. Keep the wound clean and dry. Don't get the wound wet until you are told it is OK to do so. If the bandage gets wet, remove it. Gently pat the wound dry with a clean cloth. Then put on a clean, dry bandage. To help prevent infection, wash your hands with soap and water before and after caring for the wound. Caring for stiches: Once you no longer need to keep the stitches dry, clean the wound daily. First,remove the bandage. Then wash the area gently with soap and warm water, or as directed by the healthcare provider. Use a wet cotton swab to loosen and remove any blood or crust that forms. After cleaning, apply a thin layer of antibiotic ointment if advised. Then put on a new bandage unless you aretold not to. Caring for skin glue: Don t put apply liquid, ointment, or cream on the wound while the glue is in place. Avoid activities that cause heavy sweating. Protect the wound from sunlight. Don't scratch, rub, or pick at the adhesive film. Don't place tape directly over the film. The glue should peel off within 5 to 10 days. Caring for surgical tape: Keep the area dry. If it gets wet, blot it dry with a clean towel. Surgical tape usually falls off within 7 to 10 days. If it has not fallen off after 10 days, you can take it off yourself. Put mineral oil or petroleum jelly on a cotton ball and gently rub the tape until it is removed. Once you can get the wound wet, you may shower as usual, but don't soak the wound in water. This means no tub baths or swimming. Even with proper treatment, a wound infection may sometimes occur. Check the wound daily for signs of infection listed below. Follow-up care Follow up with your healthcare provider, or as advised. If you have stitches, be sure to return as directed to have them removed. When to seek medical advice Call your healthcare provider right away if any of these occur: Wound bleeding not controlled by direct pressure Signs of infection, including increasing pain in the wound, increasing wound redness or swelling, or pus or bad odor coming from the wound Fever of 100.4 F (38. C) o higher, or as directed by your healthcare provider Stitches come apart or fall out or surgical tape falls off before 7 days Wound edges reopen Wound changes colors Numbness or weakness in the affected hand Decreased movement of the hand [id number] [employer]. [address] [place] [address], [place] [address]. All rights reserved. This information is not intended as a substitute for professional medical care. Always follow yourhealthcare professional's instructions. Additional Information VACCINATE! IT SAVES LIVES! Members of the community who have not yet received the COVID-19 vaccine and would like to receive it can visit one of [facility] vaccine clinics. There are many vaccine clinic locations within the [facility]. For locations and available times, please visit www.gettheshot.coronavirus.[place].gov/. It is important to note that some COVID mobile vaccine clinics are held outdoors and may be canceled in rainy or stormy conditions. To learn more about pediatric vaccinations (ages 5-11), we invite you to visit the [facility] webpage. https://www.[email or web address].org/pages/7699-Qxink-Kezbfmepoyf-Gskdpufehy-Btktv-Ecy stions.htmlTo learn more about the COVID-19 vaccine, we invite you to visit the CDC website for a list of frequently asked questions. https://www.cdc.gov/coronavirus/2019-ncov/vaccines/faq.html [email or web address] Patient Portal Access Instructions: Stay connected with your healthcare team and access your personal medical information anytime with the [employer] Patient Portal. If you would like a full copy of your medical records please contact the [facility] Medical Records Department Thursday through Thursday between 8a.m. and 4:30p.m. Please follow the directions below to access the portal: 1.Access the email account you provided upon registration to the hospital.2.Look for an invitation email from [facility].3.Open the email and access the invitation link: Accept Invitation to [facility]4.Fill in the required del angel to create your account. Sign into [email or web address] with your username and password that you created in the above steps to stay up to date. You can then view a summary of results, a summary of your visits, and the ability to download your summaries to your computer or send the information securely to a physician. Remember that your healthcare information is confidential, so carefully consider who you will allow to register on the [facility] Patient Portal for access to your information. You can also access the [facility] Patient Portal on the [employer] Simply click on "Health Records" under "HealthData" and then click on the [employer] logo. HOW TO SAFELY DISPOSE OF PRESCRIPTION MEDICATIONS Please use one of the following methods to safely dispose of your unused medications. 1.Use a drug disposal kit: the drug disposal pouch allows you to safely discard your old and unuseddrugs. Ask your nurse to give you one when you are discharged.2.Visit a local take-back location: Many local pharmacies and police departments have programs that collect old and unwanted prescriptiondrugs. Call your local pharmacy or go to http://[employer].[facility]/6P9Lh8v to find one close to you.3.Make use of household items: Use cat litter or old coffee grounds to dispose medications if other options arenot available. Mix your drugs with these household products, seal them in an airtight container andthrow it into the garbage. Call [facility]: [phone] to be sure your drugs can be disposed of in this way. Some medicines may require a different approach.4.Never flush your medications down the toilet. IF YOU HAVE BEEN PRESCRIBED AN OPIOIDS FOR PAIN If you have been prescribed an opioid (such as hydrocodone, oxycodone or morphine), it is critical to understand the possible side effects and risks of opioid pain medications. Even when taken as directed, opioids can have several side effects including: Tolerance, meaning you might need to take more of a medication for the same pain relief. Nausea, vomiting and/or constipation. Sleepiness, dizziness, dry mouth, confusion, depression or itching. Physical dependence, meaning you have withdrawal symptoms when a medication is stopped ? this can develop within a few days. KNOW YOUR RESPONSIBILITIES It is important to know exactly how much and how often to take the opioid pain medications you are prescribed. Never take opioids in higher amounts or more often than prescribed. Do not combine opioids with alcohol or other drugs that cause drowsiness, such as benzodiazepines, also known as benzos,including diazepam and alprazolam, muscle relaxants or sleep aids. Never sell or share prescriptionopioids. This is illegal. Store opioids in a secure place and out of reach of others (including children, family, friends and visitors). The last page(s) of this document has been signed and retained as a CHART COPY Signatures Patient Education Materials Michael Bell: All Closures Medication Leaflets My discharge plan and instructions have been reviewed and explained to me and I,JANA MCCLAIN understand my current condition and have read and understand these discharge instructions. I have received a written copy of the plan/instructions. If I have questions, I am aware that I should contact my doctor. 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 There may be trouble recognizing familiar people and places or knowing what day it is. Memory, judgment, and decision-making may also be affected. In severe cases, the person may have limited or no response to being spoken to. Confusion usually appears over a few days and can vary throughout the day. It can last weeks to months. Confusion is usually a sign of an underlying problem. It may occur suddenly. Or it may develop gradually over time. Causes of confusion include brain injury, medicines, alcohol, withdrawal from certain medicines or illegal drugs, and infection. Heart attack and stroke may cause it. Confusion can also be a sign of dementia or a mental illness. Treatment will depend on the cause of the problem. If the issue is a medicine, stopping the medicine may help. Thiamine supplement may help with very little risk of side effects. Haloperidol is useful but people with Parkinson disease should not use it. Benzodiazepines are only used in people undergoing alcohol withdrawal. Home care Be sure someone is with the confused person at all times. He or she should not be left alone or unsupervised. Tell the healthcare provider about all medicines that the person takes. These include prescription,plut-vov-vtmfqah, herbs, and supplements. Dehydration can increase confusion. Ask the healthcare provider how much fluid the person should bedrinking. Offer liquids and ensure that they are taken. Keep all medicines in a secure place under the caregiver s control. To prevent overdose, a confusedperson should take medicines only under the supervision of a caregiver. To help a person with confusion: oEstablish a daily routine. Change can be a source of stress for someone with confusion. Make and keep a time schedule for common tasks such as bathing, dressing, taking medicines, meals, going for walks, shopping, naps and bed time. Make sure that the person has glasses and hearing aids if needed. oDon't use physical restraints. oSpeak slowly and clearly with a gentle tone of voice. Use short simple words and sentences. Ask one question at a time. Don'tt interrupt, criticize or argue. Be calm and supportive. Use friendly facial expressions. Use pointing and touching to help communicate. If there has been loss of long-term memory, don't ask questions about past events. This would only cause frustration for the person. oUse lists, signs, family photos, clocks and calendars as memory aids. Label cabinets and drawers. Try to distract, not confront, the person. When he or she becomes frustrated or upset, redirect attention to eating or some other activity of interest. oIf this proves to be due to a permanent condition, talk to the healthcare provider or a associate java developer about getting a Power of Medical Dermatologist for healthcare and for financial decisions. It is best to do this while the person can still sign legal documents and make his or her own decisions. Otherwise, a court order will be required. Follow-up care Follow up with the person's healthcare provider or as advised for further testing or changes in medical care. When to seek medical advice Call the healthcare provider for any of the following: Frequent falling Refusal to eat or drink Increased drowsiness Nausea or vomiting Unexplained fever over 100.4 F (38.0 C) or as directed by the healthcare provider Call 911 Call 911 or emergency services right away if any of the following occur: Violent behavior or behavior too hard to manage at home New hallucinations or delusions complains of severe headache or numbness or weakness of the face, arm, or leg Slurred speech or trouble speaking, walking, or seeing Fainting spell, dizziness, or seizure 4170-8803 [employer] [address] [place] [address]. All rights reserved. This information is not intended as a substitute for professional medical care. Always follow yourhealthcare professional's instructions. 05/25/2022 18:17:53 Syncope, Unk Cause Fainting: Uncertain Cause Fainting (syncope) is a temporary loss of consciousness, which is often associated with a loss of postural tone. There are other causes of fainting, too. It s also called passing out. It occurs when blood flow to the brain is less than normal. Near-fainting (near-syncope) is very similar to fainting, but you don t fully pass out. Common minor causes of fainting include: Sudden fear Pain Nausea Emotional stress Overexertion Suddenly standing up after sitting or lying for a long time can also cause fainting. More serious causes of fainting include: Very slow or very fast heartbeat (arrhythmia) Other types of heart disease, such as heart valve disease or coronary artery disease Dehydration Loss of blood Seizure Stroke Ruptured blood vessel in the brain Taking too much high blood pressure medicine can also cause low blood pressure and fainting. Your healthcare provider does not know the exact cause of your fainting. But the tests today did not show any of the serious causes of fainting. Sometimes you may need more tests to find out if you have a serious problem. That s why it s important to follow up with your provider as advised. Home care Follow these guidelines when caring for yourself at home: Rest today. You may go back to your normal activities when you are feeling back to normal. It is best to stay with someone who can check on you for the next 24 hours to watch for another episode of fainting. If you become lightheaded or dizzy, lie down right away and try to prop your feet above the level of your head. Or sit with your head between your knees. Because the provider doesn t know the exact cause of your fainting or near- fainting spell, it s possible for you to have another spell without warning. Because of this, don t drive a car or operate dangerous equipment. Don t take a bath alone. Use a shower instead. Don t swim alone until your healthcare provider says that you are no longer in danger of having another fainting spell. Follow-up care Follow up with your healthcare provider, or as advised. Call 911 Call 911 if any of these occur: Another fainting spell that s not explained by the common causes listed above Pain in your chest, arm, neck, jaw, back, or abdomen Shortness of breath Severe headache or seizure Blood in vomit or stools (black or red color) Unexpected vaginal bleeding Your heart beats very rapidly, very slowly, or irregularly (palpitations) Weakness in an arm or leg or on one side of the face Difficulty speaking or seeing Extreme drowsiness, confusion, dizziness, or fainting [id number] [employer]. [address] [place] [address]. All rights reserved. This information is not intended as a substitute for professional medical care. Always follow yourhealthcare professional's instructions. Follow Up Care 05/25/2022 15:41:53 With:BRENT MENARD Address: [address] [facility] [place] [address]- [phone] Business (1) When:2-4 days Comments:Schedule an appointment for close follow-up.Resume all routine home medications.Return to the ED ifsymptoms recur or for any other problems or concerns. [facility] 03-12-2023 Note Discharge Instructions Thank you for allowing [facility] to assist you with your healthcare needs. The following is importantdischarge information regarding your hospital visit. Diagnosis from Today's Visit Altered mental status What to Do Next Instructions from Your Care Team No qualifying data available. Post Acute Orders No qualifying data available. You Need to Schedule the Following Appointments Follow Up with BRENT MENARD When Within 2-4 days Why: Schedule an appointment for close follow-up. Resume all routine home medications. Return to the ED if symptoms recur or for any other problems or concerns. Where: [address] [facility] [place] [address] [phone] Business (1) Allergies NKA Medications Please ask your primary doctor or pharmacist before taking any other medication not listed, including over the counter drugs, herbal medications, vitamins and or supplements as they may interact withyour home medications. What How Much When Instructions Last Dose Unchanged albuterol (Ventolin HFA MDI (90 mcg/ inh) inhalation aerosol) 2 puff(s) by inhalation Every 4 hours as needed for as needed for wheezing Unchanged aspirin (aspirin 81 mg oral tablet, chewable) 1 tab(s) Chewed Once a day Duration: 90 Days Unchanged atorvastatin (atorvastatin 40 mg oral tablet) 1 tab(s) by mouth Once a day Unchanged citalopram (CeleXA 10 mg oral tablet) 1.5 tab(s) by mouth Once a day Unchanged cyclobenzaprine (cyclobenzaprine 10 mg oral tablet) 1 tab(s) by mouth Three (3) times a day Unchanged estradiol topical (estradiol 10 mcg vaginal tablet) 1 tab(s) Vaginal 2 times a week Intravaginally twice weekly Unchanged fluticasone nasal (fluticasone 50 mcg/ inh NASAL spray) 1 spray(s) each nostril Two (2) times a day as needed for Nasal congestion in each nostril Unchanged omeprazole (omeprazole 20 mg oral delayed release capsule) 1 cap by mouth Once a day Unchanged penicillin V potassium (penicillin V potassium 500 mg oral tablet) 1 tab(s) by mouth Every 6 hours 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 Unchanged venlafaxine (Effexor XR 75 mg oral capsule, extended release) 1 cap by mouth Once a day Unchanged venlafaxine (Effexor XR 75 mg oral capsule, extended release) 1 cap by mouth Once a day Duration: 14 Days Please take this list to your next doctor s visit. Bring all medications you take, including over the counter medications, herbals and other supplements with you to your doctor s visit. Patients and families are reminded to discard old lists and to update any records with all medication providers or retail pharmacies. Education Materials Confusion Confusion or delirium is a change in a person s ability to think clearly. There may be trouble recognizing familiar people and places or knowing what day it is. Memory, judgment, and decision-making may also be affected. In severe cases, the person may have limited or no response to being spoken to. Confusion usually appears over a few days and can vary throughout the day. It can last weeks to months. Confusion is usually a sign of an underlying problem. It may occur suddenly. Or it may develop gradually over time. Causes of confusion include brain injury, medicines, alcohol, withdrawal from certain medicines or illegal drugs, and infection. Heart attack and stroke may cause it. Confusion can also be a sign of dementia or a mental illness. Treatment will depend on the cause of the problem. If the issue is a medicine, stopping the medicine may help. Thiamine supplement may help with very little risk of side effects. Haloperidol is useful but people with Parkinson disease should not use it. Benzodiazepines are only used in people undergoing alcohol withdrawal. Home care Be sure someone is with the confused person at all times. He or she should not be left alone or unsupervised. Tell the healthcare provider about all medicines that the person takes. These include prescription,pxuw-[id number], herbs, and supplements. Dehydration can increase confusion. Ask the healthcare provider how much fluid the person should bedrinking. Offer liquids and ensure that they are taken. Keep all medicines in a secure place under the caregiver s control. To prevent overdose, a confusedperson should take medicines only under the supervision of a caregiver. To help a person with confusion: oEstablish a daily routine. Change can be a source of stress for someone with confusion. Make and keep a time schedule for common tasks such as bathing, dressing, taking medicines, meals, going for walks, shopping, naps and bed time. Make sure that the person has glasses and hearing aids if needed. oDon't use physical restraints. oSpeak slowly and clearly with a gentle tone of voice. Use short simple words and sentences. Ask one question at a time. Don'tt interrupt, criticize or argue. Be calm and supportive. Use friendly facial expressions. Use pointing and touching to help communicate. If there has been loss of long-term memory, don't ask questions about past events. This would only cause frustration for the person. oUse lists, signs, family photos, clocks and calendars as memory aids. Label cabinets and drawers. Try to distract, not confront, the person. When he or she becomes frustrated or upset, redirect attention to eating or some other activity of interest. oIf this proves to be due to a permanent condition, talk to the healthcare provider or a associate java developer about getting a Power of Medical Dermatologist for healthcare and for financial decisions. It is best to do this while the person can still sign legal documents and make his or her own decisions. Otherwise, a court order will be required. Follow-up care Follow up with the person's healthcare provider or as advised for further testing or changes in medical care. When to seek medical advice Call the healthcare provider for any of the following: Frequent falling Refusal to eat or drink Increased drowsiness Nausea or vomiting Unexplained fever over 100.4 F (38.0 C) or as directed by the healthcare provider Call 911 Call 911 or emergency services right away if any of the following occur: Violent behavior or behavior too hard to manage at home New hallucinations or delusions complains of severe headache or numbness or weakness of the face, arm, or leg Slurred speech or trouble speaking, walking, or seeing Fainting spell, dizziness, or seizure 2627-2601 [employer]. [address] [place] [address]. All rights reserved. This information is not intended as a substitute for professional medical care. Always follow yourhealthcare professional's instructions. Fainting: Uncertain Cause Fainting (syncope) is a temporary loss of consciousness, which is often associated with a loss of postural tone. There are other causes of fainting, too. It s also called passing out. It occurs when blood flow to the brain is less than normal. Near-fainting (near-syncope) is very similar to fainting, but you don t fully pass out. Common minor causes of fainting include: Sudden fear Pain Nausea Emotional stress Overexertion Suddenly standing up after sitting or lying for a long time can also cause fainting. More serious causes of fainting include: Very slow or very fast heartbeat (arrhythmia) Other types of heart disease, such as heart valve disease or coronary artery disease Dehydration Loss of blood Seizure Stroke Ruptured blood vessel in the brain Taking too much high blood pressure medicine can also cause low blood pressure and fainting. Your healthcare provider does not know the exact cause of your fainting. But the tests today did not show any of the serious causes of fainting. Sometimes you may need more tests to find out if you have a serious problem. That s why it s important to follow up with your provider as advised. Home care Follow these guidelines when caring for yourself at home: Rest today. You may go back to your normal activities when you are feeling back to normal. It is best to stay with someone who can check on you for the next 24 hours to watch for another episode of fainting. If you become lightheaded or dizzy, lie down right away and try to prop your feet above the level of your head. Or sit with your head between your knees. Because the provider doesn t know the exact cause of your fainting or near- fainting spell, it s possible for you to have another spell without warning. Because of this, don t drive a car or operate dangerous equipment. Don t take a bath alone. Use a shower instead. Don t swim alone until your healthcare provider says that you are no longer in danger of having another fainting spell. Follow-up care Follow up with your healthcare provider, or as advised. Call 911 Call 911 if any of these occur: Another fainting spell that s not explained by the common causes listed above Pain in your chest, arm, neck, jaw, back, or abdomen Shortness of breath Severe headache or seizure Blood in vomit or stools (black or red color) Unexpected vaginal bleeding Your heart beats very rapidly, very slowly, or irregularly (palpitations) Weakness in an arm or leg or on one side of the face Difficulty speaking or seeing Extreme drowsiness, confusion, dizziness, or fainting 8132-1914 [employer] [address] [place] [address]. All rights reserved. This information is not intended as a substitute for professional medical care. Always follow yourhealthcare professional's instructions. Additional Information VACCINATE! IT SAVES LIVES! Members of the community who have not yet received the COVID-19 vaccine and would like to receive it can visit one of [facility] vaccine clinics. There are many vaccine clinic locations within the [facility]. For locations and available times, please visit www.gettheshot.coronavirus.[place].gov/. It is important to note that some COVID mobile vaccine clinics are held outdoors and may be canceled in rainy or stormy conditions. To learn more about pediatric vaccinations (ages 5-11), we invite you to visit the [facility] webpage. https://www.[facility].org/pages/8750-Qjxub-Eocfhgpauvk-Ogdnytmqra-Kmtrs-Yys stions.htmlTo learn more about the COVID-19 vaccine, we invite you to visit the CDC website for a list of frequently asked questions. https://www.cdc.gov/coronavirus/2019-ncov/vaccines/faq.html [facility] Patient Portal Access Instructions: Stay connected with your healthcare team and access your personal medical information anytime with the [facility] [employer] Patient Portal. If you would like a full copy of your medical records please contact the [facility] Medical Records Department Thursday through Thursday between 8a.m. and 4:30p.m. Please follow the directions below to access the portal: 1.Access the email account you provided upon registration to the [facility].2.Look for an invitation email from [facility].3.Open the email and access the invitation link: Accept Invitation to [facility] [employer] [facility]4.Fill in the required del angel to create your account. Sign into [email or web address] with your username and password that you created in the above steps to stay up to date. You can then view a summary of results, a summary of your visits, and the ability to download your summaries to your computer or send the information securely to a physician. Remember that your healthcare information is confidential, so carefully consider who you will allow to register on the [facility] [employer] Patient Portal for access to your information. You can also access the [facility] [employer] Patient Portal on the [employer] Simply click on "Health Records" under "HealthData" and then click on the [employer] logo. HOW TO SAFELY DISPOSE OF PRESCRIPTION MEDICATIONS Please use one of the following methods to safely dispose of your unused medications. 1.Use a drug disposal kit: the drug disposal pouch allows you to safely discard your old and unuseddrugs. Ask your nurse to give you one when you are discharged.2.Visit a local take-back location: Many local pharmacies and police departments have programs that collect old and unwanted prescriptiondrugs. Call your local pharmacy or go to http://[employer].[facility]/5J1Lz8k to find one close to you.3.Make use of household items: Use cat litter or old coffee grounds to dispose medications if other options arenot available. Mix your drugs with these household products, seal them in an airtight container andthrow it into the garbage. Call [facility]: [phone] to be sure your drugs can be disposed of in this way. Some medicines may require a different approach.4.Never flush your medications down the toilet. IF YOU HAVE BEEN PRESCRIBED AN OPIOIDS FOR PAIN If you have been prescribed an opioid (such as hydrocodone, oxycodone or morphine), it is critical to understand the possible side effects and risks of opioid pain medications. Even when taken as directed, opioids can have several side effects including: Tolerance, meaning you might need to take more of a medication for the same pain relief. Nausea, vomiting and/or constipation. Sleepiness, dizziness, dry mouth, confusion, depression or itching. Physical dependence, meaning you have withdrawal symptoms when a medication is stopped ? this can develop within a few days. KNOW YOUR RESPONSIBILITIES It is important to know exactly how much and how often to take the opioid pain medications you are prescribed. Never take opioids in higher amounts or more often than prescribed. Do not combine opioids with alcohol or other drugs that cause drowsiness, such as benzodiazepines, also known as benzos,including diazepam and alprazolam, muscle relaxants or sleep aids. Never sell or share prescriptionopioids. This is illegal. Store opioids in a secure place and out of reach of others (including children, family, friends and visitors). The last page(s) of this document has been signed and retained as a CHART COPY Signatures Patient Education Materials Confusion Syncope, Unk Cause Medication Leaflets My discharge plan and instructions have been reviewed and explained to me and I,JANA MCCLAIN understand my current condition and have read and understand these discharge instructions. I have received a written copy of the plan/instructions. If I have questions, I am aware that I should contact my doctor. 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 The aorta is atherosclerotic. No consolidation, pleural effusion, pneumothorax or vascular congestion. Mildly increased bibasilar densities are most likely artifact from overlapping soft tissues. No acute osseous abnormality. IMPRESSION: No acute radiographic process. I have personally reviewed the images of this examination and agree with the resident's findings and interpretation. Interpreted by: Jairo Alvares MD Preliminary Report By: Stefanie Flanagan Electronically signed By Jairo Alvares MD Dictated Date: 05/25/2022 5:11:30 PM Prelim Date: 05/25/2022 5:13:16 PM Sign Date: 05/25/2022 5:28:14 PM [facility]ing Provider[facility] Note ORIGINAL EXAMINATION: CT OF THE HEAD WITHOUT CONTRAST 05/25/2022 4:50 pm TECHNIQUE: CT of the head was performed without the administration of intravenous contrast. Automated exposure control, iterative reconstruction, and/or weight based adjustment of the mA/kV was utilized to reduce the radiation dose to as low as reasonably achievable. COMPARISON: CT head 11/22/2017. HISTORY: ORDERING SYSTEM PROVIDED HISTORY: Reason for Exam: Altered mental status, weakness FINDINGS: BRAIN/VENTRICLES: There is no acute intracranial hemorrhage, mass effect or midline shift. No abnormal extra-axial fluid collection. The riddle-white differentiation is maintained without evidence of an acute infarct. There is no evidence of hydrocephalus. ORBITS: The visualized portion of the orbits demonstrate no acute abnormality. SINUSES: The visualized paranasal sinuses and mastoid air cells demonstrate no acute abnormality. 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 SOFT TISSUES/SKULL: No acute abnormality of the visualized skull or soft tissues. IMPRESSION: No acute intracranial abnormality. I have personally reviewed the images of this examination and agree with the resident's findings and interpretation. Interpreted by: Jairo Alvares MD Preliminary Report By: Stefanie Flanagan Electronically signed By Jairo Alvares MD Dictated Date: 05/25/2022 5:06:28 PM Prelim Date: 05/25/2022 5:08:49 PM Sign Date: 05/25/2022 5:27:16 PM Ordering Provider: [facility]03-12-2023 Note ORIGINAL EXAMINATION: ONE XRAY VIEW OF THE CHEST 05/25/2022 4:50 pm COMPARISON: Chest x-ray 11/22/2017 HISTORY: ORDERING SYSTEM PROVIDED HISTORY: Reason for Exam: Altered mental status FINDINGS: The cardiomediastinal silhouette is within normal limits. The aorta is atherosclerotic. No consolidation, pleural effusion, pneumothorax or vascular congestion. Mildly increased bibasilar densities are most likely artifact from overlapping soft tissues. No acute osseous abnormality. IMPRESSION: No acute radiographic process. I have personally reviewed the images of this examination and agree with the resident's findings and interpretation. Interpreted by: Jairo Alvares MD Preliminary Report By: Stefanie Flanagan Electronically signed By Jairo Alvares MD Dictated Date: 05/25/2022 5:11:30 PM Prelim Date: 05/25/2022 5:13:16 PM Sign Date: 05/25/2022 5:28:14 PM Ordering Provider: [facility]03-12-2023 Note ORIGINAL EXAMINATION: CT OF THE HEAD WITHOUT CONTRAST 05/25/2022 4:50 pm TECHNIQUE: CT of the head was performed without the administration of intravenous contrast. Automated exposure control, iterative reconstruction, and/or weight based adjustment of the mA/kV was utilized to reduce the radiation dose to as low as reasonably achievable. COMPARISON: CT head 11/22/2017. HISTORY: ORDERING SYSTEM PROVIDED HISTORY: Reason for Exam: Altered mental status, weakness FINDINGS: BRAIN/VENTRICLES: There is no acute intracranial hemorrhage, mass effect or midline shift. No abnormal extra-axial fluid collection. The riddle-white differentiation is maintained without evidence of an acute infarct. There is no evidence of hydrocephalus. ORBITS: The visualized portion of the orbits demonstrate no acute abnormality. SINUSES: The visualized paranasal sinuses and mastoid air cells demonstrate no acute abnormality. 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 SOFT TISSUES/SKULL: No acute abnormality of the visualized skull or soft tissues. IMPRESSION: No acute intracranial abnormality. I have personally reviewed the images of this examination and agree with the resident's findings and interpretation. Interpreted by: Jairo Alvares MD Preliminary Report By: Stefanie Flanagan Electronically signed By Jairo Alvares MD Dictated Date: 05/25/2022 5:06:28 PM Prelim Date: 05/25/2022 5:08:49 PM Sign Date: 05/25/2022 5:27:16 PM Ordering Provider: [facility]10-08-2022 Note HNO ID: [id number] Author: Interface Note Service: ? Author Type: ? Type: Progress Notes Filed: 12/21/2021 3:07 AM Note Text: Epic Scheduled Downtime: 12/21/2021 1:00:00 AM to 12/21/2021 2:54:00 [id number] NoteHNO ID: [id number] Author: Charleen Bell RN Service: Care Management Author Type: Registered Nurse Type: Care Mgt Initial Assessment Filed: 12/20/2021 12:38 PM Note Text: CARE MANAGEMENT: ASSESSMENT AND DISCHARGE PLAN SERVICE DATE: December 20, 2021 SERVICE TIME: 12:37 PM PRIMARY CARE PHYSICIAN: No primary care provider on file. Phone: None Primary Contact: Extended Emergency Contact Information Primary Emergency Contact: Jony Mcclain Address: [address] [place] [address] Mobile Relation: Spouse ADMISSION STATUS: Inpatient Insurance Provider: [facility] CHOICE PLUS NEEDS PRIOR TO DISCHARGE Needs Prior to Discharge: To Be Determined POTENTIAL TRANSITION PLANS Home Based on clinical judgement, Care Management will address the following needs: Medical Patient's perception of need for this admission: Foot pain ADVANCE DIRECTIVES Current Advance Directive: Health Care Power of Medical Dermatologist In Chart: No MS/BEHAVIOR Baseline Mental Status Prior to this Illness what was the patient's Baseline Mental Status?: Alert AND Oriented Prior to this illness, has anyone described the patient having any of the following behaviors?: Not Applicable Relationship of the informant to the patient:: Self READMISSION Last Discharge Date: N/A Is this Within the Past 30 days? 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 scores in the EMR?: No Any potential risks related to substance abuse and/or behavioral health?: No Based on clinical judgement, Care Management will address the following needs: Medical CAREGIVER ASSESSMENT Caregiver is ready, willing and able to meet the patient's needs as recommended by the inter-professional team:: No Caregiver needed Patient's transition needs and plan for meeting these needs: Anticipate return home with self care MEDICAL Medical Needs: Two or more chronic diseases;Fall risk or frequent falls Health Issues Impacting Discharge Plan: Chronic Chronic: PVD No social discharge barriers identified at this time. No behavioral/cognitive discharge barriers identified at this time. No functional discharge barriers identified at this time. FREEDOM OF CHOICE EXPLAINED: [place] of Choice Given: No Reason Not Given: No placements necessary Are you interested in bedside delivery of your medications? No ASSESSMENT AND PLAN: This patient has been screened for Care Management Transitional Planning Services. At this time it does not appear this patient will require transition planning services. Should this change, and the patient requires transition planning services coordinated during this admission (ie SNF placement, Home Care, IV ATB?s, Home Oxygen), please call the Sales Service Manager covering this patient. SIGNATURE: Charleen Bell RN PATIENT NAME: Jana Mcclain DATE: December 20, 2021 TIME: 12:37 PM CONTACT #: [phone] NoteHNO ID: [id number] Author: Ronen Green MD Service: Vascular Surgery Author Type: Physician Type: Plan of Care Filed: 12/20/2021 8:53 AM Note Text: Patient seen and examined. Full consult to follow. Plan angiogram and intervention today for severe aortic bifurcation disease. Heparin does not need to be discontinued. [facility] NoteHNO ID: [id number] Author: Quinn Hoffman MD Service: Hospital Medicine Author Type: Physician Type: Progress Notes Filed: 12/20/2021 5:58 PM Note Text: DEPARTMENT OF HOSPITAL MEDICINE PROGRESS NOTE SERVICE DATE: 12/20/2021 SERVICE TIME: 5:16 PM Hospital Medicine/Primary Attending: Quinn Hoffman MD NIGHT AND WEEKEND COVERAGE: [place] COVERAGE: Days: [phone], please page attending physician. Nights: [phone], please page [place] Hospitalist Night coverage pager [phone]. Subjective INTERVAL HPI: pain in Left toes, continues to have discoloration, planned procedure today with vascular. Current Facility-Administered Medications Medication Dose Route Frequency iv contrast (radiology procedure) INTRAVENOUS DIRECTED PRN NaCl 0.9% iv flush bag 20 mL INTRAVENOUS PRN sodium chloride 0.9 % (flush) 3-5 mL (BD POSIFLUSH) 3-5 mL INTRAVENOUS q 12 H ondansetron orally disintegrating 4 mg tab(s) (ZOFRAN ODT) 4 mg ORAL q 6 H PRN Or ondansetron (PF) 4 mg injection (ZOFRAN) 4 mg INTRAVENOUS q 6 H PRN acetaminophen 650 mg tab(s) (TYLENOL) 650 mg ORAL q 6 H PRN citalopram 10 mg tab(s) (CeleXA) 10 mg ORAL DAILY cyanocobalamin 500 mcg tab(s) (VITAMIN B-12) 500 mcg ORAL DAILY venlafaxine 37.5 mg tab(s) (EFFEXOR) 37.5 mg ORAL BID atorvastatin 40 mg tab(s) (LIPITOR) 40 mg ORAL AT BEDTIME NaCl 0.9% iv infusion 75 mL/hr INTRAVENOUS CONTINUOUS morphine 2 mg injection 2 mg INTRAVENOUS q 4 H PRN NaCl 0.9% iv infusion 100 mL/hr INTRAVENOUS CONTINUOUS aspirin 81 mg chewable tab(s) 81 mg ORAL DAILY cyclobenzaprine 10 mg tab(s) (FLEXERIL) 10 mg ORAL TID PRN Objective PHYSICAL EXAM: BP 138/74 Pulse 80 Temp (Src) 97.5 (Temporal Artery) Resp 17 Ht 5' 0" (1.52m) Wt 150 lb 2.1 oz (68.1kg) SpO2 95% LMP 02/26/2006 BMI 29.32 kg/(m2). O2 Therapy: Room Air Physical Exam Performed Constitutional: In no apparent distress. Vital signs stable Eye: Pupils are equal. ENMT: No visible external trauma. Hearing grossly intact. Oropharynx without lesions Neck: No adenopathy, no Jugular Vein Distention Cardiovascular: Regular rate and rhythm. S1 and S2, without murmurs, without gallops, without rubs Respiratory: Chest with clear breath sounds bilaterally. No wheezes, no rales, no rhonchi Gastrointestinal: Soft, without detectable tenderness. No sign of distention. No rebound or guarding, no masses palpated. Bowel sounds present Musculoskeletal: Good range of motion of all major joints. Extremities without clubbing, cyanotic features in L foot, great toe and 4 digit, without edema, pulses present by doppler Integumentary: No rash, no bruising, no lesions, Neurologic: Oriented to person, place and time. No focal sensory or strength deficits. Speech normal. Follows commands. Psychiatric: Calm, cooperative, appropriate Lines, Drains, and Airways Line Duration Peripheral 12/19/21 2159 Short Right Antecubital 20 Gauge <1 day Reviewed lines and needs to be continued: REASONS: heparin dripp DATA: Diagnostic tests reviewed for today's visit: Most recent imaging CBC, Coags, BMP, Mg, Phos Recent Labs 12/20/21 0410 12/19/212005 WBC 12.69* 12.50* HB 14.2 15.4 HCT 42.4 43.8 PLT 222 225 INR <0.9* -- APTT 40.1* -- NA 138 139 K 4.0 3.8 CHLOR 105 105 CO2 22 24 BUN 11 14 CREAT 0.56* 0.61 GLUC 100* 150* CA 9.1 9.8 Assessment/Plan Problem List Leg pain POA: Yes History of breast cancer POA: Yes HOSPITAL COURSE: Jana Mcclain is a 56 year old female presented with past medical history of Principal Problem: Leg pain 2/2 PVD S/p stent of distal infrarenal abdominal aorta and bilateral common iliac arteries done by Vascular on 12/20/21 -Continue pt on ASA -smoking cessation education provided Active Problems: History of breast cancer Hx of breast cancer 13-14 years ago treated with lumpectomy and chemo/radiation, completed tamoxifen Follows with Dr. Erwin Per patient she had mammogram done last month with follow up She states the report mentions she has not dense breasts but she does not remember if she needed to do any further work-up. -Obtain mammogram records from [facility] in [facility] Pulmonary nodules Patient states she has known about pulmonary nodules for the last 2 to 3 years and has been followed up outpatient for this. Incidentally found on ct abd/pel, CT chest was ordered CT chest showed Numerous pulmonary nodules throughout the lungs, measuring up to 8 mm. These are worrisome for metastatic disease, though an infectious process is not excluded. * Probable radiation fibrosis of the left upper lobe. * Bandlike and nodular soft tissue within the left axilla likely reflects surgical change/scarring, though recommend correlation with dedicated mammographic imaging. * Scattered areas of groundglass and adjacent lucency could reflect early edema versus air trapping. -Patient is to have a CT chest (more content not included)...[facility] 12-16-2021 Miscellaneous Notes* Telephone Encounter - Indira Blum RN - 12/16/2021 3:58 PM EDT Call placed to patient and notified for worsening pain to go to ED and for work restrictions to follow up with PCP. Patient verbalizes understanding. Indira Blum RN * Telephone Encounter - Indira Blum RN - 12/16/2021 3:00 PM EDT Patient calls to report that she was not able to go to work today. Employer told her she couldn't return until she has a doctor's note. Patient seen on 12/15/2021 in [facility]. X-ray completed today. She reports that she has an appointment with Dr. London on 12/18/2021 for follow up. Patient has note from appointment 12/15/2021. Reviewed appointment note that states follow up with primary care as needed. Patient reports she is following up with Dr. London and asking if provider would write a note until then. Call back number for patient is [phone]. Indira Blum RN documented in this encounter[facility]22 History of Present illness Narrative* Radames Marks, BOOK SORTER.PHARMACY DISTRICT MANAGER - 12/15/2021 11:58 AM EDT Images from the original note were not included. Subjective HPI Nontoxic-appearing female presents urgent care chief complaint left great toe and fourth digit pain. Duration of symptoms 1 month. Associated symptoms pain and discoloration. Patient states pain was transient over first 2 weeks. States pain would come and go. Has been persistent over the last 2 weeks. Rates pain 9- 10 out of 10. Has used OTC medications this has not helped. Denies any known trauma. Denies history of pain similar to this. Denies any numbness no tingling. No decrease sensation. Denies any fever body aches chills nausea vomiting abdominal pain. Past medical history prescription medication use allergies reviewed. .Patient presents with: Pain: (LT) toe pain rated 10, x1 mth, denied accident/injury. PAST MEDICAL HISTORY Diagnosis Date Breast cancer (HCC) 03/13/2008 left breast Female infertility of other specified origin ITP (idiopathic thrombocytopenic purpura) Osteoporosis, unspecified Osteoporosis Syncope Thrombocytopenia, unspecified (HCC) Thyroid nodule Tobacco use disorder PAST SURGICAL HISTORY Procedure Laterality Date DELIVERY ONLY 1987 and 01/18/2007 PAST SURGICAL HISTORY OF 05/10/2009 partial hysterectomy PAST SURGICAL HISTORY OF 2008 lumpectomy left breast SPLENECTOMY,GASTROESOPHAGEAL DEVASCULARIZA ALLERGIES Prednisone MEDICATIONS cyclobenzaprine 10 mg tablet Take 1 tablet by mouth three times daily as needed. citalopram 20 mg tablet Take 20 mg by mouth. 1/2 tab twice daily Meclizine HCl 25 mg cap Take 1 tablet by mouth as needed. simvastatin 20 mg tablet Take 20 mg by mouth daily at bedtime. cyanocobalamin (VITAMIN B-12) 500 mcg tablet Take 1 tablet by mouth once daily. Estradiol (VAGIFEM) 10 mcg vaginal tablet Use 10 mcg vaginally. twice weekly ergocalciferol, vitamin D2, (DRISDOL) 50,000 unit capsule Take 1 capsule by mouth once each week. (Patient not taking: Reported on 12/15/2021) fluconazole 150 mg tablet Take 150 mg by mouth. 1 tablet every 4 days penicillin V potassium 500 mg tablet Take 500 mg by mouth. 1 tablet every 6 hours for temp over 101 predniSONE 10 mg tablet Take 0.5 tablets by mouth every 48 hours. FAMILY HISTORY Problem Relation Age of Onset Cancer Father lung and throat, Diabetes Mother Hypertension Mother Breast Cancer Sister x2 sisters Heart Father Diabetes Sister Cancer Brother thyroid cancer, Social History Tobacco Use Smoking status: Every Day Packs/day: 1.00 Years: 28.00 Pack years: 28.00 Types: Cigarettes Smokeless tobacco: Never Substance Use Topics Alcohol use: No Drug use: No BP 122/68 Pulse 94 Temp 36.7 C (98 F) Resp 18 Wt 68 kg (150 lb) LMP 02/26/2006 SpO2 97% BMI 26.36 kg/m Review of Systems Constitutional: Negative for chills, fever and malaise/fatigue. HENT: Negative for congestion, ear discharge, ear pain, sinus pain and sore throat. Eyes: Negative for blurred vision, pain, discharge and redness. Respiratory: Negative for cough, hemoptysis, sputum production, shortness of breath, wheezing and stridor. Cardiovascular: Negative for chest pain. Gastrointestinal: Negative for abdominal pain, diarrhea, nausea and vomiting. Musculoskeletal: Negative for joint pain and myalgias. Skin: Negative for itching and rash. Neurological: Negative for dizziness and headaches. Objective Physical Exam Constitutional: General: She is not in acute distress. Appearance: She is not diaphoretic. HENT: Head: Normocephalic. Eyes: Conjunctiva/sclera: Conjunctivae normal. Pupils: Pupils are equal, round, and reactive to light. Cardiovascular: Rate and Rhythm: Normal rate and regular rhythm. Heart sounds: Normal heart sounds. Pulmonary: Effort: Pulmonary effort is normal. No tachypnea, accessory muscle usage or respiratory distress. Breath sounds: Normal breath sounds. No stridor. No wheezing, rhonchi or rales. Musculoskeletal: Cervical back: Normal range of motion and neck supple. No rigidity or tenderness. Feet: Feet: Comments: Discoloration plantar aspect of first and fourth digit. No breaks in the skin noted. Neurovascular intact. No decrease sensation noted. Brisk cap refill player and Lymphadenopathy: Cervical: No cervical adenopathy. Skin: General: Skin is warm and dry. Neurological: Mental Status: She is alert and oriented to person, place, and time. ASSESSMENT/PLAN: 1. Foot pain, left - ICD9: 729.5, ICD10: M79.672 - XR FOOT GENERAL 3V AP/LAT/OBL LEFT IMPRESSION: No acute process is seen. No fractures noted on x-ray. Neurovascular was intact during exam. Will follow- up with podiatry. Red flags for prompt ER evaluation discussed. Patient was educated on supportive therapies. Patient will follow up with primary care provider as needed. Patient was instructed to immediately proceed to emergency room for any new, worsening, or symptoms lasting longer than anticipated. The patient's clinical presentation is otherwise unremarkable at this time. Based on exam and clinical finding, the patient is stable for discharge. Plan of care was discussed with patient. Patient verbalizes understanding and agrees to plan of care. This note was generated using [employer] software. It may contain errors in wording, punctuation, or spelling. Radames Marks APRN.LUCAS documented in this encounterUk HealthcareEvaluation + Plan note Future Appointments Appointment Date:08/15/2021 10:30:00 AM Scheduled Provider:CHIARA TOWNSEND MD Location:[facility] Appointment Type: OV Future Scheduled Tests Laboratory* Pathology Tissue Request 08/15/20 Radiology* XR Hip Minimum 2 Views Left 02/14/21 [facility] Evaluation + Plan note Future Appointments Appointment Date:06/27/2022 11:00:00 AM Scheduled Provider:BRENT MENARD DO Location:[facility] Appointment Type: Wellness Annual Future Scheduled Tests Laboratory* Thyroid Stimulating Hormone 02/14/22 * Free T4 02/14/22 * Vitamin B12 Level 02/14/22 * Complete Blood Count 02/14/22 * Lipid Profile 02/14/22 * Hepatitis C Antibody IgG 02/14/22 * Vitamin D Level 02/14/22 * Complete Metabolic Panel 02/14/22 [facility] evaluation + Plan note Future Appointments Appointment Date:08/28/2022 11:30:00 AM Scheduled Provider:BRENT MENARD DO Location:[facility] Appointment Type: Wellness Annual Future Scheduled Tests Laboratory* Thyroid Stimulating Hormone 02/14/22 * Free T4 02/14/22 * Vitamin B12 Level 02/14/22 * Complete Blood Count 02/14/22 * Lipid Profile 02/14/22 * Hepatitis C Antibody IgG 02/14/22 * Vitamin D Level 02/14/22 * Complete Metabolic Panel 02/14/22 [facility] evaluation + Plan note Future Appointments Appointment Date:08/03/2023 11:00:00 AM Scheduled Provider:BRENT MENARD DO Location:[facility] Appointment Type: OV Diagnostic Tests Pending * LDL Cholesterol (Direct) 07/25/23 Future Scheduled Tests Radiology* CT Low Dose Lung Cancer Screening (LDCT) 08/28/22 [facility] evaluation + Plan note Future Appointments Appointment Date:01/26/2024 10:00:00 AM Scheduled Provider: Location:[facility] Appointment Type:PC Nurse Lab Appointment Date:02/01/2024 11:00:00 AM Scheduled Provider:BRENT MENARD DO Location:[facility] Appointment Type: Wellness Annual Future Scheduled Tests Laboratory* Thyroid Stimulating Hormone 08/03/23 * A1C Hemoglobin 08/03/23 * Complete Blood Count 08/03/23 * Vitamin D Level 08/03/23 * Complete Metabolic Panel 08/03/23 [facility] evaluation + Plan note Future Appointments Appointment Date:01/26/2024 10:00:00 AM Scheduled Provider: Location:[facility] Appointment Type:PC Nurse Lab Appointment Date:02/01/2024 11:00:00 AM Scheduled Provider:BRENT MENARD DO Location:[facility] Appointment Type:PC Wellness Annual Future Scheduled Tests Laboratory* Complete Blood Count 11/27/23 * Complete Metabolic Panel 11/27/23 [facility] evaluation + Plan note Future Appointments Appointment Date:02/01/2024 11:00:00 AM Scheduled Provider:BRENT MENARD DO Location:[facility] Appointment Type: Wellness Annual Future Scheduled Tests Laboratory* TSH with Reflex to FT4 07/25/24 * Complete Blood Count 07/25/24 * Lipid Profile 07/25/24 * Albumin/Creatinine Ratio, Random Urine 07/25/24 * Complete Metabolic Panel 07/25/24 Radiology* CT Low Dose Lung Cancer Screening (LDCT) 01/26/24 [facility] Evaluation + Plan note Future Scheduled Tests Laboratory* TSH with Reflex to FT4 07/25/24 * Complete Blood Count 07/25/24 * Lipid Profile 07/25/24 * Albumin/Creatinine Ratio, Random Urine 07/25/24 * Complete Metabolic Panel 07/25/24 [facility] Spreadsavealuation + Plan note Future Appointments Appointment Date:04/18/2024 08:30:00 AM Scheduled Provider: Location:[facility] Appointment Type:US Abdomen Complete Appointment Date:08/15/2024 11:00:00 AM Scheduled Provider:BRENT MENARD DO Location:[facility] Appointment Type: Wellness Annual Future Scheduled Tests Laboratory* TSH with Reflex to FT4 07/25/24 * Complete Blood Count 07/25/24 * Lipid Profile 07/25/24 * Complete Metabolic Panel 07/25/24 Radiology* US Abdomen Complete 04/18/24 [facility] evaluation + Plan note Future Appointments Appointment Date:08/15/2024 11:00:00 AM Scheduled Provider:BRENT MENARD DO Location:[facility] Appointment Type: Wellness Annual Future Scheduled Tests Laboratory* TSH with Reflex to FT4 07/25/24 * Complete Blood Count 07/25/24 * Lipid Profile 07/25/24 * Complete Metabolic Panel 07/25/24 [facility] evaluation + Plan note Future Appointments Appointment Date:05/30/2024 01:00:00 PM Scheduled Provider:KARIE SHAFFER MD Location:[facility] Appointment Type:GS OV Post Op Appointment Date:08/15/2024 11:00:00 AM Scheduled Provider:BRENT MENARD DO Location:[facility] Appointment Type:PC Wellness Annual Future Scheduled Tests Laboratory* TSH with Reflex to FT4 07/25/24 * Complete Blood Count 07/25/24 * Lipid Profile 07/25/24 * Complete Metabolic Panel 07/25/24 [facility] evaluation noteNo assessment information available [facility] Work Phone: evaluation note* Diagnosis Foot pain, left- Primary Pain in limb [facility]* Diagnosis Aortoiliac stenosis (HCC)- Primary Atherosclerosis of [facility]* Diagnosis Onset Date Resolution Status Cancer of left female breast chronic Erythrocytosis chronic Lung nodules chronic Lymphocytosis chronic Post-splenectomy chronic Chronic ITP (idiopathic thrombocytopenic purpura) resolved [facility] Work Phone: evaluation note* Diagnosis Encounter for gynecological examination (general) (routine) without abnormal findings- Primary [facility]* Diagnosis S/P aortobifemoral bypass surgery- Primary Other postprocedural status 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) Aortoiliac stenosis (HCC) Atherosclerosis of aorta documented in this encounter [facility]* Diagnosis Encounter for post surgical wound check- Primary Visit for suture removal Encounter for removal of sutures Aortoiliac stenosis (HCC) Atherosclerosis of aorta S/P aortobifemoral bypass surgery Other postprocedural status H/O fasciotomy Personal history of surgery to other organs Edema, unspecified type documented in this encounter [facility]* Diagnosis Foot pain, left Pain in limb documented in this encounter [facility]* Diagnosis Encounter for gynecological examination (general) (routine) without abnormal findings- Primary Encounter for screening mammogram for breast cancer Osteoporosis without current pathological fracture, unspecified osteoporosis type [facility] Diagnosis 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 Peripheral arterial disease Peripheral vascular disease, unspecified [facility] Narrative No data available for this section [facility] Hospital Discharge instructions No data available for this section [facility] Progress note No data available for this section [facility] Reason for referral (narrative)* Diagnostic Procedure Only (Urgent) - Closed Specialty Diagnoses / Procedures Referred By Contac t Referred To Contact XR IMAGING Diagnoses Foot pain, left Procedures XR FOOT GENERAL 3V AP/LAT/OBL LEFT RADEX FOOT COMPLETE MINIMUM 3 VIEWS Radames Marks APRN.CNP [address] [place] [address] Xr Imaging Referral ID Status Reason Start Date Expiration Date V isits Requested Visits Authorized [id number] Closed Auto-Generate d Referral 12/15/2021 01/14/2023 1 1 [facility] for referral (narrative)* Outpatient Procedure (Routine) - Pending Review Specialty Diagnoses / Procedures Referred By Contac t Referred To Contact [facility] Diagnoses Aortoiliac stenosis (HCC) Procedures US ABD AORTA COMPLETE VAS LAB DUP-SCAN AORTA IVC ILIAC VASCL/BPGS COMPLETE Ronen Green MD [address] [place] [address] [facility] [address] [place] [id number] Referral ID Status Reason Start Date Expiration Date Visits Requested Visits Authorized [id number] Pending Review Auto-Generat ed Referral 2 01/01/2023 1 1 [facility] for referral (narrative)* Outpatient Procedure (Routine) - Authorized Specialty Diagnoses / Procedures Referred By Contac t Referred To Contact [facility] [place] Diagnoses S/P aortobifemoral bypass surgery Aortoiliac stenosis (HCC) Procedures PVR ANK/GARCIA/TOE CANDELARIA VAS LAB NON-INVAS PHYSIOLOGIC STD EXTREMITY ART 2 LEVEL Zabrina Xiong APRN.PHARMACY DISTRICT MANAGER [address] [facility] [place] [address] [facility] [place] [address] Referral ID Status Reason Start Date Expiration Date Visits Requested Visits Authorized [id number] Authorized Auto-Generat ed Referral 12/04/2023 12/03/2024 1 1 * Outpatient Procedure (Routine) - Authorized Specialty Diagnoses / Procedures Referred By Contac t Referred To Contact [facility] [place] [facility] Diagnoses S/P aortobifemoral bypass surgery Aortoiliac stenosis (HCC) Procedures US ABD AORTA COMPLETE VAS LAB DUP-SCAN AORTA IVC ILIAC VASCL/BPGS COMPLETE Zabrina Xiong, ISIDRA.PHARMACY DISTRICT MANAGER [address] [place] [address] [place] [address] Referral ID Status Reason Start Date Expiration Date Visits Requested Visits Authorized [id number] Authorized Auto-Generat ed Referral 12/04/2023 12/03/2024 1 1 [facility] for referral (narrative)* Diagnostic Procedure Only (Urgent) - Closed Specialty Diagnoses / Procedures Referred By Contac t Referred To Contact XR IMAGING Diagnoses Foot pain, left Procedures XR FOOT GENERAL 3V AP/LAT/OBL LEFT RADEX FOOT COMPLETE MINIMUM 3 VIEWS Radames Marks APRN.PHARMACY DISTRICT MANAGER [address] [place] [address] Xr Imaging [facility] Referral ID Status Reason Start Date Expiration Date V isits Requested Visits Authorized [id number] Closed Auto-Generate d Referral 12/15/2021 01/14/2023 1 1 [facility] N[facility]* Diagnostic Procedure Only (Urgent) - Closed Specialty Diagnoses / Procedures Referred By Mike t Referred To Contact XR IMAGING Diagnoses Foot pain, left Procedures XR FOOT GENERAL 3V AP/LAT/OBL LEFT RADEX FOOT COMPLETE MINIMUM 3 VIEWS Radames Marks APRN.CNP [address] [place] [address] [place] [id number] Referral ID Status Reason Start Date Expiration Date V isits Requested Visits Authorized [id number] Closed Auto-Generate d Referral 12/15/2021 01/14/2023 1 1 [facility] Chief Complaint and Reason for Visit Chief Complaint BIOSPY BONE/SOFT TIS HIMANSHU MANDIBLE Chief Complaint SCREENING Chief Complaint ONC/HEM SCREENING Reason for Visit Cancer of left femal e breast Erythrocytosis Lung nodules Lymphocytosis Post-splenectomy Chronic ITP (idiopathic thrombocytopenic purpura) Family History No Family History Records Found Relationship Condition Age at Onset Recorded Date/T [place] mother Diabetes mellitus Unknown Hypertension Unknown father Malignant neoplasm of lung Unknown Advance Directives No Advanced Directives Records Found Advance Directive Response Recorded Date/ Time Living Will No December 28 2:13pm Power of Medical Dermatologist No December 29, 2019 2:13pm Summary Purpose Additional Source Comments Source Comments (unrecognize d section and content) In the event this informatio n is protected by the Federal Confidentiality of Alcohol and Drug Abuse Patient Records regulations: The Federal rules restrict any use of the information to criminally investigate or prosecute any alcohol or drug abuse patient.[facility] HealthcareIn the event this information is protected by the Federal Confidentiality of Alcohol and Drug Abuse Patient Records regulations: The Federal rules restrict any use of the information to criminally investigate or prosecute any alcohol or drug abuse patient.[facility] HealthcareIn the event this information is protected by the Federal Confidentiality of Alcohol and Drug Abuse Patient Records regulations: The Federal rules restrict any use of the information to criminally investigate or prosecute any alcohol or drug abuse patient.[facility] HealthcareIn the event this information is protected by the Federal Confidentiality of Alcohol and Drug Abuse Patient Records regulations: The Federal rules restrict any use of the information to criminally investigate or prosecute any alcohol or drug abuse patient.[facility] HealthcareIn the event this information is protected by the Federal Confidentiality of Alcohol and Drug Abuse Patient Records regulations: The Federal rules restrict any use of the information to criminally investigate or prosecute any alcohol or drug abuse patient.[facility] HealthcareIn the event this information is protected by the Federal Confidentiality of Alcohol and Drug Abuse Patient Records regulations: The Federal rules restrict any use of the information to criminally investigate or prosecute any alcohol or drug abuse patient.[facility] HealthcareIn the event this information is protected by the Federal Confidentiality of Alcohol and Drug Abuse Patient Records regulations: The Federal rules restrict any use of the information to criminally investigate or prosecute any alcohol or drug abuse patient.[facility] HealthcareIn the event this information is protected by the Federal Confidentiality of Alcohol and Drug Abuse Patient Records regulations: The Federal rules restrict any use of the information to criminally investigate or prosecute any alcohol or drug abuse patient.[facility] HealthcareIn the event this information is protected by the Federal Confidentiality of Alcohol and Drug Abuse Patient Records regulations: The Federal rules restrict any use of the information to criminally investigate or prosecute any alcohol or drug abuse patient.[facility] HealthcareIn the event this information is protected by the Federal Confidentiality of Alcohol and Drug Abuse Patient Records regulations: The Federal rules restrict any use of the information to criminally investigate or prosecute any alcohol or drug abuse patient.[facility] HealthcareIn the event this information is protected by the Federal Confidentiality of Alcohol and Drug Abuse Patient Records regulations: The Federal rules restrict any use of the information to criminally investigate or prosecute any alcohol or drug abuse patient.[facility] HealthcareIn the event this information is protected by the Federal Confidentiality of Alcohol and Drug Abuse Patient Records regulations: The Federal rules restrict any use of the information to criminally investigate or prosecute any alcohol or drug abuse patient.[facility] HealthcareIn the event this information is protected by the Federal Confidentiality of Alcohol and Drug Abuse Patient Records regulations: The Federal rules restrict any use of the information to criminally investigate or prosecute any alcohol or drug abuse patient.[facility] HealthcareIn the event this information is protected by the Federal Confidentiality of Alcohol and Drug Abuse Patient Records regulations: The Federal rules restrict any use of the information to criminally investigate or prosecute any alcohol or drug abuse patient.[facility] Goals (unrecognized section and content) Goals may be documented in a n alternate section Reason for Visit (unrecogniz ed section and content) Reason Comments Pain (LT) toe pain rated 10, x1 mth, denied accident/injury. 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 Reason Comments Follow Up Phone Call Relate care dischar ge follow up-1st attempt-no contact-left vm Reason Comments Post Op Reason Comments Wound Check Reason Comments Well Woman Reason Comments Results Reason Comments Patient Question Reason Comments Established Patient Reason Comments Refill Request Care Teams (unrecognized sec tion and content) Snow Maker Relationship Specialty Start Date End Date Jessica Rowan Jr., MD PCP - General Internal Medicine 05/31/13 Snow Maker Relationship Specialty Start Date End Date Jessica Rowan Jr., MD PCP - General Internal Medicine 05/31/13 Team Status: Active Member Role Status Dates No Primary Care Physician Family Provider Active Dr. Brent Menard DO Primary Care Provider Active Team Status: Active Member Role Status Dates Dr. Kinjal Curtis MD Attending Provider, Referrin g Provider Active No Primary Care Physician Primary Care Provider, Famil y Provider Active Team Status: Inactive Member Role Status Dates Dr. Brent Menard DO Primary Care Provider Active Dr. Kinjal Curtis MD Attending Provider, Referrin g Provider Active Snow Maker Relationship Specialty Start Date End Date Brent Menard DO [address] [place] [address] PCP - General Family Medicine 11/03/23 Snow Maker Relationship Specialty Start Date End Date Brent Menard DO [address] [place] [address] PCP - General Family Medicine 11/03/23 Snow Maker Relationship Specialty Start Date End Date Brent Menard DO [address] [place] [id number] PCP - General Family Medicine 11/03/23 Snow Maker Relationship Specialty Start Date End Date Jessica Rowan Jr., MD PCP - General Internal Medicine 05/31/13 12/18/21 Snow Maker Relationship Specialty Start Date End Date Brent Menard DO [address] [place] [id number] PCP - General Family Medicine 11/03/23 Snow Maker Relationship Specialty Start Date End Date Brent Menard DO [address] [place] [address] PCP - General Family Medicine 11/03/23 Snow Maker Relationship Specialty Start Date End Date Brent Menard DO [address] [place] [address] PCP - General Family Medicine 11/03/23 Snow Maker Relationship Specialty Start Date End Date Brent Menard DO [address] [place] [id number] PCP - General Family Medicine 11/03/23 INFORMATION SOURCE (unrecogn ized section and content) DATE CREATED AUTHOR 01/14/2022 [facility] DATE CREATED AUTHOR AUTHOR'S ORGANIZ ATION 11/01/2023 [facility] ([place]) DATE CREATED AUTHOR AUTHOR'S ORGANIZ ATION 06/22/2024 [facility] DATE CREATED AUTHOR AUTHOR'S ORGANIZ ATION 12/27/2024 [facility] DATE CREATED AUTHOR AUTHOR'S ORGANIZ ATION 01/16/2025 [facility] Care Team (unrecognized sect ion and content) Care Team Personnel Name: BRENT MENARD DO Position: P4 Physician - Primary Care Member Role: Primary Care Physician Address: Address: [address] [facility] [place] [address]- Name: RADHIKA GONZALES MD Position: ED Physician Member Role: ED Physician Address: Address: [facility] [address] [place] [address]- Name: LISSA Bourgeois Position: AO RN Member Role: ED RN Care Team Related Persons Name: ABIGAIL MCCLAIN Address: Home [id number] [place] [phone] FOR RECORDS PERTAINING TO PATIENTS WHO ARE OR HAVE BEEN ENROLLED IN A CHEMICAL DEPENDENCY/SUBSTANCEABUSE PROGRAM, SOME INFORMATION MAY BE OMITTED. This clinical summary was aggregated from multiple sources. Caution should be exercised in using it in the provision of clinical care. This summary normalizes information from multiple sources, and as a consequence, information in this document may materially change the coding, format and clinical context of patient data. In addition, data may be omitted in some cases. CLINICAL DECISIONS SHOULD BE BASED ON THE PRIMARY CLINICAL RECORDS. [employer] provides no warranty or guarantee of the accuracy or completeness of information in this document.
== END | disposition home or self-care (01) ==
PROVIDERS: Referring Provider Nurse Practitioner Family; Visit Provider Nurse Practitioner Family
DX: Z12.31 Encounter for screening mammogram for malignant neoplasm of breast (principal)
CPT/HCPCS: 77063; 77067